=== PATIENT | male | born 1940 | race Caucasian/White ===

== ENCOUNTER 2016-07-18 05:58 | Day surgery (SDC) | payer OTHER, MEDICARE ==
[2016-07-14 11:30] VITALS: BMI 23.8
[2016-07-18] MEDS ORDERED: SODIUM CHLORIDE 0.9% 1,000 ML in EMPTY BAG 1 BAG IV ONE (06:00)
[2016-07-18] MEDS ORDERED: NITROGLYCERIN SL TABS 0.4 MG TAB SUBLINGUAL PRN ×2 (06:00→09:14)
[2016-07-18] MEDS ORDERED: ATORVASTATIN 80 MG TAB PO STA (06:00)
[2016-07-18] MEDS ORDERED: ASPIRIN 325 MG TAB PO STA (06:00)
[2016-07-18] MEDS ORDERED: ALPRAZolam 0.25 MG TAB PO PRN (06:00)
[2016-07-18] MEDS ORDERED: ALPRAZolam 0.5 MG TAB PO PRN (06:00)
[2016-07-18 06:31] LABS: Basophils % (A) 0 %; CHCM 33.2; Eosinophils # (A) 0.3 k/uL (0-0.7); Eosinophils % (A) 6 %; HCT 43.7 % (39.0-53.0); HGB 14.3 gm/dL (13.0-17.5); Luc # (Auto) 0.09; Luc % (Auto) 2; Lymphocytes # (A) 1.1 k/uL (1.0-4.8); Lymphocytes % (A) 26 %; MCH 30.6 pg (25.0-35.0); MCHC 32.6 g/dL (31.0-37.0); MCV 93.8 fL (80.0-100.0); Mean Platelet Volume 7.1; Monocytes # (A) 0.3 k/uL (0-1.0); Monocytes % (A) 8 %; Neutrophils # (A) 2.4 k/uL (1.3-7.7); Neutrophils % (A) 57 %; RBC 4.66 m/uL (4.30-5.90); WBC 4.2 k/uL (3.8-10.6); WBC (Perox) 4.26
[2016-07-18 06:43] LABS: Anion Gap 12 mmol/L; Blood Urea Nitrogen 18 mg/dL (9-20); Calcium 9.1 mg/dL (8.4-10.2); Carbon Dioxide 28 mmol/L (22-30); Chloride 103 mmol/L (98-107); Glucose 95 mg/dL (74-99); Non-African American GFR(MDRD) >60 (>60 ml/min/1.73 sqM); Potassium 3.9 mmol/L (3.5-5.1); Sodium 143 mmol/L (137-145)
[2016-07-18] MEDS ORDERED: SODIUM CHLORIDE 0.9% (PF) 10 ML VIAL ONE ×2 (07:18→07:49)
[2016-07-18] MEDS ORDERED: LIDOCAINE 2% INJ 20 MG/ML (20 ML MDV) ONE (07:18)
[2016-07-18] MEDS ORDERED: VERAPAMIL 2.5 MG/ML 2 ML AMP ONE ×2 (07:18→07:49)
[2016-07-18] MEDS ORDERED: fentaNYL (PF) 50 MCG/ML 2 ML AMP ONE (07:19)
[2016-07-18] MEDS ORDERED: diphenhydrAMINE 50 MG/ML 1 ML VIAL ONE (07:19)
[2016-07-18] MEDS ORDERED: fentaNYL (PF) 50 MCG/ML 2 ML AMP IV ONE (07:32)
[2016-07-18] MEDS ORDERED: diphenhydrAMINE 50 MG/ML 1 ML VIAL IVP ONE (07:32)
[2016-07-18] MEDS ORDERED: LIDOCAINE 2% INJ 20 MG/ML SQ ONE (07:37)
[2016-07-18] MEDS: VERAPAMIL SYRINGE (5 MG/10 ML) INTRAARTER ONE ×2 (07:38→07:45)
[2016-07-18] MEDS ORDERED: MIDAZOLAM 2 MG/2 ML VIAL ONE (07:47)
[2016-07-18] MEDS ORDERED: MIDAZOLAM 2 MG/2 ML VIAL IVP ONE (07:49)
[2016-07-18] MEDS ORDERED: BIVALIRUDIN BOLUS 250 MG/50 ML IV ONE (07:57)
[2016-07-18] MEDS ORDERED: CLOPIDOGREL 75 MG TAB ONE (07:58)
[2016-07-18] MEDS ORDERED: BIVALIRUDIN 250 MG in SODIUM CHLORIDE 0.9% 50 ML IV ONE (07:58)
[2016-07-18] MEDS ORDERED: CLOPIDOGREL 75 MG TAB PO ONE (08:02)
[2016-07-18] MEDS ORDERED: NITROGLYCERIN 1000MCG/10ML SYRINGE INTRACORON ONE (08:05)
[2016-07-18] MEDS ORDERED: IOHEXOL 350 MG/ML 100 ML BOTTLE INJ ONE (09:00)
[2016-07-18] MEDS ORDERED: ZOLPIDEM 5 MG TAB PO PRN (09:14)
[2016-07-18] MEDS ORDERED: RX INFO: IV CONTRAST WAS GIVEN 1 EACH MISC MISCELLANE PRN (09:14)
[2016-07-18] MEDS ORDERED: MAG HYDROX/AL HYDROX/SIMETH 30 ML CUP PO PRN (09:14)
[2016-07-18] MEDS ORDERED: SODIUM CHLORIDE 0.9% 1,000 ML IV SCH (09:15)
[2016-07-18] MEDS ORDERED: HYDROcodone/APAP 10-325MG 1 EACH TAB PO PRN (09:16)
[2016-07-18] MEDS ORDERED: ARTIFICIAL TEARS-HYPROMELLOSE DROPS 15 ML BTL BOTH EYES PRN (09:16)
[2016-07-18] MEDS ORDERED: MELATONIN 5 MG TABLET PO PRN (09:16)
--- NOTE | 2016-07-18 09:31 | CC ---
DATE OF SERVICE: Mr. Snell is a 75-year-old male with known history of hypertension, family history of coronary artery disease, history of mitral valve repair in 2002 who recently was found to have significant impairment in the left ventricular systolic function by EKG SPECT images with a reversible apical defect. In view of that, recommendation was made regarding cardiac catheterization. The procedure as well as risks and complications were discussed with the patient who is in full understanding and agreement. PROCEDURE: The patient was brought to the chemistry laboratory technician in fasting semi-sedated state after receiving fentanyl and Benadryl. He was draped and prepped in conventional fashion. Using Xylocaine anesthesia and Seldinger technique, a 6-Nepalese sheath was introduced in right radial artery. Selective right and left coronary angiography was performed using 5-Nepalese, 3-1/2 Bend right and left Miah catheters and a 6-Nepalese Willard catheter. Images of the coronary arteries were obtained. Following that, catheter removed. Images were reviewed. FINDINGS: LEFT MAIN: This is a short-sized vessel trifurcating into left circumflex, left anterior descending artery. The left main coronary artery is without any significant obstructive disease. LEFT ANTERIOR DESCENDING ARTERY: This is a large-size vessel proximally reaches towards the apex tapers down distally, giving rise to moderately sized diagonal branch in the mid segment. The vessel is mildly calcified in the mid segment and proximally has a 99% stenosis. Beyond that, there is intimal disease without high-grade stenosis. LEFT CIRCUMFLEX: This is a small size vessel, giving rise to one obtuse marginal branch. The left circumflex proximally has a 99% stenosis. The rest of the vessel has no high-grade stenosis. RAMUS INTERMEDIUS: This is a large size vessel reaching toward the apical lateral wall. The ramus intermedius proximally has a 70% stenosis. The rest of the vessel has no high-grade stenosis. RIGHT CORONARY ARTERY: This is a large dominant vessel, bifurcating distally into PDA and posterolateral segment and branches. The right coronary artery has diffuse intimal disease without any evidence of high-grade stenosis. LEFT VENTRICULOGRAM: Left ventriculogram was not performed. CONCLUSION: 1. Critical stenosis involving the proximal LAD. 2. Significant stenosis involving the ramus intermedius and the proximal left circumflex. 3. Mild disease in the right coronary artery. RECOMMENDATIONS: In view of finding anatomy, I recommend proceeding with angioplasty and stenting. The procedure as well as risks and complications were discussed with the patient who is in full understanding and agreement. DARIANA
--- NOTE | 2016-07-18 09:39 | PTCA ---
DATE OF SERVICE: Mr. Snell is a 75-year-old male with a known history of mitral valve repair who presented with evidence of significant cardiomyopathy and progressive dyspnea underwent cardiac catheterization, was found to have critical stenosis involving the LAD, ramus intermedius and the left circumflex. Recommendation was made regarding angioplasty and stenting. The procedure as well as risks and complications were discussed with the patient who is in full understanding and agreement. PROCEDURE: A 6-Turkish EBU 3.75 guiding catheter was introduced in the system. After cannulating the left main, a 0.014 balanced medium weight J-wire was advanced across the lesion, positioned distally then a 2.5 x 12 mm Trek balloon was advanced and multiple inflations maximum of 10 atmospheres were done. Following that, the balloon was removed and a 2.75 x 23 mm Xience Alpine stent was deployed, postdilated at 14 atmospheres. Following that, the balloon was removed and a 3.0 x 15 mm Xience Alpine stent was deployed proximal to the first one, it is postdilated to 14 atmospheres. Then an inflation in the overlap segment at 16 atmospheres was done. Following that, the balloon and the guidewire were withdrawn back in the guiding catheter. Images were obtained and repeated. Those images reveal stable successful stenting. At that point, the wire was introduced in the ramus intermedius and after positioned distally a 2.5 x 12 mm Xience Alpine stent was advanced deployed and postdilated at 14 atmospheres. Following that, the balloon and the guidewire were withdrawn back in the guiding catheter. Images were obtained and repeated. Those images reveal stable successful stenting. At that point, using the help of a Finecross 90 degree catheter, the BMW J-wire was advanced into the distal left circumflex and a 2.5 x 12 mm Trek balloon was advanced, one inflation at 8 atmospheres was done. Following that, the balloon was removed and a 2.5 x 12 mm Xience Alpine stent was deployed, postdilated at 14 atmospheres. After the last inflation, after appropriate wait, the balloon, the guidewire and the guiding catheter were removed. The sheath was removed. Hemostasis was obtained with deployment of a TR band. There were no complications. Patient is returned to his room in stable condition. Of note, the patient received Angiomax per protocol as well as oral loading dose of clopidogrel. He had no chest discomfort or significant EKG changes with the inflation. RESULT: 1. Successful stenting of the proximal left anterior descending artery with reduction in stenosis from 99% to 0%. 2. Successful stenting of the proximal ramus intermedius with reduction in stenosis from 70% to 0%. 3. Successful stenting of the proximal left circumflex with reduction in stenosis from 99% to 0%. RECOMMENDATIONS: Patient will be continued on aspirin Plavix, beta adithya, JUSTINE inhibitor and statin. The importance of dual antiplatelet treatment was discussed with the patient and his family who are in full understanding and agreement. His left ventricular systolic function will be followed closely and depending on the recovery of the left ventriculogram, further recommendation will be made. Those findings and recommendations were discussed with the patient.
--- NOTE | 2016-07-18 09:43 | LTR ---
July 18, 2016 AYANNA COON MD RE: Sharan Snell Dear Dr. Coon: I had the opportunity to perform cardiac catheterization and coronary angioplasty and stenting on Mr. Snell at [facility] on the july and a full copy of the procedure note will be forwarded to you. In brief, he was found to have evidence of significant obstructive disease involving the LAD, ramus intermedius and the left circumflex. He underwent stenting of those vessels using a drug-eluting stent. I am hopeful that this procedure will stabilize his status and close follow up of his left ventriculogram will be needed to see if there is an improvement and if he qualifies for an ICD implantation. I will keep you updated on his progress. Thank you again for allowing me the opportunity to participate in his care. Please feel free to call for any questions. Sincerely yours, MICHELLE GILBERT MD
[2016-07-18 11:11] VITALS: RESP 18
[2016-07-18] MEDS: LISINOPRIL 5 MG TAB PO SCH (20:31)
[2016-07-19 06:38] LABS: Anion Gap 8 mmol/L; Blood Urea Nitrogen 15 mg/dL (9-20); Calcium 8.3 mg/dL (8.4-10.2); Carbon Dioxide 28 mmol/L (22-30); Chloride 104 mmol/L (98-107); Glucose 73 mg/dL (74-99); Non-African American GFR(MDRD) >60 (>60 ml/min/1.73 sqM); Sodium 140 mmol/L (137-145)
--- NOTE | 2016-07-19 07:51 | PN ---
Mr. Snell is a 75-year-old male with known history of mitral valve repair who recently was found to have evidence of ischemic cardiomyopathy with segmental wall motion abnormality on echocardiogram as well as evidence of inducible ischemia. He underwent cardiac catheterization, was found to have critical stenosis involving the LAD, ramus intermedius and the left circumflex, underwent stenting of the those vessels. He is doing well this morning, denying any chest pain, ambulating without difficulty. Denies any dizziness, palpitation. Continued to be on aspirin once a day, Lipitor 40 mg daily, Plavix 75 mg daily, lisinopril 5 mg twice a day, metoprolol succinate 25 mg daily. PHYSICAL EXAMINATION: Blood pressure 124/50 with a heart rate in 60s. LUNGS: Clear. HEART: Regular rate and rhythm. S1 and S2, no S3, with systolic murmur. No diastolic murmur. ABDOMEN: Soft, nontender. EXTREMITIES: No edema. Right radial pulse intact. Lab data revealed BUN and creatinine 15 and 0.9. Potassium 4.0. IMPRESSION: 1. Triple vessel coronary artery disease with stenting using a drug-eluting stent. 2. Cardiomyopathy. 3. Status post mitral valve repair. RECOMMENDATIONS: Patient will be discharged home today and followed as an outpatient. A repeat echocardiogram will be done to further evaluate the left ventricular systolic function and guide his treatment.
[2016-07-19] MEDS: LISINOPRIL 5 MG TAB PO SCH (08:15)
[2016-07-19 08:19] VITALS: BP 117/59; PULSE 58; TEMP 97.5
[2016-07-19] MEDS ORDERED: MULTIVITAMINS, THERA 1 EACH TAB PO SCH (09:00)
[2016-07-19] MEDS ORDERED: ZINC GLUCONATE 50 MG TAB PO SCH (09:00)
[2016-07-19] MEDS ORDERED: CLOPIDOGREL 75 MG TAB PO SCH (09:00)
[2016-07-19] MEDS ORDERED: NON-FORMULARY DRUG (Flaxseed Oil [Omega-3 Flaxseed Oil] 1,000 MG) PO SCH (09:00)
[2016-07-19] MEDS ORDERED: LORATADINE 10 MG TAB PO SCH (09:00)
[2016-07-19] MEDS ORDERED: ASPIRIN 81 MG CHEW PO SCH (09:00)
[2016-07-19] MEDS ORDERED: METOPROLOL SUCCINATE (ER) 25 MG TAB.ER.24H PO SCH (09:00)
[2016-07-19] MEDS ORDERED: ATORVASTATIN 40 MG TAB PO SCH (09:00)
[2016-07-19] MEDS ORDERED: NON-FORMULARY DRUG (Omega-3 Fatty Acids/Fish Oil [Fish Oil 1,000 Mg Softgel] 1 CAP) PO SCH (09:00)
[2016-07-19] MEDS ORDERED: CHOLECALCIFEROL 1,000 UNIT TAB PO SCH (09:00)
== END 2016-07-19 10:25 | disposition home or self-care (01) ==
LOC: CATHCVL 05:58 → 6SEL 08:53 → CATHCVL 07-19 10:25
PROVIDERS: ATTEND Internal Medicine Interventional Cardiology
DX: I25.10 Atherosclerotic heart disease of native coronary artery without angina pectoris (principal); I10 Essential (primary) hypertension; Z82.49 Family history of ischemic heart disease and other diseases of the circulatory system; Z86.73 Personal history of transient ischemic attack (TIA), and cerebral infarction without residual deficits; Z95.2 Presence of prosthetic heart valve; E78.2 Mixed hyperlipidemia; Z87.891 Personal history of nicotine dependence; Z79.82 Long term (current) use of aspirin; Z79.899 Other long term (current) drug therapy
CPT/HCPCS: 93454; 85347; 80048 ×2; 85025; C9600 ×3; C1769 ×4; C1887 ×2; C1894; C1725; C1874; J2001; J2250; J1200; Q9967; J3010; J0583

== ENCOUNTER → 2017-11-02 | Outpatient (CLI) | payer OTHER ==
--- NOTE | 2017-11-02 14:34 | MR ---
MRI CERVICAL SPINE: CLINICAL HISTORY: Cervicalgia per order. Neck pain for 15 years per patient. TECHNIQUE: Multiplanar, multisequence imaging of the cervical spine is performed without and with IV contrast, 7.5 cc of gadolinium was given intravenously. COMPARISON: MRI cervical spine June 23, 2016 FINDINGS: Sagittal images of the cervical spine show the craniocervical junction to remain within nor mal limits. The cervical and upper thoracic spinal cord is normal in course, caliber, and signal in the cervical spine. There is some diminished AP diameter at T3-T4 level due to disc herniation sagitt al image 7 . This was partially imaged on prior study. Vertebral alignment is stable and straightene d. The vertebral body heights are normal. There is advanced disc space narrowing and spurring C3-C4 and C4-C5 levels. There is advanced anterior spurring C5-C6 level with posterior disc herniation. The re is moderate disc space narrowing C6-C7 level. There is effacement of anterior thecal sac and nearl y all cervical levels redemonstrated. The bone marrow signal intensity redemonstrates marked overall heterogeneity. No suspicious enhancement is seen. Axial images show the C2-C3 level to redemonstrate uncovertebral facet degenerative changes bilateral ly with asymmetric mild right-sided neural foraminal narrowing. Left-sided neural foramen is patent. There is persistent small central disc protrusion mildly effacing anterior thecal sac. No significant change from prior. Axial images at C3-C4 level show left paracentral spurring effacing anterior thecal sac up to ventral surface of spinal cord and causing moderate to advanced left-sided neural foraminal narrowing. There is mild right-sided neural foraminal narrowing seen. Uncovertebral facet degenerative changes bilate rally are present. Axial images at C4-C5 level show broad-based posterior spurring effacing anterior thecal sac up to ve ntral surface of spinal cord causing moderate bilateral neural foraminal narrowing. No significant ch esequiel from prior study is identified. Axial images at C5-C6 level show posterior spur disc complex effacing anterior thecal sac nearly up t o ventral surface of spinal cord and causing moderate to advanced bilateral neural foraminal narrowin g. No significant change from prior study is identified. Axial images at C6-C7 level show broad-based left paracentral disc protrusion effacing anterior theca l sac nearly up to ventral surface of spinal cord axial image 26, there is mild right greater than le ft neural foraminal narrowing at this level identified due to marginal spurring. Axial images at C7-T1 level are felt within normal limits. IMPRESSION: Extensive fairly advanced multilevel degenerative change redemonstrated without significa nt change or progression from prior MRI. Further details are noted as discussed above.
== END | disposition home or self-care (01) ==
LOC: RADMRIMAIN 13:10
PROVIDERS: ATTEND Family Medicine
DX: M48.02 Spinal stenosis, cervical region (principal); M47.812 Spondylosis without myelopathy or radiculopathy, cervical region; M46.02 Spinal enthesopathy, cervical region; M99.71 Connective tissue and disc stenosis of intervertebral foramina of cervical region; M50.20 Other cervical disc displacement, unspecified cervical region
CPT/HCPCS: 72156; A9581

== ENCOUNTER 2018-03-27 08:45 | Day surgery (SDC) | payer OTHER ==
[2018-03-22 14:28] VITALS: BMI 24.3
[~2018-03-27 08:45] MED LIST: HEPARIN SODIUM,PORCINE 5,000 UNIT/ML 1 ML VIAL SQ ONE; HYDROmorphone 0.5 MG/0.5 ML SYRINGE IVP PRN; LIDOCAINE 1% 20 ML VIAL (10MG/ML) FOR IV START INTRADERMA PRN; ceFAZolin IN SWFI 2 GM/20 ML SYRINGE IVP ONE
[2018-03-27] MEDS: LACTATED RINGERS 1,000 ML IV SCH (10:44)
[2018-03-27] MEDS ORDERED: LIDOCAINE 1% 20 ML VIAL (10MG/ML) FOR IV START INTRADERMA ONE (10:45)
[2018-03-27] MEDS ORDERED: DEXAMETHASONE SOD PHOSPHATE 10 MG/ML 1 ML VIAL IV ONE (10:53)
[2018-03-27] MEDS ORDERED: ONDANSETRON 4 MG/2 ML VIAL IVP ONE (10:53)
[2018-03-27] MEDS ORDERED: MIDAZOLAM 2 MG/2 ML VIAL IVP ONE (11:21)
--- NOTE | 2018-03-27 11:21 | P.GSHP ---
History of Present Illness H&P Date: 03/27/18 Chief Complaint: Right inguinal hernia This a 77-year-old male who presents today for laparoscopic robotic-assisted repair of right inguinal hernia. Patient seen Shabnam found have a right inguinal hernia. Patient has complaints of pain in his right groin. Past Medical History Past Medical History: Coronary Artery Disease (CAD), Cancer, CVA/TIA, Myocardial Infarction (OR), Osteoarthritis (OA), Skin Disorder Additional Past Medical History / Comment(s): stroke 01/2016-some general muscle loss, OR on stress test, constipation, arthritis in neck, basal cell cancer, bleeds easily with cuts, has crushed vertebra in neck Last Myocardial Infarction Date:: unknown History of Any Multi-Drug Resistant Organisms: None Reported Past Surgical History: Heart Catheterization With Stent, Tonsillectomy Additional Past Surgical History / Comment(s): mitral valve repair 2002. total 5 cardiac stents, clara cataracts with lens implants, Past Anesthesia/Blood Transfusion Reactions: No Reported Reaction Additional Past Anesthesia/Blood Transfusion Reaction / Comment(s): car sickness as child, " i seem to need more oxygen" with anesthesia. denies any diff with past intubation Date of Last Stent Placement:: 07/2016 Past Psychological History: No Psychological Hx Reported Smoking Status: Former smoker Past Alcohol Use History: None Reported Additional Past Alcohol Use History / Comment(s): SMOKED AT AGE 20, SMOKED 1/2 PPD, QUIT 2002. Past Drug Use History: None Reported - Past Family History Mother Family Medical History: No Reported History Medications and Allergies Home Medications Medication Instructions Recorded Confirmed Type HYDROcodone/APAP 10-325MG [[place] 1 tab PO BID 06/08/16 03/27/18 History 10-325] Zolpidem [Ambien] 10 mg PO HS 06/08/16 03/27/18 History Aspirin 81 mg PO DAILY 07/14/16 03/27/18 History Atorvastatin Calcium [Lipitor] 40 mg PO DAILY 07/14/16 03/27/18 History Metoprolol Succinate (ER) [Toprol 12.5 mg PO BID 07/14/16 03/27/18 History XL] Clopidogrel [Plavix] 75 mg PO DAILY #90 tab 07/19/16 03/22/18 Rx Lisinopril [Zestril] 5 mg PO BID #180 tab 07/19/16 03/27/18 Rx Nitroglycerin Sl Tabs [Nitrostat] 0.4 mg SUBLINGUAL Q5M PRN #25 tab 07/19/16 Rx Miralax(Dose Unkown) 1 applicate PO DIRECTED 03/22/18 03/27/18 History Allergies Allergy/AdvReac Type Severity Reaction Status Date / Time No Known Allergies Allergy Verified 03/22/18 14:08 Surgical - Exam Vital Signs Temp Pulse Resp BP Pulse Ox 98.0 F 58 L 18 162/79 98 03/27/18 10:15 03/27/18 10:15 03/27/18 10:15 03/27/18 10:15 03/27/18 10:15 - General well developed, well nourished, no distress - Eyes PERRL - ENT normal pinna - Neck no masses - Respiratory normal expansion, normal respiratory effort - Cardiovascular Rhythm: regular - Abdomen Abdomen: non tender Hernia: inguinal (Right inguinal hernia) Assessment and Plan Assessment: We will hernia. We'll perform laparoscopic robotic system repair.
[2018-03-27] MEDS ORDERED: NEOSTIGMINE 1 MG/ML 10 ML VIAL ONE (11:52)
[2018-03-27] MEDS ORDERED: ePHEDrine SULFATE/0.9% NACL/PF 50 MG/5 ML SYRINGE IV ONE (11:52)
[2018-03-27] MEDS ORDERED: SUCCINYLCHOLINE CHLORIDE 100 MG/5 ML SYR IV ONE (11:52)
[2018-03-27] MEDS ORDERED: ROCURONIUM BROMIDE 10 MG/ML 10 ML VIAL IV ONE (11:52)
[2018-03-27] MEDS ORDERED: ROPIVACAINE 5 MG/ML 30 ML VIAL ONE (11:52)
[2018-03-27] MEDS ORDERED: LIDOCAINE 1% INJ 10MG/ML (20 ML MDV) ONE (11:52)
[2018-03-27] MEDS ORDERED: KETOROLAC 30 MG/ML 1 ML VIAL ONE (11:52)
[2018-03-27] MEDS ORDERED: fentaNYL (PF) 50 MCG/ML 2 ML AMP ONE (11:52)
[2018-03-27] MEDS ORDERED: GLYCOPYRROLATE 0.2 MG/ML 2 ML VIAL ONE (11:52)
[2018-03-27] MEDS ORDERED: PROPOFOL 10 MG/ML 20 ML VIAL IV ONE (11:52)
[2018-03-27] MEDS ORDERED: BUPIVACAIN-EPI 0.5%-1:200,000 30 ML VIAL SQ ONE (12:18)
[2018-03-27 13:26] VITALS: TEMP 97.2
--- NOTE | 2018-03-27 14:13 | P.ONQ ---
Anesthesiology Proc Note - PNB - Peripheral Nerve Block Performed Bilateral Transversus Abdominis Single Time Out Performed: Yes Procedure Start Time: Procedure Stop Time: Indication: Acute Post-Operative Pain, Requested by physician Sedation Type: Sedate with meaningful contact maintained Preparation: Sterile Prep Position: Supine Needle Size: 50mm (2") Needle Gauge: 21 Technique: Ultrasound Injectate: 0.5% Ropivacaine (see comment for volume) (ropi .5% 15cc) Blood Aspirated: No Pain Paresthesia on Injection Noted: No Resistance on Injection: Normal Events: Uneventful and Well Tolerated
[2018-03-27 14:50] VITALS: BP 146/79; PULSE 83; RESP 16
[2018-03-27] MEDS ORDERED: HYDROcodone/APAP 7.5-325MG 1 EACH TAB PO ONE (14:53)
--- NOTE | 2018-03-27 14:55 | P.OP ---
Date of Procedure: 03/27/18 Preoperative Diagnosis: Right inguinal hernia Postoperative Diagnosis: Right lower hernia Incarcerated umbilical hernia Procedure(s) Performed: Laparoscopic robotic system repair of radial hernia Laparoscopic repair of incarcerated umbilical hernia Anesthesia: TIMMY Surgeon: Wallace Adamson Estimated Blood Loss (ml): 5 Pathology: other (Omentum) Condition: stable Disposition: PACU Description of Procedure: The patient was placed on the operating table in the supine position. The patient received general anesthesia. The patient's abdomen was prepped and draped in usual sterile fashion. The skin was anesthetized 1% local Xylocaine at the incision sites. Using an 11 blade a skin incision was made at the umbilicus. The patient had a small umbilical hernia. A small piece incarcerated subcutaneous fat was removed the hernia. The fascia was grasped with a Colette and then the peritoneal cavity was entered with the Veress needle. Position of the Veress needle was confirmed with a positive drop test. After adequate insufflation a 5 mm trocar was placed into the peritoneal cavity. The Laparoscope was placed the peritoneal cavity. And a robotic 8 mm trocar was placed in the right lateral position and then another 8 mm robotic trochars placed in the left lateral position. The original 5 mm trocar was exchanged for a 12 mm trocar. The patient was placed in reverse Trendelenburg and then the patient was docked to the robot. Next the peritoneum over top of the hernia was incised and then using blunt and sharp dissection and electrocautery the hernia sac was dissected free from the floor of the inguinal canal. The hernia sac was completely reduced into the peritoneal cavity. And then using the Pro chief compressor station engineer mesh the hernia was repaired. The peritoneum was then sutured with 2-0V lock suture. The patient was then undocked the robot. The needle was withdrawn from the peritoneal cavity. The umbilical hernia site was closed with 0 Ethibond suture. The skin was closed interrupted 3-0 Monocryl suture. Dermabond dressing was applied. Patient was sent to recovery in stable condition.
== END 2018-03-27 15:33 | disposition home or self-care (01) ==
LOC: OR 08:45
PROVIDERS: ATTEND Surgery
DX: K40.90 Unilateral inguinal hernia, without obstruction or gangrene, not specified as recurrent (principal); K42.0 Umbilical hernia with obstruction, without gangrene; I25.10 Atherosclerotic heart disease of native coronary artery without angina pectoris; I10 Essential (primary) hypertension; E78.2 Mixed hyperlipidemia; Z87.891 Personal history of nicotine dependence; Z82.49 Family history of ischemic heart disease and other diseases of the circulatory system; M19.90 Unspecified osteoarthritis, unspecified site; Z85.828 Personal history of other malignant neoplasm of skin; Z98.890 Other specified postprocedural states; I69.398 Other sequelae of cerebral infarction; I25.2 Old myocardial infarction; Z95.5 Presence of coronary angioplasty implant and graft; Z79.02 Long term (current) use of antithrombotics/antiplatelets; Z79.82 Long term (current) use of aspirin; Z79.891 Long term (current) use of opiate analgesic; Z79.899 Other long term (current) drug therapy
CPT/HCPCS: 49650; 49653; 64488; S2900; 88302

== ENCOUNTER 2018-04-08 13:53 | Inpatient (IN) | payer OTHER, MEDICARE ==
[2018-04-08] MEDS ORDERED: SODIUM CHLORIDE 0.9% 1,000 ML IV STA ×2 (14:07)
--- NOTE | 2018-04-08 14:12 | ED ---
Weakness HPI - General Stated complaint: Altered, Weakness Time Seen by Provider: 04/08/18 13:53 Source: patient, family, EMS, RN notes reviewed Mode of arrival: EMS - History of Present Illness Initial comments: This is a 77-year-old male with a history of having a right inguinal hernia repair done laparoscopically on March 27 who is had progressive weakness since that time he is getting more weak decreased oral intake index and a toilet and could not get up. No nausea no vomiting he states she's had decreased urine output was district over last day and a half. He also has some episodes of some confusion. No other reported complaints this time. He does have some abdominal distention and some tenderness near the surgical sites. MD Complaint: generalized weakness - Related Data Home Medications Medication Instructions Recorded Confirmed Zolpidem [Ambien] 10 mg PO HS 06/08/16 04/08/18 Aspirin 81 mg PO DAILY 07/14/16 04/08/18 Atorvastatin Calcium [Lipitor] 40 mg PO DAILY 07/14/16 04/08/18 Metoprolol Succinate (ER) [Toprol 12.5 mg PO BID 07/14/16 04/08/18 XL] Polyethylene Glycol 3350 [Miralax] 17 gm PO DAILY 04/08/18 04/08/18 Previous Rx's Medication Instructions Recorded Clopidogrel [Plavix] 75 mg PO DAILY #90 tab 07/19/16 Lisinopril [Zestril] 5 mg PO BID #180 tab 07/19/16 Nitroglycerin Sl Tabs [Nitrostat] 0.4 mg SUBLINGUAL Q5M PRN #25 tab 07/19/16 Docusate [Colace] 100 mg PO BID #20 capsule 03/27/18 HYDROcodone/APAP 7.5-325MG [Washta 1 tab PO Q4H PRN 3 Days #18 tab 03/27/18 7.5-325] Allergies Allergy/AdvReac Type Severity Reaction Status Date / Time No Known Allergies Allergy Verified 04/08/18 14:23 Review of Systems ROS Statement: Those systems with pertinent positive or pertinent negative responses have been documented in the HPI. ROS Other: All systems not noted in ROS Statement are negative. Past Medical History Past Medical History: Coronary Artery Disease (CAD), Cancer, CVA/TIA, Myocardial Infarction ([place]), Osteoarthritis (OA), Skin Disorder Additional Past Medical History / Comment(s): stroke 01/2016-some general muscle loss, [place] on stress test, constipation, arthritis in neck, basal cell cancer, bleeds easily with cuts, has crushed vertebra in neck Last Myocardial Infarction Date:: unknown History of Any Multi-Drug Resistant Organisms: None Reported Past Surgical History: Heart Catheterization With Stent, Tonsillectomy Additional Past Surgical History / Comment(s): mitral valve repair 2002. total 5 cardiac stents, clara cataracts with lens implants, Past Anesthesia/Blood Transfusion Reactions: No Reported Reaction Additional Past Anesthesia/Blood Transfusion Reaction / Comment(s): car sickness as child, " i seem to need more oxygen" with anesthesia. denies any diff with past intubation Date of Last Stent Placement:: 07/2016 Past Psychological History: No Psychological Hx Reported Smoking Status: Former smoker Past Alcohol Use History: None Reported Additional Past Alcohol Use History / Comment(s): SMOKED AT AGE 20, SMOKED 1/2 PPD, QUIT 2002. Past Drug Use History: None Reported - Past Family History Mother Family Medical History: No Reported History General Exam - General Exam Comments Initial Comments: This is a well developed well-nourished awake alert somewhat lethargic male General appearance: alert, in no apparent distress Head exam: Present: atraumatic, normocephalic, normal inspection Eye exam: Present: normal appearance, PERRL, EOMI. Absent: scleral icterus, conjunctival injection, periorbital swelling ENT exam: Present: mucous membranes dry Neck exam: Present: normal inspection. Absent: tenderness, meningismus, lymphadenopathy Respiratory exam: Present: normal lung sounds bilaterally. Absent: respiratory distress, wheezes, rales, rhonchi, stridor Cardiovascular Exam: Present: regular rate, normal rhythm, normal heart sounds. Absent: systolic murmur, diastolic murmur, rubs, gallop, clicks GI/Abdominal exam: Present: soft, distended (Distended bladder the surgical port appear to be healing well there is some ecchymosis seen over the lower abdomen adjacent to the sites no evidence of wound dehiscence.), tenderness, normal bowel sounds. Absent: guarding, rebound, rigid Rectal exam: Present: deferred exam: Present: other (Some evidence of penile and scrotal ecchymosis no masses minimal tenderness palpation no discharge.) Extremities exam: Present: normal inspection, full ROM, normal capillary refill. Absent: tenderness, pedal edema, joint swelling, calf tenderness Back exam: Present: normal inspection Neurological exam: Present: alert, oriented X3, CN II-XII intact Psychiatric exam: Present: normal affect, normal mood Skin exam: Present: warm, dry, intact. Absent: normal color, rash Course Vital Signs 04/08/18 04/08/18 04/08/18 14:07 14:10 15:10 Temperature 98.6 F Pulse Rate 75 74 97 Respiratory 16 18 18 Rate Blood Pressure 159/70 186/78 149/67 O2 Sat by Pulse 98 97 97 Oximetry 04/08/18 04/08/18 04/08/18 15:25 15:32 15:35 Temperature Pulse Rate 79 94 92 Respiratory 18 Rate Blood Pressure 188/79 O2 Sat by Pulse 99 Oximetry - Reevaluation(s) Reevaluation #1: 04/08/18 16:33 The patient did require Vora catheter and he did have L Closs of urine removed he did become tachycardic but maintains blood pressure. The EKG showed a heart rate 138. Interval 160 QRS duration 86 QT since QTC 296/448 similar configuration to the prior EKG with poor R-wave progression and nonspecific T waves. Reevaluation #2: 04/08/18 16:52 I did reevaluate the patient remains awake alert oriented history is somewhat tachycardic. I did discuss the case with Dr. Laguna who is covering Dr. Jansen. Dr. Streeter will be admitted physician and consultation will be made to nephrology EKG Findings - EKG Results: EKG: interpreted by MANUEL, sinus rhythm (Sinus rhythm of 74 OH interval 206 QRS 102 QT since QTC 396/439 low-voltage, poor R-wave progression nonspecific anterior changes nonspecific T-wave configuration) Medical Decision Making - Lab Data Result diagrams: 04/08/18 14:21 04/08/18 14:21 Lab Results 04/08/18 04/08/18 04/08/18 Range/Units 14:21 14:21 14:21 WBC 13.5 H (3.8-10.6) k/uL RBC 4.35 (4.30-5.90) m/uL Hgb 13.7 (13.0-17.5) gm/dL Hct 40.7 (39.0-53.0) % MCV 93.5 (80.0-100.0) fL MCH 31.5 (25.0-35.0) pg MCHC 33.6 (31.0-37.0) g/dL RDW 13.2 (11.5-15.5) % Plt Count 218 (150-450) k/uL Neutrophils % 91 % Lymphocytes % 4 % Monocytes % 4 % Eosinophils % 0 % Basophils % 0 % Neutrophils # 12.3 H (1.3-7.7) k/uL Lymphocytes # 0.5 L (1.0-4.8) k/uL Monocytes # 0.6 (0-1.0) k/uL Eosinophils # 0.1 (0-0.7) k/uL Basophils # 0.0 (0-0.2) k/uL Sodium 139 (137-145) mmol/L Potassium 8.6 H* (3.5-5.1) mmol/L Chloride 101 (98-107) mmol/L Carbon Dioxide 12 L (22-30) mmol/L Anion Gap 26 mmol/L BUN (9-20) mg/dL Creatinine 24.25 H* (0.66-1.25) mg/dL Est GFR (CKD-EPI)AfAm 2 (>60 ml/min/1.73 sqM) Est GFR (CKD-EPI)NonAf 2 (>60 ml/min/1.73 sqM) Glucose 110 H (74-99) mg/dL Calcium 7.9 L (8.4-10.2) mg/dL Magnesium 3.2 H (1.6-2.3) mg/dL Total Bilirubin 0.8 (0.2-1.3) mg/dL AST 19 (17-59) U/L ALT 12 L (21-72) U/L Alkaline Phosphatase 39 (38-126) U/L Total Creatine Kinase 612 H (55-170) U/L CK-MB (CK-2) 7.1 H (0.0-2.4) ng/mL CK-MB (CK-2) Rel Index 1.2 Troponin I 0.056 H* (0.000-0.034) ng/mL Total Protein 6.6 (6.3-8.2) g/dL Albumin 3.7 (3.5-5.0) g/dL Amylase 246 H (30-110) U/L Lipase 253 (23-300) U/L Urine Color Urine Appearance (Clear) Urine pH (5.0-8.0) Ur Specific Forgan (1.001-1.035) Urine Protein (Negative) Urine Glucose (UA) (Negative) Urine Ketones (Negative) Urine Blood (Negative) Urine Nitrite (Negative) Urine Bilirubin (Negative) Urine Urobilinogen (<2.0) mg/dL Ur Leukocyte Esterase (Negative) Urine RBC (0-5) /hpf Urine WBC (0-5) /hpf 04/08/18 Range/Units 14:21 WBC (3.8-10.6) k/uL RBC (4.30-5.90) m/uL Hgb (13.0-17.5) gm/dL Hct (39.0-53.0) % MCV (80.0-100.0) fL MCH (25.0-35.0) pg MCHC (31.0-37.0) g/dL RDW (11.5-15.5) % Plt Count (150-450) k/uL Neutrophils % % Lymphocytes % % Monocytes % % Eosinophils % % Basophils % % Neutrophils # (1.3-7.7) k/uL Lymphocytes # (1.0-4.8) k/uL Monocytes # (0-1.0) k/uL Eosinophils # (0-0.7) k/uL Basophils # (0-0.2) k/uL Sodium (137-145) mmol/L Potassium (3.5-5.1) mmol/L Chloride (98-107) mmol/L Carbon Dioxide (22-30) mmol/L Anion Gap mmol/L BUN (9-20) mg/dL Creatinine (0.66-1.25) mg/dL Est GFR (CKD-EPI)AfAm (>60 ml/min/1.73 sqM) Est GFR (CKD-EPI)NonAf (>60 ml/min/1.73 sqM) Glucose (74-99) mg/dL Calcium (8.4-10.2) mg/dL Magnesium (1.6-2.3) mg/dL Total Bilirubin (0.2-1.3) mg/dL AST (17-59) U/L ALT (21-72) U/L Alkaline Phosphatase (38-126) U/L Total Creatine Kinase (55-170) U/L CK-MB (CK-2) (0.0-2.4) ng/mL CK-MB (CK-2) Rel Index Troponin I (0.000-0.034) ng/mL Total Protein (6.3-8.2) g/dL Albumin (3.5-5.0) g/dL Amylase (30-110) U/L Lipase (23-300) U/L Urine Color Yellow Urine Appearance Clear (Clear) Urine pH 5.5 (5.0-8.0) Ur Specific Forgan 1.010 (1.001-1.035) Urine Protein Negative (Negative) Urine Glucose (UA) Negative (Negative) Urine Ketones Negative (Negative) Urine Blood Negative (Negative) Urine Nitrite Negative (Negative) Urine Bilirubin Negative (Negative) Urine Urobilinogen <2.0 (<2.0) mg/dL Ur Leukocyte Esterase Trace H (Negative) Urine RBC 3 (0-5) /hpf Urine WBC 5 (0-5) /hpf - Radiology Data Radiology results: report reviewed (I did review the imaging and report or is evidence of a possible posterior infiltrate), image reviewed Critical Care Time Critical Care Time: Yes Critical Care Time: 45 minutes of critical care time which includes monitoring EMS run history physical labs x-rays discussed with paramedics regarding the findings also reevaluation patient responsive therapy discuss with the patient family regarding findings discussion with the main physicians and documentation of the above. Disposition Clinical Impression: Acute renal failure (ARF), Hyperkalemia, Obstructive uropathy, Dehydration, Failure to thrive Disposition: ADMITTED IP TO THIS [facility] Condition: Serious Referrals: Jeremiah Jansen MD [Primary Care Provider] - 1-2 days
[2018-04-08 14:38] LABS: Basophils % (A) 0 %; Eosinophils # (A) 0.1 k/uL (0-0.7); Eosinophils % (A) 0 %; HCT 40.7 % (39.0-53.0); HGB 13.7 gm/dL (13.0-17.5); Lymphocytes # (A) 0.5 k/uL (1.0-4.8); Lymphocytes % (A) 4 %; MCH 31.5 pg (25.0-35.0); MCHC 33.6 g/dL (31.0-37.0); MCV 93.5 fL (80.0-100.0); Mean Platelet Volume 7.5; Monocytes # (A) 0.6 k/uL (0-1.0); Monocytes % (A) 4 %; Neutrophils # (A) 12.3 k/uL (1.3-7.7); Neutrophils % (A) 91 %; Platelet Count 218 k/uL (150-450); RBC 4.35 m/uL (4.30-5.90); RDW 13.2 % (11.5-15.5); WBC 13.5 k/uL (3.8-10.6)
[2018-04-08 14:42] LABS: Appearance,Urine Clear (Clear); Bilirubin,Urine Negative (Negative); Blood,Urine Negative (Negative); Color,Urine Yellow; Glucose,Urine (UA) Negative (Negative); Ketones,Urine Negative (Negative); Leukocyte Esterase,Urine Trace (Negative); Nitrite,Urine Negative (Negative); PH, Urine 5.5 (5.0-8.0); Protein,Urine Negative (Negative); RBC,Urine 3 /hpf (0-5); Urobilinogen,Urine <2.0 mg/dL (<2.0); WBC,Urine 5 /hpf (0-5)
[2018-04-08 14:53] LABS: Albumin 3.7 g/dL (3.5-5.0); Calcium 7.9 mg/dL (8.4-10.2); Total Bilirubin 0.8 mg/dL (0.2-1.3); Total Protein 6.6 g/dL (6.3-8.2)
[2018-04-08 15:04] LABS: Potassium 8.6 mmol/L (3.5-5.1)
[2018-04-08 15:05] LABS: Magnesium 3.2 mg/dL (1.6-2.3)
[2018-04-08] MEDS ORDERED: ALBUTEROL NEBULIZED 2.5 MG/3 ML INHALATION STA (15:06)
[2018-04-08] MEDS ORDERED: SODIUM CHLORIDE 0.9% 2,000 ML IV ONE (15:06)
--- NOTE | 2018-04-08 15:06 | XR ---
EXAMINATION TYPE: XR chest 2V DATE OF EXAM: 04/08/2018 COMPARISON: 06/08/2016 INDICATION: Cough TECHNIQUE: Frontal and lateral views of the chest are obtained. FINDINGS: The heart size is normal. The pulmonary vasculature is normal. Minimal infiltrate is at the left base.. The lateral projection there is increased density overlying the anterior portion of the spine. This likely is a posterior infiltrate may be a pneumonia. Follow- up is recommended IMPRESSION: 1. Suggestion of minimal subsegmental atelectasis just above the left diaphragm. A posterior infiltra te may be present on the lateral projection. Follow-up examinations are recommended.
[2018-04-08] MEDS ORDERED: INSULIN REGULAR 100 UNIT/ML VIAL IV ONE ×2 (15:07→19:29)
[2018-04-08] MEDS ORDERED: DEXTROSE 50%-WATER 50 ML SYRINGE IVP STA ×2 (15:07→19:29)
[2018-04-08] MEDS ORDERED: SODIUM POLYSTYRENE SULFONATE 15 GM/60 ML BOTTLE PO ONE (15:08)
[2018-04-08] MEDS ORDERED: CALCIUM CHLORIDE 100 MG/ML 10 ML SYRINGE IVP STA ×2 (15:09→19:29)
[2018-04-08 15:19] LABS: Creatine Kinase MB 7.1 ng/mL (0.0-2.4)
[2018-04-08 15:24] LABS: Troponin I 0.056 ng/mL (0.000-0.034)
[2018-04-08] MEDS ORDERED: NALOXONE 0.4 MG/ML 1 ML VIAL IV PRN (16:58)
[2018-04-08] MEDS ORDERED: ACETAMINOPHEN TAB 325 MG TAB PO PRN (16:58)
[2018-04-08] MEDS ORDERED: HYDROmorphone 1 MG/ML 1 ML SYRINGE IVP STA (17:18)
[2018-04-08] MEDS ORDERED: HYDROmorphone 1 MG/ML 1 ML SYRINGE IVP PRN (17:19)
[2018-04-08] MEDS ORDERED: NITROGLYCERIN SL TABS 0.4 MG TAB SUBLINGUAL PRN (17:24)
[2018-04-08] MEDS ORDERED: METOPROLOL SUCCINATE (ER) 25 MG TAB.ER.24H PO STA (17:27)
[2018-04-08] MEDS ORDERED: IOPAMIDOL-300 CONTRAST 30 ML VIAL (ORAL USE) PO PRN (17:28)
[2018-04-08] MEDS ORDERED: metroNIDAZOLE-NS PMX 500 MG in SALINE 1 100ML.BAG IVPB STA (17:34)
--- NOTE | 2018-04-08 17:34 | P.HPIM ---
History of Present Illness H&P Date: 04/08/18 Chief Complaint: Generalized weakness 77 year old male presented to the ED with his son complaining of generalized weakness. The patient had hernia surgery 12 days ago and states he has not been feeling well since that time. He states he has had diarrhea continuously since that time. He states he did feel like he had chills, but never checked his temperature. He states he has not urinated since prior to his surgery. He has had a poor appetite and has not had anything to eat or drink in several days. He is complaining of continued abdominal pain. He has a history of hypertension which he states is controlled. Upon arrival to the ED, the patient was found to have urinary retention, smith catheter was placed. He has been given 2L IVF. He was found to have creatinine 24.25 and BUN which is unmeasurable. Potassium is 8.6. He has been afebrile. He does have WBC count 13. His smith catheter bag has dark mehdi urine. The patient has been hypertensive. He does have a history of CAD and valve replacement in 2002. Review of Systems All systems: negative Past Medical History Past Medical History: Coronary Artery Disease (CAD), Cancer, CVA/TIA, Myocardial Infarction ([place]), Osteoarthritis ([place]), Skin Disorder Additional Past Medical History / Comment(s): stroke 01/2016-some general muscle loss, [place] on stress test, constipation, arthritis in neck, basal cell cancer, bleeds easily with cuts, has crushed vertebra in neck Last Myocardial Infarction Date:: unknown History of Any Multi-Drug Resistant Organisms: None Reported Past Surgical History: Heart Catheterization With Stent, Tonsillectomy Additional Past Surgical History / Comment(s): mitral valve repair 2002. total 5 cardiac stents, clara cataracts with lens implants, Past Anesthesia/Blood Transfusion Reactions: No Reported Reaction Additional Past Anesthesia/Blood Transfusion Reaction / Comment(s): car sickness as child, " i seem to need more oxygen" with anesthesia. denies any diff with past intubation Date of Last Stent Placement:: 07/2016 Past Psychological History: No Psychological Hx Reported Smoking Status: Former smoker Past Alcohol Use History: None Reported Additional Past Alcohol Use History / Comment(s): SMOKED AT AGE 20, SMOKED 1/2 PPD, QUIT 2002. Past Drug Use History: None Reported - Past Family History Mother Family Medical History: No Reported History Medications and Allergies Home Medications Medication Instructions Recorded Confirmed Type Zolpidem [Ambien] 10 mg PO HS 06/08/16 04/08/18 History Aspirin 81 mg PO DAILY 07/14/16 04/08/18 History Atorvastatin Calcium [Lipitor] 40 mg PO DAILY 07/14/16 04/08/18 History Metoprolol Succinate (ER) [Toprol 12.5 mg PO BID 07/14/16 04/08/18 History XL] Clopidogrel [Plavix] 75 mg PO DAILY #90 tab 07/19/16 04/08/18 Rx Lisinopril [Zestril] 5 mg PO BID #180 tab 07/19/16 04/08/18 Rx Nitroglycerin Sl Tabs [Nitrostat] 0.4 mg SUBLINGUAL Q5M PRN #25 tab 07/19/1602/16 Rx Docusate [Colace] 100 mg PO BID #20 capsule 03/27/18 04/08/18 Rx HYDROcodone/APAP 7.5-325MG [Leslie 1 tab PO Q4H PRN 3 Days #18 tab 03/27/1804/08 Rx 7.5-325] Polyethylene Glycol 3350 [Miralax] 17 gm PO DAILY 04/08/18 04/08/18 History Allergies Allergy/AdvReac Type Severity Reaction Status Date / Time No Known Allergies Allergy Verified 04/08/18 14:23 Physical Exam Osteopathic Statement: *. No significant issues noted on an osteopathic structural exam other than those noted in the History and Physical/Consult. Vitals: Vital Signs Temp Pulse Resp BP Pulse Ox 04/08/18 17:00 140 H 16 149/84 96 04/08/18 15:35 92 18 188/79 99 04/08/18 15:32 94 04/08/18 15:25 79 04/08/18 15:10 97 18 149/67 97 04/08/18 14:10 74 18 186/78 97 04/08/18 14:07 98.6 F 75 16 159/70 98 Intake and Output 04/08/18 04/08/18 04/08/18 06:59 14:59 22:59 Output Total 3700 Balance -3700 Output: Urine 3700 Other: Voiding Method Indwelling Catheter Weight 79.379 kg General: alert, appears to be uncomfortable, asking for repositioning, some confusion, son is answering questions for him CV: Tachy, RRR, s1/s2 Lungs: Coarse breath sounds bilaterally Abd: tender to palpation, ecchymosis noted, +BS Ext: 1+ LE edema Results CBC & Chem 7: 04/08/18 14:21 04/08/18 14:21 Labs: Abnormal Lab Results - Last 24 Hours (Table) 04/08/18 04/08/18 04/08/18 Range/Units 14:21 14:21 14:21 WBC 13.5 H (3.8-10.6) k/uL Neutrophils # 12.3 H (1.3-7.7) k/uL Lymphocytes # 0.5 L (1.0-4.8) k/uL Potassium 8.6 H* (3.5-5.1) mmol/L Carbon Dioxide 12 L (22-30) mmol/L Creatinine 24.25 H* (0.66-1.25) mg/dL Glucose 110 H (74-99) mg/dL Calcium 7.9 L (8.4-10.2) mg/dL Magnesium 3.2 H (1.6-2.3) mg/dL ALT 12 L (21-72) U/L Total Creatine Kinase 612 H (55-170) U/L CK-MB (CK-2) 7.1 H (0.0-2.4) ng/mL Troponin I 0.056 H* (0.000-0.034) ng/mL Amylase 246 H (30-110) U/L Ur Leukocyte Esterase (Negative) 04/08/18 Range/Units 14:21 WBC (3.8-10.6) k/uL Neutrophils # (1.3-7.7) k/uL Lymphocytes # (1.0-4.8) k/uL Potassium (3.5-5.1) mmol/L Carbon Dioxide (22-30) mmol/L Creatinine (0.66-1.25) mg/dL Glucose (74-99) mg/dL Calcium (8.4-10.2) mg/dL Magnesium (1.6-2.3) mg/dL ALT (21-72) U/L Total Creatine Kinase (55-170) U/L CK-MB (CK-2) (0.0-2.4) ng/mL Troponin I (0.000-0.034) ng/mL Amylase (30-110) U/L Ur Leukocyte Esterase Trace H (Negative) Chest x-ray: report reviewed, image reviewed Thrombosis Risk Factor Assmnt - DVT/VTE Prophylaxis DVT/VTE Prophylaxis: Pharmacologic Prophylaxis ordered, Mechanical Prophylaxis ordered - Choose All That Apply Each Factor Represents 1 point: History of prior major surgery (<1month), Swollen legs (current) Each Risk Factor Represents 3 Points: Age 75 years or older Thrombosis Risk Factor Assessment Total Risk Factor Score: 5 Thrombosis Risk Factor Assessment Level: High Risk Assessment and Plan Assessment: Acute renal failure with severe dehydration Uremia with encephalopathy Hyperkalemia Sepsis, 2/4 SIRS Hypermagnesemia NSTEMI ASCAD, history of valvular heart disease and valve replacement Intractable diarrhea Atelectasis Admit to ICU Nephrology and ID on consult Smith catheter with strict I/O IVF 2L bolus given, continue at 125 cc/hr Blood, urine, sputum cultures Check lactic acid Echocardiogram Renal ultrasound CT abdomen/pelvis Consult Dr. Adamson - known to him for hernia repair Incentive spirometry and pulmonary hygiene Prophylactic ABX: Flagyl, Zosyn until seen by ID Monitor electrolytes Calcium, D5 + insulin given in ED Recheck lytes this evening GI and DVT prophylaxis Time with Patient: Greater than 30 (CCT 47 min)
[2018-04-08] MEDS ORDERED: PIPERACILLIN-TAZOBACTAM 3.375 GM in DEXTROSE/WATER 1 50ML.BAG IVPB STA (17:35)
[2018-04-08 17:56] LABS: Albumin 3.9 g/dL (3.5-5.0); Calcium 8.8 mg/dL (8.4-10.2)
--- NOTE | 2018-04-08 19:07 | CT ---
EXAMINATION TYPE: CT abdomen pelvis wo con DATE OF EXAM: 04/08/2018 COMPARISON: None HISTORY: Acute renal failure post hiatal hernia repair. CT DLP: 755.6 mGycm Automated exposure control for dose reduction was used. TECHNIQUE: Helical acquisition of images was performed from the lung bases through the pelvis. FINDINGS: There is some patchy atelectasis at the lung bases. Heart size is normal. There is coronary artery ca lcification. There is no pleural effusion. Liver shows no focal defect. Gallbladder appears normal. Spleen appears normal. There is no pancreati c mass. Stomach appears normal. Kidneys have normal size and contour. There is mild hydronephrosis. Ureters are large. I see no urete ral calculus. Bladder is dilated and measures 16 cm in length. There is Vora catheter in the bladder . There is a 5 cm cortical cyst posterior left kidney. There is renal vascular calcification. I see n o definite renal calculus. 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 Ther e is no retroperitoneal adenopathy. There is no mesenteric adenopathy. There are a few distended loop s of small bowel in the mid abdomen. There are a few fluid levels. I see no intestinal wall thickenin g. There are numerous diverticula in the sigmoid colon. There are spondylotic changes in the lumbar s pine. There is right-sided inguinal hernia that may contain small bowel. Prostate is enlarged and measures 6 cm. The bony pelvis appears intact. The appendix appears normal. Abdominal soft tissues are unremarkable. : IMPRESSION: MILD INFILTRATES AND ATELECTASIS AT THE LUNG BASES AND MAINLY ON THE RIGHT SIDE. ATHEROSCLEROTIC VASC ULAR DISEASE. HYDRONEPHROSIS AND HYDROURETER. DILATED URINARY BLADDER WITH ENLARGED PROSTATE. THIS IS CONSISTENT WI TH CHRONIC BLADDER OUTLET OBSTRUCTION. NO OBSTRUCTING CALCULUS SEEN. 3 CM ANEURYSM OF ABDOMINAL AORTA. MILDLY DISTENDED SMALL BOWEL LOOPS IN THE UPPER ABDOMEN. RIGHT INGUINAL HERNIA COULD CONTAIN SMALL RAFAT WEL. EXAM IS LIMITED DUE TO LACK OF CONTRAST. APPEARANCE OF THE SMALL BOWEL IS NONSPECIFIC AND COULD RELATE TO ILEUS. I DO NOT SEE DILATED BOWEL CLOSE TO THE INGUINAL HERNIA.
--- NOTE | 2018-04-08 19:42 | US ---
EXAMINATION TYPE: US renals and bladder DATE OF EXAM: 04/08/2018 COMPARISON: NONE CLINICAL HISTORY: ARF, pain. Pain renal failure. Problems urinating. EXAM MEASUREMENTS: Right Kidney: 12.3 x 6.3 x 4.5 cm Left Kidney: 11.7 x 6.8 x 5.7 cm Right Kidney: Mild hydronephrosis. Left Kidney: Mild hydronephrosis. Anechoic area lower pole measuring 5.5 x 5.0 x 4.2cm. Bladder: Anechoic Bilateral Jets seen: No Normal Post Void Residual: No No nephrolithiasis is seen. The urinary bladder is anechoic. IMPRESSION: There is a 5 cm cortical cyst on the left kidney. Mild bilateral hydronephrosis. No renal atrophy.
[2018-04-08] MEDS: ALBUTEROL NEBULIZED 2.5 MG/3 ML INHALATION SCH ×3 (20:36→23:20)
[2018-04-08] MEDS: DEXTROSE 5% IN WATER 1,000 ML with SODIUM BICARB (1 MEQ/ML) 150 ML IV SCH (20:46)
[2018-04-08] MEDS ORDERED: METOPROLOL SUCCINATE (ER) 25 MG TAB.ER.24H PO SCH (21:00)
[2018-04-08 21:14] LABS: Glucose,Whole Blood 115 mg/dL (75-99)
[2018-04-08 23:18] LABS: Albumin 3.7 g/dL (3.5-5.0); Potassium 5.2 mmol/L (3.5-5.1); Total Bilirubin 1.4 mg/dL (0.2-1.3); Total Protein 6.8 g/dL (6.3-8.2)
[2018-04-09 00:11] LABS: Glucose,Whole Blood 151 mg/dL (75-99)
[2018-04-09] MEDS: ZOLPIDEM 10 MG TAB PO SCH ×2 (00:41→23:13)
[2018-04-09] MEDS: HEPARIN SODIUM,PORCINE 5,000 UNIT/ML 1 ML VIAL SQ SCH ×3 (00:41→15:47)
[2018-04-09] MEDS ORDERED: METOPROLOL TARTRATE 12.5 MG TAB PO STA (02:15)
[2018-04-09] MEDS: DOCUSATE 100 MG CAP PO SCH ×3 (04:05→21:04)
[2018-04-09 04:31] LABS: Hemoglobin A1C 5.7 % (4.0-6.0)
[2018-04-09] MEDS: DEXTROSE 5% IN WATER 1,000 ML with SODIUM BICARB (1 MEQ/ML) 150 ML IV SCH (05:23)
[2018-04-09 05:39] LABS: Basophils % (A) 0 %; Eosinophils # (A) 0.1 k/uL (0-0.7); Eosinophils % (A) 1 %; HCT 40.4 % (39.0-53.0); HGB 13.4 gm/dL (13.0-17.5); Lymphocytes # (A) 0.3 k/uL (1.0-4.8); Lymphocytes % (A) 3 %; MCH 31.2 pg (25.0-35.0); MCHC 33.2 g/dL (31.0-37.0); Monocytes # (A) 0.6 k/uL (0-1.0); Monocytes % (A) 6 %; Neutrophils # (A) 9.9 k/uL (1.3-7.7); Neutrophils % (A) 89 %; Platelet Count 236 k/uL (150-450); WBC 11.1 k/uL (3.8-10.6)
[2018-04-09 05:47] LABS: Calcium 9.6 mg/dL (8.4-10.2); Phosphorus 3.5 mg/dL (2.5-4.5); Potassium 4.7 mmol/L (3.5-5.1)
[2018-04-09 05:53] LABS: INR 1.4 (<1.2); Prothrombin Time 12.9 sec (9.0-12.0)
[2018-04-09 07:29] LABS: Glucose,Whole Blood 142 mg/dL (75-99)
--- NOTE | 2018-04-09 08:16 | XR ---
EXAMINATION TYPE: XR chest 1V DATE OF EXAM: 04/09/2018 COMPARISON: 04/20/2018 HISTORY: Pneumonia TECHNIQUE: Single frontal view of the chest is obtained. FINDINGS: Soft tissue artifact overlying the right chest. No obvious pneumothorax. Asymmetric left a pical pleural thickening. Atherosclerotic change aorta and postsurgical change. Subsegmental changes at the left lung base with tiny effusion are improved. IMPRESSION: 1. Improving left lower lobe infiltrate and small effusion. 2. Asymmetric nodular left apical pleural thickening. Follow-up PA and lateral views the chest recomm ended.
[2018-04-09] MEDS: ASPIRIN 81 MG PO SCH (08:29)
[2018-04-09] MEDS: INSULIN ASPART 100 UNIT/ML 1 ML 10 ML VIAL SQ SCH ×4 (08:29→21:15)
[2018-04-09] MEDS: ATORVASTATIN 40 MG TAB PO SCH (08:29)
[2018-04-09] MEDS: CLOPIDOGREL 75 MG TAB PO SCH (08:29)
[2018-04-09] MEDS: POLYETHYLENE GLYCOL 3350 17 GM POWD.PACK PO SCH (08:30)
[2018-04-09] MEDS: PANTOPRAZOLE 40 MG TABLET PO SCH (08:33)
[2018-04-09] MEDS ORDERED: METOPROLOL TARTRATE 25 MG TAB PO SCH (09:00)
[2018-04-09 10:09] VITALS: BMI 23.2
--- NOTE | 2018-04-09 10:57 | P.PN ---
<Ragini Lal E - Last Filed: 04/09/18 10:50> Subjective Progress Note Date: 04/09/18 HPI: 77 year old male presented to the ED with his son complaining of generalized weakness. The patient had hernia surgery 12 days ago and states he has not been feeling well since that time. He states he has had diarrhea continuously since that time. He states he did feel like he had chills, but never checked his temperature. He states he has not urinated since prior to his surgery. He has had a poor appetite and has not had anything to eat or drink in several days. He is complaining of continued abdominal pain. He has a history of hypertension which he states is controlled. Upon arrival to the ED, the patient was found to have urinary retention, smith catheter was placed. He has been given 2L IVF. He was found to have creatinine 24.25 and BUN which is unmeasurable. Potassium is 8.6. He has been afebrile. He does have WBC count 13. His smith catheter bag has dark mehdi urine. The patient has been hypertensive. He does have a history of CAD and valve replacement in 2002. Interval History: 04/09/18- patient is being seen examined and evaluated today on rounds while covering for Dr. Jeremiah Jansen. Patient is resting up in bed on 2 L of supplemental oxygen via nasal cannula. He is alert and oriented 2 with some intermittent confusion. His labs are reviewed. His potassium is now 4.7. His BUN is now 80 creatinine is 3.76. ephrology has been adjusting treatment as well. He did have some episodes of A. fib/A flutter overnight with a controlled rate and cardiology was consulted for that. He also was noted to have a positive stool for occult blood. His hemoglobin has been stable. He did have an renal ultrasound yesterday which did show a 5 cm cortical cyst of the left kidney with mild bilateral hydrocele nephrosis. He also underwent a CT of the abdomen which did show mild infiltrates and atelectasis at the lung bases mainly on the right with hydronephrosis, hydroureter, enlarged prostate, chronic bladder outlet obstruction, 3 cm AAA, mild distended small bowel loops and possible ileus could not be excluded. His surgeon has been consulted. His abdomen continues to be produced. He is afebrile and hemodynamically stable. Objective - Vital Signs Vital signs: Vital Signs Temp 97.8 F 04/09/18 08:00 Pulse 108 H 04/09/18 10:00 Resp 22 04/09/18 10:00 BP 129/73 04/09/18 10:00 Pulse Ox 95 04/09/18 10:00 Intake & Output 04/08/18 04/09/18 04/09/18 18:59 06:59 18:59 Intake Total 750 740 Output Total 4700 6075 1100 Balance -4700 -5325 -360 Weight 79.379 kg 73.4 kg 73.4 kg Intake: IV 750 500 Dextrose 5% in Water 1, 750 500 000 ml @ 125 mls/hr IV . Q9H12M MARY with Sodium Bicarb (1 Meq/ml) 150 ml Rx#:[id number] Oral 240 Output: Urine 4700 6075 1100 Other: Voiding Method Indwelling Catheter Indwelling Catheter Indwelling Catheter # Bowel Movements 1 1 - Exam General: alert, some confusion, CV: afib/ aflutter controlled rate, s1/s2 Lungs: Coarse breath sounds bilaterally Abd: tender to palpation, ecchymosis noted, +BS Ext: 1+ LE edema Neuro: no focal deficits, moves all extremities - Labs CBC & Chem 7: 04/09/18 05:18 04/09/18 05:18 Labs: Abnormal Lab Results - Last 24 Hours (Table) 04/08/18 04/08/18 04/08/18 Range/Units 14:21 14:21 14:21 WBC 13.5 H (3.8-10.6) k/uL Neutrophils # 12.3 H (1.3-7.7) k/uL Lymphocytes # 0.5 L (1.0-4.8) k/uL PT (9.0-12.0) sec INR (<1.2) Sodium (137-145) mmol/L Potassium 8.6 H* (3.5-5.1) mmol/L Chloride (98-107) mmol/L Carbon Dioxide 12 L (22-30) mmol/L BUN (9-20) mg/dL Creatinine 24.25 H* (0.66-1.25) mg/dL Glucose 110 H (74-99) mg/dL POC Glucose (mg/dL) (75-99) mg/dL Calcium 7.9 L (8.4-10.2) mg/dL Magnesium 3.2 H (1.6-2.3) mg/dL Total Bilirubin (0.2-1.3) mg/dL ALT 12 L (21-72) U/L Total Creatine Kinase 612 H (55-170) U/L CK-MB (CK-2) 7.1 H (0.0-2.4) ng/mL Troponin I 0.056 H* (0.000-0.034) ng/mL Amylase 246 H (30-110) U/L Ur Leukocyte Esterase (Negative) 04/08/18 04/08/18 04/08/18 Range/Units 14:21 17:33 21:00 WBC (3.8-10.6) k/uL Neutrophils # (1.3-7.7) k/uL Lymphocytes # (1.0-4.8) k/uL PT (9.0-12.0) sec INR (<1.2) Sodium (137-145) mmol/L Potassium 7.0 H* (3.5-5.1) mmol/L Chloride 114 H (98-107) mmol/L Carbon Dioxide 11 L (22-30) mmol/L BUN 189 H* (9-20) mg/dL Creatinine 15.95 H* (0.66-1.25) mg/dL Glucose 135 H (74-99) mg/dL POC Glucose (mg/dL) 115 H (75-99) mg/dL Calcium (8.4-10.2) mg/dL Magnesium (1.6-2.3) mg/dL Total Bilirubin (0.2-1.3) mg/dL ALT 14 L (21-72) U/L Total Creatine Kinase (55-170) U/L CK-MB (CK-2) (0.0-2.4) ng/mL Troponin I (0.000-0.034) ng/mL Amylase (30-110) U/L Ur Leukocyte Esterase Trace H (Negative) 04/08/18 04/09/18 04/09/18 Range/Units 22:51 00:10 05:18 WBC 11.1 H (3.8-10.6) k/uL Neutrophils # 9.9 H (1.3-7.7) k/uL Lymphocytes # 0.3 L (1.0-4.8) k/uL PT (9.0-12.0) sec INR (<1.2) Sodium 152 H (137-145) mmol/L Potassium 5.2 H (3.5-5.1) mmol/L Chloride 120 H (98-107) mmol/L Carbon Dioxide 20 L (22-30) mmol/L BUN 124 H* (9-20) mg/dL Creatinine 9.30 H* (0.66-1.25) mg/dL Glucose 121 H (74-99) mg/dL POC Glucose (mg/dL) 151 H (75-99) mg/dL Calcium (8.4-10.2) mg/dL Magnesium (1.6-2.3) mg/dL Total Bilirubin 1.4 H (0.2-1.3) mg/dL ALT (21-72) U/L Total Creatine Kinase (55-170) U/L CK-MB (CK-2) (0.0-2.4) ng/mL Troponin I (0.000-0.034) ng/mL Amylase (30-110) U/L Ur Leukocyte Esterase (Negative) 04/09/18 04/09/18 04/09/18 Range/Units 05:18 05:28 07:28 WBC (3.8-10.6) k/uL Neutrophils # (1.3-7.7) k/uL Lymphocytes # (1.0-4.8) k/uL PT 12.9 H (9.0-12.0) sec INR 1.4 H (<1.2) Sodium 152 H (137-145) mmol/L Potassium (3.5-5.1) mmol/L Chloride 121 H (98-107) mmol/L Carbon Dioxide (22-30) mmol/L BUN 80 H (9-20) mg/dL Creatinine 3.76 H (0.66-1.25) mg/dL Glucose 183 H (74-99) mg/dL POC Glucose (mg/dL) 142 H (75-99) mg/dL Calcium (8.4-10.2) mg/dL Magnesium (1.6-2.3) mg/dL Total Bilirubin (0.2-1.3) mg/dL ALT (21-72) U/L Total Creatine Kinase (55-170) U/L CK-MB (CK-2) (0.0-2.4) ng/mL Troponin I (0.000-0.034) ng/mL Amylase (30-110) U/L Ur Leukocyte Esterase (Negative) Assessment and Plan Assessment: Acute renal failure with severe dehydration Uremia with encephalopathy Hyperkalemia Sepsis, 2/4 SIRS Hypermagnesemia NSTEMI ASCAD, history of valvular heart disease and valve replacement Intractable diarrhea Atelectasis CT of the abdomen didn't reveal hydronephrosis and hydroureter 3 cm AAA Enlarged prostate Patient could be downgraded from the intensive care unit Nephrology, etiology and ID on consult Smith catheter with strict I/O Blood, urine, sputum cultures Echocardiogram pending Renal ultrasound reviewed CT abdomen/pelvis reviewed Consult Dr. Adamson - known to him for hernia repair Stool occult blood positive, monitor hemoglobin and any further signs of bleeding Incentive spirometry and pulmonary hygiene Prophylactic ABX: Zosyn until seen by ID Monitor electrolytes Recheck lytes this evening GI and DVT prophylaxis We will continue to monitor labs/results and adjust treatment as necessary I, the signing physician performed an examination of the patient, discussed and directed their management with the nurse practitioner. I have reviewed the nurse practitioner's note and agree with the documented findings, orders and plan of care. <Sherrie Streeter A - Last Filed: 04/09/18 11:16> Objective - Vital Signs Vital signs: Vital Signs Temp 97.8 F 04/09/18 08:00 Pulse 108 H 04/09/18 10:00 Resp 22 04/09/18 10:00 BP 129/73 04/09/18 10:00 Pulse Ox 95 04/09/18 10:00 Intake & Output 04/08/18 04/09/18 04/09/18 18:59 06:59 18:59 Intake Total 750 740 Output Total 4700 6075 1100 Balance -9992 -5320 -982 Weight 79.379 kg 73.4 kg 73.4 kg Intake: IV 750 500 Dextrose 5% in Water 1, 750 500 000 ml @ 125 mls/hr IV . Q9H12M MARY with Sodium Bicarb (1 Meq/ml) 150 ml Rx#:[id number] Oral 240 Output: Urine 4700 6075 1100 Other: Voiding Method Indwelling Catheter Indwelling Catheter Indwelling Catheter # Bowel Movements 1 1 - Labs CBC & Chem 7: 04/09/18 05:18 04/09/18 05:18 Labs: Abnormal Lab Results - Last 24 Hours (Table) 04/08/18 04/08/18 04/08/18 Range/Units 14:21 14:21 14:21 WBC 13.5 H (3.8-10.6) k/uL Neutrophils # 12.3 H (1.3-7.7) k/uL Lymphocytes # 0.5 L (1.0-4.8) k/uL PT (9.0-12.0) sec INR (<1.2) Sodium (137-145) mmol/L Potassium 8.6 H* (3.5-5.1) mmol/L Chloride (98-107) mmol/L Carbon Dioxide 12 L (22-30) mmol/L BUN (9-20) mg/dL Creatinine 24.25 H* (0.66-1.25) mg/dL Glucose 110 H (74-99) mg/dL POC Glucose (mg/dL) (75-99) mg/dL Calcium 7.9 L (8.4-10.2) mg/dL Magnesium 3.2 H (1.6-2.3) mg/dL Total Bilirubin (0.2-1.3) mg/dL ALT 12 L (21-72) U/L Total Creatine Kinase 612 H (55-170) U/L CK-MB (CK-2) 7.1 H (0.0-2.4) ng/mL Troponin I 0.056 H* (0.000-0.034) ng/mL Amylase 246 H (30-110) U/L Ur Leukocyte Esterase (Negative) 04/08/18 04/08/18 04/08/18 Range/Units 14:21 17:33 21:00 WBC (3.8-10.6) k/uL Neutrophils # (1.3-7.7) k/uL Lymphocytes # (1.0-4.8) k/uL PT (9.0-12.0) sec INR (<1.2) Sodium (137-145) mmol/L Potassium 7.0 H* (3.5-5.1) mmol/L Chloride 114 H (98-107) mmol/L Carbon Dioxide 11 L (22-30) mmol/L BUN 189 H* (9-20) mg/dL Creatinine 15.95 H* (0.66-1.25) mg/dL Glucose 135 H (74-99) mg/dL POC Glucose (mg/dL) 115 H (75-99) mg/dL Calcium (8.4-10.2) mg/dL Magnesium (1.6-2.3) mg/dL Total Bilirubin (0.2-1.3) mg/dL ALT 14 L (21-72) U/L Total Creatine Kinase (55-170) U/L CK-MB (CK-2) (0.0-2.4) ng/mL Troponin I (0.000-0.034) ng/mL Amylase (30-110) U/L Ur Leukocyte Esterase Trace H (Negative) 04/08/18 04/09/18 04/09/18 Range/Units 22:51 00:10 05:18 WBC 11.1 H (3.8-10.6) k/uL Neutrophils # 9.9 H (1.3-7.7) k/uL Lymphocytes # 0.3 L (1.0-4.8) k/uL PT (9.0-12.0) sec INR (<1.2) Sodium 152 H (137-145) mmol/L Potassium 5.2 H (3.5-5.1) mmol/L Chloride 120 H (98-107) mmol/L Carbon Dioxide 20 L (22-30) mmol/L BUN 124 H* (9-20) mg/dL Creatinine 9.30 H* (0.66-1.25) mg/dL Glucose 121 H (74-99) mg/dL POC Glucose (mg/dL) 151 H (75-99) mg/dL Calcium (8.4-10.2) mg/dL Magnesium (1.6-2.3) mg/dL Total Bilirubin 1.4 H (0.2-1.3) mg/dL ALT (21-72) U/L Total Creatine Kinase (55-170) U/L CK-MB (CK-2) (0.0-2.4) ng/mL Troponin I (0.000-0.034) ng/mL Amylase (30-110) U/L Ur Leukocyte Esterase (Negative) 04/09/18 04/09/18 04/09/18 Range/Units 05:18 05:28 07:28 WBC (3.8-10.6) k/uL Neutrophils # (1.3-7.7) k/uL Lymphocytes # (1.0-4.8) k/uL PT 12.9 H (9.0-12.0) sec INR 1.4 H (<1.2) Sodium 152 H (137-145) mmol/L Potassium (3.5-5.1) mmol/L Chloride 121 H (98-107) mmol/L Carbon Dioxide (22-30) mmol/L BUN 80 H (9-20) mg/dL Creatinine 3.76 H (0.66-1.25) mg/dL Glucose 183 H (74-99) mg/dL POC Glucose (mg/dL) 142 H (75-99) mg/dL Calcium (8.4-10.2) mg/dL Magnesium (1.6-2.3) mg/dL Total Bilirubin (0.2-1.3) mg/dL ALT (21-72) U/L Total Creatine Kinase (55-170) U/L CK-MB (CK-2) (0.0-2.4) ng/mL Troponin I (0.000-0.034) ng/mL Amylase (30-110) U/L Ur Leukocyte Esterase (Negative) Assessment and Plan Assessment: Patient seen and examined in the ICU with nursing staff at bedside. Renal function is markedly improved. Urine output has been adequate, 100-300 cc/hr. Patient states he is feeling better overall. Asking for more water. IVF have been changed to D5 with 3 amp of bicarb. 0.9NS discontinued. Monitor Na. Encourage enteral nutrition. Bilateral hydronephrosis, basilar atelectasis, hydroureter, enlarged prostate, dilated urinary bladder, 3cm abdominal aorta, possible ileus. Patient did have afib/flutter overnight, was given metoprolol, cardiology on consult. OK to transfer out of ICU today to telemetry. K is improved. ~Sherrie Streeter DO
[2018-04-09 12:08] LABS: Glucose,Whole Blood 116 mg/dL (75-99)
[2018-04-09] MEDS: SODIUM CHLORIDE 0.45% 1,000 ML IV SCH ×2 (12:27→23:13)
--- NOTE | 2018-04-09 12:39 | ECHOF ---
Referral Reason:ASCAD, valve replaced, NSTEMI MEASUREMENTS -------- HEIGHT: 182.9 cm WEIGHT: 73.0 kg BP: 137/73 IVSd: 1.3 cm (0.6 - 1.1) LVIDd: 3.8 cm (3.9 - 5.3) LVPWd: 1.3 cm (0.6 - 1.1) IVSs: 1.4 cm LVIDs: 3.0 cm LVPWs: 1.4 cm Ao Diam: 3.9 cm (2.0 - 3.7) AV Cusp: 2.0 cm (1.5 - 2.6) LA Diam: 3.1 cm (2.7 - 3.8) RAP: 5.00 mmHg RVSP: 11.42 mmHg FINDINGS -------- Atrial fibrillation. This was a technically difficult study with suboptimal views. The left ventricular size is normal. There is mild concentric left ventricular hypertrophy. Overa ll left ventricular systolic function is moderately impaired with, an EF between 35 - 40 %. Basal a nterior LV wall motion is hypokinetic. Basal inferior LV wall motion is hypokinetic. Basal infe roseptal LV wall motion is hypokinetic. Mid anterior LV wall motion is hypokinetic. Mid inferos eptal LV wall motion is hypokinetic. Mid anteroseptal LV wall motion is hypokinetic. Apical ant erior LV wall motion is hypokinetic. Apical inferior LV wall motion is hypokinetic. Apical sept um LV wall motion is hypokinetic. The right ventricle is normal in size and function. Paradoxical motion of the right ventricular sep wendy is consistent with post operative status. The left atrium is normal in size. The right atrium is normal in size. Lumason used Aortic valve is trileaflet and is mildly thickened. The mitral valve leaflets are mildly thickened. Mild mitral annular calcification present. MV Rep air. Mild tricuspid regurgitation present. The right ventricular systolic pressure, as measured by Doppl er, is 11.42mmHg. Pulmonic valve appears structurally normal. The aortic root size is normal. The pericardium is normal. CONCLUSIONS -------- 1. Atrial fibrillation. 2. This was a technically difficult study with suboptimal views. 3. The left ventricular size is normal. 4. There is mild concentric left ventricular hypertrophy. 5. Overall left ventricular systolic function is moderately impaired with, an EF between 35 - 40 %. 6. Basal anterior LV wall motion is hypokinetic. 7. Basal inferior LV wall motion is hypokinetic. 8. Basal inferoseptal LV wall motion is hypokinetic. 9. Mid anterior LV wall motion is hypokinetic. 10. Mid inferoseptal LV wall motion is hypokinetic. 11. Mid anteroseptal LV wall motion is hypokinetic. 12. Apical anterior LV wall motion is hypokinetic. 13. Apical inferior LV wall motion is hypokinetic. 14. Apical septum LV wall motion is hypokinetic. 15. The right ventricle is normal in size and function. 16. Paradoxical motion of the right ventricular septum is consistent with post operative status. 17. The left atrium is normal in size. 18. The right atrium is normal in size. 19. Lumason used 20. Aortic valve is trileaflet and is mildly thickened. 21. The mitral valve leaflets are mildly thickened. 22. Mild mitral annular calcification present. 23. MV Repair. 24. Mild tricuspid regurgitation present. 25. The right ventricular systolic pressure, as measured by Doppler, is 11.42mmHg. 26. Pulmonic valve appears structurally normal. 27. The aortic root size is normal. 28. The pericardium is normal. CONTACT LENS MOLDER: Britney Liu RDCS
[2018-04-09] MEDS: PIPERACILLIN-TAZOBACTAM 3.375 GM in DEXTROSE/WATER 1 50ML.BAG IVPB SCH ×2 (12:42→20:11)
--- NOTE | 2018-04-09 14:12 | CONS ---
CONSULTATION Mr. Snell is a 77-year-old gentleman with history of coronary artery disease, mitral valve repair who recently underwent surgery for inguinal hernia, presented to hospital complaining of mild confusion, dehydration, and was in atypical atrial flutter. Cardiology had been consulted for the same. There is no prior history of cardiac arrhythmia. Patient had surgery on 03/27/2018. He denies chest pain or difficulty in breathing. There is no history of palpitations, dizziness or syncope. Patient had a cardiac catheterization in July of 2016 that revealed stenosis involving LAD for which he underwent angioplasty. Patient has known mitral valve disease and underwent repair for the same. At the time of my evaluation in the ICU, he is in atrial fibrillation with controlled ventricular rate and denies any cardiac symptoms. PAST MEDICAL HISTORY: Significant for coronary artery disease, status post angioplasty, mitral regurgitation status post mitral valve repair, inguinal hernia status post surgery, hypertension. MEDICATIONS: At home included Toprol-XL 12.5 b.i.d., Zestril 5 b.i.d., Bullhead, Colace, Plavix 75 q. daily, Lipitor 40 q. daily, aspirin. ALLERGIES: There are no known drug allergies. FAMILY HISTORY: Negative for premature coronary artery disease. SOCIAL HISTORY: Negative for current smoking, EtOH abuse, or drug abuse. REVIEW OF SYSTEMS: HEENT: Significant for mild confusion. CARDIAC: As described above. RESPIRATORY: Negative. GI: Negative. GENITOURINARY: Negative. ALLERGY/IMMUNOLOGY: Negative. SKIN: Negative. MUSCULOSKELETAL: Negative. ENDOCRINE: Negative. DERM: Negative. CONSTITUTIONAL: Negative. ONCOLOGICAL: Negative. Rest of the system review is not relevant. His creatinines on this admission was 24 and it has come down to 3.76 and his baseline creatinine was 0.9. Hemoglobin is normal at 13.4. Given the new onset atrial fibrillation and underlying valvular heart disease, I am going to start the patient on intravenous heparin for stroke prevention. If it is okay with the surgeons, obtain a 2D echo to evaluate his LV function. Use the beta blockers for rate control. He had renal failure which is improving. Patient is also on antibiotics. PHYSICAL EXAMINATION: On exam, heart rate is 108 beats per minute. Blood pressure is 111/66, respiratory rate is 18. Chest exam reveals diminished air entry at the bases. Heart exam reveals first and second heart sounds, irregular rhythm and a systolic murmur at the left lower sternal border. Abdomen is soft. Exam of extremities did not reveal any edema. Peripheral pulses are felt. LABS: Show a hemoglobin of 13.4, platelet count is 236. Sodium is 152, potassium is 4.7, BUN is 80, creatinine is 3.7. ASSESSMENT: 1. Atrial fibrillation with controlled ventricular rate. 2. Inguinal hernia, status post recent surgery. 3. Coronary artery disease, status post angioplasty. 4. Acute onset renal failure. PLAN: I will start the patient on IV heparin, control the heart rate with beta blockers. Renal functions are improving. Will obtain a 2D echo once the kidney function is normal. I will consider putting him on Eliquis 2.5 b.i.d. as he is already on aspirin and Plavix. MMODL / IJN: [id number] /
--- NOTE | 2018-04-09 14:34 | P.GSCN ---
History of Present Illness Consult date: 04/09/18 Reason for Consult: Abdominal pain History of present illness: 77-year-old male who presented to the emergency room reportedly experiencing progressive abdominal pain getting worse decrease oral intake dizziness lightheadedness decreased endurance decrease urine output ongoing for the past several days patient recently underwent a robotic umbilical repair on March 27. Patient stated since having the surgery and going home he had not been feeling well. He noted over the last several days there was more purple ecchymotic bruising to the abdomen. The abdomen felt bloated and distended nausea sensation poor oral intake. Abdominal wall shows areas of purple ecchymotic bruising no increase from reference markings. In the emergency room computed tomography scan of the abdomen showed mildly distended small bowel loops in the upper abdomen. Right inguinal hernia could contain small bowel mild infiltrate atelectasis at the lung base mainly on the right hydronephrosis noted no dilated bowel close to the inguinal hernia. In the emergency room patient was noted to have an elevated creatinine 15.9 as well as a BUN with an elevated potassium of 8.6 patient was experiencing urinary retention at home indwelling Vora catheter was inserted in the emergency room with dark mehdi urine Currently patient states he did have a small bowel movement there is less abdominal discomfort Patients being followed by cardiology service for new onset atrial fibrillation and underlying valvular heart disease. Currently patient is being seen in the intensive care unit patient states has had slight improvement with less abdominal bloating noted Review of Systems Essentially unremarkable except as mentioned in the present illness Past Medical History Past Medical History: Coronary Artery Disease (CAD), Cancer, CVA/TIA, Hyperlipidemia, Hypertension, Myocardial Infarction (MA), Osteoarthritis (OA), Skin Disorder Additional Past Medical History / Comment(s): 04/08/18 pt stated wants flu vaccine before discharge if ok with 01/2016-denies any residual, MA on stress test, constipation, arthritis in neck, basal cell cancer, bleeds easily with cuts, has crushed vertebra in neck Last Myocardial Infarction Date:: unknown History of Any Multi-Drug Resistant Organisms: None Reported Past Surgical History: Heart Catheterization With Stent, Tonsillectomy Additional Past Surgical History / Comment(s): mitral valve repair 2002. total 4 cardiac stents, clara cataracts with lens implants, Past Anesthesia/Blood Transfusion Reactions: No Reported Reaction Additional Past Anesthesia/Blood Transfusion Reaction / Comm: car sickness as child, " i seem to need more oxygen" with anesthesia. denies any diff with past intubation Date of Last Stent Placement:: 07/2016 Smoking Status: Former smoker - Past Family History Mother Family Medical History: No Reported History Father Additional Family Medical History / Comment(s): "heart problems" Medications and Allergies Home Medications Medication Instructions Recorded Confirmed Type Zolpidem [Ambien] 10 mg PO HS 06/08/16 04/08/18 History Aspirin 81 mg PO DAILY 07/14/16 04/08/18 History Atorvastatin Calcium [Lipitor] 40 mg PO DAILY 07/14/16 04/08/18 History Metoprolol Succinate (ER) [Toprol 12.5 mg PO BID 07/14/16 04/08/18 History XL] Clopidogrel [Plavix] 75 mg PO DAILY #90 tab 07/19/16 04/08/18 Rx Lisinopril [Zestril] 5 mg PO BID #180 tab 07/19/16 04/08/18 Rx Nitroglycerin Sl Tabs [Nitrostat] 0.4 mg SUBLINGUAL Q5M PRN #25 tab 07/19/1602/16 Rx Docusate [Colace] 100 mg PO BID #20 capsule 03/27/18 04/08/18 Rx HYDROcodone/APAP 7.5-325MG [[place] 1 tab PO Q4H PRN 3 Days #18 tab 03/27/1804/08 Rx 7.5-325] Polyethylene Glycol 3350 [Miralax] 17 gm PO DAILY 04/08/18 04/08/18 History Allergies Allergy/AdvReac Type Severity Reaction Status Date / Time No Known Allergies Allergy Verified 04/08/18 14:23 Surgical - Exam Vital Signs Temp Pulse Resp BP Pulse Ox 98.6 F 75 16 159/70 98 04/08/18 14:07 04/08/18 14:07 04/08/18 14:07 04/08/18 14:07 04/08/18 14:07 GENERAL APPEARANCE: 77-year-old male sitting up in bed states she has had a bowel movement alert, orientedx 3 , in no acute distress. VITAL SIGNS: Reviewed HEENT: Head is normocephalic and atraumatic. Pupils are equal and reactive. The nares are patent. Oropharynx is clear without lesions. NECK: Supple without lymphadenopathy. Traches midline. HEART: S1, S2. Irregular LUNGS: No crackles or wheezes are heard. ABDOMEN: Soft purple ecchymotic bruising to the abdominal wall, mild tenderness mildly distended with good bowel sounds. No peritoneal signs. No palpable organomegaly or masses. Indwelling Vora catheter in place EXTREMITIES: Bilateral lower extremities mild edema noted Radial pedal pulses are 2/4 bilaterally. NEUROLOGICAL: No focal deficits. Strength and sensation are grossly intact. Results - Labs 04/09/18 05:18 04/09/18 05:18 Abnormal Lab Results - Last 24 Hours (Table) 04/08/18 04/08/18 04/08/18 Range/Units 14:21 14:21 14:21 WBC 13.5 H (3.8-10.6) k/uL Neutrophils # 12.3 H (1.3-7.7) k/uL Lymphocytes # 0.5 L (1.0-4.8) k/uL PT (9.0-12.0) sec INR (<1.2) Sodium (137-145) mmol/L Potassium 8.6 H* (3.5-5.1) mmol/L Chloride (98-107) mmol/L Carbon Dioxide 12 L (22-30) mmol/L BUN (9-20) mg/dL Creatinine 24.25 H* (0.66-1.25) mg/dL Glucose 110 H (74-99) mg/dL POC Glucose (mg/dL) (75-99) mg/dL Calcium 7.9 L (8.4-10.2) mg/dL Magnesium 3.2 H (1.6-2.3) mg/dL Total Bilirubin (0.2-1.3) mg/dL ALT 12 L (21-72) U/L Total Creatine Kinase 612 H (55-170) U/L CK-MB (CK-2) 7.1 H (0.0-2.4) ng/mL Troponin I 0.056 H* (0.000-0.034) ng/mL Amylase 246 H (30-110) U/L Ur Leukocyte Esterase (Negative) 04/08/18 04/08/18 04/08/18 Range/Units 14:21 17:33 21:00 WBC (3.8-10.6) k/uL Neutrophils # (1.3-7.7) k/uL Lymphocytes # (1.0-4.8) k/uL PT (9.0-12.0) sec INR (<1.2) Sodium (137-145) mmol/L Potassium 7.0 H* (3.5-5.1) mmol/L Chloride 114 H (98-107) mmol/L Carbon Dioxide 11 L (22-30) mmol/L BUN 189 H* (9-20) mg/dL Creatinine 15.95 H* (0.66-1.25) mg/dL Glucose 135 H (74-99) mg/dL POC Glucose (mg/dL) 115 H (75-99) mg/dL Calcium (8.4-10.2) mg/dL Magnesium (1.6-2.3) mg/dL Total Bilirubin (0.2-1.3) mg/dL ALT 14 L (21-72) U/L Total Creatine Kinase (55-170) U/L CK-MB (CK-2) (0.0-2.4) ng/mL Troponin I (0.000-0.034) ng/mL Amylase (30-110) U/L Ur Leukocyte Esterase Trace H (Negative) 04/08/18 04/09/18 04/09/18 Range/Units 22:51 00:10 05:18 WBC 11.1 H (3.8-10.6) k/uL Neutrophils # 9.9 H (1.3-7.7) k/uL Lymphocytes # 0.3 L (1.0-4.8) k/uL PT (9.0-12.0) sec INR (<1.2) Sodium 152 H (137-145) mmol/L Potassium 5.2 H (3.5-5.1) mmol/L Chloride 120 H (98-107) mmol/L Carbon Dioxide 20 L (22-30) mmol/L BUN 124 H* (9-20) mg/dL Creatinine 9.30 H* (0.66-1.25) mg/dL Glucose 121 H (74-99) mg/dL POC Glucose (mg/dL) 151 H (75-99) mg/dL Calcium (8.4-10.2) mg/dL Magnesium (1.6-2.3) mg/dL Total Bilirubin 1.4 H (0.2-1.3) mg/dL ALT (21-72) U/L Total Creatine Kinase (55-170) U/L CK-MB (CK-2) (0.0-2.4) ng/mL Troponin I (0.000-0.034) ng/mL Amylase (30-110) U/L Ur Leukocyte Esterase (Negative) 04/09/18 04/09/18 04/09/18 Range/Units 05:18 05:28 07:28 WBC (3.8-10.6) k/uL Neutrophils # (1.3-7.7) k/uL Lymphocytes # (1.0-4.8) k/uL PT 12.9 H (9.0-12.0) sec INR 1.4 H (<1.2) Sodium 152 H (137-145) mmol/L Potassium (3.5-5.1) mmol/L Chloride 121 H (98-107) mmol/L Carbon Dioxide (22-30) mmol/L BUN 80 H (9-20) mg/dL Creatinine 3.76 H (0.66-1.25) mg/dL Glucose 183 H (74-99) mg/dL POC Glucose (mg/dL) 142 H (75-99) mg/dL Calcium (8.4-10.2) mg/dL Magnesium (1.6-2.3) mg/dL Total Bilirubin (0.2-1.3) mg/dL ALT (21-72) U/L Total Creatine Kinase (55-170) U/L CK-MB (CK-2) (0.0-2.4) ng/mL Troponin I (0.000-0.034) ng/mL Amylase (30-110) U/L Ur Leukocyte Esterase (Negative) 04/09/18 Range/Units 12:06 WBC (3.8-10.6) k/uL Neutrophils # (1.3-7.7) k/uL Lymphocytes # (1.0-4.8) k/uL PT (9.0-12.0) sec INR (<1.2) Sodium (137-145) mmol/L Potassium (3.5-5.1) mmol/L Chloride (98-107) mmol/L Carbon Dioxide (22-30) mmol/L BUN (9-20) mg/dL Creatinine (0.66-1.25) mg/dL Glucose (74-99) mg/dL POC Glucose (mg/dL) 116 H (75-99) mg/dL Calcium (8.4-10.2) mg/dL Magnesium (1.6-2.3) mg/dL Total Bilirubin (0.2-1.3) mg/dL ALT (21-72) U/L Total Creatine Kinase (55-170) U/L CK-MB (CK-2) (0.0-2.4) ng/mL Troponin I (0.000-0.034) ng/mL Amylase (30-110) U/L Ur Leukocyte Esterase (Negative) Diabetes panel 04/08/18 04/08/18 04/08/18 Range/Units 14:21 14:21 17:33 Sodium 139 145 (137-145) mmol/L Potassium 8.6 H* 7.0 H* (3.5-5.1) mmol/L Chloride 101 114 H (98-107) mmol/L Carbon Dioxide 12 L 11 L (22-30) mmol/L BUN 189 H* (9-20) mg/dL Creatinine 24.25 H* 15.95 H* (0.66-1.25) mg/dL Glucose 110 H 135 H (74-99) mg/dL Hemoglobin A1c 5.7 (4.0-6.0) % Calcium 7.9 L 8.8 (8.4-10.2) mg/dL AST 19 19 (17-59) U/L ALT 12 L 14 L (21-72) U/L Alkaline Phosphatase 39 49 (38-126) U/L Total Protein 6.6 7.0 (6.3-8.2) g/dL Albumin 3.7 3.9 (3.5-5.0) g/dL 04/08/18 04/09/18 Range/Units 22:51 05:18 Sodium 152 H 152 H (137-145) mmol/L Potassium 5.2 H 4.7 (3.5-5.1) mmol/L Chloride 120 H 121 H (98-107) mmol/L Carbon Dioxide 20 L 26 (22-30) mmol/L BUN 124 H* 80 H (9-20) mg/dL Creatinine 9.30 H* 3.76 H (0.66-1.25) mg/dL Glucose 121 H 183 H (74-99) mg/dL Hemoglobin A1c (4.0-6.0) % Calcium 10.0 9.6 (8.4-10.2) mg/dL AST 17 (17-59) U/L ALT 21 (21-72) U/L Alkaline Phosphatase 50 (38-126) U/L Total Protein 6.8 (6.3-8.2) g/dL Albumin 3.7 (3.5-5.0) g/dL Calcium panel 04/08/18 04/08/18 04/08/18 Range/Units 14:21 17:33 22:51 Calcium 7.9 L 8.8 10.0 (8.4-10.2) mg/dL Phosphorus (2.5-4.5) mg/dL Albumin 3.7 3.9 3.7 (3.5-5.0) g/dL 04/09/18 Range/Units 05:18 Calcium 9.6 (8.4-10.2) mg/dL Phosphorus 3.5 (2.5-4.5) mg/dL Albumin (3.5-5.0) g/dL Pituitary panel 04/08/18 04/08/18 04/08/18 Range/Units 14:21 17:33 22:51 Sodium 139 145 152 H (137-145) mmol/L Potassium 8.6 H* 7.0 H* 5.2 H (3.5-5.1) mmol/L Chloride 101 114 H 120 H (98-107) mmol/L Carbon Dioxide 12 L 11 L 20 L (22-30) mmol/L BUN 189 H* 124 H* (9-20) mg/dL Creatinine 24.25 H* 15.95 H* 9.30 H* (0.66-1.25) mg/dL Glucose 110 H 135 H 121 H (74-99) mg/dL Calcium 7.9 L 8.8 10.0 (8.4-10.2) mg/dL 04/09/18 Range/Units 05:18 Sodium 152 H (137-145) mmol/L Potassium 4.7 (3.5-5.1) mmol/L Chloride 121 H (98-107) mmol/L Carbon Dioxide 26 (22-30) mmol/L BUN 80 H (9-20) mg/dL Creatinine 3.76 H (0.66-1.25) mg/dL Glucose 183 H (74-99) mg/dL Calcium 9.6 (8.4-10.2) mg/dL Adrenal panel 04/08/18 04/08/18 04/08/18 Range/Units 14:21 17:33 22:51 Sodium 139 145 152 H (137-145) mmol/L Potassium 8.6 H* 7.0 H* 5.2 H (3.5-5.1) mmol/L Chloride 101 114 H 120 H (98-107) mmol/L Carbon Dioxide 12 L 11 L 20 L (22-30) mmol/L BUN 189 H* 124 H* (9-20) mg/dL Creatinine 24.25 H* 15.95 H* 9.30 H* (0.66-1.25) mg/dL Glucose 110 H 135 H 121 H (74-99) mg/dL Calcium 7.9 L 8.8 10.0 (8.4-10.2) mg/dL Total Bilirubin 0.8 1.0 1.4 H (0.2-1.3) mg/dL AST 19 19 17 (17-59) U/L ALT 12 L 14 L 21 (21-72) U/L Alkaline Phosphatase 39 49 50 (38-126) U/L Total Protein 6.6 7.0 6.8 (6.3-8.2) g/dL Albumin 3.7 3.9 3.7 (3.5-5.0) g/dL 04/09/18 Range/Units 05:18 Sodium 152 H (137-145) mmol/L Potassium 4.7 (3.5-5.1) mmol/L Chloride 121 H (98-107) mmol/L Carbon Dioxide 26 (22-30) mmol/L BUN 80 H (9-20) mg/dL Creatinine 3.76 H (0.66-1.25) mg/dL Glucose 183 H (74-99) mg/dL Calcium 9.6 (8.4-10.2) mg/dL Total Bilirubin (0.2-1.3) mg/dL AST (17-59) U/L ALT (21-72) U/L Alkaline Phosphatase (38-126) U/L Total Protein (6.3-8.2) g/dL Albumin (3.5-5.0) g/dL Assessment and Plan Assessment: Impression recent March 27 laparoscopic robotic umbilical hernia repair Present on admission hyperkalemia Present on admission urinary retention Known coronary artery disease with a history of a mitral valve repair Acute onset renal failure suspect due to dehydration poor oral intake Computed tomography scan of the abdomen pelvis felt contrast report reviewed right-sided will hernia may contain small bowel appendix normal. Dilated bowel. Plan Evidence of an acute surgical abdomen this time Continue the care per the commissioned sales associate for ICU management Monitor labs DVT and GI prophylaxis Further surgical recommendations pending Will follow with you pain control Surgical consultation dictated for Dr. bello The above impression and plan of care have been discussed and directed by signing physician. Rama Ramirez nurse practitioner acting as scribe for signing physician.
--- NOTE | 2018-04-09 15:31 | CDI ---
Last Revision, June 2017 Documentation Clarification Form Date: 04/09/2018 3:21:59 PM From: Nicci PriceHOLDEN, CCDS Admit Date: 04/08/2018 5:00:00 PM Patient Name: Sharan Snell Visit Number: [id number] Discharge Date: ATTENTION: The Clinical Documentation Specialists (CDI) and [facility] Coding Staff appreciate your assistance in clarifying documentation. Please respond to the clarification below the line at the bottom and electronically sign. The CDI & [facility] Coding staff will review the response and follow-up if needed. Please note: Queries are made part of the Legal Health Record. If you have any questions, please contact the author of this message via ITS. Sherrie Kyle, DO: Encephalopathy is documented in the History & Physical and subsequent progress note. Noted to have some confusion. History/Risk factors: History of hernia surgery 12 days ago. Previous CVA w/ some muscle loss, [place], CAD, OA. Clinical Indicators: Presented with generalized weakness, poor appetite, distended abdomen, abdominal pain & elevated HR. Admit with acute abdomen, Sepsis & acute renal failure. Labs: WBC 13.5^, Neut 12.3^, K 8.6^^, Cr 24.25^^, Mag 3.2^, Alcon 7.9* CXR: Atelectasis, Possible infiltrate. CT A/P: Hydronephrosis & hydroureter, enlarged prostate, AAA, possible Ileus. Treatment: IV fl bolus x2, IV fl 125, Albuterol INH, IV Dextrose, IV Insulin, IV Alcon Cl, IV Dilaudid. Consults: Surgery, Cardiology In your professional opinion, can you please clarify the specific type of encephalopathy, if known? Metabolic Encephalopathy Septic Encephalopathy Toxic Encephalopathy Other, please specify Unable to determine MTDD
[2018-04-09] MEDS: METOPROLOL TARTRATE 25 MG TAB PO SCH ×2 (15:47→21:16)
[2018-04-09] MEDS: HYDROcodone/APAP 7.5-325MG 1 EACH TAB PO PRN ×2 (16:47→21:16)
[2018-04-09 17:28] LABS: Glucose,Whole Blood 137 mg/dL (75-99)
[2018-04-09] MEDS ORDERED: HEPARIN SODIUM,PORCINE 5,000 UNIT/ML 1 ML VIAL IV ONE (18:19)
[2018-04-09] MEDS ORDERED: HEPARIN SODIUM,PORCINE 5,000 UNIT/ML 1 ML VIAL IV PRN (18:19)
[2018-04-09] MEDS ORDERED: HEPARIN SOD,PORK IN 0.45% NACL 25,000 UNIT in 0.45% NACL 1 500ML.BAG IV SCH (18:30)
[2018-04-09 18:59] LABS: Basophils % (A) 0 %; Eosinophils # (A) 0.2 k/uL (0-0.7); Eosinophils % (A) 2 %; HCT 42.3 % (39.0-53.0); HGB 13.7 gm/dL (13.0-17.5); Lymphocytes # (A) 0.7 k/uL (1.0-4.8); Lymphocytes % (A) 6 %; MCH 30.8 pg (25.0-35.0); MCHC 32.3 g/dL (31.0-37.0); MCV 95.4 fL (80.0-100.0); Mean Platelet Volume 6.9; Monocytes # (A) 0.6 k/uL (0-1.0); Monocytes % (A) 5 %; Neutrophils # (A) 11.2 k/uL (1.3-7.7); Neutrophils % (A) 87 %; Platelet Count 217 k/uL (150-450); RBC 4.44 m/uL (4.30-5.90); RDW 13.1 % (11.5-15.5)
[2018-04-09 19:05] LABS: INR 1.3 (<1.2); Partial Thromboplastin Time 28.3 sec (22.0-30.0); Prothrombin Time 12.4 sec (9.0-12.0)
[2018-04-09 20:46] LABS: Glucose,Whole Blood 133 mg/dL (75-99)
--- NOTE | 2018-04-09 22:03 | CONS ---
CONSULTATION REASON FOR CONSULT: Renal failure, hyperkalemia. HISTORY OF PRESENT ILLNESS: Patient is a 77-year-old male who recently had a hernia repair done laparoscopically about 5 days ago. The patient was at home and noticed that he did not have good urine output. He had been dribbling. For the last day or so patient had not voided at all. He was feeling increasingly weak and had significantly decreased oral intake. He was also confused and therefore he was brought into the ER. Patient had a Vora catheter placed, which showed significant urine retention. Patient had about 4 L of urine and a Vora catheter was being planned serially to avoid significant bladder decompression. Patient's potassium was also elevated at 8.6 mEq/L on initial admission. Serum creatinine was 24.25. Patient has had good urine output. He states he is feeling better. His creatinine this morning is down to 3.76. Patient denied use of any nonsteroidal anti-inflammatory agents post discharge; however, he was on JUSTINE inhibitors. He is noted to have bruising on his abdomen. PAST MEDICAL HISTORY: Significant for: 1. Hypertension. 2. Coronary artery disease. 3. History of CVA/TIA. 4. History of [place]. PAST SURGICAL HISTORY: 1. Cardiac catheterization. 2. Coronary stent placement. 3. Tonsillectomy. 4. Mitral valve repair. 5. Coronary stents. 6. Cataract surgery. SOCIAL HISTORY: Patient is a former smoker. No history of drug abuse or alcohol abuse. MEDICATIONS: Medications prior to admission included: 1. Ambien. 2. Aspirin. 3. Lipitor. 4. Plavix. 5. Zestril. 6. Colace. 7. [place]. 8. MiraLAX. ALLERGIES: NONE. PHYSICAL EXAMINATION: Patient is comfortable, awake. He is not in any acute distress. Alert and oriented x3. Blood pressure was 140/64, heart rate 110 per minute. He is afebrile. EXAMINATION OF THE HEART: S1, S2. EXAMINATION OF LUNGS: Bilateral breath sounds are heard. ABDOMEN: Soft, non-tender. Examination of lower extremities shows no evidence of edema. 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 LABS: Sodium 152, potassium 4.7, BUN 80, serum creatinine 3.76, hemoglobin 13.4 g/dL. ASSESSMENT: 1. Acute kidney injury, obstructive in nature, currently significantly improved with Vora catheter placement. 2. Metabolic acidosis associated with advanced renal failure, currently resolved. I will discontinue the bicarb drip. 3. Hypernatremia associated with free water deficit and postobstructive diuresis. Will change fluids to half-normal saline. 4. Severe hyperkalemia associated with obstructive uropathy and advanced renal failure, currently resolved. 5. History of recent inguinal hernia repair. PLAN: Change IV fluids to half-normal saline. Discontinue IV bicarb. Repeat labs in a.m. If the serum sodium remains elevated, we will switch him to D5W. Patient was encouraged to increase oral intake. He should follow up with Urology, and close monitoring with voiding trials will need to be done before discontinuation of catheter. Thank you for this consultation. We will continue to follow the patient with you during his hospitalization. JULIEN / CLARE: [id number] /
[2018-04-10] MEDS: HYDROcodone/APAP 7.5-325MG 1 EACH TAB PO PRN ×4 (04:39→23:06)
[2018-04-10] MEDS: PANTOPRAZOLE 40 MG TABLET PO SCH (06:30)
[2018-04-10] MEDS: INSULIN ASPART 100 UNIT/ML 1 ML 10 ML VIAL SQ SCH ×4 (06:31→20:54)
[2018-04-10 06:35] LABS: Glucose,Whole Blood 133 mg/dL (75-99)
--- NOTE | 2018-04-10 07:16 | CONS ---
CONSULTATION DATE OF SERVICE: 04/09/2018. REASON FOR CONSULTATION: Sepsis. HISTORY OF PRESENT ILLNESS: The patient is a 77-year-old male who is status post right inguinal hernia repair done by laparoscopy by Dr. Adamson on March 27. The patient has been brought to the ER at [facility] yesterday with progressive weakness since surgery. The patient did have overall decreased oral intake, has been feeling very weak and tired and unable to get up. No clear history of any nausea or any vomiting or any diarrhea. However, the patient did have a decreased urine output and some lower abdominal pain. Pain described to be more of a dull aching pain, 3 to 4 out of 10 and no radiation. With these symptoms, the patient has been evaluated by the ER physician. The patient on arrival to the ER has been afebrile. His white count was slightly elevated at 13.5. His creatinine was significantly elevated at 24. CT of abdomen and pelvis was completed, which shows mild infiltrate and atelectasis at the lung bases, more on the right side, hydronephrosis and hydroureter and dilated urinary bladder and mildly distended small bowel. The patient was hypertensive, received multiple fluid bolus, subsequently admitted to the ICU with concern for possible sepsis. The patient has been started on broad-spectrum antibiotic in the form of Zosyn. Infectious Disease was consulted for further recommendation regarding antibiotic therapy. REVIEW OF SYSTEMS: CONSTITUTIONAL: Positive for weakness. Denies having any fever. EYES: No complaint. ENT: No complaint. RESPIRATORY: Some shortness of breath. No cough. CARDIOVASCULAR: No complaint. GENITOURINARY: As per HPI. GASTROINTESTINAL: As per HPI. MUSCULOSKELETAL: No complaint. INTEGUMENTARY: No complaint. PSYCHOLOGICAL: No complaint. ENDOCRINE: No complaint. NEUROLOGIC: No complaint. PAST MEDICAL HISTORY: Coronary artery disease, CVA, TIA, [place], osteoarthritis, basal cell carcinoma, crushed vertebral in the neck. PAST SURGICAL HISTORY: Heart catheterization with stent, tonsillectomy, mitral valve repair, bilateral cataracts with lens implant. SOCIAL HISTORY: Former history of smoking, quit in 2002. No drinking or drug use. FAMILY HISTORY: No pertinent findings noticed. ALLERGIES: No known drug allergies. MEDICATIONS: Medications currently include the patient is on Zosyn 3.375 grams q.12. He is on Ambien, MiraLAX, Protonix, Nitrostat, Narcan, Lopressor, NovoLog, Dilaudid, heparin, Colace, Plavix, Lipitor, aspirin, [place], and Tylenol. PHYSICAL EXAMINATION: On examination, blood pressure is 155/78 with a pulse of 86, temperature 97.5. He is 97% on room air. General description is an elderly male lying in bed in no distress. No tachypnea or accessory muscle of respiration use. HEENT examination shows slight pallor. No scleral icterus. Oral mucous membrane is dry. No pharyngeal erythema or thrush. NECK: Trachea central. No thyromegaly. LUNGS: Unlabored breathing, clear to auscultation anteriorly. No wheeze or crackle. HEART: S1, S2. Regular rate and rhythm. ABDOMEN: Soft, no tenderness. No guarding or rigidity. No organomegaly. EXTREMITIES: No edema of feet. SKIN EXAMINATION: No rash or mass palpable. NEUROLOGIC: The patient is awake, alert, oriented x3. Mood and affect normal. LABS: Hemoglobin is 13.7, white count 13. BUN of 80, creatinine 3.76. Urine was significantly positive. CT of the abdomen and pelvis report as mentioned above. DIAGNOSTIC IMPRESSION AND PLAN: Patient admitted to the hospital with generalized weakness, no energy in a patient who noticed to have acute on chronic renal insufficiency with significant elevated BUN and creatinine. He was more likely from dehydration and did have elevated white count, underlying process more likely metabolic infection less likely, but not entirely excluded. PLAN: 1. We will keep the patient on Zosyn 3.75 grams q.12 while waiting for the culture to finalize. 2. Gentle IV fluids. 3. Depending upon clinical response as well as cultures will adjust the medication further if needed. Thank you for this consultation. Will follow this patient along with you. MMODL / IJN: [id number] /
[2018-04-10 08:04] LABS: Basophils # (A) 0.1 k/uL (0-0.2); Basophils % (A) 0 %; Eosinophils # (A) 0.5 k/uL (0-0.7); Eosinophils % (A) 4 %; HCT 41.5 % (39.0-53.0); HGB 13.3 gm/dL (13.0-17.5); Lymphocytes # (A) 1.5 k/uL (1.0-4.8); Lymphocytes % (A) 12 %; MCH 31.4 pg (25.0-35.0); MCHC 32.1 g/dL (31.0-37.0); MCV 97.8 fL (80.0-100.0); Mean Platelet Volume 6.8; Monocytes # (A) 0.6 k/uL (0-1.0); Monocytes % (A) 5 %; Neutrophils # (A) 9.9 k/uL (1.3-7.7); Neutrophils % (A) 78 %; Platelet Count 192 k/uL (150-450); RBC 4.25 m/uL (4.30-5.90); WBC 12.8 k/uL (3.8-10.6)
[2018-04-10] MEDS: POLYETHYLENE GLYCOL 3350 17 GM POWD.PACK PO SCH (08:16)
[2018-04-10] MEDS: DOCUSATE 100 MG CAP PO SCH ×2 (08:17→20:33)
[2018-04-10] MEDS: PIPERACILLIN-TAZOBACTAM 3.375 GM in DEXTROSE/WATER 1 50ML.BAG IVPB SCH ×2 (08:22→20:33)
[2018-04-10] MEDS: ATORVASTATIN 40 MG TAB PO SCH (08:26)
[2018-04-10] MEDS: ASPIRIN 81 MG PO SCH (08:26)
[2018-04-10] MEDS: METOPROLOL TARTRATE 25 MG TAB PO SCH ×3 (08:27→20:33)
[2018-04-10] MEDS: SODIUM CHLORIDE 0.45% 1,000 ML IV SCH ×2 (08:27→18:00)
[2018-04-10] MEDS: CLOPIDOGREL 75 MG TAB PO SCH (08:27)
[2018-04-10 08:28] LABS: Calcium 8.4 mg/dL (8.4-10.2); Magnesium 1.4 mg/dL (1.6-2.3); Phosphorus 2.2 mg/dL (2.5-4.5)
[2018-04-10] MEDS: MAGNESIUM SULFATE-D5W PMX 1 GM in DEXTROSE/WATER 1 100ML.BAG IVPB SCH ×2 (09:13→10:18)
[2018-04-10] MEDS: RIVAROXABAN 15 MG TAB PO SCH (11:09)
--- NOTE | 2018-04-10 11:50 | P.PN ---
Subjective Progress Note Date: 04/10/18 77-year-old male seen at the bedside. Patient states less abdominal pain this morning. Does have peripheral ecchymotic bruising to the abdominal wall to increase from reference markings noted abdomen slightly softer than prior exam. White count is 12.8 creatinine significantly improved 1.0 admitting creatinine 24 patient states he did have a bowel movement this morning reports no blood noted in stool no nausea A recent March 27 laparoscopic robotic umbilical hernia repair Objective - Vital Signs Vital signs: Vital Signs Temp 97.9 F 04/10/18 11:21 Pulse 92 04/10/18 11:21 Resp 16 04/10/18 11:21 BP 143/72 04/10/18 11:21 Pulse Ox 94 L 04/10/18 11:21 Intake & Output 04/09/18 04/10/18 04/10/18 18:59 06:59 18:59 Intake Total 2720 565 240 Output Total 2675 1200 Balance 45 -635 240 Weight 73.4 kg 75 kg Intake: IV 750 Dextrose 5% in Water 1, 750 000 ml @ 125 mls/hr IV . Q9H12M MARY with Sodium Bicarb (1 Meq/ml) 150 ml Rx#:[id number] Intake, IV Titration 650 200 Amount Piperacillin-Tazobactam 3 50 .375 gm In Dextrose/Water 1 50ml.bag @ 12.5 mls/hr IVPB Q12HR MARY Rx#: [id number] Sodium Chloride 0.45% 1, 600 200 000 ml @ 100 mls/hr IV . Q10H MARY Rx#:[id number] Oral 1320 365 240 Output: Urine 2675 1200 Other: Voiding Method Indwelling Catheter Indwelling Catheter Indwelling Catheter # Bowel Movements 1 - Exam Physical exam 77-year-old male seen at the bedside resting in bed states the abdominal pain has improved Lungs adequate air movement bilaterally on room air Heart S1-S2 audible regular denying chest pain abdomen several purple ecchymotic bruising 1 on the right flank second one mid abdomen third on the left decreased in size since admission less tender slightly less from states had a bowel movement this morning the blood reports of nausea vomiting indwelling Vora catheter in place extremities no edema - Labs CBC & Chem 7: 04/10/18 07:46 04/10/18 07:46 Labs: Abnormal Lab Results - Last 24 Hours (Table) 04/09/18 04/09/18 04/09/18 Range/Units 12:06 17:26 18:43 WBC (3.8-10.6) k/uL RBC (4.30-5.90) m/uL Neutrophils # (1.3-7.7) k/uL Lymphocytes # (1.0-4.8) k/uL PT 12.4 H (9.0-12.0) sec INR 1.3 H (<1.2) APTT (22.0-30.0) sec Sodium (137-145) mmol/L Chloride (98-107) mmol/L POC Glucose (mg/dL) 116 H 137 H (75-99) mg/dL Phosphorus (2.5-4.5) mg/dL Magnesium (1.6-2.3) mg/dL 04/09/18 04/09/18 04/10/18 Range/Units 18:43 20:42 00:35 WBC 13.0 H (3.8-10.6) k/uL RBC (4.30-5.90) m/uL Neutrophils # 11.2 H (1.3-7.7) k/uL Lymphocytes # 0.7 L (1.0-4.8) k/uL PT (9.0-12.0) sec INR (<1.2) APTT 63.2 H (22.0-30.0) sec Sodium (137-145) mmol/L Chloride (98-107) mmol/L POC Glucose (mg/dL) 133 H (75-99) mg/dL Phosphorus (2.5-4.5) mg/dL Magnesium (1.6-2.3) mg/dL 04/10/18 04/10/18 04/10/18 Range/Units 06:26 07:46 07:46 WBC 12.8 H (3.8-10.6) k/uL RBC 4.25 L (4.30-5.90) m/uL Neutrophils # 9.9 H (1.3-7.7) k/uL Lymphocytes # (1.0-4.8) k/uL PT (9.0-12.0) sec INR (<1.2) APTT (22.0-30.0) sec Sodium 146 H (137-145) mmol/L Chloride 113 H (98-107) mmol/L POC Glucose (mg/dL) 133 H (75-99) mg/dL Phosphorus 2.2 L (2.5-4.5) mg/dL Magnesium 1.4 L (1.6-2.3) mg/dL Microbiology - Last 24 Hours (Table) 04/09/18 09:30 Gram Stain - Preliminary Sputum 04/08/18 14:21 Blood Culture - Preliminary Blood No Growth after 24 hours Assessment and Plan Assessment: Impression recent March 27 laparoscopic robotic umbilical hernia repair Present on admission hyperkalemia Present on admission urinary retention Known coronary artery disease with a history of a mitral valve repair Acute onset renal failure suspect due to dehydration poor oral intake Computed tomography scan of the abdomen pelvis felt contrast report reviewed right-sided will hernia may contain small bowel appendix normal. Dilated bowel. Acute kidney injury obstructive in nature significantly improved Metabolic acidosis associated with advanced renal failure currently resolved Present on admission leukocytosis improved Plan Continue recommendations by infectious disease currently on Zosyn waiting for cultures to finalize no Evidence of an acute surgical abdomen this time Monitor labs DVT and GI prophylaxis Further surgical recommendations pending Will follow with you pain control Increase activity Continue recommendations by nephrology and infectious disease The above impression and plan of care have been discussed and directed by signing physician. Rama Ramirez nurse practitioner acting as scribe for signing physician.
--- NOTE | 2018-04-10 12:22 | P.PN ---
<Ragini Lal E - Last Filed: 04/10/18 12:18> Subjective Progress Note Date: 04/10/18 HPI: 77 year old male presented to the ED with his son complaining of generalized weakness. The patient had hernia surgery 12 days ago and states he has not been feeling well since that time. He states he has had diarrhea continuously since that time. He states he did feel like he had chills, but never checked his temperature. He states he has not urinated since prior to his surgery. He has had a poor appetite and has not had anything to eat or drink in several days. He is complaining of continued abdominal pain. He has a history of hypertension which he states is controlled. Upon arrival to the ED, the patient was found to have urinary retention, smith catheter was placed. He has been given 2L IVF. He was found to have creatinine 24.25 and BUN which is unmeasurable. Potassium is 8.6. He has been afebrile. He does have WBC count 13. His smith catheter bag has dark mehdi urine. The patient has been hypertensive. He does have a history of CAD and valve replacement in 2002. Interval History: 04/09/18- patient is being seen examined and evaluated today on rounds while covering for Dr. Jeremiah Jansen. Patient is resting up in bed on 2 L of supplemental oxygen via nasal cannula. He is alert and oriented 2 with some intermittent confusion. His labs are reviewed. His potassium is now 4.7. His BUN is now 80 creatinine is 3.76. ephrology has been adjusting treatment as well. He did have some episodes of A. fib/A flutter overnight with a controlled rate and cardiology was consulted for that. He also was noted to have a positive stool for occult blood. His hemoglobin has been stable. He did have an renal ultrasound yesterday which did show a 5 cm cortical cyst of the left kidney with mild bilateral hydrocele nephrosis. He also underwent a CT of the abdomen which did show mild infiltrates and atelectasis at the lung bases mainly on the right with hydronephrosis, hydroureter, enlarged prostate, chronic bladder outlet obstruction, 3 cm AAA, mild distended small bowel loops and possible ileus could not be excluded. His surgeon has been consulted. His abdomen continues to be produced. He is afebrile and hemodynamically stable. 04/10/2018patient being seen examined and evaluated today on rounds with covering for Dr. Jeremiah Jansen. He is resting up in bed on room air. States he is feeling somewhat better today. His heparin drip was stopped and he was transitioned to Xarelto. The patient's magnesium is 1.4 today and is being replaced. His sodium is 146 and nephrology is adjusting medications. His vital signs have been stable. He has been refusing therapy. His appetite has been good. He is afebrile no further complaints Objective - Vital Signs Vital signs: Vital Signs Temp 97.9 F 04/10/18 11:21 Pulse 92 04/10/18 11:21 Resp 16 04/10/18 11:21 BP 143/72 04/10/18 11:21 Pulse Ox 94 L 04/10/18 11:21 Intake & Output 04/09/18 04/10/18 04/10/18 18:59 06:59 18:59 Intake Total 2720 565 240 Output Total 2675 1200 Balance 45 -635 240 Weight 73.4 kg 75 kg Intake: IV 750 Dextrose 5% in Water 1, 750 000 ml @ 125 mls/hr IV . Q9H12M MARY with Sodium Bicarb (1 Meq/ml) 150 ml Rx#:[id number] Intake, IV Titration 650 200 Amount Piperacillin-Tazobactam 3 50 .375 gm In Dextrose/Water 1 50ml.bag @ 12.5 mls/hr IVPB Q12HR MARY Rx#: [id number] Sodium Chloride 0.45% 1, 600 200 000 ml @ 100 mls/hr IV . Q10H MARY Rx#:[id number] Oral 1320 365 240 Output: Urine 2675 1200 Other: Voiding Method Indwelling Catheter Indwelling Catheter Indwelling Catheter # Bowel Movements 1 - Exam General: alert, some confusion, CV: afib/ aflutter controlled rate, s1/s2 Lungs: Coarse breath sounds bilaterally, improved aeration Abd: tender to palpation, ecchymosis noted, +BS Ext: 1+ LE edema Neuro: no focal deficits, moves all extremities - Labs CBC & Chem 7: 04/10/18 07:46 04/10/18 07:46 Labs: Abnormal Lab Results - Last 24 Hours (Table) 04/09/18 04/09/18 04/09/18 Range/Units 17:26 18:43 18:43 WBC 13.0 H (3.8-10.6) k/uL RBC (4.30-5.90) m/uL Neutrophils # 11.2 H (1.3-7.7) k/uL Lymphocytes # 0.7 L (1.0-4.8) k/uL PT 12.4 H (9.0-12.0) sec INR 1.3 H (<1.2) APTT (22.0-30.0) sec Sodium (137-145) mmol/L Chloride (98-107) mmol/L POC Glucose (mg/dL) 137 H (75-99) mg/dL Phosphorus (2.5-4.5) mg/dL Magnesium (1.6-2.3) mg/dL 04/09/18 04/10/18 04/10/18 Range/Units 20:42 00:35 06:26 WBC (3.8-10.6) k/uL RBC (4.30-5.90) m/uL Neutrophils # (1.3-7.7) k/uL Lymphocytes # (1.0-4.8) k/uL PT (9.0-12.0) sec INR (<1.2) APTT 63.2 H (22.0-30.0) sec Sodium (137-145) mmol/L Chloride (98-107) mmol/L POC Glucose (mg/dL) 133 H 133 H (75-99) mg/dL Phosphorus (2.5-4.5) mg/dL Magnesium (1.6-2.3) mg/dL 04/10/18 04/10/18 Range/Units 07:46 07:46 WBC 12.8 H (3.8-10.6) k/uL RBC 4.25 L (4.30-5.90) m/uL Neutrophils # 9.9 H (1.3-7.7) k/uL Lymphocytes # (1.0-4.8) k/uL PT (9.0-12.0) sec INR (<1.2) APTT (22.0-30.0) sec Sodium 146 H (137-145) mmol/L Chloride 113 H (98-107) mmol/L POC Glucose (mg/dL) (75-99) mg/dL Phosphorus 2.2 L (2.5-4.5) mg/dL Magnesium 1.4 L (1.6-2.3) mg/dL Microbiology - Last 24 Hours (Table) 04/09/18 09:30 Gram Stain - Preliminary Sputum 04/08/18 14:21 Blood Culture - Preliminary Blood No Growth after 24 hours Assessment and Plan Assessment: Assessment Acute renal failure with severe dehydration Uremia with encephalopathy Hyperkalemia Sepsis, 2/4 SIRS Hypermagnesemia NSTEMI ASCAD, history of valvular heart disease and valve replacement Intractable diarrhea Atelectasis CT of the abdomen didn't reveal hydronephrosis and hydroureter 3 cm AAA Enlarged prostate Plan Patient could be downgraded from the intensive care unit Nephrology and ID on consult Smith catheter with strict I/O Blood, urine, sputum cultures Echocardiogram EF of 35-40%, RVSP 11.42 mmHg Renal ultrasound reviewed CT abdomen/pelvis reviewed Consult Dr. Adamson - known to him for hernia repair Stool occult blood positive, monitor hemoglobin and any further signs of bleeding Incentive spirometry and pulmonary hygiene Monitor electrolytes and replace per protocol PT and OT increase activity as tolerated GI and DVT prophylaxis We will continue to monitor labs/results and adjust treatment as necessary I, the signing physician performed an examination of the patient, discussed and directed their management with the nurse practitioner. I have reviewed the nurse practitioner's note and agree with the documented findings, orders and plan of care. <Sherrie Streeter A - Last Filed: 04/10/18 15:34> Objective - Vital Signs Vital signs: Vital Signs Temp 98.1 F 04/10/18 14:47 Pulse 88 04/10/18 14:47 Resp 16 04/10/18 14:47 BP 141/70 04/10/18 14:47 Pulse Ox 95 04/10/18 14:47 Intake & Output 04/09/18 04/10/18 04/10/18 18:59 06:59 18:59 Intake Total 2720 565 1330 Output Total 2675 1200 Balance 45 -635 1330 Weight 73.4 kg 75 kg Intake: IV 750 Dextrose 5% in Water 1, 750 000 ml @ 125 mls/hr IV . Q9H12M MARY with Sodium Bicarb (1 Meq/ml) 150 ml Rx#:[id number] Intake, IV Titration 650 200 850 Amount Magnesium Sulfate-D5w Pmx 200 1 gm In Dextrose/Water 1 100ml.bag @ 100 mls/hr IVPB Q1H MARY Rx#: [id number] Piperacillin-Tazobactam 3 50 50 .375 gm In Dextrose/Water 1 50ml.bag @ 12.5 mls/hr IVPB Q12HR MARY Rx#: [id number] Sodium Chloride 0.45% 1, 600 200 600 000 ml @ 100 mls/hr IV . Q10H MARY Rx#:[id number] Oral 1320 365 480 Output: Urine 2675 1200 Other: Voiding Method Indwelling Catheter Indwelling Catheter Indwelling Catheter # Bowel Movements 1 - Labs CBC & Chem 7: 04/10/18 07:46 04/10/18 07:46 Labs: Abnormal Lab Results - Last 24 Hours (Table) 04/09/18 04/09/18 04/09/18 Range/Units 17:26 18:43 18:43 WBC 13.0 H (3.8-10.6) k/uL RBC (4.30-5.90) m/uL Neutrophils # 11.2 H (1.3-7.7) k/uL Lymphocytes # 0.7 L (1.0-4.8) k/uL PT 12.4 H (9.0-12.0) sec INR 1.3 H (<1.2) APTT (22.0-30.0) sec Sodium (137-145) mmol/L Chloride (98-107) mmol/L POC Glucose (mg/dL) 137 H (75-99) mg/dL Phosphorus (2.5-4.5) mg/dL Magnesium (1.6-2.3) mg/dL 04/09/18 04/10/18 04/10/18 Range/Units 20:42 00:35 06:26 WBC (3.8-10.6) k/uL RBC (4.30-5.90) m/uL Neutrophils # (1.3-7.7) k/uL Lymphocytes # (1.0-4.8) k/uL PT (9.0-12.0) sec INR (<1.2) APTT 63.2 H (22.0-30.0) sec Sodium (137-145) mmol/L Chloride (98-107) mmol/L POC Glucose (mg/dL) 133 H 133 H (75-99) mg/dL Phosphorus (2.5-4.5) mg/dL Magnesium (1.6-2.3) mg/dL 04/10/18 04/10/18 04/10/18 Range/Units 07:46 07:46 12:08 WBC 12.8 H (3.8-10.6) k/uL RBC 4.25 L (4.30-5.90) m/uL Neutrophils # 9.9 H (1.3-7.7) k/uL Lymphocytes # (1.0-4.8) k/uL PT (9.0-12.0) sec INR (<1.2) APTT (22.0-30.0) sec Sodium 146 H (137-145) mmol/L Chloride 113 H (98-107) mmol/L POC Glucose (mg/dL) 107 H (75-99) mg/dL Phosphorus 2.2 L (2.5-4.5) mg/dL Magnesium 1.4 L (1.6-2.3) mg/dL Microbiology - Last 24 Hours (Table) 04/09/18 09:30 Gram Stain - Preliminary Sputum Sputum Culture - Preliminary 04/08/18 14:21 Blood Culture - Preliminary Blood No Growth after 24 hours Assessment and Plan Assessment: Patient seen and examined. Patient states he wants to go home and he's getting very frustrated. Per cardiology, heparin drip stopped and Xarelto initiated for afib. Void trial, remove smith and trial voids. If patient requires more than 2 straight cath then will replace smith. Start Flomax. Replace lytes. ~Sherrie Streeter, DO
[2018-04-10 12:38] LABS: Glucose,Whole Blood 107 mg/dL (75-99)
[2018-04-10] MEDS ORDERED: HYDROmorphone 4 MG TABLET PO PRN (12:46)
--- NOTE | 2018-04-10 13:25 | P.PN ---
Subjective Progress Note Date: 04/10/18 This is a 77-year-old gentleman with known history of coronary artery disease, mitral valve repair, who recently underwent surgery for inguinal hernia. Presented to the hospital with symptoms of confusion and dehydration, he was found to be in atypical atrial flutter for which a cardiology consultation was requested. Patient's surgery was on March 27, no history of palpitations, dizziness or syncope. In July 2016 patient did receive stents in the LAD. He had been on IV heparin, this was discontinued today and we started the patient on xarelto 15 mg, we will discontinue the aspirin and continue the Plavix. His blood pressure this morning 135/83 with a heart rate in the 90s, 96% on room air. White blood cell count 12.8, hemoglobin 13.3, platelet count 192. Sodium 146, potassium 4.0, BUN 20 and creatinine 1.02. Magnesium level today is 1.4 which we will replace. Objective - Vital Signs Vital signs: Vital Signs Temp 97.9 F 04/10/18 11:21 Pulse 92 04/10/18 11:21 Resp 16 04/10/18 11:21 BP 143/72 04/10/18 11:21 Pulse Ox 94 L 04/10/18 11:21 Intake & Output 04/09/18 04/10/18 04/10/18 18:59 06:59 18:59 Intake Total 2720 565 1330 Output Total 2675 1200 Balance 45 -635 1330 Weight 73.4 kg 75 kg Intake: IV 750 Dextrose 5% in Water 1, 750 000 ml @ 125 mls/hr IV . Q9H12M MARY with Sodium Bicarb (1 Meq/ml) 150 ml Rx#:[id number] Intake, IV Titration 650 200 850 Amount Magnesium Sulfate-D5w Pmx 200 1 gm In Dextrose/Water 1 100ml.bag @ 100 mls/hr IVPB Q1H MARY Rx#: [id number] Piperacillin-Tazobactam 3 50 50 .375 gm In Dextrose/Water 1 50ml.bag @ 12.5 mls/hr IVPB Q12HR MARY Rx#: [id number] Sodium Chloride 0.45% 1, 600 200 600 000 ml @ 100 mls/hr IV . Q10H MARY Rx#:[id number] Oral 1320 365 480 Output: Urine 2675 1200 Other: Voiding Method Indwelling Catheter Indwelling Catheter Indwelling Catheter # Bowel Movements 1 - Exam Assessment and plan #1 persistent atrial fibrillation, controlled ventricular response. A typical atrial flutter on admission. #2 inguinal hernia, status post recent surgery #3 coronary artery disease with prior LAD stenting in July 2016 #4 history of mitral valve repair #5 hypertension #6 hyperlipidemia Plan We will discontinue the IV heparin and start the patient on xarelto 15 mg daily. Continue Plavix 75 mg daily, discontinue aspirin. We will also replace the patient's magnesium. DNP note has been reviewed, I agree with a documented findings and plan of care. Patient was seen and examined. - Labs CBC & Chem 7: 04/10/18 07:46 04/10/18 07:46 Labs: Abnormal Lab Results - Last 24 Hours (Table) 04/09/18 04/09/18 04/09/18 Range/Units 17:26 18:43 18:43 WBC 13.0 H (3.8-10.6) k/uL RBC (4.30-5.90) m/uL Neutrophils # 11.2 H (1.3-7.7) k/uL Lymphocytes # 0.7 L (1.0-4.8) k/uL PT 12.4 H (9.0-12.0) sec INR 1.3 H (<1.2) APTT (22.0-30.0) sec Sodium (137-145) mmol/L Chloride (98-107) mmol/L POC Glucose (mg/dL) 137 H (75-99) mg/dL Phosphorus (2.5-4.5) mg/dL Magnesium (1.6-2.3) mg/dL 04/09/18 04/10/18 04/10/18 Range/Units 20:42 00:35 06:26 WBC (3.8-10.6) k/uL RBC (4.30-5.90) m/uL Neutrophils # (1.3-7.7) k/uL Lymphocytes # (1.0-4.8) k/uL PT (9.0-12.0) sec INR (<1.2) APTT 63.2 H (22.0-30.0) sec Sodium (137-145) mmol/L Chloride (98-107) mmol/L POC Glucose (mg/dL) 133 H 133 H (75-99) mg/dL Phosphorus (2.5-4.5) mg/dL Magnesium (1.6-2.3) mg/dL 04/10/18 04/10/18 04/10/18 Range/Units 07:46 07:46 12:08 WBC 12.8 H (3.8-10.6) k/uL RBC 4.25 L (4.30-5.90) m/uL Neutrophils # 9.9 H (1.3-7.7) k/uL Lymphocytes # (1.0-4.8) k/uL PT (9.0-12.0) sec INR (<1.2) APTT (22.0-30.0) sec Sodium 146 H (137-145) mmol/L Chloride 113 H (98-107) mmol/L POC Glucose (mg/dL) 107 H (75-99) mg/dL Phosphorus 2.2 L (2.5-4.5) mg/dL Magnesium 1.4 L (1.6-2.3) mg/dL Microbiology - Last 24 Hours (Table) 04/09/18 09:30 Gram Stain - Preliminary Sputum 04/08/18 14:21 Blood Culture - Preliminary Blood No Growth after 24 hours
[2018-04-10 16:38] LABS: Glucose,Whole Blood 120 mg/dL (75-99)
[2018-04-10] MEDS: TAMSULOSIN 0.4 MG CAP.ER.24H PO SCH (17:59)
[2018-04-10 21:12] LABS: Glucose,Whole Blood 139 mg/dL (75-99)
--- NOTE | 2018-04-10 21:49 | PN ---
PROGRESS NOTE DATE OF SERVICE: 04/10/2018. REASON FOR FOLLOWUP: Leukocytosis and possible infection. INTERVAL HISTORY: The patient is currently afebrile. He seemed to be breathing more comfortably. Denies significant chest pain. Occasional cough. No abdominal pain. He denies significant bruise, but no redness. No diarrhea. Continues to have a Vora catheter. EXAMINATION: Blood pressure is 141/70 with a pulse of 80, temperature 98.1. He is 95% on room air. General description is an elderly male lying in bed in no distress. Respiratory system unlabored breathing with decreased breath sounds in the bases. No wheeze. Heart S1, S2. Regular rate and rhythm. Abdomen soft. No tenderness. Abdominal wall did have bruises, but no cellulitis. EXTREMITIES: No edema of the feet. LABS: Hemoglobin 13.8, white count 4.8 with a BUN of 20, creatinine 1.02. IMPRESSION/PLAN: Patient admitted to the hospital with significant dehydration with a creatinine of 2.4, elevated BUN. The patient seemed to have shown significant clinical improvement with normalization of his renal parameters, white count remained to be elevated. Blood culture has been negative. He is currently on empiric antibiotic that will be continued for now, adjusting it further based on clinical response as well as cultures. Continue supportive care. MMODL / IJN: [id number] /
--- NOTE | 2018-04-10 22:28 | PN ---
PROGRESS NOTE Patient is seen for followup for acute kidney injury which was mainly obstructive in nature. He has had good urine output. Currently has an indwelling Vora catheter. 24 hour urine output was 3.8 L. Serum creatinine is down to 1.0 from 4.2 on initial admission. Serum potassium is at 4 from 8.6 on initial admission. The patient wants to go home. PHYSICAL EXAMINATION: Blood pressure was 135/83, heart rate 91 per minute. He is afebrile. Examination of the heart S1, S2. Examination of the abdomen reveals it to be soft with some bruising noted. Examination lower extremity shows no evidence of edema. 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 LAB: Shows sodium of 146, potassium 4.0, chloride 113, BUN of 20, serum creatinine 1.0, hemoglobin 13.3 g/dL. ASSESSMENT: 1. Acute kidney injury, obstructive in nature, currently significantly improved. The patient has an indwelling Vora catheter. He should follow up with Urology as outpatient given the significant bladder distention. We could try a voiding trial, however, it might be better to leave the Vora in and follow up with Urology as outpatient. 2. Status post recent hernia repair, laparoscopic hernia repair. 3. Severe hyperkalemia at the time of admission secondary to acute kidney injury and urine retention, currently resolved. 4. Coronary artery disease with history of coronary artery stents. 5. History of mitral valve repair. 6. Atrial fibrillation with controlled ventricular response maintained on IV heparin. PLAN: Continue half-normal saline for now. Patient could potentially be discharged tomorrow. He needs to follow up with Urology as outpatient. MMODL / IJN: [id number] /
[2018-04-10] MEDS: ZOLPIDEM 10 MG TAB PO SCH (23:06)
[2018-04-11] MEDS: SODIUM CHLORIDE 0.45% 1,000 ML IV SCH ×2 (05:14→16:53)
[2018-04-11 06:12] LABS: Glucose,Whole Blood 105 mg/dL (75-99)
[2018-04-11] MEDS: INSULIN ASPART 100 UNIT/ML 1 ML 10 ML VIAL SQ SCH ×3 (06:37→17:11)
[2018-04-11] MEDS: PANTOPRAZOLE 40 MG TABLET PO SCH (06:38)
[2018-04-11 06:49] LABS: Basophils % (A) 0 %; Eosinophils # (A) 0.6 k/uL (0-0.7); Eosinophils % (A) 7 %; HCT 40.4 % (39.0-53.0); Lymphocytes # (A) 1.2 k/uL (1.0-4.8); Lymphocytes % (A) 13 %; MCH 31.3 pg (25.0-35.0); MCHC 32.2 g/dL (31.0-37.0); MCV 97.2 fL (80.0-100.0); Monocytes # (A) 0.4 k/uL (0-1.0); Monocytes % (A) 5 %; Neutrophils # (A) 6.8 k/uL (1.3-7.7); Neutrophils % (A) 74 %; Platelet Count 198 k/uL (150-450); RBC 4.15 m/uL (4.30-5.90); RDW 12.8 % (11.5-15.5); WBC 9.3 k/uL (3.8-10.6)
[2018-04-11 06:55] LABS: Anion Gap 5 mmol/L; Blood Urea Nitrogen 15 mg/dL (9-20); Calcium 7.9 mg/dL (8.4-10.2); Carbon Dioxide 27 mmol/L (22-30); Chloride 111 mmol/L (98-107); Glucose 91 mg/dL (74-99); Magnesium 1.5 mg/dL (1.6-2.3); Phosphorus 1.9 mg/dL (2.5-4.5); Potassium 3.7 mmol/L (3.5-5.1); Sodium 143 mmol/L (137-145)
[2018-04-11 07:47] VITALS: RESP 16
[2018-04-11] MEDS: DOCUSATE 100 MG CAP PO SCH (08:51)
[2018-04-11] MEDS: POLYETHYLENE GLYCOL 3350 17 GM POWD.PACK PO SCH (08:51)
[2018-04-11] MEDS: CLOPIDOGREL 75 MG TAB PO SCH (08:52)
[2018-04-11] MEDS: ATORVASTATIN 40 MG TAB PO SCH (08:52)
[2018-04-11] MEDS: PIPERACILLIN-TAZOBACTAM 3.375 GM in DEXTROSE/WATER 1 50ML.BAG IVPB SCH (08:52)
[2018-04-11] MEDS: METOPROLOL TARTRATE 25 MG TAB PO SCH ×2 (08:52→17:11)
[2018-04-11] MEDS: HYDROcodone/APAP 7.5-325MG 1 EACH TAB PO PRN ×2 (08:55→14:53)
[2018-04-11] MEDS: MAGNESIUM SULFATE-D5W PMX 1 GM in DEXTROSE/WATER 1 100ML.BAG IVPB SCH ×3 (08:57→10:51)
--- NOTE | 2018-04-11 09:17 | CDI ---
Last Revision, June 2017 Documentation Clarification Form Date: 04/09/2018 3:21:00 PM From: Nicci PriceHOLDEN, CCDS Admit Date: 04/08/2018 5:00:00 PM Patient Name: Sharan Snell Visit Number: [id number] Discharge Date: ATTENTION: The Clinical Documentation Specialists (CDI) and [facility] Coding Staff appreciate your assistance in clarifying documentation. Please respond to the clarification below the line at the bottom and electronically sign. The CDI & [facility] Coding staff will review the response and follow-up if needed. Please note: Queries are made part of the Legal Health Record. If you have any questions, please contact the author of this message via ITS. Sherrie Sanchez, DO: Encephalopathy is documented in the History & Physical and subsequent progress note. Noted to have some confusion. History/Risk factors: History of hernia surgery 12 days ago. Previous CVA w/ some muscle loss, [place], CAD, OA. Clinical Indicators: Presented with generalized weakness, poor appetite, distended abdomen, abdominal pain & elevated HR. Admit with acute abdomen, Sepsis & acute renal failure. Labs: WBC 13.5^, Neut 12.3^, K 8.6^^, Cr 24.25^^, Mag 3.2^, Alcon 7.9* CXR: Atelectasis, Possible infiltrate. CT A/P: Hydronephrosis & hydroureter, enlarged prostate, AAA, possible Ileus. Treatment: IV fl bolus x2, IV fl 125, Albuterol INH, IV Dextrose, IV Insulin, IV Alcon Cl, IV Dilaudid. Consults: Surgery, Cardiology In your professional opinion, can you please clarify the specific type of encephalopathy, if known? Metabolic Encephalopathy Septic Encephalopathy Toxic Encephalopathy Other, please specify Unable to determine Metablic encepalopathy MTDD
[2018-04-11 11:26] LABS: Glucose,Whole Blood 130 mg/dL (75-99)
[2018-04-11 11:35] VITALS: BP 132/65; PULSE 82; TEMP 97.4
--- NOTE | 2018-04-11 11:51 | P.DS ---
Providers Date of admission: 04/08/18 17:00 Expected date of discharge: 04/11/18 Attending physician: Sherrie Streeter Consults: 04/08/18 16:58 Consult Physician Urgent Consulting Provider: Maria Antonia Lunsford Consult Reason/Comments: Acute renal failure Do you want consulting provider notified?: Yes 04/08/18 17:18 Consult Physician Routine Consulting Provider: Wallace Adamson Consult Reason/Comments: Postop evaluation Do you want consulting provider notified?: Yes 04/08/18 17:22 Consult Physician Routine Consulting Provider: Patt Syed Consult Reason/Comments: sepsis Do you want consulting provider notified?: Yes 04/09/18 04:16 Consult Physician Urgent Consulting Provider: Christle Zacarias Consult Reason/Comments: aflutter new onset Do you want consulting provider notified?: Yes 04/11/18 09:10 Consult Physician Routine Consulting Provider: Mikel Roque Consult Reason/Comments: retention Do you want consulting provider notified?: Yes Primary care physician: Jeremiah Jansen [facility] Course: HPI: 77 year old male presented to the ED with his son complaining of generalized weakness. The patient had hernia surgery 12 days ago and states he has not been feeling well since that time. He states he has had diarrhea continuously since that time. He states he did feel like he had chills, but never checked his temperature. He states he has not urinated since prior to his surgery. He has had a poor appetite and has not had anything to eat or drink in several days. He is complaining of continued abdominal pain. He has a history of hypertension which he states is controlled. Upon arrival to the ED, the patient was found to have urinary retention, smith catheter was placed. He has been given 2L IVF. He was found to have creatinine 24.25 and BUN which is unmeasurable. Potassium is 8.6. He has been afebrile. He does have WBC count 13. His smith catheter bag has dark mehdi urine. The patient has been hypertensive. He does have a history of CAD and valve replacement in 2002. Interval History: 04/09/18- patient is being seen examined and evaluated today on rounds while covering for Dr. Jeremiah Jansen. Patient is resting up in bed on 2 L of supplemental oxygen via nasal cannula. He is alert and oriented 2 with some intermittent confusion. His labs are reviewed. His potassium is now 4.7. His BUN is now 80 creatinine is 3.76. ephrology has been adjusting treatment as well. He did have some episodes of A. fib/A flutter overnight with a controlled rate and cardiology was consulted for that. He also was noted to have a positive stool for occult blood. His hemoglobin has been stable. He did have an renal ultrasound yesterday which did show a 5 cm cortical cyst of the left kidney with mild bilateral hydrocele nephrosis. He also underwent a CT of the abdomen which did show mild infiltrates and atelectasis at the lung bases mainly on the right with hydronephrosis, hydroureter, enlarged prostate, chronic bladder outlet obstruction, 3 cm AAA, mild distended small bowel loops and possible ileus could not be excluded. His surgeon has been consulted. His abdomen continues to be produced. He is afebrile and hemodynamically stable. 04/10/2018patient being seen examined and evaluated today on rounds with covering for Dr. Jeremiah Jansen. He is resting up in bed on room air. States he is feeling somewhat better today. His heparin drip was stopped and he was transitioned to Xarelto. The patient's magnesium is 1.4 today and is being replaced. His sodium is 146 and nephrology is adjusting medications. His vital signs have been stable. He has been refusing therapy. His appetite has been good. He is afebrile no further complaints 04/11/18- patient is seen examined and evaluated today on rounds with covering for Dr. Jeremiah Jansen. He is resting up in bed on room air. He did have his Smith catheter removed yesterday and he continued to have bladder scans that were approximately 800 ML's and 500 ML's. The patient was unable to void on his own at all. He then had the catheter reinserted. Patient will need to follow-up with urology regarding his retention. He did receive Flomax. His BUN and creatinine today are improved. All labs and reports are reviewed. He is hemodynamically stable and requesting to be discharged. Assessment Acute renal failure with severe dehydration Uremia with encephalopathy Hyperkalemia Sepsis, 2/4 SIRS Hypermagnesemia NSTEMI ASCAD, history of valvular heart disease and valve replacement Intractable diarrhea Atelectasis CT of the abdomen didn't reveal hydronephrosis and hydroureter 3 cm AAA Enlarged prostate Plan Patient stable for discharge, patient will need to be discharged with his Smith catheter and will follow up with urology in the next 1-2 days. He has been educated on the care of the catheter. We will continue to monitor labs/results and adjust treatment as necessary I, the signing physician performed an examination of the patient, discussed and directed their management with the nurse practitioner. I have reviewed the nurse practitioner's note and agree with the documented findings, orders and plan of care. Pertinent Studies: Echocardiogram Chest x-ray Renal ultrasound CT of the abdomen and pelvis Patient Condition at Discharge: Fair Plan - Discharge Summary Discharge Rx Participant: Yes New Discharge Prescriptions: New Rivaroxaban [Xarelto] 15 mg PO W/SUPPER tab Tamsulosin [Flomax] 0.4 mg PO PC-SUPPER #30 cap.er.24h Continue Zolpidem [Ambien] 10 mg PO HS Atorvastatin Calcium [Lipitor] 40 mg PO DAILY Metoprolol Succinate (ER) [Toprol XL] 12.5 mg PO BID Clopidogrel [Plavix] 75 mg PO DAILY #90 tab Lisinopril [Zestril] 5 mg PO BID #180 tab Nitroglycerin Sl Tabs [Nitrostat] 0.4 mg SUBLINGUAL Q5M PRN #25 tab PRN Reason: Chest Pain Docusate [Colace] 100 mg PO BID #20 capsule HYDROcodone/APAP 7.5-325MG [[place] 7.5-325] 1 tab PO Q4H PRN 3 Days #18 tab PRN Reason: Pain Polyethylene Glycol 3350 [Miralax] 17 gm PO DAILY Discontinued Aspirin 81 mg PO DAILY Discharge Medication List Zolpidem [Ambien] 10 mg PO HS 06/08/16 [History] Atorvastatin Calcium [Lipitor] 40 mg PO DAILY 07/14/16 [History] Metoprolol Succinate (ER) [Toprol XL] 12.5 mg PO BID 07/14/16 [History] Clopidogrel [Plavix] 75 mg PO DAILY #90 tab 07/19/16 [Rx] Lisinopril [Zestril] 5 mg PO BID #180 tab 07/19/16 [Rx] Nitroglycerin Sl Tabs [Nitrostat] 0.4 mg SUBLINGUAL Q5M PRN #25 tab 07/19/16 [Rx ] Docusate [Colace] 100 mg PO BID #20 capsule 03/27/18 [Rx] HYDROcodone/APAP 7.5-325MG [[place] 7.5-325] 1 tab PO Q4H PRN 3 Days #18 tab 03/27 [Rx] Polyethylene Glycol 3350 [Miralax] 17 gm PO DAILY 04/08/18 [History] Rivaroxaban [Xarelto] 15 mg PO W/SUPPER tab 04/11/18 [Rx] Tamsulosin [Flomax] 0.4 mg PO PC-SUPPER #30 cap.er.24h 04/11/18 [Rx] Follow up Appointment(s)/Referral(s): Mikel Roque MD [STAFF PHYSICIAN] - 1-2 Days Jeremiah Jansen MD [Primary Care Provider] - 1-2 days Joaquim Marie MD [STAFF PHYSICIAN] - 1 Week Maria Antonia Lunsford MD [STAFF PHYSICIAN] - 1 Week Patient Instructions/Handouts: Smith Catheter Placement and Care (DC), A-fib ( Atrial Fibrillation) (DC), Acute Kidney Injury (DC) Activity/Diet/Wound Care/Special Instructions: Free 30 supply of Xarelto filled in [facility] pharmacy, new script also faxed to [facility] Patient has smith cath and will need to keep it inserted untill evaluated by Urology outpatient care and instructions for the catheter given Discharge Disposition: HOME SELF-CARE
--- NOTE | 2018-04-11 12:09 | P.PN ---
Subjective Progress Note Date: 04/11/18 77-year-old male seen this morning at the bedside. Patient states he has been up ambulating to the bathroom and is able to urinate with no difficulty reports anxious to be discharged denies dizziness lightheadedness chest pain or shortness of breath. Abdominal bruising significantly improved no increase from reference markings states no bowel movement recent March 27 laparoscopic robotic umbilical hernia repair Objective - Vital Signs Vital signs: Vital Signs Temp 97.4 F L 04/11/18 11:30 Pulse 82 04/11/18 11:30 Resp 16 04/11/18 11:30 BP 132/65 04/11/18 11:30 Pulse Ox 96 04/11/18 11:30 Intake & Output 04/10/18 04/11/18 04/11/18 18:59 06:59 18:59 Intake Total 1570 1650 240 Output Total 800 2800 Balance 770 -1150 240 Weight 75.7 kg Intake: IV 1600 .45 1600 Intake, IV Titration 850 50 Amount Magnesium Sulfate-D5w Pmx 200 1 gm In Dextrose/Water 1 100ml.bag @ 100 mls/hr IVPB Q1H MARY Rx#: [id number] Piperacillin-Tazobactam 3 50 50 .375 gm In Dextrose/Water 1 50ml.bag @ 12.5 mls/hr IVPB Q12HR MARY Rx#: [id number] Sodium Chloride 0.45% 1, 600 000 ml @ 100 mls/hr IV . Q10H MARY Rx#:[id number] Oral 720 240 Output: Urine 800 2225 Uretheral (Vora) 825 Post Void Residual 575 Other: Voiding Method Indwelling Catheter Urinal Indwelling Catheter - Exam Physical exam 77-year-old male seen at the bedside resting in bed states abdominal pain has resolved anxious to be discharged Lungs adequate air movement bilaterally on room air no shortness of breath Heart S1-S2 audible regular denying chest pain cough noted abdomen noted improvement in the purple ecchymotic bruising to the abdominal wall states urinating no difficulty no nausea no vomiting no stooling extremities no edema - Labs CBC & Chem 7: 04/11/18 06:05 04/11/18 06:05 Labs: Abnormal Lab Results - Last 24 Hours (Table) 04/10/18 04/10/18 04/10/18 Range/Units 12:08 16:33 20:53 RBC (4.30-5.90) m/uL Chloride (98-107) mmol/L POC Glucose (mg/dL) 107 H 120 H 139 H (75-99) mg/dL Calcium (8.4-10.2) mg/dL Phosphorus (2.5-4.5) mg/dL Magnesium (1.6-2.3) mg/dL 04/11/18 04/11/18 04/11/18 Range/Units 06:05 06:05 06:11 RBC 4.15 L (4.30-5.90) m/uL Chloride 111 H (98-107) mmol/L POC Glucose (mg/dL) 105 H (75-99) mg/dL Calcium 7.9 L (8.4-10.2) mg/dL Phosphorus 1.9 L (2.5-4.5) mg/dL Magnesium 1.5 L (1.6-2.3) mg/dL 04/11/18 Range/Units 11:25 RBC (4.30-5.90) m/uL Chloride (98-107) mmol/L POC Glucose (mg/dL) 130 H (75-99) mg/dL Calcium (8.4-10.2) mg/dL Phosphorus (2.5-4.5) mg/dL Magnesium (1.6-2.3) mg/dL Microbiology - Last 24 Hours (Table) 04/09/18 09:30 Gram Stain - Final Sputum Sputum Culture - Final 04/08/18 14:21 Blood Culture - Preliminary Blood No Growth after 48 hours Assessment and Plan Assessment: Impression recent March 27 laparoscopic robotic umbilical hernia repair Present on admission hyperkalemia Present on admission urinary retention Known coronary artery disease with a history of a mitral valve repair Acute onset renal failure suspect due to dehydration poor oral intake Computed tomography scan of the abdomen pelvis felt contrast report reviewed right-sided will hernia may contain small bowel appendix normal. Dilated bowel. Acute kidney injury obstructive in nature significantly improved Metabolic acidosis associated with advanced renal failure currently resolved Present on admission leukocytosis improved Plan Surgical perspective to be appropriate to be discharged per to the timing to the attending Outpatient follow-up with Dr. bello Continue recommendations by infectious disease currently on Zosyn waiting for cultures to finalize no Evidence of an acute surgical abdomen this time DVT and GI prophylaxis The above impression and plan of care have been discussed and directed by signing physician. Rama Ramirez nurse practitioner acting as scribe for signing physician.
[2018-04-11] MEDS ORDERED: PIPERACILLIN-TAZOBACTAM 3.375 GM in DEXTROSE/WATER 1 50ML.BAG IVPB SCH (16:00)
--- NOTE | 2018-04-11 16:20 | P.PN ---
Subjective Progress Note Date: 04/11/18 This is a 77-year-old gentleman with known history of coronary artery disease, mitral valve repair, who recently underwent surgery for inguinal hernia. Presented to the hospital with symptoms of confusion and dehydration, he was found to be in atypical atrial flutter for which a cardiology consultation was requested. Patient's surgery was on March 27, no history of palpitations, dizziness or syncope. In July 2016 patient did receive stents in the LAD. He had been on IV heparin, this was discontinued we started the patient on xarelto 15 mg, we discontinued the aspirin and continue the Plavix. Magnesium level today is 1.5 which we will replace. Objective - Vital Signs Vital signs: Vital Signs Temp 97.4 F L 04/11/18 11:30 Pulse 82 04/11/18 11:30 Resp 16 04/11/18 11:30 BP 132/65 04/11/18 11:30 Pulse Ox 96 04/11/18 11:30 Intake & Output 04/10/18 04/11/18 04/11/18 18:59 06:59 18:59 Intake Total 1570 1650 480 Output Total 800 2800 1050 Balance 770 -1150 -570 Weight 75.7 kg Intake: IV 1600 .45 1600 Intake, IV Titration 850 50 Amount Magnesium Sulfate-D5w Pmx 200 1 gm In Dextrose/Water 1 100ml.bag @ 100 mls/hr IVPB Q1H MARY Rx#: [id number] Piperacillin-Tazobactam 3 50 50 .375 gm In Dextrose/Water 1 50ml.bag @ 12.5 mls/hr IVPB Q12HR MARY Rx#: [id number] Sodium Chloride 0.45% 1, 600 000 ml @ 100 mls/hr IV . Q10H MARY Rx#:[id number] Oral 720 480 Output: Urine 800 2225 1050 Uretheral (Vora) 825 Post Void Residual 575 Other: Voiding Method Indwelling Catheter Urinal Indwelling Catheter # Bowel Movements 0 - Exam PHYSICAL EXAMINATION: HEENT: Head is atraumatic, normocephalic. Pupils equal, round. Neck is supple. There is no elevated jugular venous pressure. HEART EXAMINATION: Heart sounds irregularly irregular, S1 and S2 normal. No murmur or gallop heard. CHEST EXAMINATION: Lungs are clear to auscultation and precussion. No chest wall tenderness is noted on palpation or with deep breathing. ABDOMEN: Soft, nontender. Bowel sounds are heard. No organomegaly noted. Vora catheter in place. EXTREMITIES: 2+ peripheral pulses with no evidence of peripheral edema and no calf tenderness noted. NEUROLOGIC patient is awake, alert and oriented x3. . - Labs CBC & Chem 7: 04/11/18 06:05 04/11/18 06:05 Labs: Abnormal Lab Results - Last 24 Hours (Table) 04/10/18 04/10/18 04/11/18 Range/Units 16:33 20:53 06:05 RBC (4.30-5.90) m/uL Chloride 111 H (98-107) mmol/L POC Glucose (mg/dL) 120 H 139 H (75-99) mg/dL Calcium 7.9 L (8.4-10.2) mg/dL Phosphorus 1.9 L (2.5-4.5) mg/dL Magnesium 1.5 L (1.6-2.3) mg/dL 04/11/18 04/11/18 04/11/18 Range/Units 06:05 06:11 11:25 RBC 4.15 L (4.30-5.90) m/uL Chloride (98-107) mmol/L POC Glucose (mg/dL) 105 H 130 H (75-99) mg/dL Calcium (8.4-10.2) mg/dL Phosphorus (2.5-4.5) mg/dL Magnesium (1.6-2.3) mg/dL Microbiology - Last 24 Hours (Table) 04/09/18 09:30 Gram Stain - Final Sputum Sputum Culture - Final 04/08/18 14:21 Blood Culture - Preliminary Blood No Growth after 48 hours Assessment and Plan Assessment: #1 persistent atrial fibrillation, controlled ventricular response. Atypical atrial flutter on admission. #2 inguinal hernia, status post recent surgery #3 coronary artery disease with prior LAD stenting in July 2016 #4 history of mitral valve repair #5 hypertension #6 hyperlipidemia Plan: We will replace the patient's magnesium. Medications were reviewed and we will continue the same. He will follow-up with Dr. Hammond as an outpatient. The above dictated assessment and findings were discussed with signing physician. The impression and plan of care have been directed as dictated. Madie Perdomo, Nurse Practitioner, acting as scribe for signing physician.
[2018-04-11 17:01] LABS: Glucose,Whole Blood 132 mg/dL (75-99)
[2018-04-11] MEDS: RIVAROXABAN 15 MG TAB PO SCH (17:11)
[2018-04-11] MEDS: TAMSULOSIN 0.4 MG CAP.ER.24H PO SCH (17:11)
--- NOTE | 2018-04-11 17:35 | PN ---
PROGRESS NOTE DATE OF SERVICE: 04/11/2018 REASON FOR FOLLOWUP: Leukocytosis and possible infection. INTERVAL HISTORY: The patient is currently afebrile. The patient overall is feeling much better, breathing comfortably. Denies significant chest pain or shortness of breath or cough. No abdominal pain or any diarrhea. PHYSICAL EXAMINATION: Blood pressure 132/65 with a pulse of 82, temperature 97.4. He is 96% on room air. General description is an elderly male lying in bed in no distress. RESPIRATORY SYSTEM: Unlabored breathing. Clear to auscultation anteriorly. HEART: S1, S2. Regular rate and rhythm. ABDOMEN: Soft. No tenderness. LABS: Hemoglobin is 13, white count 9.3 with a BUN of 15, creatinine 0.95. Blood culture has been negative. Sputum has been negative. DIAGNOSTIC IMPRESSION AND PLAN: Patient admitted to hospital with hypertension, acute renal failure, leukocytosis and concern for possible infection. All his cultures have been negative. The patient was treated with IV Zosyn. May give a short course of oral Avelox daily for about 3-4 days to finish a course of therapy. Continue with supportive care. MMODL / IJN: [id number] /
--- NOTE | 2018-04-11 21:35 | PN ---
PROGRESS NOTE The patient is seen for followup for acute kidney injury. His renal function is significantly improved. It was mainly obstructive uropathy and severe urine retention with serum creatinine at 24.25 on initial admission. His creatinine is down to 0.95. The patient's Vora catheter was discontinued. However, he continues to have significant urine retention about 800 mL and 500 mL. A Vora catheter will likely be placed again. Urology consult will be placed. The patient was started on Flomax. PHYSICAL EXAMINATION: On examination today, blood pressure is 143/72, heart rate 81 per minute. He is afebrile. Examination of the heart: S1, S2. Examination of the lungs: Bilateral breath sounds are heard. Abdomen is soft, nontender. Examination lower extremities shows no evidence of edema. [employer] exam is grossly intact. LABS: Show sodium 143, potassium 3.7, chloride 111, BUN 15, serum creatinine 0.95, hemoglobin 13.0 g/dL. ASSESSMENT: 1. Acute kidney injury, obstructive uropathy with severe urine retention. 2. Severe hyperkalemia at the time of admission secondary to acute kidney injury and urine retention, currently improved. 3. Hypernatremia associated with free water deficit. Currently maintained on D5W, currently status post D5W, maintained on half-normal saline. 4. Recent hernia repair prior to this admission. 5. Dyslipidemia. PLAN: Proceed with Urology consult. The Vora catheter may need to be reinserted given his high postvoid residuals. Continue with the Flomax. MMODL / IJN: [id number] /
== END 2018-04-11 18:00 | disposition home health service (06) | DRG 871 ==
LOC: EC 13:53 → 6ICU 17:00 → 6SEL 04-09 20:58
PROVIDERS: ADMIT Internal Medicine; ATTEND Internal Medicine
DX: A41.9 Sepsis, unspecified organism (principal); G93.41 Metabolic encephalopathy; I21.4 Non-ST elevation (NSTEMI) myocardial infarction; N17.9 Acute kidney failure, unspecified; N13.8 Other obstructive and reflux uropathy; J98.11 Atelectasis; I48.4 Atypical atrial flutter; N13.30 Unspecified hydronephrosis; E87.2 Acidosis; E87.0 Hyperosmolality and hypernatremia; I48.1 Persistent atrial fibrillation; E87.5 Hyperkalemia; E86.0 Dehydration; E83.41 Hypermagnesemia; N28.1 Cyst of kidney, acquired; R62.7 Adult failure to thrive; I71.4 Abdominal aortic aneurysm, without rupture; E78.5 Hyperlipidemia, unspecified; N43.3 Hydrocele, unspecified; N40.1 Benign prostatic hyperplasia with lower urinary tract symptoms; R33.8 Other retention of urine; N32.0 Bladder-neck obstruction; I12.9 Hypertensive chronic kidney disease with stage 1 through stage 4 chronic kidney disease, or unspecified chronic kidney disease; N18.9 Chronic kidney disease, unspecified; I25.10 Atherosclerotic heart disease of native coronary artery without angina pectoris; I25.2 Old myocardial infarction; M19.91 Primary osteoarthritis, unspecified site; L98.9 Disorder of the skin and subcutaneous tissue, unspecified; R19.7 Diarrhea, unspecified; K59.00 Constipation, unspecified; Z79.82 Long term (current) use of aspirin; Z79.02 Long term (current) use of antithrombotics/antiplatelets; Z79.899 Other long term (current) drug therapy; Z87.891 Personal history of nicotine dependence; Z86.73 Personal history of transient ischemic attack (TIA), and cerebral infarction without residual deficits; Z85.828 Personal history of other malignant neoplasm of skin; Z95.5 Presence of coronary angioplasty implant and graft; Z95.2 Presence of prosthetic heart valve; Z98.42 Cataract extraction status, left eye; Z98.41 Cataract extraction status, right eye; Z96.1 Presence of intraocular lens
CPT/HCPCS: 36415; 51702; 51798; 71045; 71046; 74176; 76770; 80048; 80053; 81001; 82150; 82272; 82550; 82553; 83036; 83605; 83690; 83735; 84100; 84484; 85025; 85610; 85730; 87040; 87070; 87205; 93005; 93306; 94640; 96361; 96365; 96366; 96367; 96375; 96376; 99291

== ENCOUNTER 2018-05-07 22:28 | Emergency (ER) | payer OTHER, MEDICARE ==
[2018-05-07 22:58] VITALS: TEMP 98.2
[2018-05-07 23:30] LABS: Appearance,Urine Turbid (Clear); Bilirubin,Urine Negative (Negative); Blood,Urine Moderate (Negative); Color,Urine Yellow; Glucose,Urine (UA) Negative (Negative); Ketones,Urine Negative (Negative); Leukocyte Esterase,Urine Large (Negative); Nitrite,Urine Negative (Negative); Protein,Urine 2+ (Negative); RBC,Urine 22 /hpf (0-5); Urobilinogen,Urine <2.0 mg/dL (<2.0); WBC,Urine >182 /hpf (0-5)
[2018-05-07] MEDS ORDERED: CIPROFLOXACIN HCL 500 MG TAB PO STA (23:34)
--- NOTE | 2018-05-07 23:35 | ED ---
Abdominal Pain HPI - General Chief Complaint: Abdominal Pain Stated Complaint: Urine Retention Time Seen by Provider: 05/07/18 22:48 Source: EMS, RN notes reviewed, old records reviewed Mode of arrival: EMS - History of Present Illness Initial Comments: Patient is a 77-year-old male who presents emergency department today with chief complaint of acute urinary retention. He had smith catheter removed by Dr. Romero today. Patient has had this Smith for the past 3 weeks. He had it after he developed subsequent urinary retention after hernia repair surgery. Patient reports no fevers or chills. He reports that he was having pain with abdominal distention. He had his bladder irrigated at urology office earlier today. They did want to put another Smith back in however Patient refused at that time. - Related Data Home Medications Medication Instructions Recorded Confirmed Zolpidem [Ambien] 10 mg PO HS 06/08/16 05/07/18 Atorvastatin Calcium [Lipitor] 40 mg PO DAILY 07/14/16 05/07/18 Metoprolol Succinate (ER) [Toprol 12.5 mg PO BID 07/14/16 05/07/18 XL] Polyethylene Glycol 3350 [Miralax] 17 gm PO DAILY 04/08/18 05/07/18 Previous Rx's Medication Instructions Recorded Clopidogrel [Plavix] 75 mg PO DAILY #90 tab 07/19/16 Lisinopril [Zestril] 5 mg PO BID #180 tab 07/19/16 Nitroglycerin Sl Tabs [Nitrostat] 0.4 mg SUBLINGUAL Q5M PRN #25 tab 07/19/16 Docusate [Colace] 100 mg PO BID #20 capsule 03/27/18 HYDROcodone/APAP 7.5-325MG [[place] 1 tab PO Q4H PRN 3 Days #18 tab 03/27/18 7.5-325] Rivaroxaban [Xarelto] 15 mg PO W/SUPPER tab 04/11/18 Tamsulosin [Flomax] 0.4 mg PO PC-SUPPER #30 cap.er.24h 04/11/18 Ciprofloxacin HCl [Cipro] 500 mg PO Q12HR 7 Days tab 05/07/18 Allergies Allergy/AdvReac Type Severity Reaction Status Date / Time No Known Allergies Allergy Verified 05/07/18 22:47 Review of Systems ROS Statement: Those systems with pertinent positive or pertinent negative responses have been documented in the HPI. ROS Other: All systems not noted in ROS Statement are negative. Past Medical History Past Medical History: Coronary Artery Disease (CAD), Cancer, CVA/TIA, Hyperlipidemia, Hypertension, Myocardial Infarction ([place]), Osteoarthritis (OA), Skin Disorder Additional Past Medical History / Comment(s): 04/08/18 pt stated wants flu vaccine before discharge if ok with 01/2016-denies any residual, [place] on stress test, constipation, arthritis in neck, basal cell cancer, bleeds easily with cuts, has crushed vertebra in neck Last Myocardial Infarction Date:: unknown History of Any Multi-Drug Resistant Organisms: None Reported Past Surgical History: Heart Catheterization With Stent, Tonsillectomy Additional Past Surgical History / Comment(s): mitral valve repair 2002. total 4 cardiac stents, clara cataracts with lens implants, Past Anesthesia/Blood Transfusion Reactions: No Reported Reaction Additional Past Anesthesia/Blood Transfusion Reaction / Comment(s): car sickness as child, " i seem to need more oxygen" with anesthesia. denies any diff with past intubation Date of Last Stent Placement:: 07/2016 Past Psychological History: No Psychological Hx Reported Smoking Status: Former smoker - Past Family History Mother Family Medical History: No Reported History Father Additional Family Medical History / Comment(s): "heart problems" General Exam - General Exam Comments Initial Comments: Pleasant 77-year-old male. Alert and oriented. No significant distress. General appearance: alert, in no apparent distress Head exam: Present: atraumatic, normocephalic, normal inspection Eye exam: Present: normal appearance, PERRL, EOMI. Absent: scleral icterus, conjunctival injection, periorbital swelling ENT exam: Present: normal exam, mucous membranes moist Neck exam: Present: normal inspection. Absent: tenderness, meningismus, lymphadenopathy Respiratory exam: Present: normal lung sounds bilaterally. Absent: respiratory distress, wheezes, rales, rhonchi, stridor Cardiovascular Exam: Present: regular rate, normal rhythm, normal heart sounds. Absent: systolic murmur, diastolic murmur, rubs, gallop, clicks GI/Abdominal exam: Present: soft, normal bowel sounds. Absent: distended, tenderness, guarding, rebound, rigid exam: Present: normal inspection, other (Catheter in place. There is a cloudy urine into the catheter bag.). Absent: testicular tenderness, urethral discharge Extremities exam: Present: normal inspection, full ROM, normal capillary refill. Absent: tenderness, pedal edema, joint swelling, calf tenderness Back exam: Present: normal inspection Neurological exam: Present: alert, oriented X3, CN II-XII intact Psychiatric exam: Present: normal affect, normal mood Course Vital Signs 05/07/18 05/07/18 22:56 23:59 Temperature 98.2 F Pulse Rate 91 81 Respiratory 16 17 Rate Blood Pressure 144/69 135/82 O2 Sat by Pulse 98 99 Oximetry Medical Decision Making - Medical Decision Making Patient is a 77-year-old male who presents emergency department today with acute urinary retention. Smith removed by Dr. Romero earlier today. He's had the Smith in for the past 3 weeks. They did want to replace it at that time however Patient wanted to go home without did try to urinate on his own. He did been over 10 hours and Patient had not urinated. Upon arrival full catheter was initiated and he tolerated the procedure well. Approximately 1.5 L of purulent urine was drained. We did obtain a urine sample and urine culture. There is greater than 182 white blood cells. He does report that the urine was clear prior to going to the urologist today. The cloudy color to the urine is most likely due to the medication was put in his bladder by urology earlier today. I discussed the with greater than 182 white blood cells I think to put the Patient on Cipro. Patient will be given initial dose emergency department. Return parameters were discussed. - Lab Data Lab Results 05/07/18 Range/Units 23:05 Urine Color Yellow Urine Appearance Turbid (Clear) Urine pH 6.0 (5.0-8.0) Ur Specific Gideon 1.010 (1.001-1.035) Urine Protein 2+ H (Negative) Urine Glucose (UA) Negative (Negative) Urine Ketones Negative (Negative) Urine Blood Moderate H (Negative) Urine Nitrite Negative (Negative) Urine Bilirubin Negative (Negative) Urine Urobilinogen <2.0 (<2.0) mg/dL Ur Leukocyte Esterase Large H (Negative) Urine RBC 22 H (0-5) /hpf Urine WBC >182 H (0-5) /hpf Disposition Clinical Impression: UTI (urinary tract infection), Acute urinary retention Disposition: HOME SELF-CARE Condition: Good Instructions: Urinary Retention in Men (ED), Urinary Tract Infection in Men (ED ) Additional Instructions: Patient advised to follow-up with primary care physician. Patient should follow -up with urology for catheter removal and for results of her urine culture. Return to the emergency department if any alarming signs or symptoms occur. Prescriptions: Ciprofloxacin HCl [Cipro] 500 mg PO Q12HR 7 Days tab Is patient prescribed a controlled substance at d/c from ED?: No Referrals: Jeremiah Jansen MD [Primary Care Provider] - 1-2 days Jim Chiu MD [STAFF PHYSICIAN] - 1-2 days Time of Disposition: 23:34
[2018-05-08] VITALS: BP 135/82; PULSE 81; RESP 17
== END 2018-05-08 00:06 | disposition home or self-care (01) ==
LOC: EC 22:28
DX: N39.0 Urinary tract infection, site not specified (principal); R33.9 Retention of urine, unspecified; I25.10 Atherosclerotic heart disease of native coronary artery without angina pectoris; I25.2 Old myocardial infarction; E78.5 Hyperlipidemia, unspecified; Z85.828 Personal history of other malignant neoplasm of skin; Z87.891 Personal history of nicotine dependence; Z79.899 Other long term (current) drug therapy; Z95.5 Presence of coronary angioplasty implant and graft
CPT/HCPCS: 51702; 81001; 87086; 99284

== ENCOUNTER 2018-06-22 07:17 | Emergency (ER) | payer MEDICARE, OTHER ==
[2018-06-22 07:25] VITALS: BP 178/91; PULSE 102; RESP 16; TEMP 97.9
--- NOTE | 2018-06-22 07:55 | ED ---
General Adult HPI - General Chief complaint: Urogenital Stated complaint: Urogenital Time Seen by Provider: 06/22/18 07:23 Source: patient, RN notes reviewed, old records reviewed Mode of arrival: EMS Limitations: no limitations - History of Present Illness Initial comments: 77-year-old male presenting with severe lower abdominal pain. Patient has indwelling Vora catheter. Yesterday evening he had such severe symptoms that he cut his Vora catheter and removed it to attempt to urinate on his own. He' s been unable to urinate over the past 12-14 hours. Patient has indwelling catheter secondary to urinary retention post abdominal surgery. He denies fever or chills. Denies upper abdominal pain. Denies hematuria. - Related Data Home Medications Medication Instructions Recorded Confirmed Zolpidem [Ambien] 10 mg PO HS 06/08/16 05/07/18 Atorvastatin Calcium [Lipitor] 40 mg PO DAILY 07/14/16 05/07/18 Metoprolol Succinate (ER) [Toprol 12.5 mg PO BID 07/14/16 05/07/18 XL] Polyethylene Glycol 3350 [Miralax] 17 gm PO DAILY 04/08/18 05/07/18 Previous Rx's Medication Instructions Recorded Clopidogrel [Plavix] 75 mg PO DAILY #90 tab 07/19/16 Lisinopril [Zestril] 5 mg PO BID #180 tab 07/19/16 Nitroglycerin Sl Tabs [Nitrostat] 0.4 mg SUBLINGUAL Q5M PRN #25 tab 07/19/16 Docusate [Colace] 100 mg PO BID #20 capsule 03/27/18 HYDROcodone/APAP 7.5-325MG [[place] 1 tab PO Q4H PRN 3 Days #18 tab 03/27/18 7.5-325] Rivaroxaban [Xarelto] 15 mg PO W/SUPPER tab 04/11/18 Tamsulosin [Flomax] 0.4 mg PO PC-SUPPER #30 cap.er.24h 04/11/18 Ciprofloxacin HCl [Cipro] 500 mg PO Q12HR 7 Days tab 05/07/18 Allergies Allergy/AdvReac Type Severity Reaction Status Date / Time No Known Allergies Allergy Verified 06/22/18 07:25 Review of Systems ROS Statement: Those systems with pertinent positive or pertinent negative responses have been documented in the HPI. ROS Other: All systems not noted in ROS Statement are negative. Past Medical History Past Medical History: Coronary Artery Disease (CAD), Cancer, CVA/TIA, Hyperlipidemia, Hypertension, Myocardial Infarction ([place]), Osteoarthritis (OA), Skin Disorder Additional Past Medical History / Comment(s): 04/08/18 pt stated wants flu vaccine before discharge if ok with 01/2016-denies any residual, [place] on stress test, constipation, arthritis in neck, basal cell cancer, bleeds easily with cuts, has crushed vertebra in neck Last Myocardial Infarction Date:: unknown History of Any Multi-Drug Resistant Organisms: None Reported Past Surgical History: Heart Catheterization With Stent, Tonsillectomy Additional Past Surgical History / Comment(s): mitral valve repair 2002. total 4 cardiac stents, clara cataracts with lens implants, Past Anesthesia/Blood Transfusion Reactions: No Reported Reaction Additional Past Anesthesia/Blood Transfusion Reaction / Comment(s): car sickness as child, " i seem to need more oxygen" with anesthesia. denies any diff with past intubation Date of Last Stent Placement:: 07/2016 Past Psychological History: No Psychological Hx Reported Smoking Status: Former smoker - Past Family History Mother Family Medical History: No Reported History Father Additional Family Medical History / Comment(s): "heart problems" General Exam Limitations: no limitations General appearance: alert, in no apparent distress Head exam: Present: atraumatic, normocephalic Eye exam: Present: normal appearance, PERRL ENT exam: Present: normal exam Neck exam: Present: normal inspection. Absent: tenderness, meningismus Respiratory exam: Present: normal lung sounds bilaterally. Absent: respiratory distress, wheezes Cardiovascular Exam: Present: regular rate, normal rhythm GI/Abdominal exam: Present: soft, distended, tenderness (Suprapubic tenderness and fullness) Extremities exam: Present: normal inspection, normal capillary refill. Absent: pedal edema Neurological exam: Present: alert, oriented X3, CN II-XII intact. Absent: motor sensory deficit Psychiatric exam: Present: normal affect, normal mood Skin exam: Present: warm, dry, intact. Absent: cyanosis, diaphoretic Course Vital Signs 06/22/18 07:22 Temperature 97.9 F Pulse Rate 102 H Respiratory 16 Rate Blood Pressure 178/91 O2 Sat by Pulse 99 Oximetry Medical Decision Making - Medical Decision Making 77-year-old male presenting with suspected urinary retention, no urinary output over the past 14 hours. Severe lower abdominal pain. Patient had previously removed his own Vora catheter with an attempt to improve symptoms. His been unable to urinate since that time. Vora catheter is reinserted in the emergency department without difficulty. Approximately 1 L of output. Patient' s symptoms completely resolved. He has no pain, denies any preceding hematuria or fever or chills. They will monitor urine output at home. He will follow-up with urology. Disposition Clinical Impression: Urinary retention Disposition: HOME SELF-CARE Condition: Fair Instructions: Urinary Retention in Men (ED), Vora Catheter Placement and Care (ED) Is patient prescribed a controlled substance at d/c from ED?: No Referrals: [facility] [Primary Care Provider] - 1-2 days Jim Chiu MD [STAFF PHYSICIAN] - 1-2 days Time of Disposition: 07:59
== END 2018-06-22 08:20 | disposition home or self-care (01) ==
LOC: EC 07:17
DX: R33.9 Retention of urine, unspecified (principal); R10.30 Lower abdominal pain, unspecified; I25.10 Atherosclerotic heart disease of native coronary artery without angina pectoris; E78.5 Hyperlipidemia, unspecified; I10 Essential (primary) hypertension; I25.2 Old myocardial infarction; Z86.73 Personal history of transient ischemic attack (TIA), and cerebral infarction without residual deficits; Z85.828 Personal history of other malignant neoplasm of skin; Z79.899 Other long term (current) drug therapy; Z95.5 Presence of coronary angioplasty implant and graft
CPT/HCPCS: 99284

== ENCOUNTER 2021-02-06 20:41 | Inpatient (IN) | payer MEDICARE ==
--- NOTE | 2021-02-06 20:45 | ED ---
General Adult HPI - General Stated complaint: Abdominal Pain Time Seen by Provider: 02/06/21 20:44 - History of Present Illness Initial comments: Dictation was produced using [employer] dictation software. please excuse any grammatical, word or spelling errors. Chief Complaint: 80-year-old male presents with nausea vomiting abdominal pain History of Present Illness: 72-year-old male presents to the emergency department for nausea, vomiting abdominal pain. Patient has been having significant symptoms for the last 2-3 days. He attributes most of symptoms to eating a salmon recipe from [employer]. Patient has any fever. States that his pain is in his periumbilical area. Denies any history of abdominal surgery. The ROS documented in this emergency department record has been reviewed and confirmed by me. Those systems with pertinent positive or negative responses have been documented in the HPI. All other systems are other negative and/or noncontributory. PHYSICAL EXAM: General Impression: Alert and oriented x3, not in acute distress HEENT: Normocephalic atraumatic, extra-ocular movements intact, pupils equal and reactive to light bilaterally, mucous membranes moist. Cardiovascular: Heart regular rate and rhythm Chest: Able to complete full sentences, no retractions, no tachypnea Abdomen: abdomen soft, mild tenderness to the periumbilical area, positive tympany to percussion non-distended, no organomegaly Musculoskeletal: Pulses present and equal in all extremities, no peripheral edema Motor: no focal deficits noted Neurological: CN II-XII grossly intact, no focal motor or sensory deficits noted Skin: Intact with no visualized rashes Psych: Normal affect and mood ED course: 80-year-old male presents to the emergency department for, pain, nausea vomiting diarrhea. States that his symptoms is brown. Patient did have a emesis episode at the bedside. Nursing reports that it was feculent. Vital signs upon arrival are within acceptable limits. Laboratory evaluation obtained. No leukocytosis. Hemoglobin 8.6. Most recent hemoglobin was from April 2018 oh started 2.0. There is some concern that pe rhaps maybe patient is having a GI bleed however his lab suggest microcytic anemia. Coag panel is unremarkable. Metabolic panel shows lactic acidosis at 2.3. More fell at bedside states that he does have a history of A. fib and takes anticoagulation medications. Given that patient has declining hemoglobin with conservative GI bleed is given Protonix. We will withhold any anticoagulation medications at this time. X-ray shows mechanical small bowel obstruction. NG tube was placed. Case discussed with Dr. Jansen was willing to accept patients care. Gen. surgery will be consulted. Patient reevaluated at bedside at 10:25 PM found to be in stable medical condition. Denies any abdominal pain at the moment. Does not vomiting. - Related Data Home Medications Medication Instructions Recorded Confirmed Zolpidem [Ambien] 10 mg PO HS 06/08/16 05/07/18 Atorvastatin Calcium [Lipitor] 40 mg PO DAILY 07/14/16 05/07/18 Metoprolol Succinate (ER) [Toprol 12.5 mg PO BID 07/14/16 05/07/18 XL] Polyethylene Glycol 3350 [Miralax] 17 gm PO DAILY 04/08/18 05/07/18 Previous Rx's Medication Instructions Recorded Clopidogrel [Plavix] 75 mg PO DAILY #90 tab 07/19/16 Nitroglycerin Sl Tabs [Nitrostat] 0.4 mg SUBLINGUAL Q5M PRN #25 tab 07/19/16 lisinopriL [Zestril] 5 mg PO BID #180 tab 07/19/16 Docusate [Colace] 100 mg PO BID #20 capsule 03/27/18 HYDROcodone/APAP 7.5-325MG [[place] 1 tab PO Q4H PRN 3 Days #18 tab 03/27/18 7.5-325] Rivaroxaban [Xarelto] 15 mg PO W/SUPPER tab 04/11/18 Tamsulosin [Flomax] 0.4 mg PO PC-SUPPER #30 cap.er.24h 04/11/18 Ciprofloxacin HCl [Cipro] 500 mg PO Q12HR 7 Days tab 05/07/18 Allergies Allergy/AdvReac Type Severity Reaction Status Date / Time No Known Allergies Allergy Verified 06/22/18 07:25 Review of Systems ROS Statement: Those systems with pertinent positive or pertinent negative responses have been documented in the HPI. ROS Other: All systems not noted in ROS Statement are negative. Past Medical History Past Medical History: Coronary Artery Disease (CAD), Cancer, CVA/TIA, Hyperlipidemia, Hypertension, Myocardial Infarction ([place]), Osteoarthritis ([place]), Skin Disorder Additional Past Medical History / Comment(s): 04/08/18 pt stated wants flu vaccine before discharge if ok with 01/2016-denies any residual, [place] on stress test, constipation, arthritis in neck, basal cell cancer, bleeds easily with cuts, has crushed vertebra in neck Last Myocardial Infarction Date:: unknown History of Any Multi-Drug Resistant Organisms: None Reported Past Surgical History: Heart Catheterization With Stent, Tonsillectomy Additional Past Surgical History / Comment(s): mitral valve repair 2002. total 4 cardiac stents, clara cataracts with lens implants, Past Anesthesia/Blood Transfusion Reactions: No Reported Reaction Additional Past Anesthesia/Blood Transfusion Reaction / Comment(s): car sickness as child, " i seem to need more oxygen" with anesthesia. denies any diff with past intubation Date of Last Stent Placement:: 07/2016 Past Psychological History: No Psychological Hx Reported - Past Family History Mother Family Medical History: No Reported History Father Additional Family Medical History / Comment(s): "heart problems" Course Vital Signs 02/06/21 20:43 Temperature 98.3 F Pulse Rate 99 Respiratory 16 Rate Blood Pressure 138/58 O2 Sat by Pulse 98 Oximetry Medical Decision Making - Lab Data Result diagrams: 02/06/21 21:14 02/06/21 21:14 Lab Results 02/06/21 02/06/21 02/06/21 Range/Units 21:14 21:14 21:14 WBC 6.6 (3.8-10.6) k/uL RBC 4.80 (4.30-5.90) m/uL Hgb 8.6 L (13.0-17.5) gm/dL Hct 33.0 L (39.0-53.0) % MCV 68.6 L (80.0-100.0) fL MCH 17.9 L (25.0-35.0) pg MCHC 26.0 L (31.0-37.0) g/dL RDW 20.2 H (11.5-15.5) % Plt Count 349 (150-450) k/uL MPV 7.8 Neutrophils % (Manual) 39 % Band Neuts % (Manual) 36 % Lymphocytes % (Manual) 9 % Monocytes % (Manual) 16 % Neutrophils # (Manual) 4.90 (1.3-7.7) k/uL Lymphocytes # (Manual) 0.59 L (1.0-4.8) k/uL Monocytes # (Manual) 1.06 H (0-1.0) k/uL Nucleated RBCs 4 H (0-0) /100 WBC Differential Comment Manual Slide Review Performed Polychromasia Present Hypochromasia Marked Hypochromasia (manual) Present Poikilocytosis Slight Poikilocytosis (manual Present Anisocytosis Moderate Anisocytosis (manual) Present Microcytosis Marked Target Cells Present Ovalocytes Present Fragmented RBCs Present PT 13.1 H (9.0-12.0) sec INR 1.3 H (<1.2) APTT 23.3 (22.0-30.0) sec Sodium 143 (137-145) mmol/L Potassium 4.0 (3.5-5.1) mmol/L Chloride 97 L (98-107) mmol/L Carbon Dioxide 32 H (22-30) mmol/L Anion Gap 14 mmol/L BUN 56 H (9-20) mg/dL Creatinine 1.56 H (0.66-1.25) mg/dL Est GFR (CKD-EPI)AfAm 49 (>60 ml/min/1.73 sqM) Est GFR (CKD-EPI)NonAf 42 (>60 ml/min/1.73 sqM) Glucose 159 H (74-99) mg/dL Plasma Lactic Acid Florentino (0.7-2.0) mmol/L Calcium 9.5 (8.4-10.2) mg/dL Magnesium 1.7 (1.6-2.3) mg/dL Total Bilirubin 1.4 H (0.2-1.3) mg/dL AST 30 (17-59) U/L ALT 14 (4-49) U/L Alkaline Phosphatase 71 (38-126) U/L Total Protein 7.1 (6.3-8.2) g/dL Albumin 4.3 (3.5-5.0) g/dL Lipase 41 (23-300) U/L 02/06/21 Range/Units 21:14 WBC (3.8-10.6) k/uL RBC (4.30-5.90) m/uL Hgb (13.0-17.5) gm/dL Hct (39.0-53.0) % MCV (80.0-100.0) fL MCH (25.0-35.0) pg MCHC (31.0-37.0) g/dL RDW (11.5-15.5) % Plt Count (150-450) k/uL MPV Neutrophils % (Manual) % Band Neuts % (Manual) % Lymphocytes % (Manual) % Monocytes % (Manual) % Neutrophils # (Manual) (1.3-7.7) k/uL Lymphocytes # (Manual) (1.0-4.8) k/uL Monocytes # (Manual) (0-1.0) k/uL Nucleated RBCs (0-0) /100 WBC Differential Comment Manual Slide Review Polychromasia Hypochromasia Hypochromasia (manual) Poikilocytosis Poikilocytosis (manual Anisocytosis Anisocytosis (manual) Microcytosis Target Cells Ovalocytes Fragmented RBCs PT (9.0-12.0) sec INR (<1.2) APTT (22.0-30.0) sec Sodium (137-145) mmol/L Potassium (3.5-5.1) mmol/L Chloride (98-107) mmol/L Carbon Dioxide (22-30) mmol/L Anion Gap mmol/L BUN (9-20) mg/dL Creatinine (0.66-1.25) mg/dL Est GFR (CKD-EPI)AfAm (>60 ml/min/1.73 sqM) Est GFR (CKD-EPI)NonAf (>60 ml/min/1.73 sqM) Glucose (74-99) mg/dL Plasma Lactic Acid Florentino 3.3 H* (0.7-2.0) mmol/L Calcium (8.4-10.2) mg/dL Magnesium (1.6-2.3) mg/dL Total Bilirubin (0.2-1.3) mg/dL AST (17-59) U/L ALT (4-49) U/L Alkaline Phosphatase (38-126) U/L Total Protein (6.3-8.2) g/dL Albumin (3.5-5.0) g/dL Lipase (23-300) U/L Disposition Clinical Impression: Bowel obstruction Disposition[facility] Condition: Fair Referrals: Jeremiah Jansen MD [Primary Care Provider] - 1-2 days
[2021-02-06] MEDS ORDERED: ONDANSETRON 4 MG/2 ML VIAL IVP STA (21:03)
[2021-02-06] MEDS ORDERED: SODIUM CHLORIDE 0.9% 1,000 ML IV STA (21:03)
[2021-02-06 21:35] LABS: Anisocytosis Moderate; HGB 8.6 gm/dL (13.0-17.5); Hypochromasia Marked; MCH 17.9 pg (25.0-35.0); MCV 68.6 fL (80.0-100.0); Mean Platelet Volume 7.8; Microcytosis Marked; Platelet Count 349 k/uL (150-450); Poikilocytosis Slight; RDW 20.2 % (11.5-15.5)
[2021-02-06 21:37] LABS: Albumin 4.3 g/dL (3.5-5.0); Calcium 9.5 mg/dL (8.4-10.2); Magnesium 1.7 mg/dL (1.6-2.3); Total Bilirubin 1.4 mg/dL (0.2-1.3); Total Protein 7.1 g/dL (6.3-8.2)
[2021-02-06 21:39] LABS: INR 1.3 (<1.2); Partial Thromboplastin Time 23.3 sec (22.0-30.0); Prothrombin Time 13.1 sec (9.0-12.0)
--- NOTE | 2021-02-06 21:45 | XR ---
EXAMINATION TYPE: XR abdomen 1V DATE OF EXAM: 02/06/2021 COMPARISON: NONE HISTORY: Double pain TECHNIQUE: 2 views supine FINDINGS: There are multiple dilated fluid-filled and air-filled loops of small bowel in the mid abdo men. There is relative lack of large bowel gas. There is some gas in the stomach. I see no sign of fr ee air. There are no pathologic calcifications over the kidneys. IMPRESSION: Dilated small bowel suggestive of mechanical small bowel obstruction.
[2021-02-06 22:07] LABS: Band Neutrophils % 36 %; Neutrophils % (M) 39 %; Nucleated Red Blood Cells 4 /100 WBC (0-0); Total Cells Counted 200
[2021-02-06 22:08] LABS: Lymphocytes # (M) 0.59 k/uL (1.0-4.8); Monocytes # (M) 1.06 k/uL (0-1.0); WBC 6.6 k/uL (3.8-10.6)
[2021-02-06 22:09] LABS: Anisocytosis (M) Present; Hypochromasia (M) Present; Ovalocytes Present; Poikilocytosis (M) Present; Polychromasia Present; RBC Fragments Present; Target Cells Present
[2021-02-06] MEDS ORDERED: PANTOPRAZOLE 40 MG/10 ML VIAL IVP STA (22:17)
[2021-02-06] MEDS ORDERED: NALOXONE 0.4 MG/ML 1 ML VIAL IV PRN (22:18)
[2021-02-06] MEDS ORDERED: ACETAMINOPHEN TAB 325 MG TAB PO PRN (22:18)
[2021-02-06] MEDS ORDERED: ONDANSETRON 4 MG/2 ML VIAL IVP PRN (22:18)
--- NOTE | 2021-02-06 22:52 | XR ---
EXAMINATION TYPE: XR abdomen 1V DATE OF EXAM: 02/06/2021 COMPARISON: Today HISTORY: Tube placement TECHNIQUE: Single view FINDINGS: There is nasogastric tube and the tip is over the lower esophagus. There are dilated multip le gas-filled loops of small bowel. Heart is enlarged. IMPRESSION: Nasogastric tube is in the lower esophagus and not in the stomach.
[2021-02-06] MEDS: SODIUM CHLORIDE 0.9% 1,000 ML IV SCH (23:09)
--- NOTE | 2021-02-06 23:51 | XR ---
EXAMINATION TYPE: XR abdomen 1V DATE OF EXAM: 02/06/2021 COMPARISON: Today HISTORY: NG tube placement TECHNIQUE: Single view FINDINGS: NG tube tip appears to have the tip over the gastric fundus. There is distended gas-filled small bowel loops in the upper abdomen. There is probably some atelectasis left lung base. IMPRESSION: NG tube tip is in good position in the gastric fundus.
[2021-02-07 00:22] LABS: Appearance,Urine Clear (Clear); Bilirubin,Urine Negative (Negative); Blood,Urine Negative (Negative); Color,Urine Yellow; Glucose,Urine (UA) Negative (Negative); Ketones,Urine Negative (Negative); Leukocyte Esterase,Urine Negative (Negative); Nitrite,Urine Negative (Negative); PH, Urine 5.5 (5.0-8.0); Protein,Urine Trace (Negative); Specific Gravity,Urine 1.014 (1.001-1.035); Urobilinogen,Urine <2.0 mg/dL (<2.0)
[2021-02-07] MEDS: SODIUM CHLORIDE 0.9% 1,000 ML IV SCH ×3 (07:43→22:43)
[2021-02-07 09:55] LABS: African American GFR (CKD) 61 (>60 ml/min/1.73 sqM); Anion Gap 11 mmol/L; Blood Urea Nitrogen 47 mg/dL (9-20); Calcium 8.9 mg/dL (8.4-10.2); Carbon Dioxide 31 mmol/L (22-30); Chloride 103 mmol/L (98-107); Glucose 141 mg/dL (74-99); Non-African American GFR(CKD) 52 (>60 ml/min/1.73 sqM); Potassium 3.6 mmol/L (3.5-5.1); Sodium 145 mmol/L (137-145)
[2021-02-07 10:12] LABS: Anisocytosis Slight; HCT 30.7 % (39.0-53.0); HGB 7.9 gm/dL (13.0-17.5); Hypochromasia Marked; MCH 17.9 pg (25.0-35.0); MCHC 25.6 g/dL (31.0-37.0); MCV 69.9 fL (80.0-100.0); Mean Platelet Volume 7.6; Microcytosis Marked; Platelet Count 273 k/uL (150-450); RBC 4.39 m/uL (4.30-5.90); RDW 19.8 % (11.5-15.5); WBC 8.7 k/uL (3.8-10.6)
[2021-02-07] MEDS: MORPHINE SULFATE 4 MG/ML SYRINGE IV PRN ×3 (10:35→17:17)
[2021-02-07] MEDS ORDERED: IOPAMIDOL CONTRAST (ORAL USE) VIAL PO PRN (11:23)
--- NOTE | 2021-02-07 13:08 | P.GSCN ---
History of Present Illness Consult date: 02/07/21 History of present illness: CHIEF COMPLAINT: Abdominal pain HISTORY OF PRESENT ILLNESS: This is a 80-year-old male with a known history of coronary disease, myocardial infarction with prior cardiac stents, mitral valve replacement in 2002, hypertension, hyperlipidemia. He has history of inguinal and umbilical hernia repair. Patient presents to the emergency room with complaints of abdominal pain 3 days. He complains of diffuse abdominal pain. He does report having stool and passing gas at home. But since being in the hospital he has had no bowel movement or gas. His last episode of vomiting was on Sunday. Abdominal x-ray had shown dilated small bowel suggestive of mechanical small bowel obstruction. Patient did have NG tube placed. There is been minimal output. He is anemic hemoglobin has dropped from 8.6-7.9. He does take Plavix at home. The last dose of Plavix was on 02/05/2021. He did report that his emesis was black , brown and greenish in color. Denies any fever or chills sweats. Patient denies any prior history of bowel obstruction. PAST MEDICAL HISTORY: See list. PAST SURGICAL HISTORY: See list. MEDICATIONS: See list. ALLERGIES: See list. SOCIAL HISTORY: No illicit drug use. REVIEW OF SYSTEMS: CONSTITUTIONAL: Denies fever or chills. HEENT: Denies blurred vision, vision changes, or eye pain. Denies hemoptysis CARDIOVASCULAR: Denies chest pain or pressure. RESPIRATORY: No shortness of breath. GASTROINTESTINAL: See HPI for pertinent findings HEMATOLOGIC: Denies bleeding disorders. GENITOURINARY: Denies any blood in urine or increased urinary frequency. SKIN: Denies pruitis. Denies rash. PHYSICAL EXAM: VITAL SIGNS: Reviewed GENERAL: Well-developed in no acute distress. HEENT: No sclera icterus. Extraocular movements grossly intact. Moist buccal mucosa. Head is atraumatic, normocephalic. No nasal drainage. ABDOMEN: Soft. Distended. Diffuse tenderness. NEUROLOGIC: Awake and alert. Slightly confused. Cranial nerves II through XII grossly intact. LABORATORY DATA: WBC is 8.7 hemoglobin 8.6 down to 7.9 platelets 273 Sodium 145 potassium 3.6 creatinine 1.30 lactic 3.3 down to 1.8 LFTs normal lipase 41 total bili 1.4 Urinalysis negative for infection IMAGING: Abdominal x-ray as stated above ASSESSMENT: 1. Mechanical small bowel obstruction 2. Anemia PLAN: -Ordered computed tomography scan of the abdomen and pelvis with oral contrast -Continue NG tube for decompression -Keep patient nothing by mouth -Continue IV fluids -Continue Protonix -Hold Plavix for now Thank you for this consultation Physician Copy Coordinator note has been reviewed by physician. Signing provider agrees with the documented findings, assessment, and plan of care. Past Medical History Past Medical History: Coronary Artery Disease (CAD), Cancer, CVA/TIA, Hyperlip idemia, Hypertension, Myocardial Infarction ([place]), Osteoarthritis ([place]), Skin Disorder Additional Past Medical History / Comment(s): 04/08/18 pt stated wants flu vaccine before discharge if ok with 01/2016-denies any residual, [place] on stress test, constipation, arthritis in neck, basal cell cancer, bleeds easily with cuts, has crushed vertebra in neck Last Myocardial Infarction Date:: unknown History of Any Multi-Drug Resistant Organisms: None Reported Past Surgical History: Heart Catheterization With Stent, Tonsillectomy Additional Past Surgical History / Comment(s): mitral valve repair 2002. total 4 cardiac stents, clara cataracts with lens implants, Past Anesthesia/Blood Transfusion Reactions: No Reported Reaction Additional Past Anesthesia/Blood Transfusion Reaction / Comm: car sickness as child, " i seem to need more oxygen" with anesthesia. denies any diff with past intubation Date of Last Stent Placement:: 07/2016 Past Psychological History: No Psychological Hx Reported - Past Family History Mother Family Medical History: No Reported History Father Additional Family Medical History / Comment(s): "heart problems" Medications and Allergies Home Medications Medication Instructions Recorded Confirmed Type Zolpidem [Ambien] 10 mg PO HS PRN 06/08/16 02/06/21 History Clopidogrel [Plavix] 75 mg PO DAILY #90 tab 07/19/16 02/06/21 Rx Nitroglycerin Sl Tabs [Nitrostat] 0.4 mg SUBLINGUAL Q5M PRN #25 tab 07/19/16 02/06/21 Rx Bumetanide [Bumex] 1 mg PO DAILY 02/06/21 02/06/21 History HYDROcodone/APAP 10-325MG [[place] 1 tab PO TID PRN 02/06/21 02/06/21 History 10-325] Metoprolol Succinate (ER) [Toprol 25 mg PO DAILY 02/06/21 02/06/21 History Xl] lisinopriL [Zestril] 5 mg PO DAILY 02/06/21 02/06/21 History Allergies Allergy/AdvReac Type Severity Reaction Status Date / Time No Known Allergies Allergy Verified 02/06/21 22:39 Surgical - Exam Vital Signs Temp Pulse Resp BP Pulse Ox 98.3 F 99 16 138/58 98 02/06/21 20:43 02/06/21 20:43 02/06/21 20:43 02/06/21 20:43 02/06/21 20:43 Results - Labs 02/07/21 09:19 02/07/21 09:19 Abnormal Lab Results - Last 24 Hours (Table) 02/06/21 02/06/21 02/06/21 Range/Units 21:14 21:14 21:14 Hgb 8.6 L (13.0-17.5) gm/dL Hct 33.0 L (39.0-53.0) % MCV 68.6 L (80.0-100.0) fL MCH 17.9 L (25.0-35.0) pg MCHC 26.0 L (31.0-37.0) g/dL RDW 20.2 H (11.5-15.5) % Lymphocytes # (Manual) 0.59 L (1.0-4.8) k/uL Monocytes # (Manual) 1.06 H (0-1.0) k/uL Nucleated RBCs 4 H (0-0) /100 WBC PT 13.1 H (9.0-12.0) sec INR 1.3 H (<1.2) Chloride 97 L (98-107) mmol/L Carbon Dioxide 32 H (22-30) mmol/L BUN 56 H (9-20) mg/dL Creatinine 1.56 H (0.66-1.25) mg/dL Glucose 159 H (74-99) mg/dL Plasma Lactic Acid Florentino (0.7-2.0) mmol/L Total Bilirubin 1.4 H (0.2-1.3) mg/dL Urine Protein (Negative) 02/06/21 02/07/21 02/07/21 Range/Units 21:14 00:14 09:19 Hgb 7.9 L (13.0-17.5) gm/dL Hct 30.7 L (39.0-53.0) % MCV 69.9 L (80.0-100.0) fL MCH 17.9 L (25.0-35.0) pg MCHC 25.6 L (31.0-37.0) g/dL RDW 19.8 H (11.5-15.5) % Lymphocytes # (Manual) (1.0-4.8) k/uL Monocytes # (Manual) (0-1.0) k/uL Nucleated RBCs (0-0) /100 WBC PT (9.0-12.0) sec INR (<1.2) Chloride (98-107) mmol/L Carbon Dioxide (22-30) mmol/L BUN (9-20) mg/dL Creatinine (0.66-1.25) mg/dL Glucose (74-99) mg/dL Plasma Lactic Acid Florentino 3.3 H* (0.7-2.0) mmol/L Total Bilirubin (0.2-1.3) mg/dL Urine Protein Trace H (Negative) 02/07/21 Range/Units 09:19 Hgb (13.0-17.5) gm/dL Hct (39.0-53.0) % MCV (80.0-100.0) fL MCH (25.0-35.0) pg MCHC (31.0-37.0) g/dL RDW (11.5-15.5) % Lymphocytes # (Manual) (1.0-4.8) k/uL Monocytes # (Manual) (0-1.0) k/uL Nucleated RBCs (0-0) /100 WBC PT (9.0-12.0) sec INR (<1.2) Chloride (98-107) mmol/L Carbon Dioxide 31 H (22-30) mmol/L BUN 47 H (9-20) mg/dL Creatinine 1.30 H (0.66-1.25) mg/dL Glucose 141 H (74-99) mg/dL Plasma Lactic Acid Florentino (0.7-2.0) mmol/L Total Bilirubin (0.2-1.3) mg/dL Urine Protein (Negative) Diabetes panel 02/06/21 02/07/21 Range/Units 21:14 09:19 Sodium 143 145 (137-145) mmol/L Potassium 4.0 3.6 (3.5-5.1) mmol/L Chloride 97 L 103 (98-107) mmol/L Carbon Dioxide 32 H 31 H (22-30) mmol/L BUN 56 H 47 H (9-20) mg/dL Creatinine 1.56 H 1.30 H (0.66-1.25) mg/dL Glucose 159 H 141 H (74-99) mg/dL Calcium 9.5 8.9 (8.4-10.2) mg/dL AST 30 (17-59) U/L ALT 14 (4-49) U/L Alkaline Phosphatase 71 (38-126) U/L Total Protein 7.1 (6.3-8.2) g/dL Albumin 4.3 (3.5-5.0) g/dL Calcium panel 02/06/21 02/07/21 Range/Units 21:14 09:19 Calcium 9.5 8.9 (8.4-10.2) mg/dL Albumin 4.3 (3.5-5.0) g/dL Pituitary panel 02/06/21 02/07/21 Range/Units 21:14 09:19 Sodium 143 145 (137-145) mmol/L Potassium 4.0 3.6 (3.5-5.1) mmol/L Chloride 97 L 103 (98-107) mmol/L Carbon Dioxide 32 H 31 H (22-30) mmol/L BUN 56 H 47 H (9-20) mg/dL Creatinine 1.56 H 1.30 H (0.66-1.25) mg/dL Glucose 159 H 141 H (74-99) mg/dL Calcium 9.5 8.9 (8.4-10.2) mg/dL Adrenal panel 02/06/21 02/07/21 Range/Units 21:14 09:19 Sodium 143 145 (137-145) mmol/L Potassium 4.0 3.6 (3.5-5.1) mmol/L Chloride 97 L 103 (98-107) mmol/L Carbon Dioxide 32 H 31 H (22-30) mmol/L BUN 56 H 47 H (9-20) mg/dL Creatinine 1.56 H 1.30 H (0.66-1.25) mg/dL Glucose 159 H 141 H (74-99) mg/dL Calcium 9.5 8.9 (8.4-10.2) mg/dL Total Bilirubin 1.4 H (0.2-1.3) mg/dL AST 30 (17-59) U/L ALT 14 (4-49) U/L Alkaline Phosphatase 71 (38-126) U/L Total Protein 7.1 (6.3-8.2) g/dL Albumin 4.3 (3.5-5.0) g/dL
[2021-02-07] MEDS: PANTOPRAZOLE 40 MG/10 ML VIAL IVP SCH (13:17)
--- NOTE | 2021-02-07 14:46 | CT ---
EXAMINATION TYPE: CT abdomen pelvis wo con DATE OF EXAM: 02/07/2021 COMPARISON: 04/08/2018 HISTORY: 80-year-old male with pain, small bowel obstruction CT DLP: 613.2 mGycm. Automated exposure control for dose reduction was used. TECHNIQUE: Contiguous axial scanning of the abdomen and pelvis without IV contrast. Coronal and sagit reina reconstructions performed. FINDINGS: Median sternotomy wires and post-CABG changes. Heart is enlarged. Patchy bibasilar areas of airspace disease. Partially visualized 7 mm right middle lobe pulmonary nodule. Dependent opacities. Scattered hepatic calcifications have increased and are probably vascular in etiology. Gallbladder borderline distended at 4.1 cm wide. No surrounding inflammation. 3.7 cm low-density nodu le of the right adrenal gland suggestive of a lipid rich adrenal adenoma. Bilateral renal hypodensiti es, largest posterior lower pole on the left measuring up to 5. Centimeters suggesting cysts. Spleen and pancreas within normal limits. Mild aneurysm mid and distal abdominal aorta measuring 3.3 cm and 3.0 cm, respectively. Moderate athe rosclerotic calcifications. Colon is decompressed. The cecum is fluid-filled measuring up to 6.7 cm and there is diffuse small nasim wel dilatation measuring up to 4.8 cm, possible transition point lower ascending colon, coronal image 66 and axial image 76. Generalized colonic diverticulosis. No pericolonic inflammatory change. There is mild perihepatic ascites and mild ascites along the right paracolic gutter. Bladder urine distended. No pelvic lymphadenopathy seen. Bones: Mild to moderate degenerative change of the hips. Baastrup's disease. Degenerative grade 1 ret rolisthesis L2-L3. IMPRESSION: 1. High-grade small bowel obstruction suggested with small bowel loops dilated up to 4.8 cm. The cec um is also fluid-filled measuring up to 6.7 cm and we suspect a transition point at the lower ascendi ng colon just above the ileocecal valve. Obstructive colon cancer should be excluded. 2. Mild abdominal ascites likely reactive. 3. Patchy bibasilar infiltrates. Correlate for infectious or aspiration pneumonitis. 4. Partially visualized 7 mm right middle lobe pulmonary nodule. Recommend contrast-enhanced CT ches t follow-up to survey the entire lungs. Follow-up should exclude metastatic disease. 5. Benign 3.7 cm right adrenal adenoma and 2 contiguous AAA is in the mid and distal abdominal aorta measuring up to 3.3 cm cyst. 6. Generalized colonic diverticulosis.
[2021-02-07] MEDS ORDERED: NITROGLYCERIN SL TABS 0.4 MG TAB SUBLINGUAL PRN (16:30)
[2021-02-08 05:48] LABS: Anisocytosis Slight; Basophils % (A) 0 %; Eosinophils % (A) 0 %; HCT 30.8 % (39.0-53.0); HGB 7.8 gm/dL (13.0-17.5); Hypochromasia Marked; Lymphocytes # (A) 0.5 k/uL (1.0-4.8); Lymphocytes % (A) 5 %; MCH 17.9 pg (25.0-35.0); MCHC 25.1 g/dL (31.0-37.0); MCV 71.3 fL (80.0-100.0); Mean Platelet Volume 7.8; Microcytosis Marked; Monocytes # (A) 0.6 k/uL (0-1.0); Monocytes % (A) 6 %; Neutrophils % (A) 87 %; Platelet Count 278 k/uL (150-450); RBC 4.32 m/uL (4.30-5.90); RDW 19.6 % (11.5-15.5); WBC 9.2 k/uL (3.8-10.6)
[2021-02-08] MEDS: SODIUM CHLORIDE 0.9% 1,000 ML IV SCH ×3 (05:54→23:54)
[2021-02-08] MEDS: BUMETANIDE 1 MG TAB PO SCH (08:15)
[2021-02-08] MEDS: PANTOPRAZOLE 40 MG/10 ML VIAL IVP SCH (08:15)
--- NOTE | 2021-02-08 08:46 | HP ---
HISTORY AND PHYSICAL HISTORY OF PRESENT ILLNESS: 80-year-old white male who presents with nausea, vomiting. CT scan shows a transition zone in the right lower quadrant of the cecum, ascending colon; suspect possible colon cancer. EGD versus open laparoscopy will have to be addressed if the patient does not improve. He has an NG tube in and he is n.p.o. at this time. PAST MEDICAL HISTORY: Coronary artery disease, hypertension, cervical disk disease. PAST SURGICAL HISTORY: Mitral valve repair,, four cardiac stents, cataract surgery, tonsillectomy. FAMILY HISTORY: Mother negative. Father heart problems. REVIEW OF SYSTEMS: 14-point review of systems negative. PHYSICAL EXAMINATION: Vital signs stable afebrile. INTEGUMENT: Dry skin turgor. Dry mucous membranes. Poor skin turgor. CARDIOVASCULAR S1 S2. LUNGS are clear. HEMATOLOGY: Negative Homans. GI is increased bowel sounds x4. Questionable guarding. No rebound. : No suprapubic tenderness. LABORATORY DATA: Hemoglobin is 8.6, white count 6.6, BUN is 56, creatinine 1.56. ASSESSMENT: 1. Dehydration. 2. Prerenal renal azotemia. 3. Small bowel obstruction. 4. Lactic acidosis. 5. Atrial fibrillation. 6. Gastroesophageal reflux disease. 7. History of coronary artery disease. 8. Cerebrovascular accident, transient ischemic attack. 9. Dyslipidemia. 10.Osteoarthritis. 11.Skin disorder. NG tube placed. IV fluids. Resume home medicines that are necessary for the atrial fibrillation. May have to put him on Cardizem drip if before medicines do not work. Continue home medications. Prognosis guarded. Follow up in the next 24 to 48 hours. n.p.o. IV fluids. Await for surgical recommendations. MMODL / IJN: [id number] /
[2021-02-08] MEDS ORDERED: METOPROLOL SUCCINATE (ER) 25 MG TAB.ER.24H PO SCH (09:00)
[2021-02-08] MEDS ORDERED: METOPROLOL TARTRATE 50 MG TAB PO STA (09:12)
[2021-02-08 13:03] LABS: African American GFR (CKD) 60.6 (60.0-200.0); Anion Gap 11.3 mmol/L (4.00-12.00); BUN/Creat Ratio 26.92 Ratio (12.00-20.00); Calcium 8.3 mg/dL (8.7-10.3); Carbon Dioxide 28.7 mmol/L (21.6-31.8); Non-African American GFR(CKD) 52.3 (60.0-200.0); Potassium 3.5 mmol/L (3.5-5.5)
--- NOTE | 2021-02-08 13:40 | P.CRDCN ---
History of Present Illness History of present illness: HISTORY OF PRESENTING ILLNESS This is a pleasant 80-year-old male past medical history significant for chronic persistent atrial fibrillation, coronary artery disease status post multivessel PCI in 2017, ischemic cardiomyopathy, hypertension, hyperlipidemia, mitral valve repair in 2002, history of inguinal and umbilical hernia repair. He used to follow in the office with Dr. Hammond, have ever has not followed up since 2019. 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 We have been asked to see in consultation for atrial fibrillation with rapid ventricular response. Patient is seen and examined at bedside, patient presents emergency department with complaints of abdominal pain and nausea and vomiting for 3 days. He ate some salmon from [employer] and thought he had food poisoning, however, his symptoms worsened. CT abdomen and pelvis revealed high-grade small bowel obstruction session with small bowel loops dilated to 4.8 cm. Mild dull ascites, cecum is also fluid filled measuring up to 6.7 cm we suggested transition point at the lower ascending colon. Benign 3.7 cm right adrenal adenoma and to continued shortness of abdominal aortic aneurysm in the mid and distal abdominal aorta measuring up to 0.3 cm cyst, generalized colonic diverticulosis. Surgery was consulted. NG tube was placed. Patient states he had 2 bowel movements today. On admission, patient did not receive his metoprolol succinate. Today, patient recieved metoprolol tartrate 50mg once, and his home dose of metoprolol succinate 25mg daily With improved rates currently in low 100s. In June 2016, patient had an abnormal lexiscan stress test. Patient underwent cardiac catheterization and PCI after in 2016. Patient states he has not follow up with cardiology since 2019, he has been following up regularly with his PCP. He states since 2019 he has not had any recent cardiac workup or cardiac catheterizations. In 2019, patient stopped taking his Eliquis because he was also taking Plavix and Aspirin at that time. He had EKG changes at that time, cardiac catheterization was recommended but patient did not proceed at that time. DIAGNOSTICS -EKG reveals atrial fibrillation, heart rate 110 -Telemetry tracings in the emergency department indicate atrial fibrillation with RVR -Laboratory reviewed, WBC 22, hemoglobin 7.8, platelets 278, sodium 145, potassium 3.6, BUN 47, serum creatinine 1.3. -Cardiac catheterization history includes: 07/2016 which revealed critical stenosis involving the proximal LAD, significant stenosis on the ramus intermedius in the proximal left circumflex, mild disease in RCA. Patient subsequently underwent stenting to the proximal circumflex, proximal LAD x2, and proximal ramus intermedius -Most recent echocardiogram 11/2018 revealed an EF of 32%, moderate concentric hypertrophy, akinesis of the anterior wall and anterior septum from the mid wall to the apex, akinesis of the septum from mid-wall to apex, akinesis of anterio and later ibarra. akinesis of inferior wall at the apex, severely dilated left atrium, mild aortic regurgitation, mild prosthetic valvular regurgitation, moderate tricuspid regurgitation Patient's home cardiac medications include aspirin 325 mg daily, Plavix 75 mg daily, lisinopril 5 mg daily, metoprolol succinate 25 mg daily, Bumex 1 mg daily. REVIEW OF SYSTEMS At the time of my exam: CONSTITUTIONAL: Denies fever or chills. CARDIOVASCULAR: Denies chest pain, shortness of breath, orthopnea, PND or palpitations. RESPIRATORY: Denies cough. GASTROINTESTINAL: +abdominal pain, +constipation, +nausea +vomiting Denies diarrhea MUSCULOSKELETAL: Denies myalgias. NEUROLOGIC: Denies numbness, tingling, headacbe or weakness. ENDOCRINE: Denies fatigue, weight change, polydipsia or polyurina. GENITOURINARY: Denies burning, hematuria or urgency with micturation. HEMATOLOGIC: Denies history of anemia or bleeding. PHYSICAL EXAMINATION CONSTITUTIONAL: No apparent distress. HEENT: Head is normocephalic. Pupils are equal, round. Sclerae anicteric. Mucous membranes of the mouth are moist. No JVD. No carotid bruit. CHEST EXAMINATION: Lungs are clear to auscultation. No chest wall tenderness is noted on palpation or with deep breathing. HEART EXAMINATION: Irregular rate and rhythm. S1, S2 heard. Systolic murmur noted at the base ABDOMEN: Soft, nontender. Positive bowel sounds. EXTREMITIES: 2+ peripheral pulses, mild bilateral non pitting lower extremity edema and no calf tenderness. SKIN: no wounds or rashes NEUROLOGIC EXAMINATION: Patient is awake, alert and oriented x3. ASSESSMENT Chronic persistent atrial fibrillation with RVR- -[id number] score Small bowel obstruction Coronary artery disease status post multivessel PCI in 2016 Ischemic cardiomyopathy Hypertension Hyperlipidemia Mitral valve repair in 2002 PLAN -Increase patient's metoprolol succinate to 50mg daily -Obtain 2D echocardiogram -Patient is agreeable to starting anticoagulation. Discussed atrial fibrillation, risk of stroke and benefits and risk of anticoagulation with patient and patient's on at bedside. -Will send Eliquis to pharmacy. Consult case management for coverage. Will hold on starting anticoagulation at this time pending surgery recommendations. -Will hold on Plavix and aspirin at this time -Further recommendations based on clinical course Nurse Practitioner note has been reviewed, I agree with a documented findings and plan of care. Patient was seen and examined. Past Medical History Past Medical History: Coronary Artery Disease (CAD), Cancer, CVA/TIA, Hyperlipidemia, Hypertension, Myocardial Infarction ([place]), Osteoarthritis (OA), Skin Disorder Additional Past Medical History / Comment(s): 04/08/18 pt stated wants flu vaccine before discharge if ok with 01/2016-denies any residual, [place] on stress test, constipation, arthritis in neck, basal cell cancer, bleeds easily with cuts, has crushed vertebra in neck Last Myocardial Infarction Date:: unknown History of Any Multi-Drug Resistant Organisms: None Reported Past Surgical History: Heart Catheterization With Stent, Tonsillectomy Additional Past Surgical History / Comment(s): mitral valve repair 2002. total 4 cardiac stents, clara cataracts with lens implants, Past Anesthesia/Blood Transfusion Reactions: No Reported Reaction Additional Past Anesthesia/Blood Transfusion Reaction / Comment(s): car sickness as child, " i seem to need more oxygen" with anesthesia. denies any diff with past intubation Date of Last Stent Placement:: 07/2016 Past Psychological History: No Psychological Hx Reported - Past Family History Mother History Unknown: Yes Family Medical History: No Reported History Father History Unknown: Yes Additional Family Medical History / Comment(s): "heart problems" Medications and Allergies Home Medications Medication Instructions Recorded Confirmed Type Zolpidem [Ambien] 10 mg PO HS PRN 06/08/16 02/06/21 History Clopidogrel [Plavix] 75 mg PO DAILY #90 tab 07/19/16 02/06/21 Rx Nitroglycerin Sl Tabs [Nitrostat] 0.4 mg SUBLINGUAL Q5M PRN #25 tab 07/19/16 02/06/21 Rx Bumetanide [Bumex] 1 mg PO DAILY 02/06/21 02/06/21 History HYDROcodone/APAP 10-325MG [[place] 1 tab PO TID PRN 02/06/21 02/06/21 History 10-325] Metoprolol Succinate (ER) [Toprol 25 mg PO DAILY 02/06/21 02/06/21 History Xl] lisinopriL [Zestril] 5 mg PO DAILY 02/06/21 02/06/21 History Apixaban [Eliquis] 5 mg PO BID 30 Days #60 tab 02/08/21 Rx Allergies Allergy/AdvReac Type Severity Reaction Status Date / Time No Known Allergies Allergy Verified 02/06/21 22:39 Physical Exam Vitals: Vital Signs Temp Pulse Pulse Pulse Resp BP BP 02/08/21 08:14 129 H 130/73 02/08/21 04:45 98.5 F 64 20 02/07/21 20:00 98.6 F 125 H 20 120/77 02/07/21 19:43 97.9 F 116 H 18 123/66 02/07/21 17:35 125/71 02/07/21 14:00 98.2 F 109 H 123/67 BP Pulse Ox 02/08/21 08:14 02/08/21 04:45 129/60 100 02/07/21 20:00 91 L 02/07/21 19:43 95 02/07/21 17:35 02/07/21 14:00 95 Intake and Output 02/07/21 02/08/21 02/08/21 22:59 06:59 14:59 Output Total 500 600 Balance -500 -600 Output: Gastric Drainage 500 Urine 600 Other: # Voids 3 # Bowel Movements 3 Results 02/08/21 05:19 02/07/21 09:19 CBC 02/07/21 02/08/21 Range/Units 09:19 05:19 WBC 8.7 9.2 (3.8-10.6) k/uL RBC 4.39 4.32 (4.30-5.90) m/uL Hgb 7.9 L 7.8 L (13.0-17.5) gm/dL Hct 30.7 L 30.8 L (39.0-53.0) % Plt Count 273 278 (150-450) k/uL Current Medications Generic Name Dose Route Start Last Admin Trade Name Freq PRN Reason Stop Dose Admin Acetaminophen 650 mg 02/06/21 22:18 Acetaminophen Tab 325 Mg Tab PO Q6HR PRN Mild Pain or Fever > 100.5 Bumetanide 1 mg 02/08/21 09:00 02/08/21 08:15 Bumetanide 1 Mg Tab PO 1 mg DAILY MARY Administration Sodium Chloride 1,000 mls @ 130 mls/hr 02/06/21 22:30 02/08/21 05:54 Saline 0.9% IV Not Given .[id number] MARY Iopamidol 30 ml 02/07/21 11:23 Iopamidol Contrast (Oral Use) Vial PO 02/08/21 11:[address] Scan Metoprolol Succinate 25 mg 02/08/21 09:00 02/08/21 08:15 Metoprolol Succinate (Er) 25 Mg Tab.Er.24h PO 25 mg DAILY MARY Administration Morphine Sulfate 4 mg 02/06/21 22:18 02/07/21 17:17 Morphine Sulfate 4 Mg/Ml Syringe IV 4 mg Q4HR PRN Administration Severe Pain Naloxone HCl 0.2 mg 02/06/21 22:18 Naloxone 0.4 Mg/Ml 1 Ml Vial IV Q2M PRN Opioid Reversal Nitroglycerin 0.4 mg 02/07/21 16:30 Nitroglycerin Sl Tabs 0.4 Mg Tab SUBLINGUAL Q5M PRN Chest Pain Ondansetron HCl 4 mg 02/06/21 22:18 Ondansetron 4 Mg/2 Ml Vial IVP Q8HR PRN Nausea And Vomiting Pantoprazole Sodium 40 mg 02/07/21 13:15 02/08/21 08:15 Pantoprazole 40 Mg/10 Ml Vial IVP 40 mg DAILY MARY Administration Intake and Output 02/07/21 02/08/21 02/08/21 22:59 06:59 14:59 Output Total 500 600 Balance -500 -600 Output: Gastric Drainage 500 Urine 600 Other: # Voids 3 # Bowel Movements 3 02/08/21 05:19 02/07/21 09:19
[2021-02-08] MEDS ORDERED: fentaNYL (PF) 50 MCG/ML 2 ML AMP ONE (18:55)
[2021-02-08] MEDS ORDERED: NEOSTIGMINE 1 MG/ML 10 ML VIAL ONE (18:55)
[2021-02-08] MEDS ORDERED: ETOMIDATE 2 MG/ML 10 ML VIAL ONE (18:55)
[2021-02-08] MEDS ORDERED: GLYCOPYRROLATE 0.2 MG/ML 2 ML VIAL ONE (18:55)
[2021-02-08] MEDS ORDERED: LIDOCAINE 1% INJ 10MG/ML (20 ML MDV) ONE (18:55)
[2021-02-08] MEDS ORDERED: MIDAZOLAM 2 MG/2 ML VIAL ONE (18:55)
[2021-02-08] MEDS ORDERED: SUCCINYLCHOLINE CHLORIDE 100 MG/5 ML SYR IV ONE (18:55)
[2021-02-08] MEDS ORDERED: ROCURONIUM 10 MG/ML (5 ML VIAL) IV ONE (18:55)
[2021-02-08] MEDS ORDERED: SODIUM CHLORIDE 0.9% 100 ML with ceFAZolin 2,000 MG IV ONE ×2 (18:57)
[2021-02-08] MEDS ORDERED: IV FLUID CONTINUATION 1,000 ML IV ONE ×2 (18:57)
[2021-02-08] MEDS ORDERED: LACTATED RINGERS 1,000 ML IV ONE (19:30)
[2021-02-08] MEDS ORDERED: METOCLOPRAMIDE 5 MG/ML 2 ML VIAL IVP PRN (19:55)
[2021-02-08] MEDS ORDERED: ONDANSETRON 4 MG/2 ML VIAL IVP PRN (19:55)
--- NOTE | 2021-02-08 19:55 | P.OP ---
Date of Procedure: 02/08/21 Preoperative Diagnosis: Small bowel obstruction Postoperative Diagnosis: Right colon mass Procedure(s) Performed: Right colectomy Anesthesia: TIMMY Surgeon: Wallace Adamson Estimated Blood Loss (ml): 25 Pathology: other (Right colon) Condition: stable Disposition: PACU Description of Procedure: The patient's placed on the operating table in the supine position. He received general anesthesia. His abdomen was prepped and draped usual sterile fashion. The abdomen was entered through midline incision. Small bowel was run. The small bowel. He dilated all the way to the level of the terminal ileum and cecum. The right colon was palpated. The right colon. The mass. This was sent for right colectomy. The terminal ileum was then transected proximally and then the distal right colon was transected with a GI stapler distally. Using Enseal device the mesentery the bowel was divided. Next the specimen sent to pathology. And then a [id number] functional end-to-end staple anastomosis created using MEHRAN and TA stapler. A 3-0 GI silk sutures as a crotch stitch. The abdomen was irrigated this fascia was then closed in looped #1 PDS suture. Skin was closed rene.
[2021-02-08] MEDS: KETOROLAC 15 MG/ML 1 ML VIAL IVP PRN (20:23)
[2021-02-08] MEDS: MORPHINE SULFATE 4 MG/ML SYRINGE IV PRN (20:26)
[2021-02-08] MEDS ORDERED: HYDROmorphone 0.5 MG/0.5 ML SYRINGE IVP ONE (20:43)
[2021-02-08] MEDS: ALVIMOPAN 12 MG CAPSULE PO SCH (22:02)
[2021-02-08] MEDS: D5-0.45% NACL WITH KCL 20MEQ/L 1,000 ML IV SCH (22:02)
[2021-02-08] MEDS: HYDROmorphone 1 MG/ML 1 ML SYRINGE IVP PRN (22:51)
[2021-02-09] MEDS: KETOROLAC 15 MG/ML 1 ML VIAL IVP PRN (03:09)
[2021-02-09] MEDS: D5-0.45% NACL WITH KCL 20MEQ/L 1,000 ML IV SCH ×3 (04:18→22:26)
[2021-02-09] MEDS: SODIUM CHLORIDE 0.9% 1,000 ML IV SCH (04:22)
[2021-02-09] MEDS: MORPHINE SULFATE 4 MG/ML SYRINGE IV PRN ×2 (04:25→08:22)
[2021-02-09] MEDS: METOPROLOL SUCCINATE (ER) 50 MG TAB.ER.24H PO SCH (05:29)
--- NOTE | 2021-02-09 06:16 | PN ---
PROGRESS NOTE White male with bowel obstruction, status post colectomy today of the right lower lobe with colonic mass for a bowel obstruction which a bowel was reconnected on surgery. The patient has NG tube in place. He is getting morphine and Dilaudid for pain. Prophylactic Zosyn. Cardiovascular S1-S2, lungs clear. GI soft. Hematology: Negative Homans. ASSESSMENT: Status post bowel obstruction with colectomy for colonic mass and bowel obstruction. Continue with current treatment including Zosyn, pain control hypertension medications. Prognosis guarded. MMODL / IJN: [id number] /
[2021-02-09 08:02] LABS: African American GFR (CKD) 50 (>60 ml/min/1.73 sqM); Anion Gap 8 mmol/L; Blood Urea Nitrogen 38 mg/dL (9-20); Calcium 8.1 mg/dL (8.4-10.2); Carbon Dioxide 26 mmol/L (22-30); Chloride 109 mmol/L (98-107); Glucose 140 mg/dL (74-99); Non-African American GFR(CKD) 44 (>60 ml/min/1.73 sqM); Potassium 3.4 mmol/L (3.5-5.1); Sodium 143 mmol/L (137-145)
[2021-02-09 08:04] LABS: Anisocytosis Slight; Basophils % (A) 0 %; Eosinophils # (A) 0.1 k/uL (0-0.7); Eosinophils % (A) 1 %; HCT 30.6 % (39.0-53.0); HGB 7.6 gm/dL (13.0-17.5); Hypochromasia Marked; Lymphocytes # (A) 0.6 k/uL (1.0-4.8); Lymphocytes % (A) 6 %; MCH 17.6 pg (25.0-35.0); MCHC 24.8 g/dL (31.0-37.0); MCV 70.8 fL (80.0-100.0); Mean Platelet Volume 9.3; Microcytosis Marked; Monocytes # (A) 0.5 k/uL (0-1.0); Monocytes % (A) 6 %; Neutrophils # (A) 8.5 k/uL (1.3-7.7); Neutrophils % (A) 86 %; Platelet Count 296 k/uL (150-450); RBC 4.32 m/uL (4.30-5.90); RDW 19.7 % (11.5-15.5); WBC 9.9 k/uL (3.8-10.6)
[2021-02-09] MEDS: PANTOPRAZOLE 40 MG/10 ML VIAL IVP SCH (08:12)
[2021-02-09] MEDS: BUMETANIDE 1 MG TAB PO SCH (08:13)
[2021-02-09] MEDS: ALVIMOPAN 12 MG CAPSULE PO SCH ×2 (08:14→21:54)
[2021-02-09] MEDS ORDERED: POTASSIUM CHLORIDE ER 20 MEQ TAB.ER PO STA (08:20)
[2021-02-09] MEDS: ATORVASTATIN 40 MG TAB PO SCH (08:22)
--- NOTE | 2021-02-09 12:54 | P.PN ---
Subjective This is a pleasant 80-year-old male past medical history significant for chronic persistent atrial fibrillation, coronary artery disease status post multivessel PCI in 2017, ischemic cardiomyopathy, hypertension, hyperlipidemia, mitral valve repair in 2002, history of inguinal and umbilical hernia repair. He used to follow in the office with Dr. Hammond, have ever has not followed up since 2019. He is not seeing a new biotechnologist at this time. We have been asked to see in consultation for atrial fibrillation with rapid ventricular response. Patient is seen and examined at bedside, patient presents emergency department with complaints of abdominal pain and nausea and vomiting for 3 days. He ate some salmon from [employer] and thought he had food poisoning, however, his symptoms worsened. CT abdomen and pelvis revealed high-grade small bowel obstruction session with small bowel loops dilated to 4.8 cm. Mild dull ascites, cecum is also fluid filled measuring up to 6.7 cm we suggested transition point at the lower ascending colon. Benign 3.7 cm right adrenal adenoma and to continued shortness of abdominal aortic aneurysm in the mid and distal abdominal aorta measuring up to 0.3 cm cyst, generalized colonic diverticulosis. Surgery was consulted. NG tube was placed. Patient states he had 2 bowel movements today. On admission, patient did not receive his metoprolol succinate. Today, patient recieved metoprolol tartrate 50mg once, and his home dose of metoprolol succinate 25mg daily With improved rates currently in low 100s. In June 2016, patient had an abnormal lexiscan stress test. Patient underwent cardiac catheterization and PCI after in 2016. Patient states he has not follow up with cardiology since 2019, he has been following up regularly with his PCP. He states since 2019 he has not had any recent cardiac workup or cardiac catheterizations. In 2019, patient stopped taking his Eliquis because he was also taking Plavix and Aspirin at that time. He had EKG changes at that time, cardiac catheterization was recommended but patient did not proceed at that time. DIAGNOSTICS -Cardiac catheterization history includes: 07/2016 which revealed critical stenosis involving the proximal LAD, significant stenosis on the ramus intermedius in the proximal left circumflex, mild disease in RCA. Patient subs equently underwent stenting to the proximal circumflex, proximal LAD x2, and proximal ramus intermedius -Most recent echocardiogram 11/2018 revealed an EF of 32%, moderate concentric hypertrophy, akinesis of the anterior wall and anterior septum from the mid wall to the apex, akinesis of the septum from mid-wall to apex, akinesis of anterio and later ibarra. akinesis of inferior wall at the apex, severely dilated left atrium, mild aortic regurgitation, mild prosthetic valvular regurgitation, mode rate tricuspid regurgitation 02/08/21: Patient underwent right colectomy with Dr. Adamson. 02/09/2021: Patient seen and examined at bedside, no acute distress. Blood pressure 125/60, heart rate 116, afebrile, maintaining oxygen saturations 95% 2 L nasal cannula. Telemetry reviewed patient continues to be atrial fibrillation heart rate 110 and 120. Patient did have an episode of 8 beat NSVT run. Patient is asymptomatic. Laboratory data reviewed sodium 143, potassium 3.4, BUN 38, serum creatinine 1.5, WBC 9.9, hemoglobin 7.6, platelets 296. Patient currently main tained on Bumex 1 mg daily, atorvastatin 40 mg daily, metoprolol succinate 50 mg daily. PHYSICAL EXAMINATION CONSTITUTIONAL: No apparent distress. HEENT: Head is normocephalic. No JVD. CHEST EXAMINATION: Lungs are clear to auscultation. HEART EXAMINATION: Irregular rate and rhythm. S1, S2 heard. Systolic murmur noted at the base ABDOMEN: Soft, nontender. Positive bowel sounds. EXTREMITIES: 2+ peripheral pulses, mild bilateral non pitting lower extremity edema and no calf tenderness. SKIN: Abdominal incision closed with rene NEUROLOGIC EXAMINATION: Patient is awake, alert and oriented x3. ASSESSMENT Chronic persistent atrial fibrillation with RVR- -[id number] score 5 Small bowel obstruction s/p right colectomy on 02/08/21 Coronary artery disease status post multivessel PCI in 2017 Ischemic cardiomyopathy most recent EF 32% Hypertension Hyperlipidemia Mitral valve repair in 2002 Hypokalemia Acute Kidney Injury PLAN -Replace potassium -Continue to monitor renal function and electrolytes -Continue metoprolol succinate to 50mg daily -Caution with fluid administration -Obtain 2D echocardiogram -Patient is agreeable to starting anticoagulation. Discussed atrial fibrillation , risk of stroke and benefits and risk of anticoagulation with patient and patient's son on at bedside. -Will send Eliquis to pharmacy. Consult case management for coverage. -Per surgery hold all anticoagulation today. And ok to start heparin drip 02/10/21. We will start a heparin drip tomorrow. -Will hold on Plavix and aspirin at this time -Further recommendations based on clinical course Nurse Practitioner note has been reviewed, I agree with a documented findings and plan of care. Patient was seen and examined. Objective - Vital Signs Vital signs: Vital Signs Temp 98 F 02/09/21 05:00 Pulse 125 H 02/09/21 05:00 Resp 20 02/09/21 05:00 BP 117/71 02/09/21 05:00 Pulse Ox 98 02/09/21 05:00 Intake & Output 02/08/21 02/09/21 02/09/21 18:59 06:59 18:59 Intake Total 1100 700 Output Total 800 715 Balance 300 -15 Intake: IV 1100 500 Oral 200 Output: Urine 800 640 Estimated Blood Loss 75 Other: # Bowel Movements 1 - Labs CBC & Chem 7: 02/09/21 06:37 02/09/21 06:37 Labs: Abnormal Lab Results - Last 24 Hours (Table) 02/08/21 02/09/21 02/09/21 Range/Units 05:19 06:37 06:37 Hgb 7.6 L (13.0-17.5) gm/dL Hct 30.6 L (39.0-53.0) % MCV 70.8 L (80.0-100.0) fL MCH 17.6 L (25.0-35.0) pg MCHC 24.8 L (31.0-37.0) g/dL RDW 19.7 H (11.5-15.5) % Neutrophils # 8.5 H (1.3-7.7) k/uL Lymphocytes # 0.6 L (1.0-4.8) k/uL Sodium 150 H (135-145) mmol/L Potassium 3.4 L (3.5-5.1) mmol/L Chloride 110 H 109 H (96-109) mmol/L BUN 35.0 H 38 H (9.0-27.0) mg/dL Creatinine 1.52 H (0.66-1.25) mg/dL Est GFR (CKD-EPI)NonAf 52.3 L (60.0-200.0) BUN/Creatinine Ratio 26.92 H (12.00-20.00) Ratio Glucose 135 H 140 H (70-110) mg/dL Calcium 8.3 L 8.1 L (8.7-10.3) mg/dL
--- NOTE | 2021-02-09 13:26 | ECHOF ---
Referral Reason:LV function MEASUREMENTS -------- HEIGHT: 177.8 cm WEIGHT: 81.7 kg BP: 128/66 RVIDd: 3.4 cm (< 3.3) IVSd: 1.6 cm (0.6 - 1.1) LVIDd: 6.0 cm (3.9 - 5.3) LVPWd: 1.3 cm (0.6 - 1.1) IVSs: 1.8 cm LVIDs: 4.1 cm LVPWs: 1.8 cm LA Diam: 5.3 cm (2.7 - 3.8) LAESV Index (A-L): 42.43 ml/m Ao Diam: 4.0 cm (2.0 - 3.7) AV Cusp: 2.4 cm (1.5 - 2.6) MV EXCURSION: 15.271 mm (> 18.000) MV EF SLOPE: 36 mm/s (70 - 150) EPSS: 1.2 cm RAP: 15.00 mmHg RVSP: 76.61 mmHg FINDINGS -------- This was a technically adequate study. The left ventricle is mildly dilated. There is moderate concentric left ventricular hypertrophy. Overall left ventricular systolic function is moderate-severely impaired with, an EF between 30 - 35 %. Basal inferoseptal LV wall motion is hypokinetic. Mid anterior LV wall motion is hypokinetic. Mid inferior LV wall motion is hypokinetic. Mid inferoseptal LV wall motion is hypokinetic. Apical anterior LV wall motion is akinetic. Apical lateral LV wall motion is akinetic. Apical inferior LV wall motion is akinetic. Apical septum LV wall motion is akinetic. The right ventricle is mildly enlarged. LA is severely dilated >40 ml/m2 The right atrium is normal in size. 5.0mg of Lumason was utilized for enhancement of images Interatrial and interventricular septum intact. There is mild aortic valve sclerosis. Trace amount of aortic regurgitation. The mitral valve leaflets are mildly thickened. Mild mitral annular calcification present. MV Rep air. Moderate to severe tricuspid regurgitation present. There is severe pulmonary hypertension. The r ight ventricular systolic pressure, as measured by Doppler, is 76.61mmHg. Trace/mild (physiologic) pulmonic regurgitation. The aortic root is dilated measuring 4.0cm. The inferior vena cava is dilated with no significant inspiratory collapse which is consistent estima kermit right atrial pressure of >15 mmHg. There is no pericardial effusion. CONCLUSIONS -------- 1. The left ventricle is mildly dilated. 2. There is moderate concentric left ventricular hypertrophy. 3. Overall left ventricular systolic function is moderate-severely impaired with, an EF between 30 - 35 %. 4. Basal inferoseptal LV wall motion is hypokinetic. 5. Mid anterior LV wall motion is hypokinetic. 6. Mid inferior LV wall motion is hypokinetic. 7. Mid inferoseptal LV wall motion is hypokinetic. 8. Apical anterior LV wall motion is akinetic. 9. Apical lateral LV wall motion is akinetic. 10. Apical inferior LV wall motion is akinetic. 11. Apical septum LV wall motion is akinetic. 12. The right ventricle is mildly enlarged. 13. LA is severely dilated >40 ml/m2 14. 5.0mg of Lumason was utilized for enhancement of images 15. There is mild aortic valve sclerosis. 16. Trace amount of aortic regurgitation. 17. The mitral valve leaflets are mildly thickened. 18. Mild mitral annular calcification present. 19. MV Repair. 20. Moderate to severe tricuspid regurgitation present. 21. There is severe pulmonary hypertension. 22. The right ventricular systolic pressure, as measured by Doppler, is 76.61mmHg. 23. Trace/mild (physiologic) pulmonic regurgitation. 24. The aortic root is dilated measuring 4.0cm. 25. The inferior vena cava is dilated with no significant inspiratory collapse which is consistent es timated right atrial pressure of >15 mmHg. 26. There is no pericardial effusion. SECTION MAINTAINER: Lena Adamson RDCS
[2021-02-09] MEDS: HYDROcodone/APAP 10-325MG 1 EACH TAB PO PRN (13:37)
--- NOTE | 2021-02-09 14:24 | P.PN ---
<Ramonita Jacob - Last Filed: 02/09/21 14:21> Subjective Progress Note Date: 02/09/21 CHIEF COMPLAINT: Small bowel obstruction HISTORY OF PRESENT ILLNESS: Patient is status post right colectomy for right colon mass. Postop day #1. He is reporting abdominal pain. His pain is slightly better than admission. He is requiring IV pain medication. He is also atrial fibrillation with rapid ventricular response and followed by cardiology. Patient is currently on a clear liquid diet. He is afebrile. WBC is 9.9 hemogl obin is 7.6 potassium is 3.4 creatinine is 1.5 to PHYSICAL EXAM: VITAL SIGNS: Reviewed. GENERAL: Well-developed in no acute distress. HEENT: No sclera icterus. Extraocular movements grossly intact. Moist buccal mucosa. Head is atraumatic, normocephalic. ABDOMEN: Soft. Distended. Incisional dressing clean dry and intact. Abdominal binder in place. NEUROLOGIC: Alert and oriented. Cranial nerves II through XII grossly intact. ASSESSMENT: 1. Right Colon mass causing small bowel obstruction status post right colectomy PLAN: -Continue clear liquid diet -Resume patient's home dose of [place] -Discontinue IV morphine and continue with the IV Dilaudid for breakthrough pain -Recommend holding off on anticoagulation for his atrial fibrillation today. Recommend heparin drip to start tomorrow. Discussed with cardiology nurse practitioner -Consult placed for physical therapy -Encourage patient to use incentive spirometer -Replace potassium -Discontinue Toradol due to elevated creatinine -Follow up labs in a.m. Physician Mds Coordinator note has been reviewed by physician. Signing provider agrees with the documented findings, assessment, and plan of care. Objective - Vital Signs Vital signs: Vital Signs Temp 98.2 F 02/09/21 12:46 Pulse 116 H 02/09/21 12:46 Resp 18 02/09/21 12:46 BP 125/68 02/09/21 12:46 Pulse Ox 95 02/09/21 12:46 Intake & Output 02/08/21 02/09/21 02/09/21 18:59 06:59 18:59 Intake Total 1100 700 Output Total 800 715 800 Balance 300 -15 -800 Intake: IV 1100 500 Oral 200 Output: Urine 800 640 800 Estimated Blood Loss 75 Other: # Bowel Movements 1 - Labs CBC & Chem 7: 02/09/21 06:37 02/09/21 06:37 Labs: Abnormal Lab Results - Last 24 Hours (Table) 02/09/21 02/09/21 Range/Units 06:37 06:37 Hgb 7.6 L (13.0-17.5) gm/dL Hct 30.6 L (39.0-53.0) % MCV 70.8 L (80.0-100.0) fL MCH 17.6 L (25.0-35.0) pg MCHC 24.8 L (31.0-37.0) g/dL RDW 19.7 H (11.5-15.5) % Neutrophils # 8.5 H (1.3-7.7) k/uL Lymphocytes # 0.6 L (1.0-4.8) k/uL Potassium 3.4 L (3.5-5.1) mmol/L Chloride 109 H (98-107) mmol/L BUN 38 H (9-20) mg/dL Creatinine 1.52 H (0.66-1.25) mg/dL Glucose 140 H (74-99) mg/dL Calcium 8.1 L (8.4-10.2) mg/dL <Adan Whiteside - Last Filed: 02/09/21 18:39> Subjective As above. Patient says his pain is improved. Remains tachycardic. No nasogastric tube in place. On a liquid diet. Patient with abdominal distention although improved from preop. Continue increasing her activity. Resume home p ain medications. Objective - Vital Signs Vital signs: Vital Signs Temp 98.2 F 02/09/21 12:46 Pulse 116 H 02/09/21 12:46 Resp 18 02/09/21 12:46 BP 125/68 02/09/21 12:46 Pulse Ox 95 02/09/21 12:46 Intake & Output 02/08/21 02/09/21 02/09/21 18:59 06:59 18:59 Intake Total 1100 700 Output Total 800 715 800 Balance 300 -15 -800 Intake: IV 1100 500 Oral 200 Output: Urine 800 640 800 Estimated Blood Loss 75 Other: # Bowel Movements 1 - Labs CBC & Chem 7: 02/09/21 06:37 02/09/21 06:37 Labs: Abnormal Lab Results - Last 24 Hours (Table) 02/09/21 02/09/21 Range/Units 06:37 06:37 Hgb 7.6 L (13.0-17.5) gm/dL Hct 30.6 L (39.0-53.0) % MCV 70.8 L (80.0-100.0) fL MCH 17.6 L (25.0-35.0) pg MCHC 24.8 L (31.0-37.0) g/dL RDW 19.7 H (11.5-15.5) % Neutrophils # 8.5 H (1.3-7.7) k/uL Lymphocytes # 0.6 L (1.0-4.8) k/uL Potassium 3.4 L (3.5-5.1) mmol/L Chloride 109 H (98-107) mmol/L BUN 38 H (9-20) mg/dL Creatinine 1.52 H (0.66-1.25) mg/dL Glucose 140 H (74-99) mg/dL Calcium 8.1 L (8.4-10.2) mg/dL
[2021-02-09] MEDS: HYDROmorphone 1 MG/ML 1 ML SYRINGE IVP PRN ×3 (14:32→22:44)
[2021-02-10] MEDS: HYDROmorphone 1 MG/ML 1 ML SYRINGE IVP PRN ×5 (04:36→21:19)
[2021-02-10] MEDS: D5-0.45% NACL WITH KCL 20MEQ/L 1,000 ML IV SCH ×2 (05:50→14:05)
--- NOTE | 2021-02-10 06:26 | PN ---
PROGRESS NOTE 80-year-old white male status post right post colectomy, right colon mass. Postop day 1, reporting abdominal pain. He has atrial fibrillation with rapid ventricular response for which cardiology has seen. He is on a clear liquid diet. Hemoglobin was 7.6, white count 9.9, potassium 3.4, creatinine 1.5. Cardiovascular S1, S2. Lungs clear. GI is distended, diffuse tenderness. Hematology: Negative Homans. ASSESSMENT: Right colon mass causing small bowel obstruction, status post right colectomy. Continue clear liquid diet. Pain medications. IV morphine and IV Dilaudid. Hold off anticoagulation for his atrial fibrillation. Heparin drip to start tomorrow. PT/OT. Prognosis guarded. MMODL / IJN: [id number] /
[2021-02-10 06:46] LABS: Anisocytosis Slight; Basophils % (A) 0 %; Eosinophils # (A) 0.1 k/uL (0-0.7); Eosinophils % (A) 1 %; HCT 31.1 % (39.0-53.0); HGB 7.8 gm/dL (13.0-17.5); Hypochromasia Marked; Lymphocytes # (A) 0.7 k/uL (1.0-4.8); Lymphocytes % (A) 6 %; MCH 17.7 pg (25.0-35.0); MCV 70.9 fL (80.0-100.0); Microcytosis Marked; Monocytes # (A) 0.8 k/uL (0-1.0); Monocytes % (A) 7 %; Neutrophils # (A) 10.5 k/uL (1.3-7.7); Neutrophils % (A) 85 %; Platelet Count 260 k/uL (150-450); RBC 4.39 m/uL (4.30-5.90); RDW 19.3 % (11.5-15.5); WBC 12.4 k/uL (3.8-10.6)
[2021-02-10] MEDS: ALVIMOPAN 12 MG CAPSULE PO SCH ×2 (08:12→22:19)
[2021-02-10] MEDS: METOPROLOL SUCCINATE (ER) 50 MG TAB.ER.24H PO SCH (08:13)
[2021-02-10] MEDS: ATORVASTATIN 40 MG TAB PO SCH (08:13)
[2021-02-10] MEDS: PANTOPRAZOLE 40 MG TABLET PO SCH (08:13)
[2021-02-10] MEDS: BUMETANIDE 1 MG TAB PO SCH (08:13)
[2021-02-10 10:58] LABS: African American GFR (CKD) 47.1 (60.0-200.0); Albumin 3.2 g/dL (3.80-4.90); Albumin/Globulin Ratio 1.45 (1.60-3.17); Anion Gap 9.1 mmol/L (4.00-12.00); BUN/Creat Ratio 23.75 Ratio (12.00-20.00); Calcium 7.9 mg/dL (8.7-10.3); Carbon Dioxide 25.9 mmol/L (21.6-31.8); Globulin 2.2 g/dL (1.6-3.3); Non-African American GFR(CKD) 40.7 (60.0-200.0); Total Bilirubin 1.3 mg/dL (0.2-1.2); Total Protein 5.4 g/dL (6.2-8.2)
--- NOTE | 2021-02-10 13:06 | P.PN ---
<Ramonita Jacob - Last Filed: 02/10/21 13:01> Subjective Progress Note Date: 02/10/21 CHIEF COMPLAINT: Small bowel obstruction HISTORY OF PRESENT ILLNESS: Patient is status post right colectomy for right colon mass. Postop day #2. Patient reports his abdominal pain is better than yesterday. He does not like the clear liquid diet. He denies any nausea or vomiting. He still has he is having flatus. No bowel movement. Afebrile. Heart rate 118. Cardiology did start patient on Xarelto for anticoagulation for his A. fib. WBC is up at 12.4 hemoglobin 7.6 creatinine 1.6 potassium 4.0 PHYSICAL EXAM: VITAL SIGNS: Reviewed. GENERAL: Well-developed in no acute distress. HEENT: No sclera icterus. Extraocular movements grossly intact. Moist buccal mucosa. Head is atraumatic, normocephalic. ABDOMEN: Soft. Distended. Incisional dressing clean dry and intact. Abdominal binder in place. NEUROLOGIC: Alert and oriented. Cranial nerves II through XII grossly intact. ASSESSMENT: 1. Right Colon mass causing small bowel obstruction status post right colectomy PLAN: -Continue clear liquid diet -Continue current pain medication -Okay to start anticoagulation per surgical service -Continue to work with physical therapy -Encourage patient to use incentive spirometer -Encourage patient to increase activity Physician Griddle Attendant note has been reviewed by physician. Signing provider agrees with the documented findings, assessment, and plan of care. Objective - Vital Signs Vital signs: Vital Signs Temp 97.8 F 02/10/21 11:53 Pulse 98 02/10/21 11:53 Resp 20 02/10/21 11:53 BP 112/69 02/10/21 11:53 Pulse Ox 91 L 02/10/21 11:53 Intake & Output 02/09/21 02/10/21 02/10/21 18:59 06:59 18:59 Output Total 800 800 Balance -800 -800 Output: Urine 800 800 Other: Voiding Method Indwelling Catheter - Labs CBC & Chem 7: 02/10/21 05:56 02/10/21 05:56 Labs: Abnormal Lab Results - Last 24 Hours (Table) 02/10/21 02/10/21 Range/Units 05:56 05:56 WBC 12.4 H (3.8-10.6) k/uL Hgb 7.8 L (13.0-17.5) gm/dL Hct 31.1 L (39.0-53.0) % MCV 70.9 L (80.0-100.0) fL MCH 17.7 L (25.0-35.0) pg MCHC 25.0 L (31.0-37.0) g/dL RDW 19.3 H (11.5-15.5) % Neutrophils # 10.5 H (1.3-7.7) k/uL Lymphocytes # 0.7 L (1.0-4.8) k/uL BUN 38.0 H (9.0-27.0) mg/dL Creatinine 1.6 H (0.6-1.5) mg/dL Est GFR (CKD-EPI)AfAm 47.1 L (60.0-200.0) Est GFR (CKD-EPI)NonAf 40.7 L (60.0-200.0) BUN/Creatinine Ratio 23.75 H (12.00-20.00) Ratio Glucose 146 H (70-110) mg/dL Calcium 7.9 L (8.7-10.3) mg/dL Total Bilirubin 1.3 H (0.2-1.2) mg/dL Total Protein 5.4 L (6.2-8.2) g/dL Albumin 3.20 L (3.80-4.90) g/dL Albumin/Globulin Ratio 1.45 L (1.60-3.17) g/dL <Adan Whiteside - Last Filed: 02/10/21 16:19> Subjective As above. Patient says his pain is improving. He has passed flatus. No bowel movement. Labs noted. No nausea or vomiting. Appears less distended than yesterday. Patient is agreeable to maintain on clear liquids for now. Reassess advancing diet tomorrow. Ambulate. Objective - Vital Signs Vital signs: Vital Signs Temp 97.8 F 02/10/21 11:53 Pulse 98 02/10/21 11:53 Resp 20 02/10/21 11:53 BP 112/69 02/10/21 11:53 Pulse Ox 91 L 02/10/21 11:53 Intake & Output 02/09/21 02/10/21 02/10/21 18:59 06:59 18:59 Output Total 800 800 Balance -800 -800 Output: Urine 800 800 Other: Voiding Method Indwelling Catheter - Labs CBC & Chem 7: 02/10/21 05:56 02/10/21 05:56 Labs: Abnormal Lab Results - Last 24 Hours (Table) 02/10/21 02/10/21 Range/Units 05:56 05:56 WBC 12.4 H (3.8-10.6) k/uL Hgb 7.8 L (13.0-17.5) gm/dL Hct 31.1 L (39.0-53.0) % MCV 70.9 L (80.0-100.0) fL MCH 17.7 L (25.0-35.0) pg MCHC 25.0 L (31.0-37.0) g/dL RDW 19.3 H (11.5-15.5) % Neutrophils # 10.5 H (1.3-7.7) k/uL Lymphocytes # 0.7 L (1.0-4.8) k/uL BUN 38.0 H (9.0-27.0) mg/dL Creatinine 1.6 H (0.6-1.5) mg/dL Est GFR (CKD-EPI)AfAm 47.1 L (60.0-200.0) Est GFR (CKD-EPI)NonAf 40.7 L (60.0-200.0) BUN/Creatinine Ratio 23.75 H (12.00-20.00) Ratio Glucose 146 H (70-110) mg/dL Calcium 7.9 L (8.7-10.3) mg/dL Total Bilirubin 1.3 H (0.2-1.2) mg/dL Total Protein 5.4 L (6.2-8.2) g/dL Albumin 3.20 L (3.80-4.90) g/dL Albumin/Globulin Ratio 1.45 L (1.60-3.17) g/dL
--- NOTE | 2021-02-10 13:40 | P.PN ---
Subjective Progress Note Date: 02/10/21 HISTORY OF PRESENT ILLNESS: This is a pleasant 80-year-old male past medical history significant for chronic persistent atrial fibrillation, coronary artery disease status post multivessel PCI in 2016, ischemic cardiomyopathy, hypertension, hyperlipidemia, mitral valve repair in 2002, history of inguinal and umbilical hernia repair. He used to follow in the office with Dr. Hammond, have ever has not followed up since 2019. 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 We have been asked to see in consultation for atrial fibrillation with rapid ventricular response. Patient is seen and examined at bedside, patient presents emergency department with complaints of abdominal pain and nausea and vomiting for 3 days. He ate some salmon from [employer] and thought he had food poisoning, however, his symptoms worsened. CT abdomen and pelvis revealed high-grade small bowel obstruction session with small bowel loops dilated to 4.8 cm. Mild dull ascites, cecum is also fluid filled measuring up to 6.7 cm we suggested transition point at the lower ascending colon. Benign 3.7 cm right adrenal adenoma and to continued shortness of abdominal aortic aneurysm in the mid and distal abdominal aorta measuring up to 0.3 cm cyst, generalized colonic diverticulosis. Surgery was c onsulted. NG tube was placed. Patient states he had 2 bowel movements today. On admission, patient did not receive his metoprolol succinate. Today, patient recieved metoprolol tartrate 50mg once, and his home dose of metoprolol succinate 25mg daily With improved rates currently in low 100s. In June 2016, patient had an abnormal lexiscan stress test. Patient underwent cardiac catheterization and PCI after in 2016. Patient states he has not follow up with cardiology since 2019, he has been following up regularly with his PCP. He states since 2019 he has not had any recent cardiac workup or cardiac catheterizations. In 2019, patient stopped taking his Eliquis because he was also taking Plavix and Aspirin at that time. He had EKG changes at that time, cardiac catheterization was recommended but patient did not proceed at that time. DIAGNOSTICS -Cardiac catheterization history includes: 07/2016 which revealed critical stenosis involving the proximal LAD, significant stenosis on the ramus intermedius in the proximal left circumflex, mild disease in RCA. Patient subsequently underwent stenting to the proximal circumflex, proximal LAD x2, and proximal ramus intermedius -Most recent echocardiogram 11/2018 revealed an EF of 32%, moderate concentric hypertrophy, akinesis of the anterior wall and anterior septum from the mid wall to the apex, akinesis of the septum from mid-wall to apex, akinesis of anterio and later ibarra. akinesis of inferior wall at the apex, severely dilated left atrium, mild aortic regurgitation, mild prosthetic valvular regurgitation, moderate tricuspid regurgitation 02/08/21: Patient underwent right colectomy with Dr. Adamson. 02/09/2021: Patient seen and examined at bedside, no acute distress. Blood pressure 125/60, heart rate 116, afebrile, maintaining oxygen saturations 95% 2 L nasal cannula. Telemetry reviewed patient continues to be atrial fibrillation heart rate 110 and 120. Patient did have an episode of 8 beat NSVT run. Patient is asymptomatic. Laboratory data reviewed sodium 143, potassium 3.4, BUN 38, serum creatinine 1.5, WBC 9.9, hemoglobin 7.6, platelets 296. Patient currently maintained on Bumex 1 mg daily, atorvastatin 40 mg daily, metoprolol succinate 50 mg daily. 02/10/2021 Patient is status post [facility]. Patient examined this morning. He is sitting up in the chair. He is tolerating clear liquid diet. He denies chest pain or pressure. Denies short as of breath. Telemetry reveals atrial fibrillation with heart rate around 100. Anticoagulation was discussed with the patient and Dr. Buckner. The patient refuses to take Eliquis. He is willing to try other anticoagulation medications though. Echocardiogram completed revealing ejection fraction 30-35%. Multiple LV wall motion abnormalities. Trace amount of aortic regurgitation. Mitral valve repair. Moderate to severe tricuspid regurgitation. Severe pulmonary hypertension. PHYSICAL EXAM: VITAL SIGNS: Reviewed. GENERAL: Well-developed in no acute distress. NECK: Supple. No JVD or thyromegaly LUNGS: Respirations even and unlabored. Lungs essentially clear to auscultation bilaterally. HEART: Irregular rate and rhythm. S1 and S2 heard. Systolic murmur noted. EXTREMITIES: Normal range of motion. No clubbing or cyanosis. Peripheral pulses intact. 1+ bilateral lower extremity edema ASSESSMENT: Right colon mass causing small bowel obstruction, status post right colectomy Chronic persistent atrial fibrillation with RVR, coronary artery disease status post multivessel PCI, 2016 Ischemic cardiomyopathy, ejection fraction 30-35% Hypertension Hyperlipidemia History of mitral valve repair, 2002 Hypokalemia Acute kidney injury PLAN: KVO IV fluids secondary to decreased EF Continue current cardiac medications Begin Xarelto 15 mg tonight. No aspirin or Plavix at this time Further recommendations pending patient's course Nurse practitioner note has been reviewed by physician. Signing provider agrees with the documented findings, assessment, and plan of care. Objective - Vital Signs Vital signs: Vital Signs Temp 97.8 F 02/10/21 11:53 Pulse 98 02/10/21 11:53 Resp 20 02/10/21 11:53 BP 112/69 02/10/21 11:53 Pulse Ox 91 L 02/10/21 11:53 Intake & Output 02/09/21 02/10/21 02/10/21 18:59 06:59 18:59 Output Total 800 800 Balance -800 -800 Output: Urine 800 800 Other: Voiding Method Indwelling Catheter - Labs CBC & Chem 7: 02/10/21 05:56 02/10/21 05:56 Labs: Abnormal Lab Results - Last 24 Hours (Table) 02/10/21 02/10/21 Range/Units 05:56 05:56 WBC 12.4 H (3.8-10.6) k/uL Hgb 7.8 L (13.0-17.5) gm/dL Hct 31.1 L (39.0-53.0) % MCV 70.9 L (80.0-100.0) fL MCH 17.7 L (25.0-35.0) pg MCHC 25.0 L (31.0-37.0) g/dL RDW 19.3 H (11.5-15.5) % Neutrophils # 10.5 H (1.3-7.7) k/uL Lymphocytes # 0.7 L (1.0-4.8) k/uL BUN 38.0 H (9.0-27.0) mg/dL Creatinine 1.6 H (0.6-1.5) mg/dL Est GFR (CKD-EPI)AfAm 47.1 L (60.0-200.0) Est GFR (CKD-EPI)NonAf 40.7 L (60.0-200.0) BUN/Creatinine Ratio 23.75 H (12.00-20.00) Ratio Glucose 146 H (70-110) mg/dL Calcium 7.9 L (8.7-10.3) mg/dL Total Bilirubin 1.3 H (0.2-1.2) mg/dL Total Protein 5.4 L (6.2-8.2) g/dL Albumin 3.20 L (3.80-4.90) g/dL Albumin/Globulin Ratio 1.45 L (1.60-3.17) g/dL
[2021-02-10] MEDS: RIVAROXABAN 15 MG TAB PO SCH (17:41)
[2021-02-11] MEDS: HYDROmorphone 1 MG/ML 1 ML SYRINGE IVP PRN ×9 (00:18→23:56)
[2021-02-11 06:17] LABS: Anisocytosis Slight; Basophils % (A) 0 %; Eosinophils # (A) 0.1 k/uL (0-0.7); Eosinophils % (A) 1 %; HCT 27.4 % (39.0-53.0); HGB 7.1 gm/dL (13.0-17.5); Hypochromasia Marked; Lymphocytes # (A) 0.9 k/uL (1.0-4.8); Lymphocytes % (A) 8 %; MCH 18.2 pg (25.0-35.0); MCHC 25.9 g/dL (31.0-37.0); MCV 70.4 fL (80.0-100.0); Mean Platelet Volume 9.6; Microcytosis Marked; Monocytes # (A) 0.9 k/uL (0-1.0); Monocytes % (A) 7 %; Neutrophils # (A) 9.9 k/uL (1.3-7.7); Neutrophils % (A) 82 %; Platelet Count 259 k/uL (150-450); RBC 3.89 m/uL (4.30-5.90); RDW 19.6 % (11.5-15.5)
[2021-02-11 06:43] LABS: ALT 24 U/L (4-49); AST 103 U/L (17-59); African American GFR (CKD) 56 (>60 ml/min/1.73 sqM); Albumin 2.6 g/dL (3.5-5.0); Alkaline Phosphatase 60 U/L (38-126); Anion Gap 9 mmol/L; Blood Urea Nitrogen 43 mg/dL (9-20); Calcium 8.3 mg/dL (8.4-10.2); Carbon Dioxide 23 mmol/L (22-30); Chloride 108 mmol/L (98-107); Globulin 2.6 g/dL; Glucose 102 mg/dL (74-99); Non-African American GFR(CKD) 48 (>60 ml/min/1.73 sqM); Potassium 3.6 mmol/L (3.5-5.1); Sodium 140 mmol/L (137-145); Total Bilirubin 1.5 mg/dL (0.2-1.3); Total Protein 5.2 g/dL (6.3-8.2)
--- NOTE | 2021-02-11 07:23 | PN ---
PROGRESS NOTE 80 -year-old white male with bowel obstruction status post cholecystectomy with large polyp removal, having no chest pain, shortness of breath. Cardiovascular S1, S2. Lungs clear. GI soft. NG tube in place. No gas or bowel movements. White count 12.4, hemoglobin 7.8, sodium and potassium normal. BUN 38, creatinine 1.6. GFR 4.1. Prognosis guarded. Follow up in the next 24 to 48 hours to continue with current treatment for bowel obstruction. MMODL / IJN: [id number] /
[2021-02-11] MEDS: BUMETANIDE 1 MG TAB PO SCH (08:08)
[2021-02-11] MEDS: PANTOPRAZOLE 40 MG TABLET PO SCH (08:08)
[2021-02-11] MEDS: ATORVASTATIN 40 MG TAB PO SCH (08:08)
[2021-02-11] MEDS: ALVIMOPAN 12 MG CAPSULE PO SCH (08:08)
[2021-02-11] MEDS: METOPROLOL SUCCINATE (ER) 50 MG TAB.ER.24H PO SCH (08:08)
--- NOTE | 2021-02-11 12:22 | P.PN ---
<Ramonita Jacob - Last Filed: 02/11/21 12:19> Subjective Progress Note Date: 02/11/21 CHIEF COMPLAINT: Small bowel obstruction HISTORY OF PRESENT ILLNESS: Patient is status post right colectomy for right colon mass. Postop day #3. Patient reports having had bowel movements. He complains of abdominal pain. The reports that is improving. He denies any nausea or vomiting. He did have a temp of 100 last night. Heart rate 121. White count staying on the same at 12. Hemoglobin 7.1 creatinine 1.39 PHYSICAL EXAM: VITAL SIGNS: Reviewed. GENERAL: Well-developed in no acute distress. HEENT: No sclera icterus. Extraocular movements grossly intact. Moist buccal mucosa. Head is atraumatic, normocephalic. ABDOMEN: Soft. Distended. Incisional dressing clean dry and intact. Abdominal binder in place. NEUROLOGIC: Alert and oriented. Cranial nerves II through XII grossly intact. ASSESSMENT: 1. Right Colon mass causing small bowel obstruction status post right colectomy PLAN: -Continue clear liquid diet -Continue current pain medication. Educated patient and encouraged that he takes the oral [place] -Continue to work with physical therapy -Encourage patient to use incentive spirometer -Encourage patient to increase activity Physician [employer] note has been reviewed by physician. Signing provider agrees with the documented findings, assessment, and plan of care. Objective - Vital Signs Vital signs: Vital Signs Temp 98.2 F 02/11/21 05:00 Pulse 106 H 02/11/21 05:00 Resp 16 02/11/21 05:00 BP 103/68 02/11/21 05:00 Pulse Ox 94 L 02/11/21 08:26 Intake & Output 02/10/21 02/11/21 02/11/21 18:59 06:59 18:59 Output Total 1500 800 Balance -1500 -800 Output: Urine 1500 800 Other: Voiding Method Indwelling Catheter # Voids 0 # Bowel Movements 1 1 - Labs CBC & Chem 7: 02/11/21 05:52 02/11/21 05:52 Labs: Abnormal Lab Results - Last 24 Hours (Table) 02/11/21 02/11/21 Range/Units 05:52 05:52 WBC 12.0 H (3.8-10.6) k/uL RBC 3.89 L (4.30-5.90) m/uL Hgb 7.1 L (13.0-17.5) gm/dL Hct 27.4 L (39.0-53.0) % MCV 70.4 L (80.0-100.0) fL MCH 18.2 L (25.0-35.0) pg MCHC 25.9 L (31.0-37.0) g/dL RDW 19.6 H (11.5-15.5) % Neutrophils # 9.9 H (1.3-7.7) k/uL Lymphocytes # 0.9 L (1.0-4.8) k/uL Chloride 108 H (98-107) mmol/L BUN 43 H (9-20) mg/dL Creatinine 1.39 H (0.66-1.25) mg/dL Glucose 102 H (74-99) mg/dL Calcium 8.3 L (8.4-10.2) mg/dL Total Bilirubin 1.5 H (0.2-1.3) mg/dL AST 103 H (17-59) U/L Total Protein 5.2 L (6.3-8.2) g/dL Albumin 2.6 L (3.5-5.0) g/dL <Adan Whiteside - Last Filed: 02/11/21 13:25> Subjective As above. Patient still having bowel activity. No nausea or vomiting. He would like to eat more. Low-grade temp. White blood cell count 12. Abdomen soft with improving distention. Minimal tenderness along the midline incision. Will advance diet. Continue increasing activity. Objective - Vital Signs Vital signs: Vital Signs Temp 97.7 F 02/11/21 13:00 Pulse 89 02/11/21 13:00 Resp 18 02/11/21 13:00 BP 116/64 02/11/21 13:00 Pulse Ox 97 02/11/21 13:00 Intake & Output 02/10/21 02/11/21 02/11/21 18:59 06:59 18:59 Output Total 1500 800 Balance -1500 -800 Output: Urine 1500 800 Other: Voiding Method Indwelling Catheter # Voids 0 # Bowel Movements 1 1 - Labs CBC & Chem 7: 02/11/21 05:52 02/11/21 05:52 Labs: Abnormal Lab Results - Last 24 Hours (Table) 02/11/21 02/11/21 Range/Units 05:52 05:52 WBC 12.0 H (3.8-10.6) k/uL RBC 3.89 L (4.30-5.90) m/uL Hgb 7.1 L (13.0-17.5) gm/dL Hct 27.4 L (39.0-53.0) % MCV 70.4 L (80.0-100.0) fL MCH 18.2 L (25.0-35.0) pg MCHC 25.9 L (31.0-37.0) g/dL RDW 19.6 H (11.5-15.5) % Neutrophils # 9.9 H (1.3-7.7) k/uL Lymphocytes # 0.9 L (1.0-4.8) k/uL Chloride 108 H (98-107) mmol/L BUN 43 H (9-20) mg/dL Creatinine 1.39 H (0.66-1.25) mg/dL Glucose 102 H (74-99) mg/dL Calcium 8.3 L (8.4-10.2) mg/dL Total Bilirubin 1.5 H (0.2-1.3) mg/dL AST 103 H (17-59) U/L Total Protein 5.2 L (6.3-8.2) g/dL Albumin 2.6 L (3.5-5.0) g/dL
[2021-02-11] MEDS: SODIUM FERRIC GLUCONAT-SUCROSE 125 MG in SODIUM CHLORIDE 0.9% 100 ML IVPB SCH (12:41)
--- NOTE | 2021-02-11 13:42 | P.PN ---
Subjective Progress Note Date: 02/11/21 HISTORY OF PRESENT ILLNESS: This is a pleasant 80-year-old male past medical history significant for chronic persistent atrial fibrillation, coronary artery disease status post multivessel PCI in 2016, ischemic cardiomyopathy, hypertension, hyperlipidemia, mitral valve repair in 2002, history of inguinal and umbilical hernia repair. He used to follow in the office with Dr. Hammond, have ever has not followed up since 2019. 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 We have been asked to see in consultation for atrial fibrillation with rapid ventricular response. Patient is seen and examined at bedside, patient presents emergency department with complaints of abdominal pain and nausea and vomiting for 3 days. He ate some salmon from [employer] and thought he had food poisoning, however, his symptoms worsened. CT abdomen and pelvis revealed high-grade small bowel obstruction session with small bowel loops dilated to 4.8 cm. Mild dull ascites, cecum is also fluid filled measuring up to 6.7 cm we suggested transition point at the lower ascending colon. Benign 3.7 cm right adrenal adenoma and to continued shortness of abdominal aortic aneurysm in the mid and distal abdominal aorta measuring up to 0.3 cm cyst, generalized colonic diverticulosis. Surgery was c onsulted. NG tube was placed. Patient states he had 2 bowel movements today. On admission, patient did not receive his metoprolol succinate. Today, patient recieved metoprolol tartrate 50mg once, and his home dose of metoprolol succinate 25mg daily With improved rates currently in low 100s. In June 2016, patient had an abnormal lexiscan stress test. Patient underwent cardiac catheterization and PCI after in 2016. Patient states he has not follow up with cardiology since 2019, he has been following up regularly with his PCP. He states since 2019 he has not had any recent cardiac workup or cardiac catheterizations. In 2019, patient stopped taking his Eliquis because he was also taking Plavix and Aspirin at that time. He had EKG changes at that time, cardiac catheterization was recommended but patient did not proceed at that time. DIAGNOSTICS -Cardiac catheterization history includes: 07/2016 which revealed critical stenosis involving the proximal LAD, significant stenosis on the ramus intermedius in the proximal left circumflex, mild disease in RCA. Patient subsequently underwent stenting to the proximal circumflex, proximal LAD x2, and proximal ramus intermedius -Most recent echocardiogram 11/2018 revealed an EF of 32%, moderate concentric hypertrophy, akinesis of the anterior wall and anterior septum from the mid wall to the apex, akinesis of the septum from mid-wall to apex, akinesis of anterio and later ibarra. akinesis of inferior wall at the apex, severely dilated left atrium, mild aortic regurgitation, mild prosthetic valvular regurgitation, moderate tricuspid regurgitation 02/08/21: Patient underwent right colectomy with Dr. Adamson. 02/09/2021: Patient seen and examined at bedside, no acute distress. Blood pressure 125/60, heart rate 116, afebrile, maintaining oxygen saturations 95% 2 L nasal cannula. Telemetry reviewed patient continues to be atrial fibrillation heart rate 110 and 120. Patient did have an episode of 8 beat NSVT run. Patient is asymptomatic. Laboratory data reviewed sodium 143, potassium 3.4, BUN 38, serum creatinine 1.5, WBC 9.9, hemoglobin 7.6, platelets 296. Patient currently maintained on Bumex 1 mg daily, atorvastatin 40 mg daily, metoprolol succinate 50 mg daily. 02/10/2021 Patient is status post right colectomy. Patient examined this morning. He is sitting up in the chair. He is tolerating clear liquid diet. He denies chest pain or pressure. Denies short as of breath. Telemetry reveals atrial fibrillation with heart rate around 100. Anticoagulation was discussed with the patient and Dr. Buckner. The patient refuses to take Eliquis. He is willing to try other anticoagulation medications though. Echocardiogram completed revealing ejection fraction 30-35%. Multiple LV wall motion abnormalities. Trace amount of aortic regurgitation. Mitral valve repair. Moderate to severe tricuspid regurgitation. Severe pulmonary hypertension. 02/11/2021 Patient is status post right colectomy with Dr. Adamson. Patient was started on anticoagulation yesterday with Xarelto. Hemoglobin today 7.1. BUN 43. Creatinine 1.39. Blood pressure 103/68. He is on room air with oxygen satu rations greater than 92%. Telemetry reviewed revealing atrial fibrillation with heart rate around 100-105. Patient does complain of abdominal pain. Patient also was febrile this morning. PHYSICAL EXAM: VITAL SIGNS: Reviewed. GENERAL: Well-developed in no acute distress. NECK: Supple. No JVD or thyromegaly LUNGS: Respirations even and unlabored. Lungs essentially clear to auscultation bilaterally. HEART: Irregular rate and rhythm. S1 and S2 heard. Systolic murmur noted. EXTREMITIES: Normal range of motion. No clubbing or cyanosis. Peripheral pulses intact. 1+ bilateral lower extremity edema ASSESSMENT: Right colon mass causing small bowel obstruction, status post right colectomy Chronic persistent atrial fibrillation with RVR, coronary artery disease status post multivessel PCI, 2016 Ischemic cardiomyopathy, ejection fraction 30-35% Hypertension Hyperlipidemia History of mitral valve repair, 2002 Hypokalemia Acute kidney injury PLAN: Continue current cardiac medications Mild tachycardia may be secondary to postoperative pain and fever Continue Xarelto 15 mg tonight. No aspirin or Plavix at this time We will sign off. Please reconsult if needed. Nurse practitioner note has been reviewed by physician. Signing provider agrees with the documented findings, assessment, and plan of care. Objective - Vital Signs Vital signs: Vital Signs Temp 98.2 F 02/11/21 05:00 Pulse 106 H 02/11/21 05:00 Resp 16 02/11/21 05:00 BP 103/68 02/11/21 05:00 Pulse Ox 94 L 02/11/21 08:26 Intake & Output 02/10/21 02/11/21 02/11/21 18:59 06:59 18:59 Output Total 1500 Balance -1500 Output: Urine 1500 Other: Voiding Method Indwelling Catheter # Voids 0 # Bowel Movements 1 1 - Labs CBC & Chem 7: 02/11/21 05:52 02/11/21 05:52 Labs: Abnormal Lab Results - Last 24 Hours (Table) 02/11/21 02/11/21 Range/Units 05:52 05:52 WBC 12.0 H (3.8-10.6) k/uL RBC 3.89 L (4.30-5.90) m/uL Hgb 7.1 L (13.0-17.5) gm/dL Hct 27.4 L (39.0-53.0) % MCV 70.4 L (80.0-100.0) fL MCH 18.2 L (25.0-35.0) pg MCHC 25.9 L (31.0-37.0) g/dL RDW 19.6 H (11.5-15.5) % Neutrophils # 9.9 H (1.3-7.7) k/uL Lymphocytes # 0.9 L (1.0-4.8) k/uL Chloride 108 H (98-107) mmol/L BUN 43 H (9-20) mg/dL Creatinine 1.39 H (0.66-1.25) mg/dL Glucose 102 H (74-99) mg/dL Calcium 8.3 L (8.4-10.2) mg/dL Total Bilirubin 1.5 H (0.2-1.3) mg/dL AST 103 H (17-59) U/L Total Protein 5.2 L (6.3-8.2) g/dL Albumin 2.6 L (3.5-5.0) g/dL
--- NOTE | 2021-02-11 15:43 | PN ---
PROGRESS NOTE 80-year-old white male wound who is seen by Dr. Buckner, Cardiology for atrial fibrillation, rapid ventricular response for chronic persistent atrial fibrillation, coronary artery disease status post PCI in 2017, status post colon mass with bowel obstruction, ischemic cardiomyopathy, ejection fraction 30 to 35%, hypertension, dyslipidemia, mitral valve repair 2002, hypokalemia, acute kidney injury. Cardiac medicines will be continued. He is on Xarelto to prevent stroke with atrial fibrillation 15 mg a day. He is going to stop Plavix and aspirin. Continue the heart rates with current medications, beta blockers and calcium channel blockers and follow along with the patient and we are waiting for pathology as well as an NG tube being placed. Wait for surgery to reassess the patient. T-max a 102 degrees Fahrenheit, T now is 98.2, pulse is 105-121, O2 94% on room air, blood pressure is 103-107 over 60s, respiratory rate 16 to 18. White count is 12, hemoglobin 7.1, BUN 43, creatinine 1.39, calcium is 8.3, bilirubin is 1.5. Prognosis extremely guarded. Await for surgical recommendations and control the heart rate. Remains on Bumex, Lipitor, [place], Dilaudid, Reglan, and Toprol-XL. Zofran and Protonix. Prognosis extremely guarded. Continue follow up in the next 24 to 48 hours. He is started back on Xarelto. To monitor hemoglobins closely. Possibly transfuse him if his iron goes low. MMODL / IJN: [id number] /
[2021-02-11] MEDS: D5-0.45% NACL WITH KCL 20MEQ/L 1,000 ML IV SCH (16:26)
[2021-02-11] MEDS: RIVAROXABAN 15 MG TAB PO SCH (16:57)
[2021-02-12] MEDS: HYDROmorphone 1 MG/ML 1 ML SYRINGE IVP PRN ×3 (03:15→22:06)
[2021-02-12 06:45] LABS: Anisocytosis Slight; HCT 30.8 % (39.0-53.0); HGB 7.7 gm/dL (13.0-17.5); Hypochromasia Marked; MCH 17.6 pg (25.0-35.0); MCHC 25.1 g/dL (31.0-37.0); MCV 69.9 fL (80.0-100.0); Mean Platelet Volume 8.2; Microcytosis Marked; Platelet Count 279 k/uL (150-450); RBC 4.41 m/uL (4.30-5.90)
[2021-02-12] MEDS: HYDROcodone/APAP 10-325MG 1 EACH TAB PO PRN ×2 (06:50→23:55)
[2021-02-12 06:58] LABS: Band Neutrophils % 2 %; Eosinophils # (M) 0.16 k/uL (0-0.7); Lymphocytes # (M) 1.09 k/uL (1.0-4.8); Monocytes # (M) 0.78 k/uL (0-1.0); Neutrophils % (M) 86 %; Nucleated Red Blood Cells 2 /100 WBC (0-0); Ovalocytes Present; Polychromasia Present; Target Cells Present; Total Cells Counted 200; WBC 15.6 k/uL (3.8-10.6)
[2021-02-12] MEDS: ATORVASTATIN 40 MG TAB PO SCH (08:57)
[2021-02-12] MEDS: PANTOPRAZOLE 40 MG TABLET PO SCH (08:57)
[2021-02-12] MEDS: METOPROLOL SUCCINATE (ER) 50 MG TAB.ER.24H PO SCH (08:57)
[2021-02-12] MEDS: BUMETANIDE 1 MG TAB PO SCH (08:57)
[2021-02-12] MEDS ORDERED: FUROSEMIDE 10 MG/ML 2 ML VIAL IV STA (09:02)
[2021-02-12 09:53] LABS: African American GFR (CKD) 60.6 (60.0-200.0); Albumin/Globulin Ratio 1.43 (1.60-3.17); Anion Gap 9.4 mmol/L (4.00-12.00); BUN/Creat Ratio 28.46 Ratio (12.00-20.00); Calcium 7.8 mg/dL (8.7-10.3); Carbon Dioxide 25.6 mmol/L (21.6-31.8); Globulin 2.1 g/dL (1.6-3.3); Non-African American GFR(CKD) 52.3 (60.0-200.0); Potassium 3.4 mmol/L (3.5-5.5); Total Bilirubin 1.2 mg/dL (0.2-1.2); Total Protein 5.1 g/dL (6.2-8.2)
[2021-02-12] MEDS: methylPREDNISolone SOD SUCCI 40 MG/ML 1 ML VIAL IV SCH ×3 (10:08→23:56)
[2021-02-12] MEDS: PIPERACILLIN-TAZOBACTAM 3.375 GM in SODIUM CHLORIDE 0.9% 100 ML IVPB SCH ×3 (10:08→23:52)
--- NOTE | 2021-02-12 10:20 | XR ---
EXAMINATION TYPE: XR chest 2V DATE OF EXAM: 02/12/2021 COMPARISON: 04/09/2018 HISTORY: 80-year-old male congestion and weakness TECHNIQUE: AP and lateral views FINDINGS: Median sternotomy wires are present. Annuloplasty ring within the heart. Heart is mildly enlarged. Di ffuse interstitial density. Small bilateral pleural effusions with adjacent posterior basilar opaciti es on the lateral view. IMPRESSION: Cardiomegaly with interstitial changes along with small bilateral pleural effusions with adjacent ate lectasis and/or consolidation. Correlate for CHF with pulmonary vascular congestion.
[2021-02-12] MEDS ORDERED: LORazepam 0.5 MG TAB PO PRN (10:22)
[2021-02-12] MEDS: IPRATROPIUM-ALBUTEROL 3 ML NEB INHALATION SCH ×3 (11:50→19:30)
[2021-02-12] MEDS: D5-0.45% NACL WITH KCL 20MEQ/L 1,000 ML IV SCH (13:29)
--- NOTE | 2021-02-12 13:59 | P.PN ---
Subjective Progress Note Date: 02/12/21 CHIEF COMPLAINT: Bowel obstruction HISTORY OF PRESENT ILLNESS: The patient is a 80-year-old male status post right colectomy for bowel obstruction and right colon mass. She is tolerating full liquid diet. Nurse reports he was congested and had Lasix. He is breathing better. IV infiltrated along the right arm. No reports of abdominal pain. ROS: No reports of nausea and vomiting. No fevers or chills. No new chest pain. No productive sputum PHYSICAL EXAM: VITAL SIGNS: Reviewed CONSTITUTIONAL: Well developed and in no acute distress. EYES: Conjuctivae without sclera icterus. Extraocular movements grossly intact. HEAD, EARS, NOSE, THROAT: Moist buccal mucosa. Head is atraumatic, n ormocephalic. Hears conversational speech. No nasal drainage. NECK: No gross thyroidomegaly. No jugular venous distention. RESPIRATORY: Non-labored respirations and equal bilateral excursions. CARDIOVASCULAR: Palpable 2+ radial pulses. ABDOMEN: Dressed and intact. No peritonitis. MUSCULOSKELETAL: No gross deformity of the lower extremities noted. No clubbing. No cyanosis. SKIN: Good skin turgor. Well perfused. NEUROLOGIC: Cranial nerves II through XII grossly intact. No focal or late ralizing signs. PSYCH: Appropriate affect. Alert and oriented to person, place and time. CLINICAL LABS: Reviewed. WBC elevated over 12,000 now 15,000. ASSESSMENT: 1. Obstructing right colonic mass status post resection 2. Congestive heart failure PLAN: 1. Antibiotic management for progressive leukocytosis 2. Continue liquid diet. 3. Continue Lasix for congestive heart failure and volume overload Objective - Vital Signs Vital signs: Vital Signs Temp 98.1 F 02/12/21 08:49 Pulse 102 H 02/12/21 08:49 Resp 32 H 02/12/21 08:49 BP 110/70 02/12/21 08:49 Pulse Ox 98 02/12/21 08:49 Intake & Output 02/11/21 02/12/21 02/12/21 18:59 06:59 18:59 Intake Total 100 Output Total 1900 Balance -1900 100 Weight 81.647 kg Intake: Oral 100 Output: Urine 1900 Other: Voiding Method Indwelling Catheter # Bowel Movements 1 - Labs CBC & Chem 7: 02/12/21 05:52 02/12/21 05:52 Labs: Abnormal Lab Results - Last 24 Hours (Table) 02/12/21 02/12/21 Range/Units 05:52 05:52 WBC 15.6 H (3.8-10.6) k/uL Hgb 7.7 L (13.0-17.5) gm/dL Hct 30.8 L (39.0-53.0) % MCV 69.9 L (80.0-100.0) fL MCH 17.6 L (25.0-35.0) pg MCHC 25.1 L (31.0-37.0) g/dL RDW 20.0 H (11.5-15.5) % Neutrophils # (Manual) 13.70 H (1.3-7.7) k/uL Nucleated RBCs 2 H (0-0) /100 WBC Potassium 3.4 L (3.5-5.5) mmol/L BUN 37.0 H (9.0-27.0) mg/dL Est GFR (CKD-EPI)NonAf 52.3 L (60.0-200.0) BUN/Creatinine Ratio 28.46 H (12.00-20.00) Ratio Calcium 7.8 L (8.7-10.3) mg/dL AST 86 H (14-35) U/L Total Protein 5.1 L (6.2-8.2) g/dL Albumin 3.00 L (3.80-4.90) g/dL Albumin/Globulin Ratio 1.43 L (1.60-3.17) g/dL
[2021-02-12] MEDS: SODIUM FERRIC GLUCONAT-SUCROSE 125 MG in SODIUM CHLORIDE 0.9% 100 ML IVPB SCH (14:34)
[2021-02-12] MEDS: RIVAROXABAN 15 MG TAB PO SCH (17:56)
[2021-02-13] MEDS: HYDROmorphone 1 MG/ML 1 ML SYRINGE IVP PRN ×2 (01:26→04:13)
[2021-02-13] MEDS: IPRATROPIUM-ALBUTEROL 3 ML NEB INHALATION SCH ×4 (07:15→20:05)
[2021-02-13] MEDS: METOPROLOL SUCCINATE (ER) 50 MG TAB.ER.24H PO SCH (07:54)
[2021-02-13] MEDS: PANTOPRAZOLE 40 MG TABLET PO SCH (07:54)
[2021-02-13] MEDS: BUMETANIDE 1 MG TAB PO SCH (07:54)
[2021-02-13] MEDS: methylPREDNISolone SOD SUCCI 40 MG/ML 1 ML VIAL IV SCH ×2 (07:54→15:05)
[2021-02-13] MEDS: ATORVASTATIN 40 MG TAB PO SCH (07:54)
[2021-02-13] MEDS: PIPERACILLIN-TAZOBACTAM 3.375 GM in SODIUM CHLORIDE 0.9% 100 ML IVPB SCH ×2 (07:54→15:04)
[2021-02-13] MEDS: HYDROcodone/APAP 10-325MG 1 EACH TAB PO PRN ×2 (10:37→19:31)
--- NOTE | 2021-02-13 10:59 | PN ---
PROGRESS NOTE DATE OF SERVICE: 02/12/2021 80-year-old white male who is examined on 02/12/2021. He had some shortness of breath yesterday for which I gave him Solu-Medrol, Lasix and Zosyn and did a chest x-ray and clinically he has improved with the Lasix and steroids. Cardiovascular: S1, S2. Lungs scattered rhonchi and wheeze. Hematology: Negative Homans. Psych: Fair mood and affect. ASSESSMENT: 1. Status post bowel resection. 2. Small bilateral pleural effusions versus consolidation. Started on Zosyn. Correlate with CHF treatment. Will continue with Lasix and updraft treatments. 3. Cardiology seen for atrial fibrillation with rapid ventricular response. 4. His diet has had some serous fluid out of his bag from status post colostomy. 5. Progressive leukocytosis. 6. Treat him for pneumonia. 7. Infected right colon mass status post resection. 8. Congestive heart failure. 9. Chronic obstructive pulmonary disease. Continue with Zosyn, Lasix. Prognosis guarded. MMODL / IJN: [id number] /
[2021-02-13 12:12] LABS: Anisocytosis Moderate; Basophils % (A) 0 %; Eosinophils % (A) 0 %; HCT 28.1 % (39.0-53.0); HGB 7.1 gm/dL (13.0-17.5); Hypochromasia Marked; Lymphocytes # (A) 0.5 k/uL (1.0-4.8); Lymphocytes % (A) 3 %; MCH 17.9 pg (25.0-35.0); MCHC 25.5 g/dL (31.0-37.0); MCV 70.2 fL (80.0-100.0); Mean Platelet Volume 8.4; Microcytosis Marked; Monocytes # (A) 0.5 k/uL (0-1.0); Monocytes % (A) 3 %; Neutrophils # (A) 15.4 k/uL (1.3-7.7); Neutrophils % (A) 93 %; Platelet Count 265 k/uL (150-450); Poikilocytosis Slight; RDW 20.4 % (11.5-15.5); WBC 16.6 k/uL (3.8-10.6)
[2021-02-13 12:17] LABS: ALT 27 U/L (4-49); AST 45 U/L (17-59); African American GFR (CKD) 62 (>60 ml/min/1.73 sqM); Albumin 2.6 g/dL (3.5-5.0); Alkaline Phosphatase 63 U/L (38-126); Anion Gap 10 mmol/L; Blood Urea Nitrogen 31 mg/dL (9-20); Carbon Dioxide 27 mmol/L (22-30); Chloride 103 mmol/L (98-107); Globulin 2.5 g/dL; Glucose 202 mg/dL (74-99); Non-African American GFR(CKD) 54 (>60 ml/min/1.73 sqM); Sodium 140 mmol/L (137-145); Total Bilirubin 1.1 mg/dL (0.2-1.3); Total Protein 5.1 g/dL (6.3-8.2)
[2021-02-13] MEDS: SODIUM FERRIC GLUCONAT-SUCROSE 125 MG in SODIUM CHLORIDE 0.9% 100 ML IVPB SCH (12:38)
[2021-02-13] MEDS: D5-0.45% NACL WITH KCL 20MEQ/L 1,000 ML IV SCH (12:38)
[2021-02-13 12:45] LABS: Potassium 2.9 mmol/L (3.5-5.1)
[2021-02-13] MEDS ORDERED: Potassium Replacement Protocol 1 EACH MISC MISCELLANE PRN (12:58)
[2021-02-13] MEDS: POTASSIUM CHLORIDE ER 20 MEQ TAB.ER PO SCH ×5 (13:05→19:25)
[2021-02-13] MEDS: RIVAROXABAN 15 MG TAB PO SCH (17:02)
--- NOTE | 2021-02-13 18:09 | P.PN ---
Subjective Progress Note Date: 02/13/21 CHIEF COMPLAINT: Bowel obstruction HISTORY OF PRESENT ILLNESS: The patient is a 80-year-old male status post right colectomy for bowel obstruction and right colon mass. He is tolerating full liquid diet. He had troubles breathing yesterday, "I feel 5000x better!" He had a bowel movement and eager to eat Cheerios. ROS: No reports of nausea and vomiting. No fevers or chills. No new chest pain. PHYSICAL EXAM: VITAL SIGNS: Reviewed CONSTITUTIONAL: Well developed and in no acute distress. EYES: Conjuctivae without sclera icterus. Extraocular movements grossly intact. HEAD, EARS, NOSE, THROAT: Moist buccal mucosa. Head is atraumatic, normocephalic. Hears conversational speech. No nasal drainage. NECK: No gross thyroidomegaly. No jugular venous distention. RESPIRATORY: Non-labored respirations and equal bilateral excursions. CARDIOVASCULAR: Palpable 2+ radial pulses. ABDOMEN: No peritonitis. Dressing intact. MUSCULOSKELETAL: No gross deformity of the lower extremities noted. No clubbing. No cyanosis. SKIN: Good skin turgor. Well perfused. NEUROLOGIC: Cranial nerves II through XII grossly intact. No focal or lateralizing signs. PSYCH: Appropriate affect. Alert and oriented to person, place and time. CLINICAL LABS: Reviewed. WBC elevated over 12,000 now 15,000 up 16,600 ASSESSMENT: 1. Obstructing right colonic mass status postresection 2. Leukocytosis PLAN: 1. Advance to low fiber diet 2. Family at bedside pending pathology. Objective - Vital Signs Vital signs: Vital Signs Temp 97.8 F 02/13/21 12:00 Pulse 93 02/13/21 12:00 Resp 18 02/13/21 12:00 BP 110/57 02/13/21 12:00 Pulse Ox 95 02/13/21 12:00 Intake & Output 02/12/21 02/13/21 02/13/21 18:59 06:59 18:59 Intake Total 120 300 120 Output Total 1200 700 Balance -1080 -400 120 Intake: Oral 120 300 120 Output: Urine 1200 700 Other: Voiding Method Indwelling Catheter External Catheter External Catheter # Bowel Movements 1 1 - Labs CBC & Chem 7: 02/13/21 11:52 02/13/21 16:50 Labs: Abnormal Lab Results - Last 24 Hours (Table) 02/13/21 02/13/21 02/13/21 Range/Units 11:52 11:52 16:50 WBC 16.6 H (3.8-10.6) k/uL RBC 4.00 L (4.30-5.90) m/uL Hgb 7.1 L (13.0-17.5) gm/dL Hct 28.1 L (39.0-53.0) % MCV 70.2 L (80.0-100.0) fL MCH 17.9 L (25.0-35.0) pg MCHC 25.5 L (31.0-37.0) g/dL RDW 20.4 H (11.5-15.5) % Neutrophils # 15.4 H (1.3-7.7) k/uL Lymphocytes # 0.5 L (1.0-4.8) k/uL Potassium 2.9 L 3.3 L (3.5-5.1) mmol/L BUN 31 H (9-20) mg/dL Creatinine 1.27 H (0.66-1.25) mg/dL Glucose 202 H (74-99) mg/dL Calcium 8.0 L (8.4-10.2) mg/dL Total Protein 5.1 L (6.3-8.2) g/dL Albumin 2.6 L (3.5-5.0) g/dL
[2021-02-13] MEDS ORDERED: MAGNESIUM SULFATE SYG 4.06 MEQ/ML SYRINGE ONE (20:17)
[2021-02-13] MEDS ORDERED: SODIUM BICARB 8.4% 50 ML SYR (1 MEQ/ML) ONE (20:17)
[2021-02-13] MEDS ORDERED: EPINEPHrine 10 ML SYRINGE (0.1 MG/ML) ONE (20:17)
[2021-02-13 20:37] LABS: Glucose,Whole Blood 215 mg/dL (75-99)
[2021-02-13] MEDS ORDERED: propofoL 100 ML IV ONE (20:44)
[2021-02-13] MEDS ORDERED: DEXTROSE 5% IN WATER 100 ML with AMIODARONE 150 MG IV ONE (20:46)
[2021-02-13] MEDS ORDERED: AMIODARONE 360 MG in DEXTROSE 5% IN WATER 200 ML IV ONE ×2 (20:46)
[2021-02-13] MEDS ORDERED: NOREPINEPHRIN 4 MG-0.9% NS PMX 4 MG/250 ML ML IV ONE (20:57)
[2021-02-13] MEDS ORDERED: LIDOCAINE 2% INJ 20 MG/ML (20 ML MDV) IV ONE (21:00)
[2021-02-13] MEDS: NOREPINEPHRINE 4 MG in SODIUM CHLORIDE 0.9% 250 ML IV SCH (21:40)
[2021-02-13 21:58] LABS: ABG Base Excess -3.4 mmol/L; ABG HCO3 21 mmol/L (21-25); ABG PCO2 33 mmHg (35-45); ABG PH 7.41 (7.35-7.45); ABG PO2 348 mmHg (83-108); ABG TCO2 22 mmol/L (19-24); Allen Test Performed? Yes
[2021-02-13 22:10] LABS: AST 72 U/L (17-59); African American GFR (CKD) 55 (>60 ml/min/1.73 sqM); Albumin 2.4 g/dL (3.5-5.0); Alkaline Phosphatase 65 U/L (38-126); Anion Gap 17 mmol/L; Blood Urea Nitrogen 32 mg/dL (9-20); Calcium 7.5 mg/dL (8.4-10.2); Carbon Dioxide 18 mmol/L (22-30); Chloride 102 mmol/L (98-107); Globulin 2.3 g/dL; Glucose 333 mg/dL (74-99); Magnesium 3.9 mg/dL (1.6-2.3); Non-African American GFR(CKD) 48 (>60 ml/min/1.73 sqM); Potassium 3.3 mmol/L (3.5-5.1); Sodium 137 mmol/L (137-145); Total Bilirubin 0.9 mg/dL (0.2-1.3); Total Protein 4.7 g/dL (6.3-8.2)
[2021-02-13] MEDS ORDERED: SODIUM CHLORIDE 0.9% 2,000 ML IV ONE (22:15)
[2021-02-13 22:18] LABS: ALT 39 U/L (4-49)
--- NOTE | 2021-02-13 22:19 | XR ---
EXAMINATION TYPE: XR chest 1V portable DATE OF EXAM: 02/13/2021 COMPARISON: 02/12/2021 HISTORY: Short of breath respiratory failure. TECHNIQUE: Single view FINDINGS: Heart is enlarged. There is endotracheal tube 4.5 cm from the soledad. There is nasogastric tube in the stomach. There are sternal wires. There is pulmonary vascular congestion. There is blunti ng of the costophrenic angles. IMPRESSION: Increasing congestive heart failure and pleural fluid compared to yesterday.
--- NOTE | 2021-02-13 23:46 | P.EN ---
Code blue note Activated at 8:17 PM. Arrived on the scene shortly after. Discussed the case with RN and reviewed the chart. The patient was reportedly doing well when he suddenly complained of feeling uneasy and short of breath, and subsequently lost his pulse and stopped breathing. ACLS protocol was initiated. The patient was noted to be in V. tach for which synchronized cardioversion was performed with biphasic 120 J. A repeat cardioversion was performed with biphasic 150 J with subsequent ROSC. The patient continued to be in V. tach, with multiple attempts made for cardioversion unsuccessfully. The patient was intubated and subsequently transferred to the medical ICU. Amiodarone bolus was given with infusion started. The case was discussed with cardiology on-call who recommended repeat attempt at cardioversion with 200 J biphasic which was performed with subsequent sinus rhythm. I discussed the case with the family in person. Labs were ordered. The patient's primary team and intensivists were notified. Cardiology was also notified. A 12-lead EKG was obtained after obtaining sinus rhythm and was sent to cardiology on-call for review. Please refer to the code sheet for further details. Total time spent providing critical care for this patient: Greater than 30 minutes
--- NOTE | 2021-02-14 00:05 | CT ---
EXAMINATION TYPE: CT chest angio for PE DATE OF EXAM: 02/13/2021 COMPARISON: None HISTORY: pe CT DLP: 458.4 mGycm Automated exposure control for dose reduction was used. CONTRAST: Performed with IV Contrast, patient injected with 80 mL of Isovue 370. There are 3-D post processed images. There is endotracheal tube. There are moderate bilateral pleural effusions. Heart is enlarged. There is no pericardial effusion. There is airspace consolidation and atelectasis in both lower lobes. Thoracic aorta is atheromatous. The ascending aorta measures 4.2 cm. There is normal contrast opacification of the pulmonary arteries. There are no filling defects. There is degenerative spurring in the thoracic spine. There is no significant compression deformity. There are sternal wires. The ascending aorta measures 3.5 cm. There is nasogastric tube in the stomach. IMPRESSION: No evidence of pulmonary embolism. Cardiomegaly with pleural fluid and pulmonary consolidation consistent with chronic congestive heart failure. Pleural fluid and pulmonary infiltrates increased compared to CT scan of the abdomen of 02/07/2021. Mild thoracic aortic aneurysm. No sign of dissection. Stable 3.5 cm low-density benign-appearing mass right adrenal gland compared to old exam.
[2021-02-14] MEDS: PIPERACILLIN-TAZOBACTAM 3.375 GM in SODIUM CHLORIDE 0.9% 100 ML IVPB SCH ×4 (01:49→23:59)
[2021-02-14] MEDS: methylPREDNISolone SOD SUCCI 40 MG/ML 1 ML VIAL IV SCH ×4 (01:49→23:59)
[2021-02-14 02:43] LABS: Amorphous Sediment,Urine Rare /hpf; Appearance,Urine Cloudy (Clear); Bacteria,Urine Rare /hpf; Bilirubin,Urine Negative (Negative); Blood,Urine Small (Negative); Color,Urine Yellow; Glucose,Urine (UA) 1+ (Negative); Ketones,Urine Negative (Negative); Leukocyte Esterase,Urine Negative (Negative); Mucus,Urine Rare /hpf; Nitrite,Urine Negative (Negative); PH, Urine 5.5 (5.0-8.0); Protein,Urine 2+ (Negative); RBC,Urine 16 /hpf (0-5); Specific Gravity,Urine 1.019 (1.001-1.035); Squamous Epithelial Cell,Urine 1 /hpf (0-4); Urobilinogen,Urine <2.0 mg/dL (<2.0); WBC,Urine 20 /hpf (0-5)
[2021-02-14] MEDS: POTASSIUM BICARBONATE/CIT AC 20 MEQ TABLET.EFF NG-TUBE SCH ×2 (02:56→04:33)
[2021-02-14] MEDS: SODIUM CHLORIDE 0.9% 1,000 ML IV SCH (02:57)
[2021-02-14] MEDS ORDERED: AMIODARONE 450 MG in DEXTROSE 5% IN WATER 250 ML IV SCH ×2 (03:00)
[2021-02-14 04:15] LABS: Albumin 2.5 g/dL (3.5-5.0); Calcium 7.8 mg/dL (8.4-10.2); Potassium 3.9 mmol/L (3.5-5.1); Total Bilirubin 1.1 mg/dL (0.2-1.3)
[2021-02-14 04:35] LABS: Anisocytosis Moderate; HCT 29.5 % (39.0-53.0); HGB 7.4 gm/dL (13.0-17.5); Hypochromasia Marked; MCV 72.1 fL (80.0-100.0); Mean Platelet Volume 8.3; Microcytosis Marked; Platelet Count 319 k/uL (150-450); RDW 20.8 % (11.5-15.5)
[2021-02-14 04:49] LABS: ABG Base Excess 1.6 mmol/L; ABG HCO3 25 mmol/L (21-25); ABG PCO2 36 mmHg (35-45); ABG PH 7.46 (7.35-7.45); ABG PO2 215 mmHg (83-108); ABG TCO2 27 mmol/L (19-24); Allen Test Performed? Yes
--- NOTE | 2021-02-14 04:51 | PN ---
PROGRESS NOTE 80-year-old white male, status post colon resection and acute respiratory distress over the last 24 to 48 hours. Improved with DuoNeb, updraft, steroids through the IV as well as IV Lasix. Switched to oral Bumex. Cardiology was consulted. His electrolytes were low with potassium today which was replenished, bolus today. Sugars have been mid 200s. His BUN is 32. His creatinine 1.41. He has asked about going to rehab places today, since then he has had a cardiac arrest. He is in ICU, unclear etiology. Wait for Cardiology. He has had multiple shocks to his heart. He has history of heart disease with stents and valvular aortic valve replacement. He was started on amiodarone and given multiple shocks. He had atrial fibrillation with rapid ventricular response earlier, being treated with amiodarone. PROGNOSIS: Extremely guarded. He is on the vent. MMTIFFANIEL / KEVENN: [id number] /
[2021-02-14 04:55] LABS: Band Neutrophils % 5 %; Monocytes # (M) 0.62 k/uL (0-1.0); Neutrophils % (M) 94 %; Nucleated Red Blood Cells 1 /100 WBC (0-0); Ovalocytes Present; Polychromasia Present; Target Cells Present; Total Cells Counted 200; WBC 31.1 k/uL (3.8-10.6)
[2021-02-14] MEDS: NOREPINEPHRINE 4 MG in SODIUM CHLORIDE 0.9% 250 ML IV SCH ×3 (05:06→21:32)
[2021-02-14 06:03] LABS: Glucose,Whole Blood 215 mg/dL (75-99)
[2021-02-14] MEDS: IPRATROPIUM-ALBUTEROL 3 ML NEB INHALATION SCH ×5 (08:00→23:35)
--- NOTE | 2021-02-14 08:59 | P.CNPUL ---
History of Present Illness Consult date: 02/14/21 Reason for consult: dyspnea, hypoxemia, pleural effusion Chief complaint: Patient had a cardiopulmonary arrest in the hospital History of present illness: This is a 80-year-old male with the symptoms suggestive of bowel obstruction for which he was admitted into the hospital patient underwent exploratory laparotomy and the found to have a mass as well which was resected patient is end-to-end anastomosis, also had an adrenal gland mass which wasn't biopsied, around 8:15 PM patient because more short of breath feeling uneasy and lost his pulse. Breathing, he was noted to be in ventricular tachycardia require cardioversion times 08/02/2019 and 150 J after second return of spontaneous circulation was achieved, patient continued to have the episodes of V. tach, intubated by anesthesia transferred to the ICU, patient has been started on amiodarone, with that the V. tach appears to have controlled with 200 J into sinus rhythm, since a d-dimer was elevated patient underwent a computed tomography scan of the chest negative for PE however basal atelectasis and effusion was seen, patient currently on 0.17 mics of levo fed drip 25 mics of the propofol, cardiology on consult I have ordered an echocardiogram as well, reviewed computed tomography scan of the chest as well, patient remains on IV Zosyn noted white cell count is 30,000 likely contribution of the inflammatory change as well as is being stimulated due to steroids, however also noted lactic acid mildly elevated at 2.1, strokes are 5.03 BUN/creatinine is a 35/1.45 Review of Systems All systems: negative Past Medical History Past Medical History: Coronary Artery Disease (CAD), Cancer, CVA/TIA, Hyperlipidemia, Hypertension, Myocardial Infarction (IN), Osteoarthritis (OA), Skin Disorder Additional Past Medical History / Comment(s): 04/08/18 pt stated wants flu vaccine before discharge if ok with 01/2016-denies any residual, [place] on stress test, constipation, arthritis in neck, basal cell cancer, bleeds easily with cuts, has crushed vertebra in neck Last Myocardial Infarction Date:: unknown History of Any Multi-Drug Resistant Organisms: None Reported Past Surgical History: Heart Catheterization With Stent, Tonsillectomy Additional Past Surgical History / Comment(s): mitral valve repair 2002. total 4 cardiac stents, clara cataracts with lens implants, Past Anesthesia/Blood Transfusion Reactions: No Reported Reaction Additional Past Anesthesia/Blood Transfusion Reaction / Comment(s): car sickness as child, " i seem to need more oxygen" with anesthesia. denies any diff with past intubation Date of Last Stent Placement:: 07/2016 Past Psychological History: No Psychological Hx Reported - Past Family History Mother History Unknown: Yes Family Medical History: No Reported History Father History Unknown: Yes Additional Family Medical History / Comment(s): "heart problems" Medications and Allergies Home Medications Medication Instructions Recorded Confirmed Type Zolpidem [Ambien] 10 mg PO HS PRN 06/08/16 02/06/21 History Clopidogrel [Plavix] 75 mg PO DAILY #90 tab 07/19/16 02/06/21 Rx Nitroglycerin Sl Tabs [Nitrostat] 0.4 mg SUBLINGUAL Q5M PRN #25 tab 07/19/16 02/06/21 Rx Bumetanide [Bumex] 1 mg PO DAILY 02/06/21 02/06/21 History HYDROcodone/APAP 10-325MG [[place] 1 tab PO TID PRN 02/06/21 02/06/21 History 10-325] Metoprolol Succinate (ER) [Toprol 25 mg PO DAILY 02/06/21 02/06/21 History Xl] lisinopriL [Zestril] 5 mg PO DAILY 02/06/21 02/06/21 History Allergies Allergy/AdvReac Type Severity Reaction Status Date / Time No Known Allergies Allergy Verified 02/06/21 22:39 Physical Exam Vitals: Vital Signs Temp Pulse Pulse Pulse Resp BP Pulse Ox 02/14/21 08:02 64 02/14/21 06:00 65 18 103/61 100 02/14/21 05:00 65 16 97/55 99 02/14/21 04:00 63 17 102/60 99 02/14/21 03:00 63 16 101/50 99 02/14/21 02:30 64 17 101/56 99 02/14/21 02:00 63 16 102/56 99 02/14/21 01:30 63 16 97/56 99 02/14/21 01:00 65 16 98/53 100 02/14/21 00:30 64 16 101/56 100 02/14/21 00:00 96 F L 65 18 102/57 100 02/13/21 23:30 61 18 106/60 100 02/13/21 23:00 68 18 99/60 99 02/13/21 22:30 72 19 93/57 99 02/13/21 22:00 87 24 91/54 100 02/13/21 12:00 97.8 F 93 18 110/57 95 Intake and Output 02/13/21 02/14/21 02/14/21 22:59 06:59 14:59 Intake Total 1033.3 2962.786 0 Output Total 15 198 23 Balance 1018.3 2764.786 -23 Intake: IV 1033.3 2650.0 0.9 NaCl- 350 Amiodarone 360 mg In 33.3 133.2 Dextrose 5% in Water 200 ml @ 1 MG/MIN 33.333 mls/ hr IV .Q6H [facility] Rx#: [id number] Amiodarone 450 mg In 66.8 Dextrose 5% in Water 250 ml @ 0.5 MG/MIN 16.667 mls/hr IV .Q15H [facility] Rx#: [id number] Fluid Bolus 1000 2000 Zosyn IVPB 100 Intake, IV Titration 312.786 Amount Norepinephrine 4 mg In 254 Sodium Chloride 0.9% 250 ml @ 0.05 MCG/KG/MIN 15. 554 mls/hr IV .[id number] [facility] Rx#:[id number] propofoL 1,000 mg In 58.786 Empty Bag 1 bag @ Titrate IV .Q0M [facility] Rx#: [id number] Oral 0 Output: Urine 15 198 23 Other: Voiding Method Indwelling Catheter # Bowel Movements 1 Weight 82 kg - Constitutional General appearance: average body habitus, cooperative, no acute distress - EENT Eyes: EOMI, PERRLA Ears: bilateral: normal - Neck Neck: normal ROM Carotids: bilateral: upstroke normal Thyroid: bilateral: normal size - Respiratory Respiratory: bilateral: diminished, rales - Cardiovascular Rhythm: regular Heart sounds: normal: S1, S2 - Gastrointestinal General gastrointestinal: soft - Integumentary Integumentary: normal turgor - Neurologic Neurologic: CNII-XII intact - Musculoskeletal Musculoskeletal: gait normal, generalized weakness, strength equal bilaterally - Psychiatric Psychiatric: A&O x's 3 Results - Laboratory Findings CBC and BMP: 02/14/21 03:47 02/14/21 07:46 ABG ABG pH 7.46 (7.35-7.45) H 02/14/21 04:38 ABG pCO2 36 mmHg (35-45) 02/14/21 04:38 ABG pO2 215 mmHg (83-108) H 02/14/21 04:38 ABG O2 Saturation 100.0 % (94-97) H 02/14/21 04:38 PT/INR, D-dimer PT 13.1 sec (9.0-12.0) H 02/06/21 21:14 INR 1.3 (<1.2) H 02/06/21 21:14 D-Dimer 8.61 mg/L FEU (<0.60) H 02/13/21 22:12 Abnormal lab findings: Abnormal Labs 02/06/21 02/06/21 02/06/21 21:14 21:14 21:14 WBC RBC Hgb 8.6 L Hct 33.0 L MCV 68.6 L MCH 17.9 L MCHC 26.0 L RDW 20.2 H Neutrophils # Neutrophils # (Manual) Lymphocytes # Lymphocytes # (Manual) 0.59 L Monocytes # (Manual) 1.06 H Nucleated RBCs 4 H PT 13.1 H INR 1.3 H D-Dimer ABG pH ABG pCO2 ABG pO2 ABG Total CO2 ABG O2 Saturation Sodium Potassium Chloride 97 L Carbon Dioxide 32 H BUN 56 H Creatinine 1.56 H Est GFR (CKD-EPI)AfAm Est GFR (CKD-EPI)NonAf BUN/Creatinine Ratio Glucose 159 H POC Glucose (mg/dL) Plasma Lactic Acid Florentino Calcium Magnesium Total Bilirubin 1.4 H AST Troponin I Total Protein Albumin Albumin/Globulin Ratio Urine Protein Urine Glucose (UA) Urine Blood Urine RBC Urine WBC Amorphous Sediment Urine Bacteria Urine Mucus 02/06/21 02/07/21 02/07/21 21:14 00:14 09:19 WBC RBC Hgb 7.9 L Hct 30.7 L MCV 69.9 L MCH 17.9 L MCHC 25.6 L RDW 19.8 H Neutrophils # Neutrophils # (Manual) Lymphocytes # Lymphocytes # (Manual) Monocytes # (Manual) Nucleated RBCs PT INR D-Dimer ABG pH ABG pCO2 ABG pO2 ABG Total CO2 ABG O2 Saturation Sodium Potassium Chloride Carbon Dioxide BUN Creatinine Est GFR (CKD-EPI)AfAm Est GFR (CKD-EPI)NonAf BUN/Creatinine Ratio Glucose POC Glucose (mg/dL) Plasma Lactic Acid Florentino 3.3 H* Calcium Magnesium Total Bilirubin AST Troponin I Total Protein Albumin Albumin/Globulin Ratio Urine Protein Trace H Urine Glucose (UA) Urine Blood Urine RBC Urine WBC Amorphous Sediment Urine Bacteria Urine Mucus 02/07/21 02/08/21 02/08/21 09:19 05:19 05:19 WBC RBC Hgb 7.8 L Hct 30.8 L MCV 71.3 L MCH 17.9 L MCHC 25.1 L RDW 19.6 H Neutrophils # 8.0 H Neutrophils # (Manual) Lymphocytes # 0.5 L Lymphocytes # (Manual) Monocytes # (Manual) Nucleated RBCs PT INR D-Dimer ABG pH ABG pCO2 ABG pO2 ABG Total CO2 ABG O2 Saturation Sodium 150 H Potassium Chloride 110 H Carbon Dioxide 31 H BUN 47 H 35.0 H Creatinine 1.30 H Est GFR (CKD-EPI)AfAm Est GFR (CKD-EPI)NonAf 52.3 L BUN/Creatinine Ratio 26.92 H Glucose 141 H 135 H POC Glucose (mg/dL) Plasma Lactic Acid Florentino Calcium 8.3 L Magnesium Total Bilirubin AST Troponin I Total Protein Albumin Albumin/Globulin Ratio Urine Protein Urine Glucose (UA) Urine Blood Urine RBC Urine WBC Amorphous Sediment Urine Bacteria Urine Mucus 02/09/21 02/09/21 02/10/21 06:37 06:37 05:56 WBC 12.4 H RBC Hgb 7.6 L 7.8 L Hct 30.6 L 31.1 L MCV 70.8 L 70.9 L MCH 17.6 L 17.7 L MCHC 24.8 L 25.0 L RDW 19.7 H 19.3 H Neutrophils # 8.5 H 10.5 H Neutrophils # (Manual) Lymphocytes # 0.6 L 0.7 L Lymphocytes # (Manual) Monocytes # (Manual) Nucleated RBCs PT INR D-Dimer ABG pH ABG pCO2 ABG pO2 ABG Total CO2 ABG O2 Saturation Sodium Potassium 3.4 L Chloride 109 H Carbon Dioxide BUN 38 H Creatinine 1.52 H Est GFR (CKD-EPI)AfAm Est GFR (CKD-EPI)NonAf BUN/Creatinine Ratio Glucose 140 H POC Glucose (mg/dL) Plasma Lactic Acid Florentino Calcium 8.1 L Magnesium Total Bilirubin AST Troponin I Total Protein Albumin Albumin/Globulin Ratio Urine Protein Urine Glucose (UA) Urine Blood Urine RBC Urine WBC Amorphous Sediment Urine Bacteria Urine Mucus 02/10/21 02/11/21 02/11/21 05:56 05:52 05:52 WBC 12.0 H RBC 3.89 L Hgb 7.1 L Hct 27.4 L MCV 70.4 L MCH 18.2 L MCHC 25.9 L RDW 19.6 H Neutrophils # 9.9 H Neutrophils # (Manual) Lymphocytes # 0.9 L Lymphocytes # (Manual) Monocytes # (Manual) Nucleated RBCs PT INR D-Dimer ABG pH ABG pCO2 ABG pO2 ABG Total CO2 ABG O2 Saturation Sodium Potassium Chloride 108 H Carbon Dioxide BUN 38.0 H 43 H Creatinine 1.6 H 1.39 H Est GFR (CKD-EPI)AfAm 47.1 L Est GFR (CKD-EPI)NonAf 40.7 L BUN/Creatinine Ratio 23.75 H Glucose 146 H 102 H POC Glucose (mg/dL) Plasma Lactic Acid Florentino Calcium 7.9 L 8.3 L Magnesium Total Bilirubin 1.3 H 1.5 H AST 103 H Troponin I Total Protein 5.4 L 5.2 L Albumin 3.20 L 2.6 L Albumin/Globulin Ratio 1.45 L Urine Protein Urine Glucose (UA) Urine Blood Urine RBC Urine WBC Amorphous Sediment Urine Bacteria Urine Mucus 02/12/21 02/12/21 02/13/21 05:52 05:52 11:52 WBC 15.6 H 16.6 H RBC 4.00 L Hgb 7.7 L 7.1 L Hct 30.8 L 28.1 L MCV 69.9 L 70.2 L MCH 17.6 L 17.9 L MCHC 25.1 L 25.5 L RDW 20.0 H 20.4 H Neutrophils # 15.4 H Neutrophils # (Manual) 13.70 H Lymphocytes # 0.5 L Lymphocytes # (Manual) Monocytes # (Manual) Nucleated RBCs 2 H PT INR D-Dimer ABG pH ABG pCO2 ABG pO2 ABG Total CO2 ABG O2 Saturation Sodium Potassium 3.4 L Chloride Carbon Dioxide BUN 37.0 H Creatinine Est GFR (CKD-EPI)AfAm Est GFR (CKD-EPI)NonAf 52.3 L BUN/Creatinine Ratio 28.46 H Glucose POC Glucose (mg/dL) Plasma Lactic Acid Florentino Calcium 7.8 L Magnesium Total Bilirubin AST 86 H Troponin I Total Protein 5.1 L Albumin 3.00 L Albumin/Globulin Ratio 1.43 L Urine Protein Urine Glucose (UA) Urine Blood Urine RBC Urine WBC Amorphous Sediment Urine Bacteria Urine Mucus 02/13/21 02/13/21 02/13/21 11:52 16:50 20:35 WBC RBC Hgb Hct MCV MCH MCHC RDW Neutrophils # Neutrophils # (Manual) Lymphocytes # Lymphocytes # (Manual) Monocytes # (Manual) Nucleated RBCs PT INR D-Dimer ABG pH ABG pCO2 ABG pO2 ABG Total CO2 ABG O2 Saturation Sodium Potassium 2.9 L 3.3 L Chloride Carbon Dioxide BUN 31 H Creatinine 1.27 H Est GFR (CKD-EPI)AfAm Est GFR (CKD-EPI)NonAf BUN/Creatinine Ratio Glucose 202 H POC Glucose (mg/dL) 215 H Plasma Lactic Acid Florentino Calcium 8.0 L Magnesium Total Bilirubin AST Troponin I Total Protein 5.1 L Albumin 2.6 L Albumin/Globulin Ratio Urine Protein Urine Glucose (UA) Urine Blood Urine RBC Urine WBC Amorphous Sediment Urine Bacteria Urine Mucus 02/13/21 02/13/21 02/13/21 21:14 21:55 22:12 WBC RBC Hgb Hct MCV MCH MCHC RDW Neutrophils # Neutrophils # (Manual) Lymphocytes # Lymphocytes # (Manual) Monocytes # (Manual) Nucleated RBCs PT INR D-Dimer 8.61 H ABG pH ABG pCO2 33 L ABG pO2 348 H ABG Total CO2 ABG O2 Saturation 100.0 H Sodium Potassium 3.3 L Chloride Carbon Dioxide 18 L BUN 32 H Creatinine 1.41 H Est GFR (CKD-EPI)AfAm Est GFR (CKD-EPI)NonAf BUN/Creatinine Ratio Glucose 333 H POC Glucose (mg/dL) Plasma Lactic Acid Florentino Calcium 7.5 L Magnesium 3.9 H Total Bilirubin AST 72 H Troponin I Total Protein 4.7 L Albumin 2.4 L Albumin/Globulin Ratio Urine Protein Urine Glucose (UA) Urine Blood Urine RBC Urine WBC Amorphous Sediment Urine Bacteria Urine Mucus 02/14/21 02/14/21 02/14/21 02:10 03:47 03:47 WBC 31.1 H RBC 4.10 L Hgb 7.4 L Hct 29.5 L MCV 72.1 L MCH 18.0 L MCHC 25.0 L RDW 20.8 H Neutrophils # Neutrophils # (Manual) 30.70 H Lymphocytes # Lymphocytes # (Manual) Monocytes # (Manual) Nucleated RBCs 1 H PT INR D-Dimer ABG pH ABG pCO2 ABG pO2 ABG Total CO2 ABG O2 Saturation Sodium Potassium Chloride 108 H Carbon Dioxide 21 L BUN 35 H Creatinine 1.45 H Est GFR (CKD-EPI)AfAm Est GFR (CKD-EPI)NonAf BUN/Creatinine Ratio Glucose 216 H POC Glucose (mg/dL) Plasma Lactic Acid Florentino Calcium 7.8 L Magnesium 3.0 H Total Bilirubin AST 79 H Troponin I Total Protein 5.0 L Albumin 2.5 L Albumin/Globulin Ratio Urine Protein 2+ H Urine Glucose (UA) 1+ H Urine Blood Small H Urine RBC 16 H Urine WBC 20 H Amorphous Sediment Rare H Urine Bacteria Rare H Urine Mucus Rare H 02/14/21 02/14/21 02/14/21 03:47 03:47 04:38 WBC RBC Hgb Hct MCV MCH MCHC RDW Neutrophils # Neutrophils # (Manual) Lymphocytes # Lymphocytes # (Manual) Monocytes # (Manual) Nucleated RBCs PT INR D-Dimer ABG pH 7.46 H ABG pCO2 ABG pO2 215 H ABG Total CO2 27 H ABG O2 Saturation 100.0 H Sodium Potassium Chloride Carbon Dioxide BUN Creatinine Est GFR (CKD-EPI)AfAm Est GFR (CKD-EPI)NonAf BUN/Creatinine Ratio Glucose POC Glucose (mg/dL) Plasma Lactic Acid Florentino 2.3 H* Calcium Magnesium Total Bilirubin AST Troponin I 5.030 H* Total Protein Albumin Albumin/Globulin Ratio Urine Protein Urine Glucose (UA) Urine Blood Urine RBC Urine WBC Amorphous Sediment Urine Bacteria Urine Mucus 02/14/21 02/14/21 06:02 07:46 WBC RBC Hgb Hct MCV MCH MCHC RDW Neutrophils # Neutrophils # (Manual) Lymphocytes # Lymphocytes # (Manual) Monocytes # (Manual) Nucleated RBCs PT INR D-Dimer ABG pH ABG pCO2 ABG pO2 ABG Total CO2 ABG O2 Saturation Sodium Potassium Chloride Carbon Dioxide BUN Creatinine Est GFR (CKD-EPI)AfAm Est GFR (CKD-EPI)NonAf BUN/Creatinine Ratio Glucose POC Glucose (mg/dL) 215 H Plasma Lactic Acid Florentino 2.1 H* Calcium Magnesium Total Bilirubin AST Troponin I Total Protein Albumin Albumin/Globulin Ratio Urine Protein Urine Glucose (UA) Urine Blood Urine RBC Urine WBC Amorphous Sediment Urine Bacteria Urine Mucus - Diagnostic Findings Chest x-ray: report reviewed, image reviewed CT scan - chest: report reviewed, image reviewed (Finding as noted above) Assessment and Plan Assessment: Aden mccarthy cardiac arrest Hypoxic respiratory failure Bilateral atelectasis Bilateral pleural effusion Bowel obstruction and resection of mass CK D Plan: Overall plan is to continue vasopressor titrated down down as tolerated Continue broad-spectrum antibiotics steroids and breathing treatment Echocardiogram Awaiting further recommendation evaluation cardiovascular services Time with Patient: Greater than 30
--- NOTE | 2021-02-14 09:14 | XR ---
EXAMINATION TYPE: XR chest 1V DATE OF EXAM: 02/14/2021 COMPARISON: 02/13/2021 HISTORY: SOB, Follow Up FINDINGS: Indwelling tubes and catheters are unchanged. No change in bibasilar opacities. Continued features of congestive failure with slight interval improvement suggested. Pleural effusion unchanged. IMPRESSION: 1. Continued features of congestive failure with slight interval improvement suggested.
[2021-02-14] MEDS: METOPROLOL SUCCINATE (ER) 50 MG TAB.ER.24H PO SCH (10:25)
[2021-02-14] MEDS: BUMETANIDE 1 MG TAB PO SCH (10:34)
[2021-02-14] MEDS: AMIODARONE 360 MG in DEXTROSE 5% IN WATER 200 ML IV SCH ×6 (10:35→23:00)
[2021-02-14] MEDS: PANTOPRAZOLE 40 MG/10 ML VIAL IV SCH (10:36)
[2021-02-14] MEDS: HEPARIN SODIUM,PORCINE/PF 5,000 UNIT/0.5 ML SYRINGE SQ SCH ×2 (10:36→17:04)
[2021-02-14] MEDS: CHLORHEXIDINE GLUCONATE 15 ML CUP MUCOUS MEM SCH ×2 (10:36→21:00)
[2021-02-14] MEDS: HYDROcodone/APAP 10-325MG 1 EACH TAB PO PRN (10:36)
[2021-02-14] MEDS: ATORVASTATIN 40 MG TAB PO SCH (10:38)
[2021-02-14] MEDS ORDERED: IPRATROPIUM-ALBUTEROL 3 ML NEB INHALATION PRN (10:39)
[2021-02-14] MEDS ORDERED: SODIUM CHLORIDE 0.9% 500 ML 250 ML IV ONE (11:48)
[2021-02-14 11:54] LABS: Glucose,Whole Blood 174 mg/dL (75-99)
[2021-02-14] MEDS: INSULIN ASPART (NovoLOG) 100 UNIT/ML VIAL SQ SCH ×3 (12:01→23:59)
[2021-02-14] MEDS: SODIUM FERRIC GLUCONAT-SUCROSE 125 MG in SODIUM CHLORIDE 0.9% 100 ML IVPB SCH (13:57)
[2021-02-14] MEDS ORDERED: SODIUM CHLORIDE 0.9% 500 ML 500 ML IV ONE (14:43)
[2021-02-14 17:32] LABS: Glucose,Whole Blood 160 mg/dL (75-99)
--- NOTE | 2021-02-14 17:51 | PN ---
PROGRESS NOTE DATE OF SERVICE: 02/14/2021 REASON FOR FOLLOWUP: Sepsis. INTERVAL HISTORY: The patient did have cardiac arrest last night in this patient who was noticed to have ventricular tachycardia, for which the patient did have synchronized cardioversion performed. The patient ended up getting intubated and was subsequently transferred to the ICU. Patient is currently on the pressor. No significant purulent secretions through the ET or any diarrhea has been reported by nursing staff. No fever has been recorded. PHYSICAL EXAMINATION: On examination, blood pressure 107/59, pulse of 73, temperature 98.2. He is 99% on 40% FiO2. GENERAL DESCRIPTION: General description is an elderly male intubated on the vent. RESPIRATORY SYSTEM: Unlabored breathing. Decreased breath sounds at the bases. No wheeze. HEART: S1, S2. Regular rate and rhythm. ABDOMEN: Soft. Mildly distended. No guarding or rigidity. LABS: Hemoglobin is 7.4, white count 31.1. Lactic acid is elevated. Creatinine is 1.45. DIAGNOSTIC IMPRESSION AND PLAN: Patient with a significantly elevated white count which is multifactorial in this patient who did have a laparotomy for a small-bowel obstruction secondary to a right colon mass, status post right colectomy. He subsequently did have cardiac arrest with ventricular tachycardia and has been intubated. The patient did have a CT angiogram that was negative for PE but it did show pleural fluid and consolidation. The patient is currently covered with Zosyn; to continue. Blood and sputum cultures have been requested. Those will be followed. We will monitor his clinical course closely. Prognosis remains guarded. Elevated white count could be related to the steroid the patient is on. MMODL / IJN: [id number] /
--- NOTE | 2021-02-14 19:25 | P.PN ---
Subjective Patient is intubated following resuscitation from ventricular fibrillation No significant electrolyte abnormalities prior to that Last night he underwent defibrillation the 120 J shock followed by 150 J shock followed by a 200 J shock max defibrillation defibrillated into sinus rhythm He is intubated at this time on Levophed Blood pressure is in the 80s and 90s Heart sounds S1 and S2 are soft Lungs are clear Impression VF arrest Known cardiac myopathy Plan continue IV amiodarone 1 mg/m Tomorrow I will switch to by mouth after he is extubated today I started him on metoprolol 25 mg twice daily post extubation whenever that happens today, as long as he is off Levophed Objective - Vital Signs Vital signs: Vital Signs Temp 98.2 F 02/14/21 16:00 Pulse 72 02/14/21 19:22 Resp 18 02/14/21 19:00 BP 103/57 02/14/21 19:00 Pulse Ox 98 02/14/21 19:00 Intake & Output 02/14/21 02/14/21 02/15/21 06:59 18:59 06:59 Intake Total 3996.086 2207.810 50 Output Total 213 383 30 Balance 3783.086 1824.810 20 Weight 82 kg 82 kg Intake: IV 3683.3 1150 50 0.9 NaCl- 350 550 50 Amiodarone 360 mg In 166.5 Dextrose 5% in Water 200 ml @ 1 MG/MIN 33.333 mls/ hr IV .Q6H ONE Rx#: [id number] Amiodarone 450 mg In 66.8 Dextrose 5% in Water 250 ml @ 0.5 MG/MIN 16.667 mls/hr IV .Q15H [facility] Rx#: [id number] Fluid Bolus 3000 500 Zosyn IVPB 100 100 Intake, IV Titration 171.537 4248.810 Amount Amiodarone 360 mg In 200 Dextrose 5% in Water 200 ml @ 1 MG/MIN 33.333 mls/ hr IV .Q6H [facility] Rx#: [id number] Norepinephrine 4 mg In 254 442.554 Sodium Chloride 0.9% 250 ml @ 0.05 MCG/KG/MIN 15. 554 mls/hr IV .[id number] [facility] Rx#:[id number] Sodium Chloride 0.9% 500 250 ml 250 ml @ 999 mls/hr IV .Q16M ONE Rx#:[id number] propofoL 1,000 mg In 58.786 165.256 Empty Bag 1 bag @ Titrate IV .Q0M [facility] Rx#: [id number] Oral 0 Output: Gastric Drainage 50 Urine 213 333 30 Other: Voiding Method Indwelling Catheter Indwelling Catheter # Bowel Movements 1 - Labs CBC & Chem 7: 02/14/21 03:47 02/14/21 07:46 Labs: Abnormal Lab Results - Last 24 Hours (Table) 02/13/21 02/13/21 02/13/21 Range/Units 20:35 21:14 21:55 WBC (3.8-10.6) k/uL RBC (4.30-5.90) m/uL Hgb (13.0-17.5) gm/dL Hct (39.0-53.0) % MCV (80.0-100.0) fL MCH (25.0-35.0) pg MCHC (31.0-37.0) g/dL RDW (11.5-15.5) % Neutrophils # (Manual) (1.3-7.7) k/uL Nucleated RBCs (0-0) /100 WBC D-Dimer (<0.60) mg/L FEU ABG pH (7.35-7.45) ABG pCO2 33 L (35-45) mmHg ABG pO2 348 H (83-108) mmHg ABG Total CO2 (19-24) mmol/L ABG O2 Saturation 100.0 H (94-97) % Potassium 3.3 L (3.5-5.1) mmol/L Chloride (98-107) mmol/L Carbon Dioxide 18 L (22-30) mmol/L BUN 32 H (9-20) mg/dL Creatinine 1.41 H (0.66-1.25) mg/dL Glucose 333 H (74-99) mg/dL POC Glucose (mg/dL) 215 H (75-99) mg/dL Plasma Lactic Acid Florentino (0.7-2.0) mmol/L Calcium 7.5 L (8.4-10.2) mg/dL Magnesium 3.9 H (1.6-2.3) mg/dL AST 72 H (17-59) U/L Troponin I (0.000-0.034) ng/mL Total Protein 4.7 L (6.3-8.2) g/dL Albumin 2.4 L (3.5-5.0) g/dL Urine Protein (Negative) Urine Glucose (UA) (Negative) Urine Blood (Negative) Urine RBC (0-5) /hpf Urine WBC (0-5) /hpf Amorphous Sediment (None) /hpf Urine Bacteria (None) /hpf Urine Mucus (None) /hpf 02/13/21 02/14/21 02/14/21 Range/Units 22:12 02:10 03:47 WBC 31.1 H (3.8-10.6) k/uL RBC 4.10 L (4.30-5.90) m/uL Hgb 7.4 L (13.0-17.5) gm/dL Hct 29.5 L (39.0-53.0) % MCV 72.1 L (80.0-100.0) fL MCH 18.0 L (25.0-35.0) pg MCHC 25.0 L (31.0-37.0) g/dL RDW 20.8 H (11.5-15.5) % Neutrophils # (Manual) 30.70 H (1.3-7.7) k/uL Nucleated RBCs 1 H (0-0) /100 WBC D-Dimer 8.61 H (<0.60) mg/L FEU ABG pH (7.35-7.45) ABG pCO2 (35-45) mmHg ABG pO2 (83-108) mmHg ABG Total CO2 (19-24) mmol/L ABG O2 Saturation (94-97) % Potassium (3.5-5.1) mmol/L Chloride (98-107) mmol/L Carbon Dioxide (22-30) mmol/L BUN (9-20) mg/dL Creatinine (0.66-1.25) mg/dL Glucose (74-99) mg/dL POC Glucose (mg/dL) (75-99) mg/dL Plasma Lactic Acid Florentino (0.7-2.0) mmol/L Calcium (8.4-10.2) mg/dL Magnesium (1.6-2.3) mg/dL AST (17-59) U/L Troponin I (0.000-0.034) ng/mL Total Protein (6.3-8.2) g/dL Albumin (3.5-5.0) g/dL Urine Protein 2+ H (Negative) Urine Glucose (UA) 1+ H (Negative) Urine Blood Small H (Negative) Urine RBC 16 H (0-5) /hpf Urine WBC 20 H (0-5) /hpf Amorphous Sediment Rare H (None) /hpf Urine Bacteria Rare H (None) /hpf Urine Mucus Rare H (None) /hpf 02/14/21 02/14/21 02/14/21 Range/Units 03:47 03:47 03:47 WBC (3.8-10.6) k/uL RBC (4.30-5.90) m/uL Hgb (13.0-17.5) gm/dL Hct (39.0-53.0) % MCV (80.0-100.0) fL MCH (25.0-35.0) pg MCHC (31.0-37.0) g/dL RDW (11.5-15.5) % Neutrophils # (Manual) (1.3-7.7) k/uL Nucleated RBCs (0-0) /100 WBC D-Dimer (<0.60) mg/L FEU ABG pH (7.35-7.45) ABG pCO2 (35-45) mmHg ABG pO2 (83-108) mmHg ABG Total CO2 (19-24) mmol/L ABG O2 Saturation (94-97) % Potassium (3.5-5.1) mmol/L Chloride 108 H (98-107) mmol/L Carbon Dioxide 21 L (22-30) mmol/L BUN 35 H (9-20) mg/dL Creatinine 1.45 H (0.66-1.25) mg/dL Glucose 216 H (74-99) mg/dL POC Glucose (mg/dL) (75-99) mg/dL Plasma Lactic Acid Florentino 2.3 H* (0.7-2.0) mmol/L Calcium 7.8 L (8.4-10.2) mg/dL Magnesium 3.0 H (1.6-2.3) mg/dL AST 79 H (17-59) U/L Troponin I 5.030 H* (0.000-0.034) ng/mL Total Protein 5.0 L (6.3-8.2) g/dL Albumin 2.5 L (3.5-5.0) g/dL Urine Protein (Negative) Urine Glucose (UA) (Negative) Urine Blood (Negative) Urine RBC (0-5) /hpf Urine WBC (0-5) /hpf Amorphous Sediment (None) /hpf Urine Bacteria (None) /hpf Urine Mucus (None) /hpf 02/14/21 02/14/21 02/14/21 Range/Units 04:38 06:02 07:46 WBC (3.8-10.6) k/uL RBC (4.30-5.90) m/uL Hgb (13.0-17.5) gm/dL Hct (39.0-53.0) % MCV (80.0-100.0) fL MCH (25.0-35.0) pg MCHC (31.0-37.0) g/dL RDW (11.5-15.5) % Neutrophils # (Manual) (1.3-7.7) k/uL Nucleated RBCs (0-0) /100 WBC D-Dimer (<0.60) mg/L FEU ABG pH 7.46 H (7.35-7.45) ABG pCO2 (35-45) mmHg ABG pO2 215 H (83-108) mmHg ABG Total CO2 27 H (19-24) mmol/L ABG O2 Saturation 100.0 H (94-97) % Potassium (3.5-5.1) mmol/L Chloride (98-107) mmol/L Carbon Dioxide (22-30) mmol/L BUN (9-20) mg/dL Creatinine (0.66-1.25) mg/dL Glucose (74-99) mg/dL POC Glucose (mg/dL) 215 H (75-99) mg/dL Plasma Lactic Acid Florentino 2.1 H* (0.7-2.0) mmol/L Calcium (8.4-10.2) mg/dL Magnesium (1.6-2.3) mg/dL AST (17-59) U/L Troponin I (0.000-0.034) ng/mL Total Protein (6.3-8.2) g/dL Albumin (3.5-5.0) g/dL Urine Protein (Negative) Urine Glucose (UA) (Negative) Urine Blood (Negative) Urine RBC (0-5) /hpf Urine WBC (0-5) /hpf Amorphous Sediment (None) /hpf Urine Bacteria (None) /hpf Urine Mucus (None) /hpf 02/14/21 02/14/21 02/14/21 Range/Units 10:37 11:52 13:15 WBC (3.8-10.6) k/uL RBC (4.30-5.90) m/uL Hgb (13.0-17.5) gm/dL Hct (39.0-53.0) % MCV (80.0-100.0) fL MCH (25.0-35.0) pg MCHC (31.0-37.0) g/dL RDW (11.5-15.5) % Neutrophils # (Manual) (1.3-7.7) k/uL Nucleated RBCs (0-0) /100 WBC D-Dimer (<0.60) mg/L FEU ABG pH (7.35-7.45) ABG pCO2 (35-45) mmHg ABG pO2 (83-108) mmHg ABG Total CO2 (19-24) mmol/L ABG O2 Saturation (94-97) % Potassium (3.5-5.1) mmol/L Chloride (98-107) mmol/L Carbon Dioxide (22-30) mmol/L BUN (9-20) mg/dL Creatinine (0.66-1.25) mg/dL Glucose (74-99) mg/dL POC Glucose (mg/dL) 174 H (75-99) mg/dL Plasma Lactic Acid Florentino 3.1 H* 4.0 H* (0.7-2.0) mmol/L Calcium (8.4-10.2) mg/dL Magnesium (1.6-2.3) mg/dL AST (17-59) U/L Troponin I (0.000-0.034) ng/mL Total Protein (6.3-8.2) g/dL Albumin (3.5-5.0) g/dL Urine Protein (Negative) Urine Glucose (UA) (Negative) Urine Blood (Negative) Urine RBC (0-5) /hpf Urine WBC (0-5) /hpf Amorphous Sediment (None) /hpf Urine Bacteria (None) /hpf Urine Mucus (None) /hpf 02/14/21 02/14/21 Range/Units 17:31 18:38 WBC (3.8-10.6) k/uL RBC (4.30-5.90) m/uL Hgb (13.0-17.5) gm/dL Hct (39.0-53.0) % MCV (80.0-100.0) fL MCH (25.0-35.0) pg MCHC (31.0-37.0) g/dL RDW (11.5-15.5) % Neutrophils # (Manual) (1.3-7.7) k/uL Nucleated RBCs (0-0) /100 WBC D-Dimer (<0.60) mg/L FEU ABG pH (7.35-7.45) ABG pCO2 (35-45) mmHg ABG pO2 (83-108) mmHg ABG Total CO2 (19-24) mmol/L ABG O2 Saturation (94-97) % Potassium (3.5-5.1) mmol/L Chloride (98-107) mmol/L Carbon Dioxide (22-30) mmol/L BUN (9-20) mg/dL Creatinine (0.66-1.25) mg/dL Glucose (74-99) mg/dL POC Glucose (mg/dL) 160 H (75-99) mg/dL Plasma Lactic Acid Florentino 2.4 H* (0.7-2.0) mmol/L Calcium (8.4-10.2) mg/dL Magnesium (1.6-2.3) mg/dL AST (17-59) U/L Troponin I (0.000-0.034) ng/mL Total Protein (6.3-8.2) g/dL Albumin (3.5-5.0) g/dL Urine Protein (Negative) Urine Glucose (UA) (Negative) Urine Blood (Negative) Urine RBC (0-5) /hpf Urine WBC (0-5) /hpf Amorphous Sediment (None) /hpf Urine Bacteria (None) /hpf Urine Mucus (None) /hpf Microbiology - Last 24 Hours (Table) 02/13/21 23:48 Gram Stain - Preliminary Sputum Sputum Culture - Preliminary 02/14/21 02:10 Urine Culture - Preliminary Urine,Voided
[2021-02-15] LABS: Glucose,Whole Blood 192 mg/dL (75-99)
[2021-02-15] MEDS: IPRATROPIUM-ALBUTEROL 3 ML NEB INHALATION SCH ×5 (03:50→20:47)
[2021-02-15 04:05] LABS: Albumin 2.4 g/dL (3.5-5.0); Calcium 7.7 mg/dL (8.4-10.2); Magnesium 2.7 mg/dL (1.6-2.3); Total Bilirubin 1.2 mg/dL (0.2-1.3); Total Protein 4.9 g/dL (6.3-8.2)
[2021-02-15 04:12] LABS: Potassium 4.4 mmol/L (3.5-5.1)
[2021-02-15 04:45] LABS: Anisocytosis Moderate; Basophils % (A) 0 %; Eosinophils % (A) 0 %; HCT 30.2 % (39.0-53.0); HGB 7.6 gm/dL (13.0-17.5); Hypochromasia Marked; Lymphocytes # (A) 0.3 k/uL (1.0-4.8); Lymphocytes % (A) 1 %; MCH 18.4 pg (25.0-35.0); MCHC 25.1 g/dL (31.0-37.0); MCV 73.2 fL (80.0-100.0); Mean Platelet Volume 11.4; Microcytosis Marked; Monocytes # (A) 0.4 k/uL (0-1.0); Monocytes % (A) 2 %; Neutrophils # (A) 18.5 k/uL (1.3-7.7); Neutrophils % (A) 96 %; Platelet Count 235 k/uL (150-450); RBC 4.13 m/uL (4.30-5.90); RDW 21.7 % (11.5-15.5); WBC 19.3 k/uL (3.8-10.6)
[2021-02-15 05:28] LABS: ABG Base Excess -5.3 mmol/L; ABG HCO3 20 mmol/L (21-25); ABG Oxygen Saturation 82.4 % (94-97); ABG PCO2 32 mmHg (35-45); ABG TCO2 21 mmol/L (19-24); Allen Test Performed? Yes
[2021-02-15 05:32] LABS: ABG PO2 53 mmHg (83-108)
[2021-02-15] MEDS: AMIODARONE 360 MG in DEXTROSE 5% IN WATER 200 ML IV SCH ×6 (05:48→18:30)
[2021-02-15 05:51] LABS: Glucose,Whole Blood 196 mg/dL (75-99)
[2021-02-15] MEDS: INSULIN ASPART (NovoLOG) 100 UNIT/ML VIAL SQ SCH ×3 (05:51→18:38)
[2021-02-15] MEDS: SODIUM CHLORIDE 0.9% 1,000 ML IV SCH ×2 (06:54→18:30)
--- NOTE | 2021-02-15 07:35 | PN ---
PROGRESS NOTE 80-year-old white male status post VFib with cardiac shock 6 to 7 times yesterday. No significant electrolyte abnormalities prior to that. He was next defibrillated into sinus rhythm. He is intubated. His left arm is turning dusky. He had an IV in his left arm, but is getting more dusky. We are getting a STAT consult with vascular. Discussed case with frame table operator Dr. Willoughby is going to put him on high-dose Heparin. In the meantime he is on Levophed. Blood pressure is 80s to 90 systolic heart rate. Heart: S1, S2. Lungs clear. ASSESSMENT: 1. Ventricular fibrillation arrest. 2. Cardiomyopathy. 3. Status post colon resection. Continue with amiodarone drip and try to extubate him. Switch to oral amiodarone, metoprolol. Continue current treatment. Try to wean off the vent. Discussed case with Dr. Willoughby. He is to have vascular consult. Placed on IV heparin and stat venous Doppler, on Cordarone drip. He is on Lovenox 40 mg subcutaneously daily, at this time, updraft treatments and try to wean him off IV Solu-Medrol, IV Reglan. PROGNOSIS: Guarded. CONDITION: Stable. Check electrolytes in the morning. MMODL / IJN: [id number] /
--- NOTE | 2021-02-15 08:29 | XR ---
EXAMINATION TYPE: XR chest 1V portable DATE OF EXAM: 02/15/2021 Comparison: 02/14/2021 Clinical History: 80 year-old male tube placement Findings: ET tube satisfactory. NG tube courses below the diaphragm. Median sternotomy wires with annuloplasty ring. The patient is obliqued and rotated towards the left. Heart remains mildly enlarged. Diffuse in terstitial density persists. Small left pleural effusion with left basilar and retrocardiac opacity p ersists. Impression: 1. Cardiomegaly and interstitial changes persist, correlate for CHF with mild pulmonary vascular willow estion. 2. Continued small left pleural effusion with left basilar atelectasis and/or consolidation.
--- NOTE | 2021-02-15 08:30 | US ---
EXAMINATION TYPE: US venous doppler duplex UE LT DATE OF EXAM: 02/14/2021 COMPARISON: NONE CLINICAL HISTORY: 80-year-old male possible DVT. Edema SIDE PERFORMED: left TECHNIQUE: Grayscale, color doppler, spectral doppler imaging performed of the deep veins of the upp er extremities. FINDINGS: STRATEGY ASSOCIATE NOTES: Technically difficult exam performed portably in ICU on patient unable to coopera te for exam. There is normal flow, compressibility and vascular waveforms. Left Arm: Negative for DVT IMPRESSION: No evidence for DVT within the left upper extremity allowing for some examination limitations.
[2021-02-15] MEDS: PIPERACILLIN-TAZOBACTAM 3.375 GM in SODIUM CHLORIDE 0.9% 100 ML IVPB SCH ×2 (08:54→15:18)
[2021-02-15] MEDS: methylPREDNISolone SOD SUCCI 40 MG/ML 1 ML VIAL IV SCH ×2 (08:55→15:18)
--- NOTE | 2021-02-15 08:58 | ECHOF ---
Referral Reason:Post code MEASUREMENTS -------- HEIGHT: 177.8 cm WEIGHT: 81.6 kg BP: 106/61 RVIDd: 3.4 cm (< 3.3) IVSd: 1.2 cm (0.6 - 1.1) LVIDd: 6.3 cm (3.9 - 5.3) LVPWd: 1.3 cm (0.6 - 1.1) IVSs: 2.0 cm LVIDs: 4.7 cm LVPWs: 1.4 cm LA Diam: 5.1 cm (2.7 - 3.8) Ao Diam: 3.6 cm (2.0 - 3.7) AV Cusp: 2.2 cm (1.5 - 2.6) MV EXCURSION: 13.536 mm (> 18.000) MV EF SLOPE: 20 mm/s (70 - 150) EPSS: 1.7 cm RAP: 15.00 mmHg RVSP: 64.76 mmHg FINDINGS -------- Sinus rhythm. This was a technically difficult study with suboptimal apical views. The left ventricle is mildly dilated. There is mild concentric left ventricular hypertrophy. Over all left ventricular systolic function is severely impaired with, an EF between 25 - 30 %. Global h ypokinesia .Only basal segments show fair contraction. The right ventricle is mildly enlarged. The left atrium is moderately dilated. The right atrium is normal in size. xx ml of Lumason was utilized for enhancement of images. Interatrial and interventricular septum intact. Aortic valve is trileaflet and is mildly thickened. There is mild aortic regurgitation. The mitral valve leaflets are mildly thickened. Mild mitral annular calcification present. Mild m itral regurgitation is present. The peak and mean MV gradients are 19.56mmHg 6.30mmHg as measured by doppler. Mild tricuspid regurgitation present. There is severe pulmonary hypertension. The right ventricul ar systolic pressure, as measured by Doppler, is 64.76mmHg. The pulmonic valve was not well visualized. The aortic root size is normal. The inferior vena cava is dilated with no significant inspiratory collapse which is consistent estima kermit right atrial pressure of >15 mmHg. There is no pericardial effusion. CONCLUSIONS -------- 1. The left ventricle is mildly dilated. 2. There is mild concentric left ventricular hypertrophy. 3. Overall left ventricular systolic function is severely impaired with, an EF between 25 - 30 %. 4. Global hypokinesia .Only basal segments show fair contraction. 5. The right ventricle is mildly enlarged. 6. The left atrium is moderately dilated. 7. xx ml of Lumason was utilized for enhancement of images. 8. Aortic valve is trileaflet and is mildly thickened. 9. There is mild aortic regurgitation. 10. The mitral valve leaflets are mildly thickened. 11. Mild mitral annular calcification present. 12. Mild mitral regurgitation is present. 13. The peak and mean MV gradients are 19.56mmHg 6.30mmHg as measured by doppler. 14. Mild tricuspid regurgitation present. 15. There is severe pulmonary hypertension. 16. The right ventricular systolic pressure, as measured by Doppler, is 64.76mmHg. 17. The inferior vena cava is dilated with no significant inspiratory collapse which is consistent es timated right atrial pressure of >15 mmHg. 18. There is no pericardial effusion. REWIND OPERATOR: Lena Adamson RDCS
[2021-02-15] MEDS: PANTOPRAZOLE 40 MG/10 ML VIAL IV SCH (09:19)
[2021-02-15] MEDS: ENOXAPARIN 40 MG/0.4 ML SYRINGE SQ SCH (09:19)
[2021-02-15] MEDS: CHLORHEXIDINE GLUCONATE 15 ML CUP MUCOUS MEM SCH ×2 (09:19→21:37)
[2021-02-15] MEDS: ATORVASTATIN 40 MG TAB PO SCH (09:19)
--- NOTE | 2021-02-15 09:28 | P.PN ---
Subjective Progress Note Date: 02/15/21 HISTORY OF PRESENT ILLNESS: This is a pleasant 80-year-old male past medical history significant for chronic persistent atrial fibrillation, coronary artery disease status post multivessel PCI in 2016, ischemic cardiomyopathy, hypertension, hyperlipidemia, mitral valve repair in 2002, history of inguinal and umbilical hernia repair. He used to follow in the office with Dr. Hammond, have ever has not followed up since 2019. He is not seeing a new wire spooler at this time. We have been asked to see in consultation for atrial fibrillation with rapid ventricular response. Patient is seen and examined at bedside, patient presents emergency department with complaints of abdominal pain and nausea and vomiting for 3 days. He ate some salmon from [employer] and thought he had food poisoning, however, his symptoms worsened. CT abdomen and pelvis revealed high-grade small bowel obstruction session with small bowel loops dilated to 4.8 cm. Mild dull ascites, cecum is also fluid filled measuring up to 6.7 cm we suggested transition point at the lower ascending colon. Benign 3.7 cm right adrenal adenoma and to continued shortness of abdominal aortic aneurysm in the mid and distal abdominal aorta measuring up to 0.3 cm cyst, generalized colonic diverticulosis. Surgery was c onsulted. NG tube was placed. Patient states he had 2 bowel movements today. On admission, patient did not receive his metoprolol succinate. Today, patient recieved metoprolol tartrate 50mg once, and his home dose of metoprolol succinate 25mg daily With improved rates currently in low 100s. In June 2016, patient had an abnormal lexiscan stress test. Patient underwent cardiac catheterization and PCI after in 2016. Patient states he has not follow up with cardiology since 2019, he has been following up regularly with his PCP. He states since 2019 he has not had any recent cardiac workup or cardiac catheterizations. In 2019, patient stopped taking his Eliquis because he was also taking Plavix and Aspirin at that time. He had EKG changes at that time, cardiac catheterization was recommended but patient did not proceed at that time. DIAGNOSTICS -Cardiac catheterization history includes: 07/2016 which revealed critical stenosis involving the proximal LAD, significant stenosis on the ramus intermedius in the proximal left circumflex, mild disease in RCA. Patient subsequently underwent stenting to the proximal circumflex, proximal LAD x2, and proximal ramus intermedius -Most recent echocardiogram 11/2018 revealed an EF of 32%, moderate concentric hypertrophy, akinesis of the anterior wall and anterior septum from the mid wall to the apex, akinesis of the septum from mid-wall to apex, akinesis of anterio and later ibarra. akinesis of inferior wall at the apex, severely dilated left atrium, mild aortic regurgitation, mild prosthetic valvular regurgitation, moderate tricuspid regurgitation 02/08/21: Patient underwent right colectomy with Dr. Adamson. 02/09/2021: Patient seen and examined at bedside, no acute distress. Blood pressure 125/60, heart rate 116, afebrile, maintaining oxygen saturations 95% 2 L nasal cannula. Telemetry reviewed patient continues to be atrial fibrillation heart rate 110 and 120. Patient did have an episode of 8 beat NSVT run. Patient is asymptomatic. Laboratory data reviewed sodium 143, potassium 3.4, BUN 38, serum creatinine 1.5, WBC 9.9, hemoglobin 7.6, platelets 296. Patient currently maintained on Bumex 1 mg daily, atorvastatin 40 mg daily, metoprolol succinate 50 mg daily. 02/10/2021 Patient is status post right colectomy. Patient examined this morning. He is sitting up in the chair. He is tolerating clear liquid diet. He denies chest pain or pressure. Denies short as of breath. Telemetry reveals atrial fibrillation with heart rate around 100. Anticoagulation was discussed with the patient and Dr. Buckner. The patient refuses to take Eliquis. He is willing to try other anticoagulation medications though. Echocardiogram completed revealing ejection fraction 30-35%. Multiple LV wall motion abnormalities. Trace amount of aortic regurgitation. Mitral valve repair. Moderate to severe tricuspid regurgitation. Severe pulmonary hypertension. 02/11/2021 Patient is status post right colectomy with Dr. Adamson. Patient was started on anticoagulation yesterday with Xarelto. Hemoglobin today 7.1. BUN 43. Creatinine 1.39. Blood pressure 103/68. He is on room air with oxygen satu rations greater than 92%. Telemetry reviewed revealing atrial fibrillation with heart rate around 100-105. Patient does complain of abdominal pain. Patient also was febrile this morning. 02/15/2021 Patient examined this morning at the bedside in the intensive care unit. Patient went into V. fib arrest over the weekend. He remains intubated. Telemetry reveals sinus mechanism. He remains on IV amiodarone. Blood pressure 89/51. He is currently off his pressors. FiO2 60% PHYSICAL EXAM: VITAL SIGNS: Reviewed. GENERAL: Well-developed in no acute distress. NECK: Supple. No JVD or thyromegaly LUNGS: Respirations even and unlabored. Lungs essentially clear to auscultation bilaterally. HEART: Irregular rate and rhythm. S1 and S2 heard. Systolic murmur noted. EXTREMITIES: Normal range of motion. No clubbing or cyanosis. Peripheral pulses intact. 1+ bilateral lower extremity edema ASSESSMENT: Right colon mass causing small bowel obstruction, status post right colectomy Paroxysmal atrial fibrillation with RVR V. fib arrest requiring defibrillation Acute hypoxic respiratory failure requiring mechanical ventilation Coronary artery disease status post multivessel PCI, 2016 Ischemic cardiomyopathy, ejection fraction 30-35% Hypertension Hyperlipidemia History of mitral valve repair, 2002 Hypokalemia Acute kidney injury PLAN: Continue current cardiac medications Continue IV amio while intubated Further recommendations pending patient course Nurse practitioner note has been reviewed by physician. Signing provider agrees with the documented findings, assessment, and plan of care. Objective - Vital Signs Vital signs: Vital Signs Temp 97.7 F 02/15/21 08:00 Pulse 66 02/15/21 08:24 Resp 22 02/15/21 08:15 BP 89/51 02/15/21 08:15 Pulse Ox 99 02/15/21 08:15 Intake & Output 02/14/21 02/15/21 02/15/21 18:59 06:59 18:59 Intake Total 2207.810 1358.163 205.074 Output Total 383 430 60 Balance 1824.810 928.163 145.074 Weight 82 kg 82.69 kg Intake: IV 1150 733 103 .9 550 600 50 Fluid Bolus 500 Sodium Chloride 0.9% 1, 50 000 ml @ 50 mls/hr IV . Q20H [facility] Rx#:[id number] Zosyn IVPB 100 100 pressure bag 33 3 Intake, IV Titration 1057.810 625.163 102.074 Amount Amiodarone 360 mg In 200 400 Dextrose 5% in Water 200 ml @ 1 MG/MIN 33.333 mls/ hr IV .Q6H [facility] Rx#: [id number] Norepinephrine 4 mg In 442.554 126.147 2.074 Sodium Chloride 0.9% 250 ml @ 0.05 MCG/KG/MIN 15. 554 mls/hr IV .[id number] [facility] Rx#:[id number] Sodium Chloride 0.9% 500 250 ml 250 ml @ 999 mls/hr IV .Q16M ONE Rx#:[id number] propofoL 1,000 mg In 165.256 99.016 100 Empty Bag 1 bag @ Titrate IV .Q0M [facility] Rx#: [id number] Oral 0 Output: Gastric Drainage 50 Urine 333 430 60 Other: Voiding Method Indwelling Catheter Indwelling Catheter # Bowel Movements 1 - Labs CBC & Chem 7: 02/15/21 03:39 02/15/21 03:39 Labs: Abnormal Lab Results - Last 24 Hours (Table) 02/14/21 02/14/21 02/14/21 Range/Units 10:37 11:52 13:15 WBC (3.8-10.6) k/uL RBC (4.30-5.90) m/uL Hgb (13.0-17.5) gm/dL Hct (39.0-53.0) % MCV (80.0-100.0) fL MCH (25.0-35.0) pg MCHC (31.0-37.0) g/dL RDW (11.5-15.5) % Neutrophils # (1.3-7.7) k/uL Lymphocytes # (1.0-4.8) k/uL ABG pCO2 (35-45) mmHg ABG pO2 (83-108) mmHg ABG HCO3 (21-25) mmol/L ABG O2 Saturation (94-97) % Chloride (98-107) mmol/L Carbon Dioxide (22-30) mmol/L BUN (9-20) mg/dL Creatinine (0.66-1.25) mg/dL Glucose (74-99) mg/dL POC Glucose (mg/dL) 174 H (75-99) mg/dL Plasma Lactic Acid Florentino 3.1 H* 4.0 H* (0.7-2.0) mmol/L Calcium (8.4-10.2) mg/dL Magnesium (1.6-2.3) mg/dL AST (17-59) U/L ALT (4-49) U/L Total Protein (6.3-8.2) g/dL Albumin (3.5-5.0) g/dL 02/14/21 02/14/21 02/14/21 Range/Units 17:31 18:38 23:55 WBC (3.8-10.6) k/uL RBC (4.30-5.90) m/uL Hgb (13.0-17.5) gm/dL Hct (39.0-53.0) % MCV (80.0-100.0) fL MCH (25.0-35.0) pg MCHC (31.0-37.0) g/dL RDW (11.5-15.5) % Neutrophils # (1.3-7.7) k/uL Lymphocytes # (1.0-4.8) k/uL ABG pCO2 (35-45) mmHg ABG pO2 (83-108) mmHg ABG HCO3 (21-25) mmol/L ABG O2 Saturation (94-97) % Chloride (98-107) mmol/L Carbon Dioxide (22-30) mmol/L BUN (9-20) mg/dL Creatinine (0.66-1.25) mg/dL Glucose (74-99) mg/dL POC Glucose (mg/dL) 160 H 192 H (75-99) mg/dL Plasma Lactic Acid Florentino 2.4 H* (0.7-2.0) mmol/L Calcium (8.4-10.2) mg/dL Magnesium (1.6-2.3) mg/dL AST (17-59) U/L ALT (4-49) U/L Total Protein (6.3-8.2) g/dL Albumin (3.5-5.0) g/dL 02/15/21 02/15/21 02/15/21 Range/Units 03:39 03:39 05:07 WBC 19.3 H (3.8-10.6) k/uL RBC 4.13 L (4.30-5.90) m/uL Hgb 7.6 L (13.0-17.5) gm/dL Hct 30.2 L (39.0-53.0) % MCV 73.2 L (80.0-100.0) fL MCH 18.4 L (25.0-35.0) pg MCHC 25.1 L (31.0-37.0) g/dL RDW 21.7 H (11.5-15.5) % Neutrophils # 18.5 H (1.3-7.7) k/uL Lymphocytes # 0.3 L (1.0-4.8) k/uL ABG pCO2 32 L (35-45) mmHg ABG pO2 53 L* (83-108) mmHg ABG HCO3 20 L (21-25) mmol/L ABG O2 Saturation 82.4 L (94-97) % Chloride 110 H (98-107) mmol/L Carbon Dioxide 18 L (22-30) mmol/L BUN 43 H (9-20) mg/dL Creatinine 1.94 H (0.66-1.25) mg/dL Glucose 165 H (74-99) mg/dL POC Glucose (mg/dL) (75-99) mg/dL Plasma Lactic Acid Florentino (0.7-2.0) mmol/L Calcium 7.7 L (8.4-10.2) mg/dL Magnesium 2.7 H (1.6-2.3) mg/dL AST 118 H (17-59) U/L ALT 66 H (4-49) U/L Total Protein 4.9 L (6.3-8.2) g/dL Albumin 2.4 L (3.5-5.0) g/dL 02/15/21 Range/Units 05:50 WBC (3.8-10.6) k/uL RBC (4.30-5.90) m/uL Hgb (13.0-17.5) gm/dL Hct (39.0-53.0) % MCV (80.0-100.0) fL MCH (25.0-35.0) pg MCHC (31.0-37.0) g/dL RDW (11.5-15.5) % Neutrophils # (1.3-7.7) k/uL Lymphocytes # (1.0-4.8) k/uL ABG pCO2 (35-45) mmHg ABG pO2 (83-108) mmHg ABG HCO3 (21-25) mmol/L ABG O2 Saturation (94-97) % Chloride (98-107) mmol/L Carbon Dioxide (22-30) mmol/L BUN (9-20) mg/dL Creatinine (0.66-1.25) mg/dL Glucose (74-99) mg/dL POC Glucose (mg/dL) 196 H (75-99) mg/dL Plasma Lactic Acid Florentino (0.7-2.0) mmol/L Calcium (8.4-10.2) mg/dL Magnesium (1.6-2.3) mg/dL AST (17-59) U/L ALT (4-49) U/L Total Protein (6.3-8.2) g/dL Albumin (3.5-5.0) g/dL Microbiology - Last 24 Hours (Table) 02/14/21 02:10 Urine Culture - Final Urine,Voided 02/13/21 23:48 Gram Stain - Preliminary Sputum Sputum Culture - Preliminary
--- NOTE | 2021-02-15 10:51 | P.PN ---
Subjective Progress Note Date: 02/15/21 (Critical care time 35 minutes) Principal diagnosis: V. tach cardiac arrest Hypoxic respiratory failure Cardiomyopathy with ejection fraction of 35% Bilateral atelectasis Bilateral pleural effusion Bowel obstruction and resection of mass CK D 02/15/2021, critical care time 35 minutes patient remains sedated with propofol drip, remains on full ventilatory support assist control rate of 16 and breathing 16 tidal volume of 505 of PEEP and 100% oxygen, and discussed with RN to titrated oxygen down to 50-75% over 12 hours to 24 hours patient is not ready for weaning extubation, the left arm externalization appears to have happened causing his skin breakdown, will get a PICC line, arterial blood gas chest x-ray reviewed suspect venous sample, continue broad-spectrum antibiotics, white cell count is up to 19,000, BUN/creatinine is 143 and 1.94, echocardiogram reviewed LV mildly dilated with concentric LVH, ejection fraction is yesterday 5%, patient remains on amiodarone, Solu-Medrol and IV Zosyn, This is a 80-year-old male with the symptoms suggestive of bowel obstruction for which he was admitted into the hospital patient underwent exploratory laparotomy and the found to have a mass as well which was resected patient is end-to-end anastomosis, also had an adrenal gland mass which wasn't biopsied, around 8:15 PM patient because more short of breath feeling uneasy and lost his pulse. Breathing, he was noted to be in ventricular tachycardia require cardioversion times 08/02/2019 and 150 J after second return of spontaneous circulation was achieved, patient continued to have the episodes of V. tach, intubated by anesthesia transferred to the ICU, patient has been started on amiodarone, with that the V. tach appears to have controlled with 200 J into sinus rhythm, since a d-dimer was elevated patient underwent a computed tomography scan of the chest negative for PE however basal atelectasis and effusion was seen, patient currently on 0.17 mics of levo fed drip 25 mics of the propofol, cardiology on consult I have ordered an echocardiogram as well, reviewed computed tomography scan of the chest as well, patient remains on IV Zosyn noted white cell count is 30,000 likely contribution of the inflammatory change as well as is being stimulated due to steroids, however also noted lactic acid mildly elevated at 2.1, strokes are 5.03 BUN/creatinine is a 35/1.45 Objective - Vital Signs Vital signs: Vital Signs Temp 97.7 F 02/15/21 08:00 Pulse 69 02/15/21 10:00 Resp 24 02/15/21 10:00 BP 105/60 02/15/21 10:00 Pulse Ox 100 02/15/21 10:00 Intake & Output 02/14/21 02/15/21 02/15/21 18:59 06:59 18:59 Intake Total 2207.810 1358.163 405.074 Output Total 383 430 130 Balance 1824.810 928.163 275.074 Weight 82 kg 82.69 kg Intake: IV 1150 733 303 .9 550 600 50 Fluid Bolus 500 Sodium Chloride 0.9% 1, 150 000 ml @ 50 mls/hr IV . Q20H [facility] Rx#:[id number] Zosyn IVPB 100 100 100 pressure bag 33 3 Intake, IV Titration 1057.810 625.163 102.074 Amount Amiodarone 360 mg In 200 400 Dextrose 5% in Water 200 ml @ 1 MG/MIN 33.333 mls/ hr IV .Q6H [facility] Rx#: [id number] Norepinephrine 4 mg In 442.554 126.147 2.074 Sodium Chloride 0.9% 250 ml @ 0.05 MCG/KG/MIN 15. 554 mls/hr IV .[id number] [facility] Rx#:[id number] Sodium Chloride 0.9% 500 250 ml 250 ml @ 999 mls/hr IV .Q16M [facility] Rx#:[id number] propofoL 1,000 mg In 165.256 99.016 100 Empty Bag 1 bag @ Titrate IV .Q0M [facility] Rx#: [id number] Oral 0 Output: Gastric Drainage 50 Urine 333 430 130 Other: Voiding Method Indwelling Catheter Indwelling Catheter Indwelling Catheter # Bowel Movements 1 - Exam Constitutional General appearance: average body habitus, cooperative, no acute distress - Neck Neck: normal ROM Carotids: bilateral: upstroke normal Thyroid: bilateral: normal size - Respiratory Respiratory: bilateral: diminished, rales - Cardiovascular Rhythm: regular Heart sounds: normal: S1, S2 - Gastrointestinal General gastrointestinal: soft - Integumentary Integumentary: normal turgor - Neurologic Neurologic: CNII-XII intact - Musculoskeletal Musculoskeletal: Left upper extremity his skin changes noted vascular follow - Psychiatric Sedated on full ventilator support - Labs CBC & Chem 7: 02/15/21 03:39 02/15/21 03:39 Labs: Abnormal Lab Results - Last 24 Hours (Table) 02/14/21 02/14/21 02/14/21 Range/Units 10:37 11:52 13:15 WBC (3.8-10.6) k/uL RBC (4.30-5.90) m/uL Hgb (13.0-17.5) gm/dL Hct (39.0-53.0) % MCV (80.0-100.0) fL MCH (25.0-35.0) pg MCHC (31.0-37.0) g/dL RDW (11.5-15.5) % Neutrophils # (1.3-7.7) k/uL Lymphocytes # (1.0-4.8) k/uL ABG pCO2 (35-45) mmHg ABG pO2 (83-108) mmHg ABG HCO3 (21-25) mmol/L ABG O2 Saturation (94-97) % Chloride (98-107) mmol/L Carbon Dioxide (22-30) mmol/L BUN (9-20) mg/dL Creatinine (0.66-1.25) mg/dL Glucose (74-99) mg/dL POC Glucose (mg/dL) 174 H (75-99) mg/dL Plasma Lactic Acid Florentino 3.1 H* 4.0 H* (0.7-2.0) mmol/L Calcium (8.4-10.2) mg/dL Magnesium (1.6-2.3) mg/dL AST (17-59) U/L ALT (4-49) U/L Total Protein (6.3-8.2) g/dL Albumin (3.5-5.0) g/dL 02/14/21 02/14/21 02/14/21 Range/Units 17:31 18:38 23:55 WBC (3.8-10.6) k/uL RBC (4.30-5.90) m/uL Hgb (13.0-17.5) gm/dL Hct (39.0-53.0) % MCV (80.0-100.0) fL MCH (25.0-35.0) pg MCHC (31.0-37.0) g/dL RDW (11.5-15.5) % Neutrophils # (1.3-7.7) k/uL Lymphocytes # (1.0-4.8) k/uL ABG pCO2 (35-45) mmHg ABG pO2 (83-108) mmHg ABG HCO3 (21-25) mmol/L ABG O2 Saturation (94-97) % Chloride (98-107) mmol/L Carbon Dioxide (22-30) mmol/L BUN (9-20) mg/dL Creatinine (0.66-1.25) mg/dL Glucose (74-99) mg/dL POC Glucose (mg/dL) 160 H 192 H (75-99) mg/dL Plasma Lactic Acid Florentino 2.4 H* (0.7-2.0) mmol/L Calcium (8.4-10.2) mg/dL Magnesium (1.6-2.3) mg/dL AST (17-59) U/L ALT (4-49) U/L Total Protein (6.3-8.2) g/dL Albumin (3.5-5.0) g/dL 02/15/21 02/15/21 02/15/21 Range/Units 03:39 03:39 05:07 WBC 19.3 H (3.8-10.6) k/uL RBC 4.13 L (4.30-5.90) m/uL Hgb 7.6 L (13.0-17.5) gm/dL Hct 30.2 L (39.0-53.0) % MCV 73.2 L (80.0-100.0) fL MCH 18.4 L (25.0-35.0) pg MCHC 25.1 L (31.0-37.0) g/dL RDW 21.7 H (11.5-15.5) % Neutrophils # 18.5 H (1.3-7.7) k/uL Lymphocytes # 0.3 L (1.0-4.8) k/uL ABG pCO2 32 L (35-45) mmHg ABG pO2 53 L* (83-108) mmHg ABG HCO3 20 L (21-25) mmol/L ABG O2 Saturation 82.4 L (94-97) % Chloride 110 H (98-107) mmol/L Carbon Dioxide 18 L (22-30) mmol/L BUN 43 H (9-20) mg/dL Creatinine 1.94 H (0.66-1.25) mg/dL Glucose 165 H (74-99) mg/dL POC Glucose (mg/dL) (75-99) mg/dL Plasma Lactic Acid Florentino (0.7-2.0) mmol/L Calcium 7.7 L (8.4-10.2) mg/dL Magnesium 2.7 H (1.6-2.3) mg/dL AST 118 H (17-59) U/L ALT 66 H (4-49) U/L Total Protein 4.9 L (6.3-8.2) g/dL Albumin 2.4 L (3.5-5.0) g/dL 02/15/21 Range/Units 05:50 WBC (3.8-10.6) k/uL RBC (4.30-5.90) m/uL Hgb (13.0-17.5) gm/dL Hct (39.0-53.0) % MCV (80.0-100.0) fL MCH (25.0-35.0) pg MCHC (31.0-37.0) g/dL RDW (11.5-15.5) % Neutrophils # (1.3-7.7) k/uL Lymphocytes # (1.0-4.8) k/uL ABG pCO2 (35-45) mmHg ABG pO2 (83-108) mmHg ABG HCO3 (21-25) mmol/L ABG O2 Saturation (94-97) % Chloride (98-107) mmol/L Carbon Dioxide (22-30) mmol/L BUN (9-20) mg/dL Creatinine (0.66-1.25) mg/dL Glucose (74-99) mg/dL POC Glucose (mg/dL) 196 H (75-99) mg/dL Plasma Lactic Acid Florentino (0.7-2.0) mmol/L Calcium (8.4-10.2) mg/dL Magnesium (1.6-2.3) mg/dL AST (17-59) U/L ALT (4-49) U/L Total Protein (6.3-8.2) g/dL Albumin (3.5-5.0) g/dL Microbiology - Last 24 Hours (Table) 02/14/21 02:10 Urine Culture - Final Urine,Voided 02/13/21 23:48 Gram Stain - Preliminary Sputum Sputum Culture - Preliminary
[2021-02-15 11:46] LABS: Glucose,Whole Blood 199 mg/dL (75-99)
--- NOTE | 2021-02-15 11:51 | P.PN ---
Progress Note - Text Progress Note Date: 02/14/21 The patient is in the ICU on the ventilator. Apparently earlier this morning he had a cardiac arrest related to rapid ventricular rate. Patient underwent CPR with resuscitation. Currently is on the ventilator. Vital signs appear stable. Abdomen soft incision site is clean dry tach. Patient's left forearm appears to be dusky. Arterial Dopplers have been ordered. Status post right clipped before right colon mass. Patient will continue receive supportive care
--- NOTE | 2021-02-15 11:52 | P.PN ---
Progress Note - Text Progress Note Date: 02/15/21 The patient appears to be awake on the ventilator. His respirations has improved. On exam her vital signs appear stable. Abdomen is soft. Incisions clean and intact. Left forearm is still cyanotic. Patient is having vascular consultation today. CPAP trials of inserted. He'll receive supportive care.
[2021-02-15] MEDS: SODIUM FERRIC GLUCONAT-SUCROSE 125 MG in SODIUM CHLORIDE 0.9% 100 ML IVPB SCH (13:13)
--- NOTE | 2021-02-15 13:19 | P.GSCN ---
History of Present Illness Consult date: 02/15/21 Reason for Consult: Possible left upper extremity DVT Requesting physician: Wallace Adamson History of present illness: This is a 80-year-old male patient who presented to the emergency department on 02/06/2021 with complaints of nausea, vomiting, and abdominal pain. Has a past medical history of coronary artery disease, basal cell cancer, CVA, hyperlipidemia, hypertension, and myocardial infarction. The patient was found to have a small bowel obstruction on admission with findings of a colon mass and underwent a right colectomy on 02/08/21. According to chart documents there was an event note and the patient suddenly complained of feeling uneasy and short of breath and became pulseless and stopped breathing on 02/13/2021 ACLS protocol was initiated. The patient was subsequently intubated and transferred to the ICU. Vascular surgery has been consult and related to possible left upper extremity DVT. The patient did undergo a CT angiogram of the chest which showed no evidence of a pulmonary embolism, cardiomegaly with pleural fluid and pulmonary consolidation consistent with chronic congestive heart failure, and pleural fluid and pulmonary infiltrates increased compared to computed tomography scan of the abdomen of 02/07/2021. Doppler ultrasound of the left upper extremity is deferred DVT. Nurses state that he had 2 IVs in the left upper extremity 1 and his hand and one just about the wrist which they gave a bolus yesterday and then he had discoloration in his skin following. IVs were discontinuedfrom upper extremity. He's had no reported recent falls or injuries to the left upper extremity that they know of. Review of Systems ROS unobtainable: due to endotracheal tube Past Medical History Past Medical History: Atrial Fibrillation, Coronary Artery Disease (CAD), Cancer, Heart Failure, CVA/TIA, Hyperlipidemia, Hypertension, Myocardial Infarction (OR), Osteoarthritis (OA), Prostate Disorder, Renal Disease, Skin Disorder Additional Past Medical History / Comment(s): 04/08/18 pt stated wants flu vaccine before discharge if ok with 01/2016-denies any residual, OR on stress test, constipation, arthritis in neck, basal cell cancer, bleeds easily with cuts, has crushed vertebra in neck. 04/2018 Acute renal Failure, Hyperkalemia, 3cm AAA, enlarged prostate and right adrenal mass. Last Myocardial Infarction Date:: unknown History of Any Multi-Drug Resistant Organisms: None Reported Past Surgical History: Bowel Resection, Heart Catheterization With Stent, Hernia Repair, Tonsillectomy Additional Past Surgical History / Comment(s): mitral valve repair 2002. total 4 cardiac stents, clara cataracts with lens implants, Right inguinal hernia repair 03/2018, SBO with right colectomy, right colon mass found and pathology sent 02/08/2021. Past Anesthesia/Blood Transfusion Reactions: No Reported Reaction Additional Past Anesthesia/Blood Transfusion Reaction / Comm: car sickness as child, " i seem to need more oxygen" with anesthesia. denies any diff with past intubation Date of Last Stent Placement:: 07/2016 Past Psychological History: No Psychological Hx Reported Additional Psychological History / Comment(s): ppt stated he lives in own home- alone. no home care services, no medical equiment Smoking Status: Former smoker Past Alcohol Use History: Rare Additional Past Alcohol Use History / Comment(s): started smoking at age 20 and quit 2002. was smoking 1/2 ppd. Past Drug Use History: None Reported - Past Family History Mother History Unknown: Yes Family Medical History: No Reported History Father History Unknown: Yes Additional Family Medical History / Comment(s): "heart problems" Medications and Allergies Home Medications Medication Instructions Recorded Confirmed Type Zolpidem [Ambien] 10 mg PO HS PRN 06/08/16 02/06/21 History Clopidogrel [Plavix] 75 mg PO DAILY #90 tab 07/19/16 02/06/21 Rx Nitroglycerin Sl Tabs [Nitrostat] 0.4 mg SUBLINGUAL Q5M PRN #25 tab 07/19/16 02/06/21 Rx Bumetanide [Bumex] 1 mg PO DAILY 02/06/21 02/06/21 History HYDROcodone/APAP 10-325MG [Rindge 1 tab PO TID PRN 02/06/21 02/06/21 History 10-325] Metoprolol Succinate (ER) [Toprol 25 mg PO DAILY 02/06/21 02/06/21 History Xl] lisinopriL [Zestril] 5 mg PO DAILY 02/06/21 02/06/21 History Allergies Allergy/AdvReac Type Severity Reaction Status Date / Time No Known Allergies Allergy Verified 02/06/21 22:39 Surgical - Exam Vital Signs Temp Pulse Resp BP Pulse Ox 98.3 F 99 16 138/58 98 02/06/21 20:43 02/06/21 20:43 02/06/21 20:43 02/06/21 20:43 02/06/21 20:43 General appearance: The patient is intubated and sedated. HET: Head is normocephalic and atraumatic. Neck: Supple without lymphadenopathy. Trachea midline. Heart: S1 S2. Regular rate and rhythm. Lungs: Clear to auscultation, on mechanical ventilation. Abdomen: Soft, nontender, nondistended with bowel sounds. Surgical incision clean dry and intact. Extremities: Normal skin color and turgor. Bilateral palpable radial pulses. Left upper extremity with swelling and discoloration, hand is swollen and dusky purple with good capillary refill. Neurological: Intubated and sedated. Results - Labs 02/15/21 03:39 02/15/21 03:39 Abnormal Lab Results - Last 24 Hours (Table) 02/14/21 02/14/21 02/14/21 Range/Units 07:46 10:37 11:52 WBC (3.8-10.6) k/uL RBC (4.30-5.90) m/uL Hgb (13.0-17.5) gm/dL Hct (39.0-53.0) % MCV (80.0-100.0) fL MCH (25.0-35.0) pg MCHC (31.0-37.0) g/dL RDW (11.5-15.5) % Neutrophils # (1.3-7.7) k/uL Lymphocytes # (1.0-4.8) k/uL ABG pCO2 (35-45) mmHg ABG pO2 (83-108) mmHg ABG HCO3 (21-25) mmol/L ABG O2 Saturation (94-97) % Chloride (98-107) mmol/L Carbon Dioxide (22-30) mmol/L BUN (9-20) mg/dL Creatinine (0.66-1.25) mg/dL Glucose (74-99) mg/dL POC Glucose (mg/dL) 174 H (75-99) mg/dL Plasma Lactic Acid Florentino 2.1 H* 3.1 H* (0.7-2.0) mmol/L Calcium (8.4-10.2) mg/dL Magnesium (1.6-2.3) mg/dL AST (17-59) U/L ALT (4-49) U/L Total Protein (6.3-8.2) g/dL Albumin (3.5-5.0) g/dL 02/14/21 02/14/21 02/14/21 Range/Units 13:15 17:31 18:38 WBC (3.8-10.6) k/uL RBC (4.30-5.90) m/uL Hgb (13.0-17.5) gm/dL Hct (39.0-53.0) % MCV (80.0-100.0) fL MCH (25.0-35.0) pg MCHC (31.0-37.0) g/dL RDW (11.5-15.5) % Neutrophils # (1.3-7.7) k/uL Lymphocytes # (1.0-4.8) k/uL ABG pCO2 (35-45) mmHg ABG pO2 (83-108) mmHg ABG HCO3 (21-25) mmol/L ABG O2 Saturation (94-97) % Chloride (98-107) mmol/L Carbon Dioxide (22-30) mmol/L BUN (9-20) mg/dL Creatinine (0.66-1.25) mg/dL Glucose (74-99) mg/dL POC Glucose (mg/dL) 160 H (75-99) mg/dL Plasma Lactic Acid Florentino 4.0 H* 2.4 H* (0.7-2.0) mmol/L Calcium (8.4-10.2) mg/dL Magnesium (1.6-2.3) mg/dL AST (17-59) U/L ALT (4-49) U/L Total Protein (6.3-8.2) g/dL Albumin (3.5-5.0) g/dL 02/14/21 02/15/21 02/15/21 Range/Units 23:55 03:39 03:39 WBC 19.3 H (3.8-10.6) k/uL RBC 4.13 L (4.30-5.90) m/uL Hgb 7.6 L (13.0-17.5) gm/dL Hct 30.2 L (39.0-53.0) % MCV 73.2 L (80.0-100.0) fL MCH 18.4 L (25.0-35.0) pg MCHC 25.1 L (31.0-37.0) g/dL RDW 21.7 H (11.5-15.5) % Neutrophils # 18.5 H (1.3-7.7) k/uL Lymphocytes # 0.3 L (1.0-4.8) k/uL ABG pCO2 (35-45) mmHg ABG pO2 (83-108) mmHg ABG HCO3 (21-25) mmol/L ABG O2 Saturation (94-97) % Chloride 110 H (98-107) mmol/L Carbon Dioxide 18 L (22-30) mmol/L BUN 43 H (9-20) mg/dL Creatinine 1.94 H (0.66-1.25) mg/dL Glucose 165 H (74-99) mg/dL POC Glucose (mg/dL) 192 H (75-99) mg/dL Plasma Lactic Acid Florentino (0.7-2.0) mmol/L Calcium 7.7 L (8.4-10.2) mg/dL Magnesium 2.7 H (1.6-2.3) mg/dL AST 118 H (17-59) U/L ALT 66 H (4-49) U/L Total Protein 4.9 L (6.3-8.2) g/dL Albumin 2.4 L (3.5-5.0) g/dL 02/15/21 02/15/21 Range/Units 05:07 05:50 WBC (3.8-10.6) k/uL RBC (4.30-5.90) m/uL Hgb (13.0-17.5) gm/dL Hct (39.0-53.0) % MCV (80.0-100.0) fL MCH (25.0-35.0) pg MCHC (31.0-37.0) g/dL RDW (11.5-15.5) % Neutrophils # (1.3-7.7) k/uL Lymphocytes # (1.0-4.8) k/uL ABG pCO2 32 L (35-45) mmHg ABG pO2 53 L* (83-108) mmHg ABG HCO3 20 L (21-25) mmol/L ABG O2 Saturation 82.4 L (94-97) % Chloride (98-107) mmol/L Carbon Dioxide (22-30) mmol/L BUN (9-20) mg/dL Creatinine (0.66-1.25) mg/dL Glucose (74-99) mg/dL POC Glucose (mg/dL) 196 H (75-99) mg/dL Plasma Lactic Acid Florentino (0.7-2.0) mmol/L Calcium (8.4-10.2) mg/dL Magnesium (1.6-2.3) mg/dL AST (17-59) U/L ALT (4-49) U/L Total Protein (6.3-8.2) g/dL Albumin (3.5-5.0) g/dL Microbiology - Last 24 Hours (Table) 02/13/21 23:48 Gram Stain - Preliminary Sputum Sputum Culture - Preliminary 02/14/21 02:10 Urine Culture - Preliminary Urine,Voided Diabetes panel 02/14/21 02/15/21 Range/Units 07:46 03:39 Sodium 140 (137-145) mmol/L Potassium 4.4 4.4 (3.5-5.1) mmol/L Chloride 110 H (98-107) mmol/L Carbon Dioxide 18 L (22-30) mmol/L BUN 43 H (9-20) mg/dL Creatinine 1.94 H (0.66-1.25) mg/dL Glucose 165 H (74-99) mg/dL Calcium 7.7 L (8.4-10.2) mg/dL AST 118 H (17-59) U/L ALT 66 H (4-49) U/L Alkaline Phosphatase 61 (38-126) U/L Total Protein 4.9 L (6.3-8.2) g/dL Albumin 2.4 L (3.5-5.0) g/dL Calcium panel 02/15/21 Range/Units 03:39 Calcium 7.7 L (8.4-10.2) mg/dL Albumin 2.4 L (3.5-5.0) g/dL Pituitary panel 02/14/21 02/15/21 Range/Units 07:46 03:39 Sodium 140 (137-145) mmol/L Potassium 4.4 4.4 (3.5-5.1) mmol/L Chloride 110 H (98-107) mmol/L Carbon Dioxide 18 L (22-30) mmol/L BUN 43 H (9-20) mg/dL Creatinine 1.94 H (0.66-1.25) mg/dL Glucose 165 H (74-99) mg/dL Calcium 7.7 L (8.4-10.2) mg/dL Adrenal panel 02/14/21 02/15/21 Range/Units 07:46 03:39 Sodium 140 (137-145) mmol/L Potassium 4.4 4.4 (3.5-5.1) mmol/L Chloride 110 H (98-107) mmol/L Carbon Dioxide 18 L (22-30) mmol/L BUN 43 H (9-20) mg/dL Creatinine 1.94 H (0.66-1.25) mg/dL Glucose 165 H (74-99) mg/dL Calcium 7.7 L (8.4-10.2) mg/dL Total Bilirubin 1.2 (0.2-1.3) mg/dL AST 118 H (17-59) U/L ALT 66 H (4-49) U/L Alkaline Phosphatase 61 (38-126) U/L Total Protein 4.9 L (6.3-8.2) g/dL Albumin 2.4 L (3.5-5.0) g/dL - Imaging Comments: CT angiogram chest: No evidence of pulmonary embolism. Cardiomegaly with pleural fluid and pulmonary consolidation consistent with chronic congestive heart failure. Pleural fluid and pulmonary infiltrates increased compared to computed tomography scan of the abdomen of 02/07/2021. Venous Doppler left upper extremity: Pending Assessment and Plan Assessment: 1. Left upper extremity swelling, likely hypoperfusion and microvascular. Left upper extremity venous Doppler negative for DVT 2. Cardiac arrest 3. Status post right colectomy Plan: Left upper extremity ultrasound reviewed negative for DVT. There is no indication for vascular surgical intervention. Keep left upper extremity elevated. Thank you for this consultation allowing us take part in the plan of care of your patient during his hospital stay. The impression and plan of care has been dictated as directed. I performed a history and examination of this patient, discussed the same with the dictator. I agree with the dictator's note ,documented as a scribe. Any additional findings or plans will be noted.
[2021-02-15] MEDS ORDERED: LIDOCAINE 1% INJ 10MG/ML (20 ML MDV) SQ ONE (14:10)
--- NOTE | 2021-02-15 14:31 | XR ---
EXAMINATION TYPE: XR chest 1V portable DATE OF EXAM: 02/15/2021 CLINICAL HISTORY: Post PICC line placement TECHNIQUE: Single AP portable semiupright view of the chest is obtained. COMPARISON: Chest x-ray from earlier today an older study FINDINGS: New right-sided PICC line terminates near the cavoatrial junction. Stable endotracheal and orogastric tubes. Persistent cardiomegaly with atherosclerotic thoracic aorta. Persistent small bilateral pleural effus ions and mild central vascular congestion fairly stable from prior. Osseous structures are intact. IMPRESSION: As above.
--- NOTE | 2021-02-15 14:37 | IR ---
PICC LINE PLACEMENT: HISTORY: Infection requiring long-term antibiotic therapy PROCEDURE: Ultrasound guidance of PICC line placement. ROW BOSS HOEING: Dr. Meadows. COMPLICATIONS: None ANESTHESIA: 1. 1% Lidocaine locally. FINDINGS/TECHNIQUE: The procedure was explained to the patient. The risks, complications, benefits and alternatives were discussed and any questions were answered. Informed consent was obtained. The patient was placed supine on the fluoroscopic table and prepped and draped in the usual sterile fas ion. Utilizing a 21 gauge needle and sonographic guidance, access in the right basilic vein was ach ieved and there is placement of a 0.018 guidewire. The vein is patent. A 5-F. sheath was placed ove r the guidewire. The guidewire and dilator were removed and a 5-F. Double lumen PICC line was placed through the sheath with the chest x-ray confirming the tip at the level of the SVC. The sheath was removed, the catheter was flushed and sutured into position. The patient was stable throughout the p rocedure and remained stable upon discharge from the Department of Radiology. The vein puncture was patent under ultrasound. A porras scale image was obtained to document patency of the vein punctured. All elements of the maximal barrier technique were utilized. IMPRESSION: 1. Successful PICC line placement under ultrasound performed bedside within the ICU.
[2021-02-15 18:04] LABS: Glucose,Whole Blood 232 mg/dL (75-99)
[2021-02-15 18:04] LABS: Glucose,Whole Blood 196 mg/dL (75-99)
--- NOTE | 2021-02-15 18:42 | PN ---
PROGRESS NOTE DATE OF SERVICE: 02/15/2021 REASON FOR FOLLOWUP: 1. Sepsis, possible aspiration pneumonia, abdominal source. 2. Pressure ulcer to the lower back. INTERVAL HISTORY: The patient is afebrile. The patient is hemodynamically stable. The patient has significant discoloration to the left arm which is cold to touch. No vomiting, diarrhea or other change reported by nursing staff. EXAMINATION: Blood pressure 104/49, pulse of 78, temperature 98.5, he is 100% on 50% FiO2. General description is an elderly male lying in bed in no distress. Respiratory system: Unlabored breathing, decreased breath sounds at the base, no wheeze. Heart S1, S2. Regular rate and rhythm. Abdomen soft, no tenderness. The left arm is cold to touch and some discoloration. No drainage was noticed. LABS: Hemoglobin 7.1, white count 19.3, BUN of 43, creatinine 1.94. Sputum grew Ruth albicans. Blood culture has been negative. DIAGNOSTIC IMPRESSION AND PLAN: Patient with acute respiratory failure after the patient did have cardiac arrest with ventricular fibrillation. The patient is currently covered with Zosyn. White count is showing a downward trend. Zosyn will be continued for now while waiting for the culture to finalize. Prognosis remains to be guarded. MMODL / IJN: [id number] /
[2021-02-16 00:36] LABS: Glucose,Whole Blood 179 mg/dL (75-99)
[2021-02-16] MEDS: AMIODARONE 360 MG in DEXTROSE 5% IN WATER 200 ML IV SCH ×8 (00:38→17:36)
[2021-02-16] MEDS: PIPERACILLIN-TAZOBACTAM 3.375 GM in SODIUM CHLORIDE 0.9% 100 ML IVPB SCH ×3 (00:39→15:52)
[2021-02-16] MEDS: INSULIN ASPART (NovoLOG) 100 UNIT/ML VIAL SQ SCH ×4 (00:39→17:57)
[2021-02-16] MEDS: methylPREDNISolone SOD SUCCI 40 MG/ML 1 ML VIAL IV SCH ×3 (00:39→15:52)
[2021-02-16] MEDS: IPRATROPIUM-ALBUTEROL 3 ML NEB INHALATION SCH ×8 (01:30→23:55)
[2021-02-16 05:25] LABS: ABG Base Excess -1.6 mmol/L; ABG HCO3 22 mmol/L (21-25); ABG Oxygen Saturation 99.7 % (94-97); ABG PCO2 31 mmHg (35-45); ABG PH 7.46 (7.35-7.45); ABG PO2 179 mmHg (83-108); ABG TCO2 23 mmol/L (19-24); Allen Test Performed? Yes
[2021-02-16 05:52] LABS: Anisocytosis Moderate; Basophils % (A) 0 %; Eosinophils % (A) 0 %; HCT 29.5 % (39.0-53.0); HGB 7.4 gm/dL (13.0-17.5); Hypochromasia Marked; Lymphocytes # (A) 0.3 k/uL (1.0-4.8); Lymphocytes % (A) 1 %; MCH 18.2 pg (25.0-35.0); MCHC 25.2 g/dL (31.0-37.0); MCV 72.2 fL (80.0-100.0); Mean Platelet Volume 9.7; Microcytosis Marked; Monocytes # (A) 0.6 k/uL (0-1.0); Monocytes % (A) 3 %; Neutrophils # (A) 20.6 k/uL (1.3-7.7); Neutrophils % (A) 95 %; Platelet Count 235 k/uL (150-450); Poikilocytosis Slight; RBC 4.08 m/uL (4.30-5.90); RDW 22.8 % (11.5-15.5); WBC 21.5 k/uL (3.8-10.6)
[2021-02-16 05:57] LABS: Magnesium 2.8 mg/dL (1.6-2.3)
[2021-02-16 06:03] LABS: Potassium 4.7 mmol/L (3.5-5.1)
--- NOTE | 2021-02-16 06:26 | XR ---
EXAMINATION TYPE: XR chest 1V portable DATE OF EXAM: 02/16/2021 CLINICAL HISTORY: Difficulty breathing progress study. TECHNIQUE: Single AP portable semiupright view of the chest is obtained. COMPARISON: Chest x-ray from one day earlier and older studies. FINDINGS: Stable right-sided PICC line. Stable endotracheal and orogastric tubes. Persistent cardiomegaly with atherosclerotic thoracic aorta. Persistent small bilateral pleural effus ions and mild central vascular congestion along with bibasilar opacities fairly stable from prior. Os seous structures are intact. Metallic cardiac valvular ring redemonstrated. IMPRESSION: Correlate for CHF exacerbation and/or fluid overload status as there is persistent cardio megaly with central vascular congestion and small bilateral pleural effusions are all redemonstrated. Associated compressive atelectasis noted. No significant change from one day earlier.
[2021-02-16] MEDS: SODIUM CHLORIDE 0.9% 1,000 ML IV SCH (06:40)
[2021-02-16 06:57] LABS: Glucose,Whole Blood 211 mg/dL (75-99)
[2021-02-16] MEDS: PANTOPRAZOLE 40 MG/10 ML VIAL IV SCH (08:10)
[2021-02-16] MEDS: ATORVASTATIN 40 MG TAB PO SCH (08:10)
[2021-02-16] MEDS: CHLORHEXIDINE GLUCONATE 15 ML CUP MUCOUS MEM SCH ×2 (08:10→20:45)
[2021-02-16] MEDS: ENOXAPARIN 40 MG/0.4 ML SYRINGE SQ SCH (08:10)
--- NOTE | 2021-02-16 08:10 | P.PN ---
Subjective Progress Note Date: 02/16/21 Principal diagnosis: Left upper extremity swelling, possible schemic changes Patient seen and examined in the ICU he remains intubated and has been starting sedation holiday. No acute changes through the night. Serial ultrasound of left upper extremity was obtained yesterday and reviewed with an MADISON 0.95 with good waveforms. Objective - Vital Signs Vital signs: Vital Signs Temp 97.8 F 02/16/21 04:00 Pulse 58 L 02/16/21 07:59 Resp 26 H 02/16/21 07:00 BP 105/53 02/16/21 07:00 Pulse Ox 100 02/16/21 07:00 Intake & Output 02/15/21 02/16/21 02/16/21 18:59 06:59 18:59 Intake Total 5415.030 7209.01 Output Total 425 940 Balance 905.182 405.01 Weight 86 kg Intake: IV 803 750 .9 50 Sodium Chloride 0.9% 1, 550 650 000 ml @ 50 mls/hr IV . Q20H MARY Rx#:[id number] Zosyn IVPB 200 100 pressure bag 3 Intake, IV Titration 527.182 595.01 Amount Amiodarone 360 mg In 392.776 400 Dextrose 5% in Water 200 ml @ 1 MG/MIN 33.333 mls/ hr IV .Q6H MARY Rx#: [id number] Norepinephrine 4 mg In 2.074 Sodium Chloride 0.9% 250 ml @ 0.05 MCG/KG/MIN 15. 554 mls/hr IV .[id number] MARY Rx#:[id number] propofoL 1,000 mg In 132.332 195.01 Empty Bag 1 bag @ Titrate IV .Q0M MARY Rx#: [id number] Output: Gastric Drainage 500 Urine 425 440 Other: Voiding Method Indwelling Catheter Indwelling Catheter - Exam General appearance: The patient is intubated and sedated. HET: Head is normocephalic and atraumatic. Neck: Supple without lymphadenopathy. Trachea midline. Extremities: Palpable bilateral radial pulses. Left upper extremity swelling along the forearm to left hand. Hand cool to touch with dusky discoloration, although warmer than yesterday. Neurological: Intubated and sedated. - Labs CBC & Chem 7: 02/16/21 05:08 02/16/21 05:08 Labs: Abnormal Lab Results - Last 24 Hours (Table) 02/15/21 02/15/21 02/15/21 Range/Units 11:44 18:01 18:02 WBC (3.8-10.6) k/uL RBC (4.30-5.90) m/uL Hgb (13.0-17.5) gm/dL Hct (39.0-53.0) % MCV (80.0-100.0) fL MCH (25.0-35.0) pg MCHC (31.0-37.0) g/dL RDW (11.5-15.5) % Neutrophils # (1.3-7.7) k/uL Lymphocytes # (1.0-4.8) k/uL ABG pH (7.35-7.45) ABG pCO2 (35-45) mmHg ABG pO2 (83-108) mmHg ABG O2 Saturation (94-97) % Chloride (98-107) mmol/L Carbon Dioxide (22-30) mmol/L BUN (9-20) mg/dL Creatinine (0.66-1.25) mg/dL Glucose (74-99) mg/dL POC Glucose (mg/dL) 199 H 232 H 196 H (75-99) mg/dL Calcium (8.4-10.2) mg/dL Magnesium (1.6-2.3) mg/dL 02/16/21 02/16/21 02/16/21 Range/Units 00:33 05:08 05:08 WBC 21.5 H (3.8-10.6) k/uL RBC 4.08 L (4.30-5.90) m/uL Hgb 7.4 L (13.0-17.5) gm/dL Hct 29.5 L (39.0-53.0) % MCV 72.2 L (80.0-100.0) fL MCH 18.2 L (25.0-35.0) pg MCHC 25.2 L (31.0-37.0) g/dL RDW 22.8 H (11.5-15.5) % Neutrophils # 20.6 H (1.3-7.7) k/uL Lymphocytes # 0.3 L (1.0-4.8) k/uL ABG pH (7.35-7.45) ABG pCO2 (35-45) mmHg ABG pO2 (83-108) mmHg ABG O2 Saturation (94-97) % Chloride 110 H (98-107) mmol/L Carbon Dioxide 19 L (22-30) mmol/L BUN 54 H (9-20) mg/dL Creatinine 2.23 H (0.66-1.25) mg/dL Glucose 161 H (74-99) mg/dL POC Glucose (mg/dL) 179 H (75-99) mg/dL Calcium 8.0 L (8.4-10.2) mg/dL Magnesium 2.8 H (1.6-2.3) mg/dL 02/16/21 02/16/21 Range/Units 05:22 06:56 WBC (3.8-10.6) k/uL RBC (4.30-5.90) m/uL Hgb (13.0-17.5) gm/dL Hct (39.0-53.0) % MCV (80.0-100.0) fL MCH (25.0-35.0) pg MCHC (31.0-37.0) g/dL RDW (11.5-15.5) % Neutrophils # (1.3-7.7) k/uL Lymphocytes # (1.0-4.8) k/uL ABG pH 7.46 H (7.35-7.45) ABG pCO2 31 L (35-45) mmHg ABG pO2 179 H (83-108) mmHg ABG O2 Saturation 99.7 H (94-97) % Chloride (98-107) mmol/L Carbon Dioxide (22-30) mmol/L BUN (9-20) mg/dL Creatinine (0.66-1.25) mg/dL Glucose (74-99) mg/dL POC Glucose (mg/dL) 211 H (75-99) mg/dL Calcium (8.4-10.2) mg/dL Magnesium (1.6-2.3) mg/dL Microbiology - Last 24 Hours (Table) 02/13/21 23:48 Gram Stain - Preliminary Sputum Sputum Culture - Preliminary Ruth albicans 02/14/21 08:54 Blood Culture - Preliminary Blood No Growth after 24 hours 02/14/21 02:10 Urine Culture - Final Urine,Voided Assessment and Plan Assessment: 1. Left upper extremity swelling, likely hypoperfusion and microvascular. Left upper extremity venous Doppler negative for DVT 2. Cardiac arrest 3. Status post right colectomy Plan: Left upper extremity ultrasound reviewed negative for DVT. Adryan ultrasound of left upper extremity reviewed, MADISON 0.95. There is no indication for vascular surgical intervention. Keep left upper extremity elevated. Thank you for this consultation allowing us take part in the plan of care of your patient during his hospital stay. Vascular surgery will be on standby, please do not hesitate to call us if further needed. The impression and plan of care has been dictated as directed. I performed a history and examination of this patient, discussed the same with the dictator. I agree with the dictator's note ,documented as a scribe. Any additional findings or plans will be noted.
--- NOTE | 2021-02-16 10:20 | P.ARTDOP ---
Arterial Doppler Left upper extremity arterial Doppler. Date of study: 02/15/2021. Reason for study: Discoloration and potential ischemic changes left hand. Findings: Doppler waveforms are multiphasic at both brachials, at the left radial and atypical after the left ulnar but still sharply peaked. Finger pressures are 80 on the left and 44 on the right. Impression: Given limited information, findings wouldn't suggest no significant proximal obstructive process. Could relate to vasospastic phenomenon. Finger pressure on the left would suggest viability. Clinical correlation recommended.
[2021-02-16 11:45] LABS: Glucose,Whole Blood 177 mg/dL (75-99)
--- NOTE | 2021-02-16 12:46 | P.PN ---
Subjective Progress Note Date: 02/16/21 HISTORY OF PRESENT ILLNESS: This is a pleasant 80-year-old male past medical history significant for chronic persistent atrial fibrillation, coronary artery disease status post multivessel PCI in 2016, ischemic cardiomyopathy, hypertension, hyperlipidemia, mitral valve repair in 2002, history of inguinal and umbilical hernia repair. He used to follow in the office with Dr. Hammond, have ever has not followed up since 2019. 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 We have been asked to see in consultation for atrial fibrillation with rapid ventricular response. Patient is seen and examined at bedside, patient presents emergency department with complaints of abdominal pain and nausea and vomiting for 3 days. He ate some salmon from [employer] and thought he had food poisoning, however, his symptoms worsened. CT abdomen and pelvis revealed high-grade small bowel obstruction session with small bowel loops dilated to 4.8 cm. Mild dull ascites, cecum is also fluid filled measuring up to 6.7 cm we suggested transition point at the lower ascending colon. Benign 3.7 cm right adrenal adenoma and to continued shortness of abdominal aortic aneurysm in the mid and distal abdominal aorta measuring up to 0.3 cm cyst, generalized colonic diverticulosis. Surgery was c onsulted. NG tube was placed. Patient states he had 2 bowel movements today. On admission, patient did not receive his metoprolol succinate. Today, patient recieved metoprolol tartrate 50mg once, and his home dose of metoprolol succinate 25mg daily With improved rates currently in low 100s. In June 2016, patient had an abnormal lexiscan stress test. Patient underwent cardiac catheterization and PCI after in 2016. Patient states he has not follow up with cardiology since 2019, he has been following up regularly with his PCP. He states since 2019 he has not had any recent cardiac workup or cardiac catheterizations. In 2019, patient stopped taking his Eliquis because he was also taking Plavix and Aspirin at that time. He had EKG changes at that time, cardiac catheterization was recommended but patient did not proceed at that time. DIAGNOSTICS -Cardiac catheterization history includes: 07/2016 which revealed critical stenosis involving the proximal LAD, significant stenosis on the ramus intermedius in the proximal left circumflex, mild disease in RCA. Patient subsequently underwent stenting to the proximal circumflex, proximal LAD x2, and proximal ramus intermedius -Most recent echocardiogram 11/2018 revealed an EF of 32%, moderate concentric hypertrophy, akinesis of the anterior wall and anterior septum from the mid wall to the apex, akinesis of the septum from mid-wall to apex, akinesis of anterio and later ibarra. akinesis of inferior wall at the apex, severely dilated left atrium, mild aortic regurgitation, mild prosthetic valvular regurgitation, moderate tricuspid regurgitation 02/08/21: Patient underwent right colectomy with Dr. Adamson. 02/09/2021: Patient seen and examined at bedside, no acute distress. Blood pressure 125/60, heart rate 116, afebrile, maintaining oxygen saturations 95% 2 L nasal cannula. Telemetry reviewed patient continues to be atrial fibrillation heart rate 110 and 120. Patient did have an episode of 8 beat NSVT run. Patient is asymptomatic. Laboratory data reviewed sodium 143, potassium 3.4, BUN 38, serum creatinine 1.5, WBC 9.9, hemoglobin 7.6, platelets 296. Patient currently maintained on Bumex 1 mg daily, atorvastatin 40 mg daily, metoprolol succinate 50 mg daily. 02/10/2021 Patient is status post right colectomy. Patient examined this morning. He is sitting up in the chair. He is tolerating clear liquid diet. He denies chest pain or pressure. Denies short as of breath. Telemetry reveals atrial fibrillation with heart rate around 100. Anticoagulation was discussed with the patient and Dr. Buckner. The patient refuses to take Eliquis. He is willing to try other anticoagulation medications though. Echocardiogram completed revealing ejection fraction 30-35%. Multiple LV wall motion abnormalities. Trace amount of aortic regurgitation. Mitral valve repair. Moderate to severe tricuspid regurgitation. Severe pulmonary hypertension. 02/11/2021 Patient is status post right colectomy with Dr. Adamson. Patient was started on anticoagulation yesterday with Xarelto. Hemoglobin today 7.1. BUN 43. Creatinine 1.39. Blood pressure 103/68. He is on room air with oxygen satu rations greater than 92%. Telemetry reviewed revealing atrial fibrillation with heart rate around 100-105. Patient does complain of abdominal pain. Patient also was febrile this morning. 02/15/2021 Patient examined this morning at the bedside in the intensive care unit. Patient went into V. fib arrest over the weekend. He remains intubated. Telemetry reveals sinus mechanism. He remains on IV amiodarone. Blood pressure 89/51. He is currently off his pressors. FiO2 60% 02/16/2021 Patient examined this morning at the bedside. Patient remains on mechanical ventilation. FiO2 has been decreased to 40%. He remains off vasopressor support. Blood pressure is stable. He remains in sinus mechanism. He continues on a amiodarone infusion. PHYSICAL EXAM: VITAL SIGNS: Reviewed. GENERAL: Well-developed in no acute distress. NECK: Supple. No JVD or thyromegaly LUNGS: Respirations even and unlabored. Lungs essentially clear to auscultation bilaterally. HEART: Irregular rate and rhythm. S1 and S2 heard. Systolic murmur noted. EXTREMITIES: Normal range of motion. No clubbing or cyanosis. Peripheral pulses intact. 1+ bilateral lower extremity edema ASSESSMENT: Right colon mass causing small bowel obstruction, status post right colectomy Paroxysmal atrial fibrillation with RVR V. fib arrest requiring defibrillation Acute hypoxic respiratory failure requiring mechanical ventilation Coronary artery disease status post multivessel PCI, 2016 Ischemic cardiomyopathy, ejection fraction 30-35% Hypertension Hyperlipidemia History of mitral valve repair, 2002 Hypokalemia Acute kidney injury PLAN: Continue current cardiac medications Continue IV amio while intubated Further recommendations pending patient course Nurse practitioner note has been reviewed by physician. Signing provider agrees with the documented findings, assessment, and plan of care. Objective - Vital Signs Vital signs: Vital Signs Temp 97.2 F L 02/16/21 12:00 Pulse 64 02/16/21 12:28 Resp 20 02/16/21 12:00 BP 104/52 02/16/21 12:00 Pulse Ox 100 02/16/21 12:00 Intake & Output 02/15/21 02/16/21 02/16/21 18:59 06:59 18:59 Intake Total 3471.628 9048.01 619.999 Output Total 425 940 165 Balance 905.182 405.01 454.999 Weight 86 kg Intake: IV 803 750 350 .9 50 Sodium Chloride 0.9% 1, 550 650 250 000 ml @ 50 mls/hr IV . Q20H [facility] Rx#:[id number] Zosyn IVPB 200 100 100 pressure bag 3 Intake, IV Titration 527.182 595.01 239.999 Amount Amiodarone 360 mg In 392.776 400 186.665 Dextrose 5% in Water 200 ml @ 1 MG/MIN 33.333 mls/ hr IV .Q6H [facility] Rx#: [id number] Norepinephrine 4 mg In 2.074 Sodium Chloride 0.9% 250 ml @ 0.05 MCG/KG/MIN 15. 554 mls/hr IV .[id number] [facility] Rx#:[id number] propofoL 1,000 mg In 132.332 195.01 53.334 Empty Bag 1 bag @ Titrate IV .Q0M [facility] Rx#: [id number] Oral 30 Output: Gastric Drainage 500 Urine 425 440 165 Other: Voiding Method Indwelling Catheter Indwelling Catheter Indwelling Catheter - Labs CBC & Chem 7: 02/16/21 05:08 02/16/21 05:08 Labs: Abnormal Lab Results - Last 24 Hours (Table) 02/15/21 02/15/21 02/16/21 Range/Units 18:01 18:02 00:33 WBC (3.8-10.6) k/uL RBC (4.30-5.90) m/uL Hgb (13.0-17.5) gm/dL Hct (39.0-53.0) % MCV (80.0-100.0) fL MCH (25.0-35.0) pg MCHC (31.0-37.0) g/dL RDW (11.5-15.5) % Neutrophils # (1.3-7.7) k/uL Lymphocytes # (1.0-4.8) k/uL ABG pH (7.35-7.45) ABG pCO2 (35-45) mmHg ABG pO2 (83-108) mmHg ABG O2 Saturation (94-97) % Chloride (98-107) mmol/L Carbon Dioxide (22-30) mmol/L BUN (9-20) mg/dL Creatinine (0.66-1.25) mg/dL Glucose (74-99) mg/dL POC Glucose (mg/dL) 232 H 196 H 179 H (75-99) mg/dL Calcium (8.4-10.2) mg/dL Phosphorus (2.5-4.5) mg/dL Magnesium (1.6-2.3) mg/dL 02/16/21 02/16/21 02/16/21 Range/Units 05:06 05:08 05:08 WBC 21.5 H (3.8-10.6) k/uL RBC 4.08 L (4.30-5.90) m/uL Hgb 7.4 L (13.0-17.5) gm/dL Hct 29.5 L (39.0-53.0) % MCV 72.2 L (80.0-100.0) fL MCH 18.2 L (25.0-35.0) pg MCHC 25.2 L (31.0-37.0) g/dL RDW 22.8 H (11.5-15.5) % Neutrophils # 20.6 H (1.3-7.7) k/uL Lymphocytes # 0.3 L (1.0-4.8) k/uL ABG pH (7.35-7.45) ABG pCO2 (35-45) mmHg ABG pO2 (83-108) mmHg ABG O2 Saturation (94-97) % Chloride 110 H (98-107) mmol/L Carbon Dioxide 19 L (22-30) mmol/L BUN 54 H (9-20) mg/dL Creatinine 2.23 H (0.66-1.25) mg/dL Glucose 161 H (74-99) mg/dL POC Glucose (mg/dL) (75-99) mg/dL Calcium 8.0 L (8.4-10.2) mg/dL Phosphorus 6.5 H (2.5-4.5) mg/dL Magnesium 2.8 H (1.6-2.3) mg/dL 02/16/21 02/16/21 02/16/21 Range/Units 05:22 06:56 11:43 WBC (3.8-10.6) k/uL RBC (4.30-5.90) m/uL Hgb (13.0-17.5) gm/dL Hct (39.0-53.0) % MCV (80.0-100.0) fL MCH (25.0-35.0) pg MCHC (31.0-37.0) g/dL RDW (11.5-15.5) % Neutrophils # (1.3-7.7) k/uL Lymphocytes # (1.0-4.8) k/uL ABG pH 7.46 H (7.35-7.45) ABG pCO2 31 L (35-45) mmHg ABG pO2 179 H (83-108) mmHg ABG O2 Saturation 99.7 H (94-97) % Chloride (98-107) mmol/L Carbon Dioxide (22-30) mmol/L BUN (9-20) mg/dL Creatinine (0.66-1.25) mg/dL Glucose (74-99) mg/dL POC Glucose (mg/dL) 211 H 177 H (75-99) mg/dL Calcium (8.4-10.2) mg/dL Phosphorus (2.5-4.5) mg/dL Magnesium (1.6-2.3) mg/dL Microbiology - Last 24 Hours (Table) 02/14/21 08:54 Blood Culture - Preliminary Blood No Growth after 48 hours 02/13/21 23:48 Gram Stain - Final Sputum Sputum Culture - Final Ruth albicans
[2021-02-16] MEDS: SODIUM FERRIC GLUCONAT-SUCROSE 125 MG in SODIUM CHLORIDE 0.9% 100 ML IVPB SCH (13:00)
--- NOTE | 2021-02-16 13:11 | P.PN ---
Progress Note - Text Progress Note Date: 02/16/21 The patient remains on the ventilator. He did some CPAP trials yesterday. On exam patient's belly. His abdomen soft. Incisions clean dry tach. Status post right colectomy for colonic tumor. Pathology still pending. Patient will have TPN started today.
--- NOTE | 2021-02-16 13:24 | PN ---
PROGRESS NOTE DATE OF SERVICE: This 80-year-old white male is status post ventricular tachycardia, cardiac arrest, hypoxemic respiratory failure, cardiomyopathy, ejection fraction 35%, possible aspiration pneumonia, elevated white count, on Zosyn, bilateral pleural effusion, bowel obstruction, status post colon resection, kidney disease. Tried to wean him off the vent. He did not tolerate it well yesterday on 02/15/2021. going to try to get tonight. Remains on Zosyn. Infectious disease consult, cardiology and elevator installer apprentice consults are all reviewed. He is resting comfortably on the vent. Lungs sound are clear. Cardiovascular: S1, S2. Hematology: Negative Homans. Labs reviewed. Cardiac notes reviewed. Collections Rep notes reviewed. Prognosis is guarded. Continue with IV antibiotics. Wean off the vent. Adjust electrolytes. Please see further orders. MMODL / IJN: [id number] /
[2021-02-16] MEDS: MVI, ADULT NO.4 WITH VIT K 10 ML, TRACE (CONC-1ML/DOSE) 1 ML, SODIUM ACETATE 30 MEQ, PO... IV SCH ×6 (13:38)
[2021-02-16] MEDS: NOREPINEPHRINE 4 MG in SODIUM CHLORIDE 0.9% 250 ML IV SCH (14:07)
--- NOTE | 2021-02-16 16:27 | P.PN ---
Subjective Progress Note Date: 02/16/21 (cct 35 min) Principal diagnosis: V. tach cardiac arrest Hypoxic respiratory failure Cardiomyopathy with ejection fraction of 35% Bilateral atelectasis Bilateral pleural effusion Bowel obstruction and resection of mass CK D 02/16/2021, patient seen eval reexamined during the rounds labs reviewed medications reviewed critical care time spent 35 minutes with the patient, and family meeting is present at bedside, patient has been attempted CPAP and pressure support but tired out yesterday today however he isn't better strep symptoms weaning, currently on CPAP the tidal volume of 300 400 respiratory rate slightly high however patient appears slightly confused we'll keep the CPAP as tolerated put him back on assist control at nighttime, his labs from today reviewed, afebrile, chest x-ray are not done today, blood cultures are meds reviewed remains on amiodarone and Zosyn with TPN 02/15/2021, critical care time 35 minutes patient remains sedated with propofol drip, remains on full ventilatory support assist control rate of 16 and breathing 16 tidal volume of 505 of PEEP and 100% oxygen, and discussed with RN to titrated oxygen down to 50-75% over 12 hours to 24 hours patient is not ready for weaning extubation, the left arm externalization appears to have happened causing his skin breakdown, will get a PICC line, arterial blood gas chest x-ray reviewed suspect venous sample, continue broad-spectrum antibiotics, white cell count is up to 19,000, BUN/creatinine is 143 and 1.94, echocardiogram reviewed LV mildly dilated with concentric LVH, ejection fraction is yesterday 5%, patient remains on amiodarone, Solu-Medrol and IV Zosyn, This is a 80-year-old male with the symptoms suggestive of bowel obstruction for which he was admitted into the hospital patient underwent exploratory laparotomy and the found to have a mass as well which was resected patient is end-to-end anastomosis, also had an adrenal gland mass which wasn't biopsied, around 8:15 PM patient because more short of breath feeling uneasy and lost his pulse. Breathing, he was noted to be in ventricular tachycardia require cardioversion times 08/02/2019 and 150 J after second return of spontaneous circulation was achieved, patient continued to have the episodes of V. tach, intubated by anesthesia transferred to the ICU, patient has been started on amiodarone, with that the V. tach appears to have controlled with 200 J into sinus rhythm, since a d-dimer was elevated patient underwent a computed tomography scan of the chest negative for PE however basal atelectasis and effusion was seen, patient currently on 0.17 mics of levo fed drip 25 mics of the propofol, cardiology on consult I have ordered an echocardiogram as well, reviewed computed tomography scan of the chest as well, patient remains on IV Zosyn noted white cell count is 30,000 likely contribution of the inflammatory change as well as is being stimulated due to steroids, however also noted lactic acid mildly elevated at 2.1, strokes are 5.03 BUN/creatinine is a 35/1.45 Objective - Vital Signs Vital signs: Vital Signs Temp 97.9 F 02/16/21 16:00 Pulse 63 02/16/21 16:00 Resp 18 02/16/21 16:00 BP 90/56 02/16/21 16:00 Pulse Ox 100 02/16/21 16:00 Intake & Output 02/15/21 02/16/21 02/16/21 18:59 06:59 18:59 Intake Total 8213.870 5284.01 1009.999 Output Total 425 940 345 Balance 905.182 405.01 664.999 Weight 86 kg 86 kg Intake: IV 803 750 650 .9 50 Sodium Chloride 0.9% 1, 550 650 450 000 ml @ 50 mls/hr IV . Q20H [facility] Rx#:[id number] Sodium Ferric Gluconat- 100 Sucrose 125 mg In Sodium Chloride 0.9% 100 ml @ 100 mls/hr IVPB Q24H [facility] Rx#:[id number] Zosyn IVPB 200 100 100 pressure bag 3 Intake, IV Titration 527.182 595.01 329.999 Amount Amiodarone 360 mg In 392.776 400 186.665 Dextrose 5% in Water 200 ml @ 1 MG/MIN 33.333 mls/ hr IV .Q6H [facility] Rx#: [id number] Mvi, Adult No.4 with Vit 90 K 10 ml Trace (Conc-1Ml/ Dose) 1 ml Sodium Acetate 30 meq Potassium Chloride 20 meq Calcium Gluconate 1 gm In Amino Acid 5%-D15w 1,000 ml @ 30 mls/hr IV .Q24H [facility] Rx #:[id number] Norepinephrine 4 mg In 2.074 Sodium Chloride 0.9% 250 ml @ 0.05 MCG/KG/MIN 15. 554 mls/hr IV .[id number] [facility] Rx#:[id number] propofoL 1,000 mg In 132.332 195.01 53.334 Empty Bag 1 bag @ Titrate IV .Q0M [facility] Rx#: [id number] Oral 30 Output: Gastric Drainage 500 Urine 425 440 345 Other: Voiding Method Indwelling Catheter Indwelling Catheter Indwelling Catheter - Exam Constitutional General appearance: average body habitus, cooperative, no acute distress - Neck Neck: normal ROM Carotids: bilateral: upstroke normal Thyroid: bilateral: normal size - Respiratory Respiratory: bilateral: diminished, rales - Cardiovascular Rhythm: regular Heart sounds: normal: S1, S2 - Gastrointestinal General gastrointestinal: soft - Integumentary Integumentary: normal turgor - Neurologic Neurologic: CNII-XII intact - Musculoskeletal Musculoskeletal: Left upper extremity his skin changes noted , overall is stable vascular follow - Psychiatric Sedated on full ventilator support - Labs CBC & Chem 7: 02/16/21 05:08 02/16/21 05:08 Labs: Abnormal Lab Results - Last 24 Hours (Table) 02/15/21 02/15/21 02/16/21 Range/Units 18:01 18:02 00:33 WBC (3.8-10.6) k/uL RBC (4.30-5.90) m/uL Hgb (13.0-17.5) gm/dL Hct (39.0-53.0) % MCV (80.0-100.0) fL MCH (25.0-35.0) pg MCHC (31.0-37.0) g/dL RDW (11.5-15.5) % Neutrophils # (1.3-7.7) k/uL Lymphocytes # (1.0-4.8) k/uL ABG pH (7.35-7.45) ABG pCO2 (35-45) mmHg ABG pO2 (83-108) mmHg ABG O2 Saturation (94-97) % Chloride (98-107) mmol/L Carbon Dioxide (22-30) mmol/L BUN (9-20) mg/dL Creatinine (0.66-1.25) mg/dL Glucose (74-99) mg/dL POC Glucose (mg/dL) 232 H 196 H 179 H (75-99) mg/dL Calcium (8.4-10.2) mg/dL Phosphorus (2.5-4.5) mg/dL Magnesium (1.6-2.3) mg/dL 02/16/21 02/16/21 02/16/21 Range/Units 05:06 05:08 05:08 WBC 21.5 H (3.8-10.6) k/uL RBC 4.08 L (4.30-5.90) m/uL Hgb 7.4 L (13.0-17.5) gm/dL Hct 29.5 L (39.0-53.0) % MCV 72.2 L (80.0-100.0) fL MCH 18.2 L (25.0-35.0) pg MCHC 25.2 L (31.0-37.0) g/dL RDW 22.8 H (11.5-15.5) % Neutrophils # 20.6 H (1.3-7.7) k/uL Lymphocytes # 0.3 L (1.0-4.8) k/uL ABG pH (7.35-7.45) ABG pCO2 (35-45) mmHg ABG pO2 (83-108) mmHg ABG O2 Saturation (94-97) % Chloride 110 H (98-107) mmol/L Carbon Dioxide 19 L (22-30) mmol/L BUN 54 H (9-20) mg/dL Creatinine 2.23 H (0.66-1.25) mg/dL Glucose 161 H (74-99) mg/dL POC Glucose (mg/dL) (75-99) mg/dL Calcium 8.0 L (8.4-10.2) mg/dL Phosphorus 6.5 H (2.5-4.5) mg/dL Magnesium 2.8 H (1.6-2.3) mg/dL 02/16/21 02/16/21 02/16/21 Range/Units 05:22 06:56 11:43 WBC (3.8-10.6) k/uL RBC (4.30-5.90) m/uL Hgb (13.0-17.5) gm/dL Hct (39.0-53.0) % MCV (80.0-100.0) fL MCH (25.0-35.0) pg MCHC (31.0-37.0) g/dL RDW (11.5-15.5) % Neutrophils # (1.3-7.7) k/uL Lymphocytes # (1.0-4.8) k/uL ABG pH 7.46 H (7.35-7.45) ABG pCO2 31 L (35-45) mmHg ABG pO2 179 H (83-108) mmHg ABG O2 Saturation 99.7 H (94-97) % Chloride (98-107) mmol/L Carbon Dioxide (22-30) mmol/L BUN (9-20) mg/dL Creatinine (0.66-1.25) mg/dL Glucose (74-99) mg/dL POC Glucose (mg/dL) 211 H 177 H (75-99) mg/dL Calcium (8.4-10.2) mg/dL Phosphorus (2.5-4.5) mg/dL Magnesium (1.6-2.3) mg/dL Microbiology - Last 24 Hours (Table) 02/14/21 08:54 Blood Culture - Preliminary Blood No Growth after 48 hours 02/13/21 23:48 Gram Stain - Final Sputum Sputum Culture - Final Ruth albicans Assessment and Plan Assessment: Aspiration pneumonia V. tach cardiac arrest Hypoxic respiratory failure Bilateral atelectasis Bilateral pleural effusion Bowel obstruction and resection of mass CK D Plan: Observe off of vasopressors, Keep CPAP pressure support during the day with assist control at nighttime Patient to be placed back on CPAP mode tomorrow Hold on extubation today as there are several issues family needs to discuss including CODE STATUS if patient decompensated with them to intubate or not status of colon mass Continue broad-spectrum antibiotics steroids and breathing treatment Echocardiogram Continue CPAP pressure support during the day along with assist control mode at nighttime patient to be placed back on CPAP tomorrow Time with Patient: Greater than 30
--- NOTE | 2021-02-16 17:32 | PN ---
PROGRESS NOTE DATE OF SERVICE: 02/16/2021 REASON FOR FOLLOWUP: Possible aspiration pneumonia and leukocytosis. INTERVAL HISTORY: The patient is afebrile. The patient is hemodynamically stable, not on pressor support. FiO2 is currently stable. No significant purulent secretions in the ET or diarrhea reported by the nursing staff. PHYSICAL EXAMINATION: On examination, blood pressure 111/55 with a pulse of 55, temperature 97.2. He is 100% on 40% FiO2. GENERAL DESCRIPTION: Elderly male lying in bed in no distress. RESPIRATORY SYSTEM: Unlabored breathing. Decreased breath sounds at the bases. No wheeze. HEART: S1, S2. Regular rate and rhythm. ABDOMEN: Soft. No tenderness. Left arm did have the area of discoloration. No worsening was noticed. LABS: Hemoglobin 7.4, BUN of 54, creatinine is 2.03. DIAGNOSTIC IMPRESSION AND PLAN: Patient with acute respiratory failure status post resuscitation and there was a concern for possible aspiration pneumonia. The patient is currently covered with Zosyn; to continue while waiting for the culture to finalize. Monitor his clinical course closely. MMODL / IJN: [id number] / MTDD
[2021-02-16 17:56] LABS: Glucose,Whole Blood 190 mg/dL (75-99)
--- NOTE | 2021-02-16 20:02 | CONS ---
CONSULTATION REASON FOR CONSULTATION: PICC line clearance. HISTORY OF PRESENT ILLNESS: The patient is a 80-year-old male who was admitted to the hospital with abdominal pain. He was found to have an abdominal mass, for which he had surgery on 02/08/2021. Patient had a right colectomy for a right colon mass and small-bowel obstruction. Patient sustained a cardiac arrest on 02/13/2021 and he has been intubated since then. He also had a chest CTA done on 02/13/2021 to rule out PE. This was negative. Patient's serum creatinine has been slowly increasing. It had been initially around 1.3. It increased to 1.5, 1.6, decreased back down to 1.27, and now it is up to 2.23. Urine output has been borderline. Patient was hypotensive and maintained on Levophed, which is now discontinued. He is currently maintained on saline at about 70 mL/hour. Levophed is off and he will be started on TPN. Patient's sputum culture grew Ruth. He is currently maintained on amiodarone drip. PAST MEDICAL HISTORY: Past medical history is significant for coronary artery disease, CVA, TIA, hyperlipidemia, hypertension, [place], osteoarthritis, peripheral vascular disease. PAST SURGICAL HISTORY: Cardiac catheterization, coronary stent placement, tonsillectomy, mitral valve repair, cataract surgery with lens implant. ALLERGIES: NONE. MEDICATIONS: Medication prior to admission included Ambien, Lipitor, Toprol, MiraLAX, Zestril, Colace, Xarelto, Flomax, Cipro. REVIEW OF SYSTEMS: Review of systems cannot be obtained. Patient is on the vent. He is currently awake. He is following commands. Awaiting possible extubation. PHYSICAL EXAMINATION: Patient is currently awake, comfortable. He is following commands. He is on the vent. Blood pressure 104/52, heart rate of 62 per minute. He is afebrile. EXAMINATION OF THE HEART: S1 and S2. EXAMINATION OF LUNGS: Bilateral breath sounds are heard. ABDOMEN: Soft, nontender. LOWER EXTREMITIES: Examination of lower extremities shows no significant edema. PET SITTER EXAM: Grossly intact. Patient is following commands. LABS: Labs show sodium of 141, potassium 4.7, chloride 110. CO2 is 19, BUN 54, creatinine 2.23, hemoglobin of 7.4 g/dL. ASSESSMENT: 1. Acute kidney injury, acute tubular necrosis, currently nonoliguric, secondary to hypotension. Patient was on Levophed. Currently he is off of Levophed. Blood pressure is staying above 100 mmHg. I will continue with the saline at 50 mL/hour. However, when patient starts the TPN, we can discontinue the saline. Blood pressure is on the lower side. We can add midodrine if he continues to have systolic below 100 mmHg. 2. Right colonic mass, status post resection/colectomy. 3. Atrial fibrillation, maintained on amiodarone drip, being followed by Cardiology. Patient has history of chronic persistent atrial fibrillation. 4. History of mitral valve repair. 5. History of coronary artery disease, status post coronary artery stenting. 6. Cardiomyopathy; ejection fraction 30% to 35%. 7. Status post cardiac arrest. PLAN: Continue with saline. Once TPN is started, we can discontinue the saline. Add midodrine if blood pressure remains low. Continue to avoid nephrotoxic agents. There is probably a component of contrast nephropathy as well, as patient had dye for CTA on 02/13/2021. Okay to proceed with PICC line. Thank you for this consultation. Will continue to follow the patient with you during his hospitalization. MMODL / IJN: [id number] /
[2021-02-17 00:24] LABS: Glucose,Whole Blood 213 mg/dL (75-99)
[2021-02-17] MEDS: methylPREDNISolone SOD SUCCI 40 MG/ML 1 ML VIAL IV SCH ×3 (00:45→16:29)
[2021-02-17] MEDS: INSULIN ASPART (NovoLOG) 100 UNIT/ML VIAL SQ SCH ×4 (00:45→18:13)
[2021-02-17] MEDS: PIPERACILLIN-TAZOBACTAM 3.375 GM in SODIUM CHLORIDE 0.9% 100 ML IVPB SCH ×3 (00:45→16:29)
[2021-02-17] MEDS: AMIODARONE 360 MG in DEXTROSE 5% IN WATER 200 ML IV SCH ×10 (00:46→23:35)
[2021-02-17] MEDS: IPRATROPIUM-ALBUTEROL 3 ML NEB INHALATION SCH ×5 (03:35→20:08)
[2021-02-17 04:36] LABS: Anisocytosis Marked; HGB 7.1 gm/dL (13.0-17.5); Hypochromasia Marked; MCH 19.6 pg (25.0-35.0); MCHC 26.3 g/dL (31.0-37.0); MCV 74.5 fL (80.0-100.0); Mean Platelet Volume 9.1; Microcytosis Marked; Platelet Count 285 k/uL (150-450); Poikilocytosis Slight; RBC 3.63 m/uL (4.30-5.90); RDW 24.8 % (11.5-15.5); WBC 20.5 k/uL (3.8-10.6)
[2021-02-17 04:52] LABS: Albumin 2.3 g/dL (3.5-5.0); Calcium 7.9 mg/dL (8.4-10.2); Magnesium 2.9 mg/dL (1.6-2.3); Phosphorus 6.2 mg/dL (2.5-4.5); Potassium 3.8 mmol/L (3.5-5.1); Total Bilirubin 0.8 mg/dL (0.2-1.3); Total Protein 4.8 g/dL (6.3-8.2)
[2021-02-17 05:34] LABS: ABG Base Excess -2.5 mmol/L; ABG HCO3 22 mmol/L (21-25); ABG Oxygen Saturation 99.7 % (94-97); ABG PCO2 34 mmHg (35-45); ABG PH 7.42 (7.35-7.45); ABG PO2 162 mmHg (83-108); ABG TCO2 23 mmol/L (19-24); Allen Test Performed? Yes
[2021-02-17 06:48] LABS: Glucose,Whole Blood 249 mg/dL (75-99)
[2021-02-17] MEDS: NOREPINEPHRINE 4 MG in SODIUM CHLORIDE 0.9% 250 ML IV SCH (07:04)
--- NOTE | 2021-02-17 07:36 | PN ---
PROGRESS NOTE 80-year-old white male with ventricular tachycardia, cardiac arrest, hypoxic respiratory failure, cardiomyopathy, ejection fraction 35%, bilateral atelectasis, bilateral pleural effusion, bowel obstruction, resection mass is having difficulty weaning off the vent. He is up. He is awake. He has been weaned off sedation. He is shaking his head to no answers. He is moving his extremities, but he is trying to get off the vent. Discussed the case with Dr. Willoughby and family. Vital signs reviewed. Cardiovascular S1, S2. Lungs clear. GI soft. Hematology negative Homans. Psych: Fair mood and affect. ASSESSMENT: 1. Acute hypoxemic respiratory distress status post cardiac arrest. 2. Aspiration pneumonia. 3. Atrial fibrillation. 4. Hypertension. 5. Electrolyte abnormalities. 6. Prerenal renal failure. 7. Chronic kidney disease. 8. Prognosis extremely guarded. Try to wean off vent as tolerated. He has been weaned off vasopressors. Continue broad-spectrum antibiotics. Discussed case with family and litigation claim representative. MMODL / IJN: [id number] /
[2021-02-17] MEDS: ENOXAPARIN 30 MG/0.3 ML SYRINGE SQ SCH (08:43)
[2021-02-17] MEDS: CHLORHEXIDINE GLUCONATE 15 ML CUP MUCOUS MEM SCH (08:43)
[2021-02-17] MEDS: PANTOPRAZOLE 40 MG/10 ML VIAL IV SCH (08:44)
[2021-02-17] MEDS: ATORVASTATIN 40 MG TAB PO SCH (08:44)
--- NOTE | 2021-02-17 10:42 | P.PN ---
Subjective Progress Note Date: 02/17/21 HISTORY OF PRESENT ILLNESS: This is a pleasant 80-year-old male past medical history significant for chronic persistent atrial fibrillation, coronary artery disease status post multivessel PCI in 2016, ischemic cardiomyopathy, hypertension, hyperlipidemia, mitral valve repair in 2002, history of inguinal and umbilical hernia repair. He used to follow in the office with Dr. Hammond, have ever has not followed up since 2019. He is not seeing a new seaming inspector at this time. We have been asked to see in consultation for atrial fibrillation with rapid ventricular response. Patient is seen and examined at bedside, patient presents emergency department with complaints of abdominal pain and nausea and vomiting for 3 days. He ate some salmon from [employer] and thought he had food poisoning, however, his symptoms worsened. CT abdomen and pelvis revealed high-grade small bowel obstruction session with small bowel loops dilated to 4.8 cm. Mild dull ascites, cecum is also fluid filled measuring up to 6.7 cm we suggested transition point at the lower ascending colon. Benign 3.7 cm right adrenal adenoma and to continued shortness of abdominal aortic aneurysm in the mid and distal abdominal aorta measuring up to 0.3 cm cyst, generalized colonic diverticulosis. Surgery was c onsulted. NG tube was placed. Patient states he had 2 bowel movements today. On admission, patient did not receive his metoprolol succinate. Today, patient recieved metoprolol tartrate 50mg once, and his home dose of metoprolol succinate 25mg daily With improved rates currently in low 100s. In June 2016, patient had an abnormal lexiscan stress test. Patient underwent cardiac catheterization and PCI after in 2016. Patient states he has not follow up with cardiology since 2019, he has been following up regularly with his PCP. He states since 2019 he has not had any recent cardiac workup or cardiac catheterizations. In 2019, patient stopped taking his Eliquis because he was also taking Plavix and Aspirin at that time. He had EKG changes at that time, cardiac catheterization was recommended but patient did not proceed at that time. DIAGNOSTICS -Cardiac catheterization history includes: 07/2016 which revealed critical stenosis involving the proximal LAD, significant stenosis on the ramus intermedius in the proximal left circumflex, mild disease in RCA. Patient subsequently underwent stenting to the proximal circumflex, proximal LAD x2, and proximal ramus intermedius -Most recent echocardiogram 11/2018 revealed an EF of 32%, moderate concentric hypertrophy, akinesis of the anterior wall and anterior septum from the mid wall to the apex, akinesis of the septum from mid-wall to apex, akinesis of anterio and later ibarra. akinesis of inferior wall at the apex, severely dilated left atrium, mild aortic regurgitation, mild prosthetic valvular regurgitation, moderate tricuspid regurgitation 02/08/21: Patient underwent right colectomy with Dr. Adamson. 02/09/2021: Patient seen and examined at bedside, no acute distress. Blood pressure 125/60, heart rate 116, afebrile, maintaining oxygen saturations 95% 2 L nasal cannula. Telemetry reviewed patient continues to be atrial fibrillation heart rate 110 and 120. Patient did have an episode of 8 beat NSVT run. Patient is asymptomatic. Laboratory data reviewed sodium 143, potassium 3.4, BUN 38, serum creatinine 1.5, WBC 9.9, hemoglobin 7.6, platelets 296. Patient currently maintained on Bumex 1 mg daily, atorvastatin 40 mg daily, metoprolol succinate 50 mg daily. 02/10/2021 Patient is status post right colectomy. Patient examined this morning. He is sitting up in the chair. He is tolerating clear liquid diet. He denies chest pain or pressure. Denies short as of breath. Telemetry reveals atrial fibrillation with heart rate around 100. Anticoagulation was discussed with the patient and Dr. Buckner. The patient refuses to take Eliquis. He is willing to try other anticoagulation medications though. Echocardiogram completed revealing ejection fraction 30-35%. Multiple LV wall motion abnormalities. Trace amount of aortic regurgitation. Mitral valve repair. Moderate to severe tricuspid regurgitation. Severe pulmonary hypertension. 02/11/2021 Patient is status post right colectomy with Dr. Adamson. Patient was started on anticoagulation yesterday with Xarelto. Hemoglobin today 7.1. BUN 43. Creatinine 1.39. Blood pressure 103/68. He is on room air with oxygen satu rations greater than 92%. Telemetry reviewed revealing atrial fibrillation with heart rate around 100-105. Patient does complain of abdominal pain. Patient also was febrile this morning. 02/15/2021 Patient examined this morning at the bedside in the intensive care unit. Patient went into V. fib arrest over the weekend. He remains intubated. Telemetry reveals sinus mechanism. He remains on IV amiodarone. Blood pressure 89/51. He is currently off his pressors. FiO2 60% 02/16/2021 Patient examined this morning at the bedside. Patient remains on mechanical ventilation. FiO2 has been decreased to 40%. He remains off vasopressor support. Blood pressure is stable. He remains in sinus mechanism. He continues on a amiodarone infusion. 02/17/2021 Patient examined this morning in the intensive care unit. Patient remains on mechanical ventilation. Patient did CPAP yesterday and tolerated well. He remains hemodynamically stable. He is not requiring any vasopressor support. Telemetry reveals sinus mechanism. He remains on amiodarone infusion. PHYSICAL EXAM: VITAL SIGNS: Reviewed. GENERAL: Well-developed in no acute distress. NECK: Supple. No JVD or thyromegaly LUNGS: Respirations even and unlabored. Lungs essentially clear to auscultation bilaterally. HEART: Irregular rate and rhythm. S1 and S2 heard. Systolic murmur noted. EXTREMITIES: Normal range of motion. No clubbing or cyanosis. Peripheral pulses intact. 1+ bilateral lower extremity edema ASSESSMENT: Right colon mass causing small bowel obstruction, status post right colectomy Paroxysmal atrial fibrillation with RVR V. fib arrest requiring defibrillation Acute hypoxic respiratory failure requiring mechanical ventilation Coronary artery disease status post multivessel PCI, 2016 Ischemic cardiomyopathy, ejection fraction 30-35% Hypertension Hyperlipidemia History of mitral valve repair, 2002 Hypokalemia Acute kidney injury PLAN: Continue current cardiac medications Continue IV amio while intubated. Once extubated while change amiodarone to oral dosing 400 mg twice a day Further recommendations pending patient course Nurse practitioner note has been reviewed by physician. Signing provider agrees with the documented findings, assessment, and plan of care. Objective - Vital Signs Vital signs: Vital Signs Temp 98.0 F 02/17/21 00:00 Pulse 54 L 02/17/21 09:10 Resp 19 02/17/21 09:00 BP 118/60 02/17/21 09:00 Pulse Ox 100 02/17/21 09:00 Intake & Output 02/16/21 02/17/21 02/17/21 18:59 06:59 18:59 Intake Total 0786.431 3413 346.879 Output Total 575 640 150 Balance 874.277 490 196.879 Weight 86 kg 86.4 kg Intake: IV 850 700 250 Sodium Chloride 0.9% 1, 550 600 150 000 ml @ 50 mls/hr IV . Q20H MARY Rx#:[id number] Sodium Ferric Gluconat- 100 Sucrose 125 mg In Sodium Chloride 0.9% 100 ml @ 100 mls/hr IVPB Q24H MARY Rx#:[id number] Zosyn IVPB 200 100 100 Intake, IV Titration 569.277 430 96.879 Amount Amiodarone 360 mg In 364.997 400 Dextrose 5% in Water 200 ml @ 1 MG/MIN 33.333 mls/ hr IV .Q6H MARY Rx#: [id number] Mvi, Adult No.4 with Vit 150 30 K 10 ml Trace (Conc-1Ml/ Dose) 1 ml Sodium Acetate 30 meq Potassium Chloride 20 meq Calcium Gluconate 1 gm In Amino Acid 5%-D15w 1,000 ml @ 30 mls/hr IV .Q24H MARY Rx #:[id number] propofoL 1,000 mg In 54.280 96.879 Empty Bag 1 bag @ Titrate IV .Q0M MARY Rx#: [id number] Oral 30 Output: Gastric Drainage 150 50 Urine 425 590 150 Other: Voiding Method Indwelling Catheter Indwelling Catheter Indwelling Catheter - Labs CBC & Chem 7: 02/17/21 04:10 02/17/21 04:10 Labs: Abnormal Lab Results - Last 24 Hours (Table) 02/16/21 02/16/21 02/16/21 Range/Units 05:06 11:43 17:54 WBC (3.8-10.6) k/uL RBC (4.30-5.90) m/uL Hgb (13.0-17.5) gm/dL Hct (39.0-53.0) % MCV (80.0-100.0) fL MCH (25.0-35.0) pg MCHC (31.0-37.0) g/dL RDW (11.5-15.5) % ABG pCO2 (35-45) mmHg ABG pO2 (83-108) mmHg ABG O2 Saturation (94-97) % Chloride (98-107) mmol/L Carbon Dioxide (22-30) mmol/L BUN (9-20) mg/dL Creatinine (0.66-1.25) mg/dL Glucose (74-99) mg/dL POC Glucose (mg/dL) 177 H 190 H (75-99) mg/dL Calcium (8.4-10.2) mg/dL Phosphorus 6.5 H (2.5-4.5) mg/dL Magnesium (1.6-2.3) mg/dL Total Protein (6.3-8.2) g/dL Albumin (3.5-5.0) g/dL 02/17/21 02/17/21 02/17/21 Range/Units 00:22 04:10 04:10 WBC 20.5 H (3.8-10.6) k/uL RBC 3.63 L (4.30-5.90) m/uL Hgb 7.1 L (13.0-17.5) gm/dL Hct 27.0 L (39.0-53.0) % MCV 74.5 L (80.0-100.0) fL MCH 19.6 L (25.0-35.0) pg MCHC 26.3 L (31.0-37.0) g/dL RDW 24.8 H (11.5-15.5) % ABG pCO2 (35-45) mmHg ABG pO2 (83-108) mmHg ABG O2 Saturation (94-97) % Chloride 109 H (98-107) mmol/L Carbon Dioxide 21 L (22-30) mmol/L BUN 64 H (9-20) mg/dL Creatinine 2.44 H (0.66-1.25) mg/dL Glucose 204 H (74-99) mg/dL POC Glucose (mg/dL) 213 H (75-99) mg/dL Calcium 7.9 L (8.4-10.2) mg/dL Phosphorus 6.2 H (2.5-4.5) mg/dL Magnesium 2.9 H (1.6-2.3) mg/dL Total Protein 4.8 L (6.3-8.2) g/dL Albumin 2.3 L (3.5-5.0) g/dL 02/17/21 02/17/21 Range/Units 05:32 06:47 WBC (3.8-10.6) k/uL RBC (4.30-5.90) m/uL Hgb (13.0-17.5) gm/dL Hct (39.0-53.0) % MCV (80.0-100.0) fL MCH (25.0-35.0) pg MCHC (31.0-37.0) g/dL RDW (11.5-15.5) % ABG pCO2 34 L (35-45) mmHg ABG pO2 162 H (83-108) mmHg ABG O2 Saturation 99.7 H (94-97) % Chloride (98-107) mmol/L Carbon Dioxide (22-30) mmol/L BUN (9-20) mg/dL Creatinine (0.66-1.25) mg/dL Glucose (74-99) mg/dL POC Glucose (mg/dL) 249 H (75-99) mg/dL Calcium (8.4-10.2) mg/dL Phosphorus (2.5-4.5) mg/dL Magnesium (1.6-2.3) mg/dL Total Protein (6.3-8.2) g/dL Albumin (3.5-5.0) g/dL Microbiology - Last 24 Hours (Table) 02/14/21 08:54 Blood Culture - Preliminary Blood No Growth after 48 hours 02/13/21 23:48 Gram Stain - Final Sputum Sputum Culture - Final Ruth albicans
[2021-02-17 12:01] LABS: Glucose,Whole Blood 260 mg/dL (75-99)
[2021-02-17] MEDS: SODIUM FERRIC GLUCONAT-SUCROSE 125 MG in SODIUM CHLORIDE 0.9% 100 ML IVPB SCH (12:20)
--- NOTE | 2021-02-17 16:31 | PN ---
PROGRESS NOTE Patient is seen for followup for acute kidney injury associated with hypotension, hypoperfusion as well as some degree of contrast nephropathy. The patient has been off of pressors. Blood pressure has been holding around 100-120 mmHg systolic. He is currently maintained on TPN. He remains on the vent. He had been awake and following commands and did well on CPAP yesterday. PHYSICAL EXAMINATION: On examination today, blood pressure 117/54, heart rate 61 per minute. Patient is afebrile. He is currently sedated. EXAMINATION OF THE HEART: S1 and S2. EXAMINATION OF LUNGS: Bilateral breath sounds are heard. ABDOMEN: Soft. LOWER EXTREMITIES: Examination of lower extremities shows edema 1+ bilaterally. LABS: Labs show sodium 139, potassium 3.8, chloride 109, BUN 64, creatinine 2.4, hemoglobin 7.1 g/dL. ASSESSMENT: 1. Acute kidney injury secondary to hypotension, hypoperfusion and contrast nephropathy. Serum creatinine slightly higher. Patient is nonoliguric. No nephrotoxic agents on board. Continue with the TPN. We can discontinue the saline. 2. Colonic mass, status post right colectomy. 3. Atrial fibrillation, maintained on amiodarone. Patient has history of underlying chronic atrial fibrillation. 4. History of mitral valve repair. 5. Cardiomyopathy, ejection fraction 30% to 35%. 6. Status post cardiac arrest this admission. PLAN: Discontinue the saline. Continue with TPN. Check iron studies if not done this admission. MMODL / IJN: [id number] /
[2021-02-17 17:33] LABS: Glucose,Whole Blood 171 mg/dL (75-99)
--- NOTE | 2021-02-17 18:10 | PN ---
PROGRESS NOTE DATE OF SERVICE: 02/17/2021 REASON FOR FOLLOWUP: Aspiration pneumonia. INTERVAL HISTORY: The patient is afebrile. The patient is hemodynamically stable, not on pressor support. FiO2 is currently stable at 40%. No purulent secretions through the ET and diarrhea reported by the nursing staff PHYSICAL EXAMINATION: Blood pressure 121/58 with a pulse of 80, temperature is 98.6. She is 100% on 40% FiO2. GENERAL DESCRIPTION: General description is an elderly male lying in bed in no distress. RESPIRATORY SYSTEM: Unlabored breathing. Decreased intensity of breath sounds. No wheeze. HEART: S1, S2. Regular rate and rhythm. ABDOMEN: Soft. Mildly distended. No guarding or rigidity. Left arm area of discoloration about the same; no worsening or redness. LABS: Hemoglobin 7.1, BUN of 64, creatinine is 2.44. DIAGNOSTIC IMPRESSION AND PLAN: Patient with leukocytosis, multifactorial, in this patient who did have abdominal surgery for a tumor; subsequent did have cardiac arrest with a concern for possible aspiration pneumonitis. Patient is covered with Zosyn. Persistent elevated white count is more likely due to steroid effect. We will monitor closely. Continue supportive care. MMODL / IJN: [id number] / DARIANA
[2021-02-17 20:47] LABS: % Iron Saturation 11.39 (15.00-50.00)
--- NOTE | 2021-02-17 22:53 | PN ---
PROGRESS NOTE 80-year-old white male acute kidney injury, hypotension, hypoperfusion, possible contrast nephropathy. He has been off vasopressors. He has been weaned off the vent. His blood pressure is maintaining 100 to 120 systolic. Blood pressure is 117/54, heart rate 60, afebrile. Cardiovascular S1-S2. Lungs clear. GI soft. Hematology negative Yoandy. Patient shaking head. His speech is minimal. He has acute kidney injury secondary to hypotension, hypoperfusion, contrast nephropathy, status post colonic mass, atrial fibrillation, mitral valve repair, cardiomyopathy, he is status post cardiac arrest. Continue TPN, PT/OT. Monitor electrolytes and renal function. Continue with antibiotics for aspiration pneumonia. Prognosis guarded. MMODL / IJN: [id number] /
[2021-02-18] MEDS: methylPREDNISolone SOD SUCCI 40 MG/ML 1 ML VIAL IV SCH ×3 (01:00→16:45)
[2021-02-18] MEDS: PIPERACILLIN-TAZOBACTAM 3.375 GM in SODIUM CHLORIDE 0.9% 100 ML IVPB SCH ×3 (01:00→16:45)
[2021-02-18] MEDS: INSULIN ASPART (NovoLOG) 100 UNIT/ML VIAL SQ SCH ×4 (01:03→18:23)
[2021-02-18 01:04] LABS: Glucose,Whole Blood 83 mg/dL (75-99)
[2021-02-18] MEDS: MVI, ADULT NO.4 WITH VIT K 10 ML, TRACE (CONC-1ML/DOSE) 1 ML, SODIUM ACETATE 30 MEQ, PO... IV SCH ×6 (01:04)
[2021-02-18] MEDS: NOREPINEPHRINE 4 MG in SODIUM CHLORIDE 0.9% 250 ML IV SCH ×2 (05:38→16:23)
[2021-02-18] MEDS: AMIODARONE 360 MG in DEXTROSE 5% IN WATER 200 ML IV SCH ×4 (05:45→14:20)
[2021-02-18 05:46] LABS: Glucose,Whole Blood 351 mg/dL (75-99)
[2021-02-18 05:52] LABS: Glucose,Whole Blood 135 mg/dL (75-99)
[2021-02-18 06:04] LABS: Anisocytosis Marked; Basophils % (A) 0 %; Eosinophils # (A) 0.1 k/uL (0-0.7); Eosinophils % (A) 0 %; HCT 31.7 % (39.0-53.0); HGB 7.9 gm/dL (13.0-17.5); Hypochromasia Marked; Lymphocytes # (A) 0.2 k/uL (1.0-4.8); Lymphocytes % (A) 1 %; MCH 18.7 pg (25.0-35.0); MCHC 24.9 g/dL (31.0-37.0); MCV 74.9 fL (80.0-100.0); Mean Platelet Volume 7.9; Microcytosis Marked; Monocytes # (A) 0.5 k/uL (0-1.0); Monocytes % (A) 3 %; Neutrophils # (A) 18.3 k/uL (1.3-7.7); Neutrophils % (A) 96 %; Platelet Count 284 k/uL (150-450); Poikilocytosis Slight; RBC 4.23 m/uL (4.30-5.90); WBC 19.1 k/uL (3.8-10.6)
[2021-02-18 06:38] LABS: RDW 25.7 % (11.5-15.5)
[2021-02-18 06:49] LABS: Albumin 2.5 g/dL (3.5-5.0); Calcium 8.7 mg/dL (8.4-10.2); Magnesium 2.7 mg/dL (1.6-2.3); Phosphorus 4.9 mg/dL (2.5-4.5); Potassium 3.6 mmol/L (3.5-5.1); Total Bilirubin 1.1 mg/dL (0.2-1.3); Total Protein 5.1 g/dL (6.3-8.2)
[2021-02-18] MEDS: IPRATROPIUM-ALBUTEROL 3 ML NEB INHALATION SCH ×4 (08:39→19:06)
[2021-02-18] MEDS: ENOXAPARIN 30 MG/0.3 ML SYRINGE SQ SCH (08:50)
[2021-02-18] MEDS: PANTOPRAZOLE 40 MG/10 ML VIAL IV SCH (08:50)
[2021-02-18] MEDS ORDERED: POTASSIUM BICARBONATE/CIT AC 20 MEQ TABLET.EFF PO SCH (09:30)
[2021-02-18] MEDS: ATORVASTATIN 40 MG TAB PO SCH (09:44)
[2021-02-18] MEDS: POTASSIUM CHLORIDE 10 MEQ in WATER FOR INJECTION 1 100ML.BAG IVPB SCH ×2 (10:17→11:16)
[2021-02-18] MEDS: METOPROLOL TARTRATE 5 MG/5 ML VIAL IVP SCH ×2 (10:34→16:45)
[2021-02-18] MEDS: HYDROmorphone 1 MG/ML 1 ML SYRINGE IVP PRN ×2 (10:46→18:24)
[2021-02-18] MEDS: FAT EMULSION 20% 500 ML in EMPTY BAG 1 BAG IV SCH (11:16)
[2021-02-18 11:29] LABS: Glucose,Whole Blood 198 mg/dL (75-99)
--- NOTE | 2021-02-18 11:29 | P.PN ---
Progress Note - Text Progress Note Date: 02/18/21 Patient remains extubated. He is not alert today. On exam her vital signs are stable. Abdomen is soft. Incision is clean dry tach Status post right colectomy for right colon cancer. Patient will continue receive supportive care.
--- NOTE | 2021-02-18 11:29 | P.PN ---
Subjective Patient is now extubated but he does not respond to any verbal commands Pulse rate in the 70s and 80s, respirations 25, mild short of breath Blood pressure 133/78 mmHg Breath sounds are reduced bilaterally Heart sounds are soft Patient is unable to swallow at this time White count 19,000, hemoglobin 7.9 Potassium 3.6 sodium 144 BUN 69 and creatinine 2.2 Impression Known ischemic cardio myopathy VF arrest Status post resuscitation Status post extubation Plan At this point it is unsafe for the patient to take orally pending his swallowing evaluation Continue IV amiodarone at a low dose of 0.5 mg a minute If the blood pressure allows it then metoprolol IV 2.5 mg every 8 hours Discussed with the nurse Objective - Vital Signs Vital signs: Vital Signs Temp 98.0 F 02/18/21 08:00 Pulse 68 02/18/21 11:00 Resp 36 H 02/18/21 11:00 BP 133/78 02/18/21 11:00 Pulse Ox 92 L 02/18/21 11:00 Intake & Output 02/17/21 02/18/21 02/18/21 18:59 06:59 18:59 Intake Total 8902.784 0624.887 441.665 Output Total 785 975 340 Balance 444.695 839.887 101.665 Weight 86 kg Intake: IV 720 390 275 Mvi, Adult No.4 with Vit 120 K 10 ml Trace (Conc-1Ml/ Dose) 1 ml Sodium Acetate 30 meq Potassium Chloride 20 meq Calcium Gluconate 1 gm In Amino Acid 5%-D15w 1,000 ml @ 30 mls/hr IV .Q24H MARY Rx #:[id number] Sodium Chloride 0.9% 1, 420 290 80 000 ml @ 50 mls/hr IV . Q20H MARY Rx#:[id number] Sodium Ferric Gluconat- 100 Sucrose 125 mg In Sodium Chloride 0.9% 100 ml @ 100 mls/hr IVPB Q24H MARY Rx#:[id number] Zosyn IVPB 200 100 75 Intake, IV Titration 114.593 7698.887 166.665 Amount Amiodarone 360 mg In 371.665 378.887 166.665 Dextrose 5% in Water 200 ml @ 0.5 MG/MIN 16.667 mls/hr IV .Q12H MARY Rx#: [id number] Mvi, Adult No.4 with Vit 1046 K 10 ml Trace (Conc-1Ml/ Dose) 1 ml Sodium Acetate 30 meq Potassium Chloride 20 meq Calcium Gluconate 1 gm In Amino Acid 5%-D15w 1,000 ml @ 30 mls/hr IV .Q24H MARY Rx #:[id number] propofoL 1,000 mg In 138.030 Empty Bag 1 bag @ Titrate IV .Q0M MARY Rx#: [id number] Output: Urine 785 975 340 Other: Voiding Method Indwelling Catheter Indwelling Catheter Indwelling Catheter - Labs CBC & Chem 7: 02/18/21 05:35 02/18/21 05:35 Labs: Abnormal Lab Results - Last 24 Hours (Table) 02/17/21 02/17/21 02/17/21 Range/Units 12:00 14:51 17:32 WBC (3.8-10.6) k/uL RBC (4.30-5.90) m/uL Hgb (13.0-17.5) gm/dL Hct (39.0-53.0) % MCV (80.0-100.0) fL MCH (25.0-35.0) pg MCHC (31.0-37.0) g/dL RDW (11.5-15.5) % Neutrophils # (1.3-7.7) k/uL Lymphocytes # (1.0-4.8) k/uL Chloride (98-107) mmol/L BUN (9-20) mg/dL Creatinine (0.66-1.25) mg/dL Glucose (74-99) mg/dL POC Glucose (mg/dL) 260 H 171 H (75-99) mg/dL Phosphorus (2.5-4.5) mg/dL Magnesium (1.6-2.3) mg/dL Iron 27 L (65-175) ug/dL % Saturation 11.39 L (15.00-50.00) Total Protein (6.3-8.2) g/dL Albumin (3.5-5.0) g/dL 02/18/21 02/18/21 02/18/21 Range/Units 05:35 05:35 05:44 WBC 19.1 H (3.8-10.6) k/uL RBC 4.23 L (4.30-5.90) m/uL Hgb 7.9 L (13.0-17.5) gm/dL Hct 31.7 L (39.0-53.0) % MCV 74.9 L (80.0-100.0) fL MCH 18.7 L (25.0-35.0) pg MCHC 24.9 L (31.0-37.0) g/dL RDW 25.7 H (11.5-15.5) % Neutrophils # 18.3 H (1.3-7.7) k/uL Lymphocytes # 0.2 L (1.0-4.8) k/uL Chloride 112 H (98-107) mmol/L BUN 69 H (9-20) mg/dL Creatinine 2.18 H (0.66-1.25) mg/dL Glucose 133 H (74-99) mg/dL POC Glucose (mg/dL) 351 H (75-99) mg/dL Phosphorus 4.9 H (2.5-4.5) mg/dL Magnesium 2.7 H (1.6-2.3) mg/dL Iron (65-175) ug/dL % Saturation (15.00-50.00) Total Protein 5.1 L (6.3-8.2) g/dL Albumin 2.5 L (3.5-5.0) g/dL 02/18/21 Range/Units 05:50 WBC (3.8-10.6) k/uL RBC (4.30-5.90) m/uL Hgb (13.0-17.5) gm/dL Hct (39.0-53.0) % MCV (80.0-100.0) fL MCH (25.0-35.0) pg MCHC (31.0-37.0) g/dL RDW (11.5-15.5) % Neutrophils # (1.3-7.7) k/uL Lymphocytes # (1.0-4.8) k/uL Chloride (98-107) mmol/L BUN (9-20) mg/dL Creatinine (0.66-1.25) mg/dL Glucose (74-99) mg/dL POC Glucose (mg/dL) 135 H (75-99) mg/dL Phosphorus (2.5-4.5) mg/dL Magnesium (1.6-2.3) mg/dL Iron (65-175) ug/dL % Saturation (15.00-50.00) Total Protein (6.3-8.2) g/dL Albumin (3.5-5.0) g/dL Microbiology - Last 24 Hours (Table) 02/14/21 08:54 Blood Culture - Preliminary Blood No Growth after 96 hours
--- NOTE | 2021-02-18 12:47 | PN ---
PROGRESS NOTE Patient is seen for followup for acute kidney injury, mostly ATN associated with hypotension and history of cardiac arrest. The patient was extubated yesterday. This morning, however, he has not been following commands. He is status post right colectomy for a right colonic abscess, currently maintained on TPN. Renal function has been improving, with serum creatinine now decreased to 2.1 from 2.4 yesterday. Urine output is maintained at about 75 to 50 mL/hour. PHYSICAL EXAMINATION: On examination today, blood pressure was 126/67, heart rate 82 per minute. Patient is afebrile. EXAMINATION OF THE HEART: S1 and S2. EXAMINATION OF LUNGS: Decreased breath sounds at the bases. Upper airway sounds are heard. ABDOMEN: Soft. LOWER EXTREMITIES: Examination of lower extremities shows edema 1+ bilaterally with scrotal edema as well. COTTON DISPATCHER EXAM: Grossly intact. LABS: Labs show hemoglobin 7.9, sodium 144, potassium 3. , chloride 112, BUN 69, creatinine 2.18. ASSESSMENT: 1. Acute kidney injury, acute tubular necrosis, secondary to hypotension and contrast nephropathy, currently nonoliguric with improving renal function. The patient is mildly hypervolemic and we will give a dose of IV Lasix today. He is maintained on TPN, as patient is not able to tolerate oral diet since he is postoperative. 2. Status post right hemicolectomy for right colonic mass and bowel obstruction, currently on TPN. 3. Status post cardiac arrest, currently extubated. 4. Mental status changes, which appears to be new from yesterday or the day before yesterday. Consider CT of the head. PLAN: IV Lasix x1. May continue TPN. Repeat labs in a.m. Avoid nephrotoxic agents. MMODL / IJN: [id number] /
[2021-02-18] MEDS ORDERED: FUROSEMIDE 10 MG/ML 4 ML VIAL IV STA (13:50)
[2021-02-18] MEDS: SODIUM FERRIC GLUCONAT-SUCROSE 125 MG in SODIUM CHLORIDE 0.9% 100 ML IVPB SCH (14:20)
--- NOTE | 2021-02-18 16:09 | CT ---
EXAMINATION TYPE: CT brain wo con DATE OF EXAM: 02/18/2021 COMPARISON: None HISTORY: 80-year-old male confusion, altered mental status TECHNIQUE: Examination was done in axial plane without intravenous contrast. Coronal and sagittal r econstructions performed. CT DLP: 1173.4 mGycm Automated exposure control for dose reduction was used. FINDINGS: There is no evidence of acute intracranial hemorrhage, acute ischemic changes, mass, mass-effect, or extra-axial fluid collection. There is no effacement of cerebral sulci or basal subarachnoid cister ns. There is no hydrocephalus. There is no midline shift. Menon-white matter distinction is preserv ed. Mild bifrontal cerebral volume loss. Stable chronic deep white matter infarct left wetzel radiata. Mi ld patchy subcortical white matter hypodensities such as in the bilateral subinsular regions and supe rior frontal lobes are unchanged. Mucosal retention cyst on the floor of the left maxillary sinus. Mastoid air cells are well pneumatiz ed. Orbits and globes are intact. IMPRESSION: No acute intracranial abnormality seen. Mild bifrontal cerebral cortical volume loss. 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
--- NOTE | 2021-02-18 16:25 | PN ---
PROGRESS NOTE DATE OF SERVICE: 02/18/2021 REASON FOR FOLLOWUP: Leukocytosis, possible pneumonia, possible abdominal source. INTERVAL HISTORY: The patient has been extubated. The patient is currently breathing comfortably on room air. The patient was lethargic, was unable to provide any history. No vomiting, diarrhea or other changes reported by the nursing staff. PHYSICAL EXAMINATION: Blood pressure 130/59, pulse of 73, temperature 98. He then 94% on room air. GENERAL DESCRIPTION: General description is an elderly male lying in bed in no distress. RESPIRATORY SYSTEM: Unlabored breathing with decreased breath sounds at the bases. No wheeze. HEART: S1, S2. Regular rate and rhythm. ABDOMEN: Soft. Mildly tender. No guarding or rigidity. Left arm discoloration persists. No worsening. Some swelling but no redness or drainage. LABS: Hemoglobin is 7.9, white count 19.1, BUN of 69, creatinine is 2.18. DIAGNOSTIC IMPRESSION AND PLAN: 1. Patient with leukocytosis, multifactorial, in this patient who did have bowel surgery for the mass and subsequently did have cardiac arrest, intubation and concern for possible aspiration pneumonia. The patient is currently on Zosyn. That will be continued for now while monitoring his clinical course closely. 2. Patient with left upper extremity area discoloration ischemia. That will be monitored closely. Vascular Surgery is on the case. MMODL / IJN: [id number] / MTDD
[2021-02-18 18:21] LABS: Glucose,Whole Blood 226 mg/dL (75-99)
--- NOTE | 2021-02-18 20:39 | P.PN ---
Subjective Progress Note Date: 02/17/21 (Critical care time 35 minutes) Principal diagnosis: V. tach cardiac arrest Hypoxic respiratory failure Cardiomyopathy with ejection fraction of 35% Bilateral atelectasis Bilateral pleural effusion Bowel obstruction and resection of mass CK D 02/17/2021, patient seen eval examined during the rounds patient has been on CPAP of 5 pressure support of 8 and 50% oxygen breathing comfortably yesterday CPAP trial couldn't be tolerated due to generalized weakness I have discussed with the patient's and staff at length given multiple comorbidities likely about the trial today and high risk of re-intubations requirement, we will extubate him today, his medications reviewed, labs are not done, chest x-ray prior consistent with fluid overload interstitial edema left arm wound overall is stable along with edema and swelling of the hand pulses are intact patient arm is placed on gravity drainage, blood culture no growth so far 02/16/2021, patient seen eval reexamined during the rounds labs reviewed medications reviewed critical care time spent 35 minutes with the patient, and family meeting is present at bedside, patient has been attempted CPAP and pressure support but tired out yesterday today however he isn't better strep symptoms weaning, currently on CPAP the tidal volume of 300 400 respiratory rate slightly high however patient appears slightly confused we'll keep the CPAP as tolerated put him back on assist control at nighttime, his labs from today reviewed, afebrile, chest x-ray are not done today, blood cultures are meds reviewed remains on amiodarone and Zosyn with TPN 02/15/2021, critical care time 35 minutes patient remains sedated with propofol drip, remains on full ventilatory support assist control rate of 16 and breathing 16 tidal volume of 505 of PEEP and 100% oxygen, and discussed with RN to titrated oxygen down to 50-75% over 12 hours to 24 hours patient is not ready for weaning extubation, the left arm externalization appears to have happened causing his skin breakdown, will get a PICC line, arterial blood gas chest x-ray reviewed suspect venous sample, continue broad-spectrum antibiotics, white cell count is up to 19,000, BUN/creatinine is 143 and 1.94, echocardiogram reviewed LV mildly dilated with concentric LVH, ejection fraction is yesterday 5%, patient remains on amiodarone, Solu-Medrol and IV Zosyn, This is a 80-year-old male with the symptoms suggestive of bowel obstruction for which he was admitted into the hospital patient underwent exploratory laparotomy and the found to have a mass as well which was resected patient is end-to-end anastomosis, also had an adrenal gland mass which wasn't biopsied, around 8:15 PM patient because more short of breath feeling uneasy and lost his pulse. Breathing, he was noted to be in ventricular tachycardia require cardioversion times 08/02/2019 and 150 J after second return of spontaneous circulation was achieved, patient continued to have the episodes of V. tach, intubated by anesthesia transferred to the ICU, patient has been started on amiodarone, with that the V. tach appears to have controlled with 200 J into sinus rhythm, since a d-dimer was elevated patient underwent a computed tomography scan of the chest negative for PE however basal atelectasis and effusion was seen, patient currently on 0.17 mics of levo fed drip 25 mics of the propofol, cardiology on consult I have ordered an echocardiogram as well, reviewed computed tomography scan of the chest as well, patient remains on IV Zosyn noted white cell count is 30,000 likely contribution of the inflammatory change as well as is being stimulated due to steroids, however also noted lactic acid mildly elevated at 2.1, strokes are 5.03 BUN/creatinine is a 35/1.45 Objective - Vital Signs Vital signs: Vital Signs Temp 98.6 F 02/17/21 12:00 Pulse 60 02/17/21 16:00 Resp 24 02/17/21 16:00 BP 121/50 02/17/21 16:00 Pulse Ox 100 02/17/21 16:15 Intake & Output 02/16/21 02/17/21 02/17/21 18:59 06:59 18:59 Intake Total 8406.385 8696 898.030 Output Total 575 640 575 Balance 874.277 490 323.030 Weight 86 kg 86.4 kg Intake: IV 850 700 560 Sodium Chloride 0.9% 1, 550 600 360 000 ml @ 50 mls/hr IV . Q20H [facility]ARY Rx#:[id number] Sodium Ferric Gluconat- 100 100 Sucrose 125 mg In Sodium Chloride 0.9% 100 ml @ 100 mls/hr IVPB Q24H MARY Rx#:[id number] Zosyn IVPB 200 100 100 Intake, IV Titration 569.277 430 338.030 Amount Amiodarone 360 mg In 364.997 400 200 Dextrose 5% in Water 200 ml @ 1 MG/MIN 33.333 mls/ hr IV .Q6H MARY Rx#: [id number] Mvi, Adult No.4 with Vit 150 30 K 10 ml Trace (Conc-1Ml/ Dose) 1 ml Sodium Acetate 30 meq Potassium Chloride 20 meq Calcium Gluconate 1 gm In Amino Acid 5%-D15w 1,000 ml @ 30 mls/hr IV .Q24H MARY Rx #:[id number] propofoL 1,000 mg In 54.280 138.030 Empty Bag 1 bag @ Titrate IV .Q0M MARY Rx#: [id number] Oral 30 Output: Gastric Drainage 150 50 Urine 425 590 575 Other: Voiding Method Indwelling Catheter Indwelling Catheter Indwelling Catheter - Exam Constitutional General appearance: average body habitus, cooperative, no acute distress - Neck Neck: normal ROM Carotids: bilateral: upstroke normal Thyroid: bilateral: normal size - Respiratory Respiratory: bilateral: diminished, rales - Cardiovascular Rhythm: regular Heart sounds: normal: S1, S2 - Gastrointestinal General gastrointestinal: soft - Integumentary Integumentary: normal turgor - Neurologic Neurologic: CNII-XII intact - Musculoskeletal Musculoskeletal: Left upper extremity his skin changes noted , overall is stable vascular follow - Psychiatric Sedated on full ventilator support - Labs CBC & Chem 7: 02/18/21 05:35 02/18/21 05:35 Labs: Abnormal Lab Results - Last 24 Hours (Table) 02/16/21 02/17/21 02/17/21 Range/Units 17:54 00:22 04:10 WBC (3.8-10.6) k/uL RBC (4.30-5.90) m/uL Hgb (13.0-17.5) gm/dL Hct (39.0-53.0) % MCV (80.0-100.0) fL MCH (25.0-35.0) pg MCHC (31.0-37.0) g/dL RDW (11.5-15.5) % ABG pCO2 (35-45) mmHg ABG pO2 (83-108) mmHg ABG O2 Saturation (94-97) % Chloride 109 H (98-107) mmol/L Carbon Dioxide 21 L (22-30) mmol/L BUN 64 H (9-20) mg/dL Creatinine 2.44 H (0.66-1.25) mg/dL Glucose 204 H (74-99) mg/dL POC Glucose (mg/dL) 190 H 213 H (75-99) mg/dL Calcium 7.9 L (8.4-10.2) mg/dL Phosphorus 6.2 H (2.5-4.5) mg/dL Magnesium 2.9 H (1.6-2.3) mg/dL Total Protein 4.8 L (6.3-8.2) g/dL Albumin 2.3 L (3.5-5.0) g/dL 02/17/21 02/17/21 02/17/21 Range/Units 04:10 05:32 06:47 WBC 20.5 H (3.8-10.6) k/uL RBC 3.63 L (4.30-5.90) m/uL Hgb 7.1 L (13.0-17.5) gm/dL Hct 27.0 L (39.0-53.0) % MCV 74.5 L (80.0-100.0) fL MCH 19.6 L (25.0-35.0) pg MCHC 26.3 L (31.0-37.0) g/dL RDW 24.8 H (11.5-15.5) % ABG pCO2 34 L (35-45) mmHg ABG pO2 162 H (83-108) mmHg ABG O2 Saturation 99.7 H (94-97) % Chloride (98-107) mmol/L Carbon Dioxide (22-30) mmol/L BUN (9-20) mg/dL Creatinine (0.66-1.25) mg/dL Glucose (74-99) mg/dL POC Glucose (mg/dL) 249 H (75-99) mg/dL Calcium (8.4-10.2) mg/dL Phosphorus (2.5-4.5) mg/dL Magnesium (1.6-2.3) mg/dL Total Protein (6.3-8.2) g/dL Albumin (3.5-5.0) g/dL 02/17/21 Range/Units 12:00 WBC (3.8-10.6) k/uL RBC (4.30-5.90) m/uL Hgb (13.0-17.5) gm/dL Hct (39.0-53.0) % MCV (80.0-100.0) fL MCH (25.0-35.0) pg MCHC (31.0-37.0) g/dL RDW (11.5-15.5) % ABG pCO2 (35-45) mmHg ABG pO2 (83-108) mmHg ABG O2 Saturation (94-97) % Chloride (98-107) mmol/L Carbon Dioxide (22-30) mmol/L BUN (9-20) mg/dL Creatinine (0.66-1.25) mg/dL Glucose (74-99) mg/dL POC Glucose (mg/dL) 260 H (75-99) mg/dL Calcium (8.4-10.2) mg/dL Phosphorus (2.5-4.5) mg/dL Magnesium (1.6-2.3) mg/dL Total Protein (6.3-8.2) g/dL Albumin (3.5-5.0) g/dL Microbiology - Last 24 Hours (Table) 02/14/21 08:54 Blood Culture - Preliminary Blood No Growth after 72 hours Assessment and Plan Assessment: Aspiration pneumonia V. tach/V. fib cardiac arrest Fluid overload CHF Hypoxic respiratory failure Bilateral atelectasis Bilateral pleural effusion Bowel obstruction and resection of mass CKD Plan: Observe off of vasopressors, Proceed with extubation on supplemental oxygen Continue broad-spectrum antibiotics steroids and breathing treatment Echocardiogram findings reviewed Time with Patient: Greater than 30
--- NOTE | 2021-02-18 20:44 | P.PN ---
Subjective Progress Note Date: 02/18/21 Principal diagnosis: V. tach cardiac arrest Hypoxic respiratory failure Cardiomyopathy with ejection fraction of 35% Bilateral atelectasis Bilateral pleural effusion Bowel obstruction and resection of mass CK D 02/18/2021, patient remains off of ventilator on room air now awake but not participating in conversation, is present at bedside, care plan discussed at length patient to undergo physical therapy and rehab, the left arm infiltration in the wound no blisters are ruptured, would recommend wound consult in the meantime can do -dry dressing with silver gel or aqua gel, patient the also underwent swallow evaluation, his speech is going to repeat tomorrow, patient remains on IV metoprolol as well as IV amiodarone dose has been decreased, 02/17/2021, patient seen eval examined during the rounds patient has been on CPAP of 5 pressure support of 8 and 50% oxygen breathing comfortably yesterday CPAP trial couldn't be tolerated due to generalized weakness I have discussed with the patient's and staff at length given multiple comorbidities likely about the trial today and high risk of re-intubations requirement, we will extubate him today, his medications reviewed, labs are not done, chest x-ray prior consistent with fluid overload interstitial edema left arm wound overall is stable along with edema and swelling of the hand pulses are intact patient arm is placed on gravity drainage, blood culture no growth so far 02/16/2021, patient seen eval reexamined during the rounds labs reviewed medications reviewed critical care time spent 35 minutes with the patient, and family meeting is present at bedside, patient has been attempted CPAP and pressure support but tired out yesterday today however he isn't better strep symptoms weaning, currently on CPAP the tidal volume of 300 400 respiratory rate slightly high however patient appears slightly confused we'll keep the CPAP as tolerated put him back on assist control at nighttime, his labs from today reviewed, afebrile, chest x-ray are not done today, blood cultures are meds reviewed remains on amiodarone and Zosyn with TPN 02/15/2021, critical care time 35 minutes patient remains sedated with propofol drip, remains on full ventilatory support assist control rate of 16 and pramod thing 16 tidal volume of 505 of PEEP and 100% oxygen, and discussed with RN to titrated oxygen down to 50-75% over 12 hours to 24 hours patient is not ready for weaning extubation, the left arm externalization appears to have happened causing his skin breakdown, will get a PICC line, arterial blood gas chest x-ray reviewed suspect venous sample, continue broad-spectrum antibiotics, white cell count is up to 19,000, BUN/creatinine is 143 and 1.94, echocardiogram reviewed LV mildly dilated with concentric LVH, ejection fraction is yesterday 5%, patient remains on amiodarone, Solu-Medrol and IV Zosyn, This is a 80-year-old male with the symptoms suggestive of bowel obstruction for which he was admitted into the hospital patient underwent exploratory laparotomy and the found to have a mass as well which was resected patient is end-to-end anastomosis, also had an adrenal gland mass which wasn't biopsied, around 8:15 PM patient because more short of breath feeling uneasy and lost his pulse. Breathing, he was noted to be in ventricular tachycardia require cardioversion times 08/02/2019 and 150 J after second return of spontaneous circulation was achieved, patient continued to have the episodes of V. tach, intubated by anesthesia transferred to the ICU, patient has been started on amiodarone, with that the V. tach appears to have controlled with 200 J into sinus rhythm, since a d-dimer was elevated patient underwent a computed tomography scan of the chest negative for PE however basal atelectasis and effusion was seen, patient currently on 0.17 mics of levo fed drip 25 mics of the propofol, cardiology on consult I have ordered an echocardiogram as well, reviewed computed tomography scan of the chest as well, patient remains on IV Zosyn noted white cell count is 30,000 likely contribution of the inflammatory change as well as is being stimulated due to steroids, however also noted lactic acid mildly elevated at 2.1, strokes are 5.03 BUN/creatinine is a 35/1.45 Objective - Vital Signs Vital signs: Vital Signs Temp 98.0 F 02/18/21 16:00 Pulse 76 02/18/21 19:00 Resp 20 02/18/21 19:00 BP 135/67 02/18/21 19:00 Pulse Ox 96 02/18/21 19:00 Intake & Output 02/18/21 02/18/21 02/19/21 06:59 18:59 06:59 Intake Total 1814.887 836.165 51 Output Total 975 2130 250 Balance 839.887 -1293.835 -199 Weight 86 kg 86 kg Intake: IV 390 657 51 Fat Emulsion 20% 500 ml 147 21 In Empty Bag 1 bag @ 21 mls/hr IV MoWeFr MARY Rx#: [id number] Mvi, Adult No.4 with Vit 330 30 K 10 ml Trace (Conc-1Ml/ Dose) 1 ml Sodium Acetate 30 meq Potassium Chloride 20 meq Calcium Gluconate 1 gm In Amino Acid 5%-D15w 1,000 ml @ 30 mls/hr IV .Q24H [facility] Rx #:[id number] Sodium Chloride 0.9% 1, 290 80 000 ml @ 50 mls/hr IV . Q20H [facility]ARY Rx#:[id number] Zosyn IVPB 100 100 Intake, IV Titration 1424.887 179.165 Amount Amiodarone 360 mg In 378.887 179.165 Dextrose 5% in Water 200 ml @ 0.5 MG/MIN 16.667 mls/hr IV .Q12H MARY Rx#: [id number] Mvi, Adult No.4 with Vit 1046 K 10 ml Trace (Conc-1Ml/ Dose) 1 ml Sodium Acetate 30 meq Potassium Chloride 20 meq Calcium Gluconate 1 gm In Amino Acid 5%-D15w 1,000 ml @ 30 mls/hr IV .Q24H [facility] Rx #:[id number] Output: Urine 975 2130 250 Other: Voiding Method Indwelling Catheter Indwelling Catheter - Exam Constitutional General appearance: average body habitus, cooperative, no acute distress - Neck Neck: normal ROM Carotids: bilateral: upstroke normal Thyroid: bilateral: normal size - Respiratory Respiratory: bilateral: diminished, rales - Cardiovascular Rhythm: regular Heart sounds: normal: S1, S2 - Gastrointestinal General gastrointestinal: soft - Integumentary Integumentary: normal turgor - Neurologic Neurologic: CNII-XII intact - Musculoskeletal Musculoskeletal: Left upper extremity his skin changes noted , blister ruptured vascular follow - Psychiatric Sedated on full ventilator support - Labs CBC & Chem 7: 02/18/21 05:35 02/18/21 05:35 Labs: Abnormal Lab Results - Last 24 Hours (Table) 02/17/21 02/18/21 02/18/21 Range/Units 14:51 05:35 05:35 WBC 19.1 H (3.8-10.6) k/uL RBC 4.23 L (4.30-5.90) m/uL Hgb 7.9 L (13.0-17.5) gm/dL Hct 31.7 L (39.0-53.0) % MCV 74.9 L (80.0-100.0) fL MCH 18.7 L (25.0-35.0) pg MCHC 24.9 L (31.0-37.0) g/dL RDW 25.7 H (11.5-15.5) % Neutrophils # 18.3 H (1.3-7.7) k/uL Lymphocytes # 0.2 L (1.0-4.8) k/uL Chloride 112 H (98-107) mmol/L BUN 69 H (9-20) mg/dL Creatinine 2.18 H (0.66-1.25) mg/dL Glucose 133 H (74-99) mg/dL POC Glucose (mg/dL) (75-99) mg/dL Phosphorus 4.9 H (2.5-4.5) mg/dL Magnesium 2.7 H (1.6-2.3) mg/dL Iron 27 L (65-175) ug/dL % Saturation 11.39 L (15.00-50.00) Total Protein 5.1 L (6.3-8.2) g/dL Albumin 2.5 L (3.5-5.0) g/dL 02/18/21 02/18/21 02/18/21 Range/Units 05:44 05:50 11:27 WBC (3.8-10.6) k/uL RBC (4.30-5.90) m/uL Hgb (13.0-17.5) gm/dL Hct (39.0-53.0) % MCV (80.0-100.0) fL MCH (25.0-35.0) pg MCHC (31.0-37.0) g/dL RDW (11.5-15.5) % Neutrophils # (1.3-7.7) k/uL Lymphocytes # (1.0-4.8) k/uL Chloride (98-107) mmol/L BUN (9-20) mg/dL Creatinine (0.66-1.25) mg/dL Glucose (74-99) mg/dL POC Glucose (mg/dL) 351 H 135 H 198 H (75-99) mg/dL Phosphorus (2.5-4.5) mg/dL Magnesium (1.6-2.3) mg/dL Iron (65-175) ug/dL % Saturation (15.00-50.00) Total Protein (6.3-8.2) g/dL Albumin (3.5-5.0) g/dL 02/18/21 Range/Units 18:19 WBC (3.8-10.6) k/uL RBC (4.30-5.90) m/uL Hgb (13.0-17.5) gm/dL Hct (39.0-53.0) % MCV (80.0-100.0) fL MCH (25.0-35.0) pg MCHC (31.0-37.0) g/dL RDW (11.5-15.5) % Neutrophils # (1.3-7.7) k/uL Lymphocytes # (1.0-4.8) k/uL Chloride (98-107) mmol/L BUN (9-20) mg/dL Creatinine (0.66-1.25) mg/dL Glucose (74-99) mg/dL POC Glucose (mg/dL) 226 H (75-99) mg/dL Phosphorus (2.5-4.5) mg/dL Magnesium (1.6-2.3) mg/dL Iron (65-175) ug/dL % Saturation (15.00-50.00) Total Protein (6.3-8.2) g/dL Albumin (3.5-5.0) g/dL Microbiology - Last 24 Hours (Table) 02/14/21 08:54 Blood Culture - Preliminary Blood No Growth after 96 hours Assessment and Plan Assessment: Aspiration pneumonia Left upper extremity wound with blisters V. tach/V. fib cardiac arrest Fluid overload CHF Hypoxic respiratory failure Bilateral atelectasis Bilateral pleural effusion Bowel obstruction and resection of mass CKD Plan: Wound care evaluation Observe off of vasopressors, Continue broad-spectrum antibiotics steroids and breathing treatment Ammann start tapering down the steroids Echocardiogram findings reviewed Time with Patient: Greater than 30
[2021-02-19] MEDS: PIPERACILLIN-TAZOBACTAM 3.375 GM in SODIUM CHLORIDE 0.9% 100 ML IVPB SCH ×2 (02:00→07:04)
[2021-02-19 02:11] LABS: Glucose,Whole Blood 157 mg/dL (75-99)
[2021-02-19] MEDS: METOPROLOL TARTRATE 5 MG/5 ML VIAL IVP SCH ×3 (02:16→17:19)
[2021-02-19] MEDS: methylPREDNISolone SOD SUCCI 40 MG/ML 1 ML VIAL IV SCH ×3 (02:17→17:19)
[2021-02-19] MEDS: INSULIN ASPART (NovoLOG) 100 UNIT/ML VIAL SQ SCH ×4 (02:17→19:10)
[2021-02-19] MEDS: AMIODARONE 360 MG in DEXTROSE 5% IN WATER 200 ML IV SCH ×4 (04:37→18:07)
[2021-02-19] MEDS: MVI, ADULT NO.4 WITH VIT K 10 ML, TRACE (CONC-1ML/DOSE) 1 ML, SODIUM ACETATE 30 MEQ, PO... IV SCH ×6 (04:38)
[2021-02-19 06:20] LABS: Glucose,Whole Blood 157 mg/dL (75-99)
[2021-02-19 06:33] LABS: Ionized Calcium 5.2 mg/dL (4.5-5.3)
[2021-02-19 06:59] LABS: Calcium 8.5 mg/dL (8.4-10.2)
[2021-02-19 07:44] LABS: Magnesium 2.2 mg/dL (1.6-2.3); Potassium 4.2 mmol/L (3.5-5.1)
[2021-02-19 07:45] LABS: Phosphorus 3.9 mg/dL (2.5-4.5)
[2021-02-19] MEDS: IPRATROPIUM-ALBUTEROL 3 ML NEB INHALATION SCH ×4 (08:34→20:31)
[2021-02-19 08:35] LABS: Anisocytosis Marked; Basophils % (A) 0 %; Eosinophils % (A) 0 %; HCT 32.8 % (39.0-53.0); Hypochromasia Marked; Lymphocytes # (A) 0.3 k/uL (1.0-4.8); Lymphocytes % (A) 2 %; MCH 23.5 pg (25.0-35.0); MCV 78.3 fL (80.0-100.0); Macrocytosis Slight; Mean Platelet Volume 9.7; Microcytosis Moderate; Monocytes # (A) 0.5 k/uL (0-1.0); Monocytes % (A) 3 %; Neutrophils # (A) 16.7 k/uL (1.3-7.7); Neutrophils % (A) 95 %; Platelet Count 312 k/uL (150-450); Poikilocytosis Slight; RBC 4.19 m/uL (4.30-5.90); WBC 17.5 k/uL (3.8-10.6)
[2021-02-19 08:36] LABS: RDW 28.2 % (11.5-15.5)
[2021-02-19 08:37] LABS: HGB 9.9 gm/dL (13.0-17.5)
--- NOTE | 2021-02-19 09:29 | P.PN ---
Subjective Progress Note Date: 02/19/21 Principal diagnosis: Right colectomy Patient remains in the ICU. Nonverbal at present. Denies abdominal pain by shaking his head. No oral intake currently. CT brain performed shows no acute changes. White blood cell count 17.5 today. Objective - Vital Signs Vital signs: Vital Signs Temp 97.8 F 02/19/21 04:00 Pulse 80 02/19/21 08:46 Resp 20 02/19/21 07:00 BP 142/68 02/19/21 07:00 Pulse Ox 98 02/19/21 07:00 Intake & Output 02/18/21 02/19/21 02/19/21 18:59 06:59 18:59 Intake Total 588.829 9475 51 Output Total 2130 1670 100 Balance -1293.835 -31 -49 Weight 86 kg 91.5 kg Intake: IV 657 612 51 Fat Emulsion 20% 500 ml 147 252 21 In Empty Bag 1 bag @ 21 mls/hr IV MoWeFr MARY Rx#: [id number] Mvi, Adult No.4 with Vit 330 360 30 K 10 ml Trace (Conc-1Ml/ Dose) 1 ml Sodium Acetate 30 meq Potassium Chloride 20 meq Calcium Gluconate 1 gm In Amino Acid 5%-D15w 1,000 ml @ 30 mls/hr IV .Q24H [facility] Rx #:[id number] Sodium Chloride 0.9% 1, 80 000 ml @ 50 mls/hr IV . Q20H [facility] Rx#:[id number] Zosyn IVPB 100 Intake, IV Titration 737.431 0787 Amount Amiodarone 360 mg In 179.165 200 Dextrose 5% in Water 200 ml @ 0.5 MG/MIN 16.667 mls/hr IV .Q12H MARY Rx#: [id number] Mvi, Adult No.4 with Vit 827 K 10 ml Trace (Conc-1Ml/ Dose) 1 ml Sodium Acetate 30 meq Potassium Chloride 20 meq Calcium Gluconate 1 gm In Amino Acid 5%-D15w 1,000 ml @ 30 mls/hr IV .Q24H M[facility] Rx #:[id number] Output: Urine 2130 1670 100 Other: Voiding Method Indwelling Catheter Indwelling Catheter - Exam Abdomen: Soft, nondistended, incision clean and dry, nontender - Labs CBC & Chem 7: 02/19/21 06:03 08/21/21 06:03 Labs: Abnormal Lab Results - Last 24 Hours (Table) 02/18/21 02/18/21 02/19/21 Range/Units 11:27 18:19 02:10 WBC (3.8-10.6) k/uL RBC (4.30-5.90) m/uL Hgb (13.0-17.5) gm/dL Hct (39.0-53.0) % MCV (80.0-100.0) fL MCH (25.0-35.0) pg MCHC (31.0-37.0) g/dL RDW (11.5-15.5) % Neutrophils # (1.3-7.7) k/uL Lymphocytes # (1.0-4.8) k/uL Chloride (98-107) mmol/L Carbon Dioxide (22-30) mmol/L BUN (9-20) mg/dL Creatinine (0.66-1.25) mg/dL Glucose (74-99) mg/dL POC Glucose (mg/dL) 198 H 226 H 157 H (75-99) mg/dL 02/19/21 02/19/21 02/19/21 Range/Units 06:03 06:03 06:19 WBC 17.5 H (3.8-10.6) k/uL RBC 4.19 L (4.30-5.90) m/uL Hgb 9.9 L D (13.0-17.5) gm/dL Hct 32.8 L (39.0-53.0) % MCV 78.3 L (80.0-100.0) fL MCH 23.5 L (25.0-35.0) pg MCHC 30.0 L (31.0-37.0) g/dL RDW 28.2 H (11.5-15.5) % Neutrophils # 16.7 H (1.3-7.7) k/uL Lymphocytes # 0.3 L (1.0-4.8) k/uL Chloride 110 H (98-107) mmol/L Carbon Dioxide 19 L (22-30) mmol/L BUN 71 H (9-20) mg/dL Creatinine 1.89 H (0.66-1.25) mg/dL Glucose 406 H (74-99) mg/dL POC Glucose (mg/dL) 157 H (75-99) mg/dL Microbiology - Last 24 Hours (Table) 02/14/21 08:54 Blood Culture - Preliminary Blood No Growth after 96 hours Assessment and Plan (1) Bowel obstruction Narrative/Plan: 80-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 Patient with arrest postoperatively. Remains in ICU. Abdominal incision healing up properly. No significant tenderness. Continue supportive care and neurologic workup. Current Visit: Yes Status: Acute Code(s): K56.609 - UNSP INTESTNL OBST, UNSP TO PARTIAL VERSUS COMPLETE OBST SNOMED Code(s): 37980361
--- NOTE | 2021-02-19 10:45 | P.PN ---
Subjective Progress Note Date: 02/19/21 Principal diagnosis: V. tach cardiac arrest Hypoxic respiratory failure Cardiomyopathy with ejection fraction of 35% Bilateral atelectasis Bilateral pleural effusion Bowel obstruction and resection of mass CK D 02/19/2021, patient seen and evaluated examined during the rounds patient remains off of ventilator on room air breathing comfortably, denies any chest pain remains on broad-spectrum antibiotics, and the left forearm wound blisters are present discussed with the staff will do silver dressing for now until wound care and infectious disease services are available in the meantime continue antibiotics increase shouldn't is hemodynamically stable remains on TPN speech and swallow evaluation pending 02/18/2021, patient remains off of ventilator on room air now awake but not participating in conversation, is present at bedside, care plan discussed at length patient to undergo physical therapy and rehab, the left arm infiltration in the wound no blisters are ruptured, would recommend wound consult in the meantime can do -dry dressing with silver gel or aqua gel, patient the also underwent swallow evaluation, his speech is going to repeat tomorrow, patient remains on IV metoprolol as well as IV amiodarone dose has been decreased, 02/17/2021, patient seen eval examined during the rounds patient has been on CPAP of 5 pressure support of 8 and 50% oxygen breathing comfortably yesterday CPAP trial couldn't be tolerated due to generalized weakness I have discussed with the patient's and staff at length given multiple comorbidities likely about the trial today and high risk of re-intubations requirement, we will extubate him today, his medications reviewed, labs are not done, chest x-ray prior consistent with fluid overload interstitial edema left arm wound overall is stable along with edema and swelling of the hand pulses are intact patient arm is placed on gravity drainage, blood culture no growth so far 02/16/2021, patient seen eval reexamined during the rounds labs reviewed medications reviewed critical care time spent 35 minutes with the patient, and family meeting is present at bedside, patient has been attempted CPAP and pressure support but tired out yesterday today however he isn't better strep symptoms weaning, currently on CPAP the tidal volume of 300 400 respiratory rate slightly high however patient appears slightly confused we'll keep the CPAP as tolerated put him back on assist control at nighttime, his labs from today reviewed, afebrile, chest x-ray are not done today, blood cultures are meds reviewed remains on amiodarone and Zosyn with TPN 02/15/2021, critical care time 35 minutes patient remains sedated with propofol drip, remains on full ventilatory support assist control rate of 16 and pramod thing 16 tidal volume of 505 of PEEP and 100% oxygen, and discussed with RN to titrated oxygen down to 50-75% over 12 hours to 24 hours patient is not ready for weaning extubation, the left arm externalization appears to have happened causing his skin breakdown, will get a PICC line, arterial blood gas chest x-ray reviewed suspect venous sample, continue broad-spectrum antibiotics, white cell count is up to 19,000, BUN/creatinine is 143 and 1.94, echocardiogram reviewed LV mildly dilated with concentric LVH, ejection fraction is yesterday 5%, patient remains on amiodarone, Solu-Medrol and IV Zosyn, This is a 80-year-old male with the symptoms suggestive of bowel obstruction for which he was admitted into the hospital patient underwent exploratory laparotomy and the found to have a mass as well which was resected patient is end-to-end anastomosis, also had an adrenal gland mass which wasn't biopsied, around 8:15 PM patient because more short of breath feeling uneasy and lost his pulse. Breathing, he was noted to be in ventricular tachycardia require cardioversion times 08/02/2019 and 150 J after second return of spontaneous circulation was achieved, patient continued to have the episodes of V. tach, intubated by anesthesia transferred to the ICU, patient has been started on amiodarone, with that the V. tach appears to have controlled with 200 J into sinus rhythm, since a d-dimer was elevated patient underwent a computed tomography scan of the chest negative for PE however basal atelectasis and effusion was seen, patient currently on 0.17 mics of levo fed drip 25 mics of the propofol, cardiology on consult I have ordered an echocardiogram as well, reviewed computed tomography scan of the chest as well, patient remains on IV Zosyn noted white cell count is 30,000 likely contribution of the inflammatory change as well as is being stimulated due to steroids, however also noted lactic acid mildly elevated at 2.1, strokes are 5.03 BUN/creatinine is a 35/1.45 Objective - Vital Signs Vital signs: Vital Signs Temp 97.8 F 02/19/21 04:00 Pulse 80 02/19/21 08:46 Resp 20 02/19/21 07:00 BP 142/68 02/19/21 07:00 Pulse Ox 98 02/19/21 07:00 Intake & Output 02/18/21 02/19/21 02/19/21 18:59 06:59 18:59 Intake Total 028.636 4177 51 Output Total 2130 1670 100 Balance -1293.835 -31 -49 Weight 86 kg 91.5 kg Intake: IV 657 612 51 Fat Emulsion 20% 500 ml 147 252 21 In Empty Bag 1 bag @ 21 mls/hr IV MoWeFr MARY Rx#: [id number] Mvi, Adult No.4 with Vit 330 360 30 K 10 ml Trace (Conc-1Ml/ Dose) 1 ml Sodium Acetate 30 meq Potassium Chloride 20 meq Calcium Gluconate 1 gm In Amino Acid 5%-D15w 1,000 ml @ 30 mls/hr IV .Q24H MARY Rx #:[id number] Sodium Chloride 0.9% 1, 80 000 ml @ 50 mls/hr IV . Q20H MARY Rx#:[id number] Zosyn IVPB 100 Intake, IV Titration 504.794 9073 Amount Amiodarone 360 mg In 179.165 200 Dextrose 5% in Water 200 ml @ 0.5 MG/MIN 16.667 mls/hr IV .Q12H MARY Rx#: [id number] Mvi, Adult No.4 with Vit 827 K 10 ml Trace (Conc-1Ml/ Dose) 1 ml Sodium Acetate 30 meq Potassium Chloride 20 meq Calcium Gluconate 1 gm In Amino Acid 5%-D15w 1,000 ml @ 30 mls/hr IV .Q24H MARY Rx #:[id number] Output: Urine 2130 1670 100 Other: Voiding Method Indwelling Catheter Indwelling Catheter - Exam Constitutional General appearance: average body habitus, cooperative, no acute distress - Neck Neck: normal ROM Carotids: bilateral: upstroke normal Thyroid: bilateral: normal size - Respiratory Respiratory: bilateral: diminished, rales - Cardiovascular Rhythm: regular Heart sounds: normal: S1, S2 - Gastrointestinal General gastrointestinal: soft - Integumentary Integumentary: normal turgor - Neurologic Neurologic: CNII-XII intact - Musculoskeletal Musculoskeletal: Left upper extremity his skin changes noted , blister ruptured vascular follow - Psychiatric Sedated on full ventilator support - Labs CBC & Chem 7: 02/19/21 06:03 02/19/21 06:03 Labs: Abnormal Lab Results - Last 24 Hours (Table) 02/18/21 02/18/21 02/19/21 Range/Units 11:27 18:19 02:10 WBC (3.8-10.6) k/uL RBC (4.30-5.90) m/uL Hgb (13.0-17.5) gm/dL Hct (39.0-53.0) % MCV (80.0-100.0) fL MCH (25.0-35.0) pg MCHC (31.0-37.0) g/dL RDW (11.5-15.5) % Neutrophils # (1.3-7.7) k/uL Lymphocytes # (1.0-4.8) k/uL Chloride (98-107) mmol/L Carbon Dioxide (22-30) mmol/L BUN (9-20) mg/dL Creatinine (0.66-1.25) mg/dL Glucose (74-99) mg/dL POC Glucose (mg/dL) 198 H 226 H 157 H (75-99) mg/dL 02/19/21 02/19/21 02/19/21 Range/Units 06:03 06:03 06:19 WBC 17.5 H (3.8-10.6) k/uL RBC 4.19 L (4.30-5.90) m/uL Hgb 9.9 L D (13.0-17.5) gm/dL Hct 32.8 L (39.0-53.0) % MCV 78.3 L (80.0-100.0) fL MCH 23.5 L (25.0-35.0) pg MCHC 30.0 L (31.0-37.0) g/dL RDW 28.2 H (11.5-15.5) % Neutrophils # 16.7 H (1.3-7.7) k/uL Lymphocytes # 0.3 L (1.0-4.8) k/uL Chloride 110 H (98-107) mmol/L Carbon Dioxide 19 L (22-30) mmol/L BUN 71 H (9-20) mg/dL Creatinine 1.89 H (0.66-1.25) mg/dL Glucose 406 H (74-99) mg/dL POC Glucose (mg/dL) 157 H (75-99) mg/dL Microbiology - Last 24 Hours (Table) 02/14/21 08:54 Blood Culture - Preliminary Blood No Growth after 96 hours Assessment and Plan Assessment: Aspiration pneumonia Left upper extremity wound with blisters V. tach/V. fib cardiac arrest Fluid overload CHF Hypoxic respiratory failure Bilateral atelectasis Bilateral pleural effusion Bowel obstruction and resection of mass CKD Plan: Wound care evaluation Observe off of vasopressors, Continue broad-spectrum antibiotics steroids and breathing treatment Ammann start tapering down the steroids Echocardiogram findings reviewed increase activity as tolerated Out of bed on chair Aggressive PTOT Speech evaluation Time with Patient: Greater than 30
[2021-02-19] MEDS: ATORVASTATIN 40 MG TAB PO SCH (11:02)
[2021-02-19] MEDS: ENOXAPARIN 30 MG/0.3 ML SYRINGE SQ SCH (11:02)
[2021-02-19] MEDS: PANTOPRAZOLE 40 MG/10 ML VIAL IV SCH (11:02)
[2021-02-19 11:23] LABS: Glucose,Whole Blood 195 mg/dL (75-99)
--- NOTE | 2021-02-19 12:06 | P.CNNES ---
History of Present Illness Consult date: 02/19/21 Requesting physician: Jeremiah Jansen Reason for Consult: altered mental status History of Present Illness: This is a 80-year-old gentleman with medical history of hypertension, hyperlipidemia, mitral valve repair, ATRIAL fibrillation, coronary artery disease status post PCI, ischemic cardiomyopathy inguinal and umbilical hernia presented emergency department on 02/06/2021 for abdominal pain nausea and vomiting for the last 3 days prior to presentation to the hospital. History is obtained from medical record. Neurology is consulted for altered mental status. During the hospital stay the patient had CT of the abdomen and pelvis which revealed high-grade small bowel obstruction. Patient had surgery on 02/08/2021 and underwent expiratory laparotomy and was found to have a mass as well as adrenal mass. 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 Low-grade dysplasia focally present at the distal colonic resection margin. 7:15 at pericolonic lymph nodes positive for metastatic carcinoma. He was found to have adrenal mass He had post right colectomy for right colon cancer. Patient was intubated and is seems that the patient was extubated on 02/17/2021 and the was found to be altered in mentation and not responding. In the hospital stay the patient is getting Dilaudid 1 mg every 3 hours in the last Dilaudid that he received was at the last night around 1824. She is also getting methylprednisolone 40 mg every 8 hours. She also has orders for Ativan but is not getting it. Per the patient nurse he is doing better today and responding to her and following commands. Of note it is documented has history of old stroke in 2016 without any focal deficits. Some other workup in the hospital consisted of: Most recent vital size is a blood pressure of 142/68, heart rate of 78, respiratory of 20, pulse ox of 98% room air and the most recent temperature taken per EMR is 97.[address] of the head on 02/18/2021 is reported the as no acute intracranial abnormality seen. Mild bilateral frontal cerebral cortical volume loss. 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 Most recent wbc is 17.5 which is trending down. His most recent hemoglobin is 9.9 which is trending up was low as 7.1 recorded during this admission and he presented with a 8.6. Most recent chemistry panel as a the sodium serum is 406 which is elevated but the POC glucose has been in the range of 150s to 220. Creatinine is 1.89 which is trending down compared to yesterday was 2.18 on presentation he presented with 1.56 calcium most recent one is 8.5 and that was done today. Magnesium is 2.2 and neck cancer within normal limits This recent AST is 31 which is a improved compared the to 118 on 02/15/2021 Most recent ALT is 41 which is considered within normal limits. 2-D echo was reported as moderate consider left ventricular hypertrophy ejection fraction of 30-35% that. Patient has left ventricular wall wall motion hypokinetic at different territories. Left atrium is severely dilated. Moderate to severe tricuspid regurgitation. There is severe pulmonary hypertension. Review of Systems Review of system is limited but the prone positive and negative as per HPI. Past Medical History Past Medical History: Atrial Fibrillation, Coronary Artery Disease (CAD), C ancer, Heart Failure, CVA/TIA, Hyperlipidemia, Hypertension, Myocardial Infarction (SC), Osteoarthritis (OA), Prostate Disorder, Renal Disease, Skin Disorder Additional Past Medical History / Comment(s): 04/08/18 pt stated wants flu vaccine before discharge if ok with 01/2016-denies any residual, SC on stress test, constipation, arthritis in neck, basal cell cancer, bleeds easily with cuts, has crushed vertebra in neck. 04/2018 Acute renal Failure, Hyperkalemia, 3cm AAA, enlarged prostate and right adrenal mass. Last Myocardial Infarction Date:: unknown History of Any Multi-Drug Resistant Organisms: None Reported Past Surgical History: Bowel Resection, Heart Catheterization With Stent, Hernia Repair, Tonsillectomy Additional Past Surgical History / Comment(s): mitral valve repair 2002. total 4 cardiac stents, clara cataracts with lens implants, Right inguinal hernia repair 03/2018, SBO with right colectomy, right colon mass found and pathology sent 02/08. Past Anesthesia/Blood Transfusion Reactions: No Reported Reaction Additional Past Anesthesia/Blood Transfusion Reaction / Comment(s): car sickness as child, " i seem to need more oxygen" with anesthesia. denies any diff with past intubation Date of Last Stent Placement:: 07/2016 Past Psychological History: No Psychological Hx Reported Additional Psychological History / Comment(s): ppt stated he lives in own home- alone. no home care services, no medical equiment Smoking Status: Former smoker Past Alcohol Use History: Rare Additional Past Alcohol Use History / Comment(s): started smoking at age 20 and quit 2002. was smoking 1/2 ppd. Past Drug Use History: None Reported - Past Family History Mother History Unknown: Yes Family Medical History: No Reported History Father History Unknown: Yes Additional Family Medical History / Comment(s): "heart problems" Medications and Allergies Home Medications Medication Instructions Recorded Confirmed Type Zolpidem [Ambien] 10 mg PO HS PRN 06/08/16 02/06/21 History Clopidogrel [Plavix] 75 mg PO DAILY #90 tab 07/19/16 02/06/21 Rx Nitroglycerin Sl Tabs [Nitrostat] 0.4 mg SUBLINGUAL Q5M PRN #25 tab 07/19/16 02/06/21 Rx Bumetanide [Bumex] 1 mg PO DAILY 02/06/21 02/06/21 History HYDROcodone/APAP 10-325MG [[place] 1 tab PO TID PRN 02/06/21 02/06/21 History 10-325] Metoprolol Succinate (ER) [Toprol 25 mg PO DAILY 02/06/21 02/06/21 History Xl] lisinopriL [Zestril] 5 mg PO DAILY 02/06/21 02/06/21 History Allergies Allergy/AdvReac Type Severity Reaction Status Date / Time No Known Allergies Allergy Verified 02/06/21 22:39 Physical Examination - Vital Signs Vital Signs: Vital Signs Temp Pulse Resp BP Pulse Ox 02/19/21 08:46 80 02/19/21 08:34 81 02/19/21 07:00 78 20 142/68 98 02/19/21 06:00 78 21 141/68 97 02/19/21 05:00 77 21 140/69 98 02/19/21 04:00 97.8 F 78 22 139/64 97 02/19/21 03:00 73 21 139/63 97 02/19/21 02:00 75 22 139/65 96 02/19/21 01:00 78 23 136/61 97 02/19/21 00:00 75 21 133/61 97 02/18/21 23:00 75 20 132/60 96 02/18/21 22:30 71 12 132/60 96 02/18/21 22:00 73 20 132/60 96 02/18/21 21:00 73 21 136/63 96 02/18/21 20:00 98 F 71 23 135/65 96 02/18/21 19:00 76 20 135/67 96 02/18/21 18:00 75 24 131/68 97 02/18/21 17:00 71 22 143/81 96 02/18/21 16:00 98.0 F 89 33 H 131/59 95 02/18/21 15:00 76 22 130/59 94 L 02/18/21 14:00 73 18 136/63 90 L 02/18/21 13:00 73 14 135/71 92 L 02/18/21 12:00 98.0 F 75 20 128/59 96 02/18/21 11:00 68 36 H 133/78 92 L Intake and Output 02/18/21 02/19/21 02/19/21 22:59 06:59 14:59 Intake Total 408 1435 51 Output Total 2170 1075 100 Balance -1762 360 -49 Intake: IV 408 408 51 Fat Emulsion 20% 500 ml 168 168 21 In Empty Bag 1 bag @ 21 mls/hr IV MoWeFr MARY Rx#: [id number] Mvi, Adult No.4 with Vit 240 240 30 K 10 ml Trace (Conc-1Ml/ Dose) 1 ml Sodium Acetate 30 meq Potassium Chloride 20 meq Calcium Gluconate 1 gm In Amino Acid 5%-D15w 1,000 ml @ 30 mls/hr IV .Q24H MARY Rx #:[id number] Intake, IV Titration 1027 Amount Amiodarone 360 mg In 200 Dextrose 5% in Water 200 ml @ 0.5 MG/MIN 16.667 mls/hr IV .Q12H MARY Rx#: [id number] Mvi, Adult No.4 with Vit 827 K 10 ml Trace (Conc-1Ml/ Dose) 1 ml Sodium Acetate 30 meq Potassium Chloride 20 meq Calcium Gluconate 1 gm In Amino Acid 5%-D15w 1,000 ml @ 30 mls/hr IV .Q24H MARY Rx #:[id number] Output: Urine 2170 1075 100 Other: Voiding Method Indwelling Catheter Indwelling Catheter Weight 86 kg 91.5 kg GENERAL: The patient is lying in bed and is not in acute distress. CHEST: The heart rate is regular rate rhythm. No murmurs to auscultation. LUNG: Clear to auscultation bilaterally no wheezing noted throughout. Not labored breathing. ABDOMEN/GI: Bowel sounds present in all 4 quadrants. No tenderness to palpation throughout. INTEGUMENTARY: Has edema of extremities (upper and lower). NEUROLOGICAL: Higher mental function: The patient is awake, alert, oriented and he nods appropriately to his name with options. He was following simple commands (closing eyes, showing thumbs up and wiggling his toes). He is attempting to verbalize. Cranial nerves: The pupils are round, equal and reactive to light and accommodation. Extraocular movement is intact no nystagmus is noted (tracking throughout the room). No facial weakness. Rest could not be assess because his condition. He seems to have bilateral temporal atrophy. Motor: The strength is lift the left upper extremity above gravity briefly and was able to bend his right elbow briefly, squeezing hands symmetrically and wiggling toes. He seems to be diffusely weak. Decrease tone throughout. Normal bulk. Cerebellum: Unable to assess. Sensation: Unable to assess. Reflexes (right/left): 0-1+ throughout. Plantars are mute bilaterally. Results - Laboratory Findings CBC and BMP: 02/19/21 06:03 02/19/21 06:03 Abnormal Lab Findings: Abnormal Labs 02/06/21 02/06/21 02/06/21 21:14 21:14 21:14 WBC RBC Hgb 8.6 L Hct 33.0 L MCV 68.6 L MCH 17.9 L MCHC 26.0 L RDW 20.2 H Neutrophils # Neutrophils # (Manual) Lymphocytes # Lymphocytes # (Manual) 0.59 L Monocytes # (Manual) 1.06 H Nucleated RBCs 4 H PT 13.1 H INR 1.3 H D-Dimer ABG pH ABG pCO2 ABG pO2 ABG HCO3 ABG Total CO2 ABG O2 Saturation Sodium Potassium Chloride 97 L Carbon Dioxide 32 H BUN 56 H Creatinine 1.56 H Est GFR (CKD-EPI)AfAm Est GFR (CKD-EPI)NonAf BUN/Creatinine Ratio Glucose 159 H POC Glucose (mg/dL) Plasma Lactic Acid Florentino Calcium Phosphorus Magnesium Iron % Saturation Total Bilirubin 1.4 H AST ALT Troponin I Total Protein Albumin Albumin/Globulin Ratio Urine Protein Urine Glucose (UA) Urine Blood Urine RBC Urine WBC Amorphous Sediment Urine Bacteria Urine Mucus 02/06/21 02/07/21 02/07/21 21:14 00:14 09:19 WBC RBC Hgb 7.9 L Hct 30.7 L MCV 69.9 L MCH 17.9 L MCHC 25.6 L RDW 19.8 H Neutrophils # Neutrophils # (Manual) Lymphocytes # Lymphocytes # (Manual) Monocytes # (Manual) Nucleated RBCs PT INR D-Dimer ABG pH ABG pCO2 ABG pO2 ABG HCO3 ABG Total CO2 ABG O2 Saturation Sodium Potassium Chloride Carbon Dioxide BUN Creatinine Est GFR (CKD-EPI)AfAm Est GFR (CKD-EPI)NonAf BUN/Creatinine Ratio Glucose POC Glucose (mg/dL) Plasma Lactic Acid Florentino 3.3 H* Calcium Phosphorus Magnesium Iron % Saturation Total Bilirubin AST ALT Troponin I Total Protein Albumin Albumin/Globulin Ratio Urine Protein Trace H Urine Glucose (UA) Urine Blood Urine RBC Urine WBC Amorphous Sediment Urine Bacteria Urine Mucus 02/07/21 02/08/21 02/08/21 09:19 05:19 05:19 WBC RBC Hgb 7.8 L Hct 30.8 L MCV 71.3 L MCH 17.9 L MCHC 25.1 L RDW 19.6 H Neutrophils # 8.0 H Neutrophils # (Manual) Lymphocytes # 0.5 L Lymphocytes # (Manual) Monocytes # (Manual) Nucleated RBCs PT INR D-Dimer ABG pH ABG pCO2 ABG pO2 ABG HCO3 ABG Total CO2 ABG O2 Saturation Sodium 150 H Potassium Chloride 110 H Carbon Dioxide 31 H BUN 47 H 35.0 H Creatinine 1.30 H Est GFR (CKD-EPI)AfAm Est GFR (CKD-EPI)NonAf 52.3 L BUN/Creatinine Ratio 26.92 H Glucose 141 H 135 H POC Glucose (mg/dL) Plasma Lactic Acid Florentino Calcium 8.3 L Phosphorus Magnesium Iron % Saturation Total Bilirubin AST ALT Troponin I Total Protein Albumin Albumin/Globulin Ratio Urine Protein Urine Glucose (UA) Urine Blood Urine RBC Urine WBC Amorphous Sediment Urine Bacteria Urine Mucus 02/09/21 02/09/21 02/10/21 06:37 06:37 05:56 WBC 12.4 H RBC Hgb 7.6 L 7.8 L Hct 30.6 L 31.1 L MCV 70.8 L 70.9 L MCH 17.6 L 17.7 L MCHC 24.8 L 25.0 L RDW 19.7 H 19.3 H Neutrophils # 8.5 H 10.5 H Neutrophils # (Manual) Lymphocytes # 0.6 L 0.7 L Lymphocytes # (Manual) Monocytes # (Manual) Nucleated RBCs PT INR D-Dimer ABG pH ABG pCO2 ABG pO2 ABG HCO3 ABG Total CO2 ABG O2 Saturation Sodium Potassium 3.4 L Chloride 109 H Carbon Dioxide BUN 38 H Creatinine 1.52 H Est GFR (CKD-EPI)AfAm Est GFR (CKD-EPI)NonAf BUN/Creatinine Ratio Glucose 140 H POC Glucose (mg/dL) Plasma Lactic Acid Florentino Calcium 8.1 L Phosphorus Magnesium Iron % Saturation Total Bilirubin AST ALT Troponin I Total Protein Albumin Albumin/Globulin Ratio Urine Protein Urine Glucose (UA) Urine Blood Urine RBC Urine WBC Amorphous Sediment Urine Bacteria Urine Mucus 02/10/21 02/11/21 02/11/21 05:56 05:52 05:52 WBC 12.0 H RBC 3.89 L Hgb 7.1 L Hct 27.4 L MCV 70.4 L MCH 18.2 L MCHC 25.9 L RDW 19.6 H Neutrophils # 9.9 H Neutrophils # (Manual) Lymphocytes # 0.9 L Lymphocytes # (Manual) Monocytes # (Manual) Nucleated RBCs PT INR D-Dimer ABG pH ABG pCO2 ABG pO2 ABG HCO3 ABG Total CO2 ABG O2 Saturation Sodium Potassium Chloride 108 H Carbon Dioxide BUN 38.0 H 43 H Creatinine 1.6 H 1.39 H Est GFR (CKD-EPI)AfAm 47.1 L Est GFR (CKD-EPI)NonAf 40.7 L BUN/Creatinine Ratio 23.75 H Glucose 146 H 102 H POC Glucose (mg/dL) Plasma Lactic Acid Florentino Calcium 7.9 L 8.3 L Phosphorus Magnesium Iron % Saturation Total Bilirubin 1.3 H 1.5 H AST 103 H ALT Troponin I Total Protein 5.4 L 5.2 L Albumin 3.20 L 2.6 L Albumin/Globulin Ratio 1.45 L Urine Protein Urine Glucose (UA) Urine Blood Urine RBC Urine WBC Amorphous Sediment Urine Bacteria Urine Mucus 02/12/21 02/12/21 02/13/21 05:52 05:52 11:52 WBC 15.6 H 16.6 H RBC 4.00 L Hgb 7.7 L 7.1 L Hct 30.8 L 28.1 L MCV 69.9 L 70.2 L MCH 17.6 L 17.9 L MCHC 25.1 L 25.5 L RDW 20.0 H 20.4 H Neutrophils # 15.4 H Neutrophils # (Manual) 13.70 H Lymphocytes # 0.5 L Lymphocytes # (Manual) Monocytes # (Manual) Nucleated RBCs 2 H PT INR D-Dimer ABG pH ABG pCO2 ABG pO2 ABG HCO3 ABG Total CO2 ABG O2 Saturation Sodium Potassium 3.4 L Chloride Carbon Dioxide BUN 37.0 H Creatinine Est GFR (CKD-EPI)AfAm Est GFR (CKD-EPI)NonAf 52.3 L BUN/Creatinine Ratio 28.46 H Glucose POC Glucose (mg/dL) Plasma Lactic Acid Florentino Calcium 7.8 L Phosphorus Magnesium Iron % Saturation Total Bilirubin AST 86 H ALT Troponin I Total Protein 5.1 L Albumin 3.00 L Albumin/Globulin Ratio 1.43 L Urine Protein Urine Glucose (UA) Urine Blood Urine RBC Urine WBC Amorphous Sediment Urine Bacteria Urine Mucus 02/13/21 02/13/21 02/13/21 11:52 16:50 20:35 WBC RBC Hgb Hct MCV MCH MCHC RDW Neutrophils # Neutrophils # (Manual) Lymphocytes # Lymphocytes # (Manual) Monocytes # (Manual) Nucleated RBCs PT INR D-Dimer ABG pH ABG pCO2 ABG pO2 ABG HCO3 ABG Total CO2 ABG O2 Saturation Sodium Potassium 2.9 L 3.3 L Chloride Carbon Dioxide BUN 31 H Creatinine 1.27 H Est GFR (CKD-EPI)AfAm Est GFR (CKD-EPI)NonAf BUN/Creatinine Ratio Glucose 202 H POC Glucose (mg/dL) 215 H Plasma Lactic Acid Florentino Calcium 8.0 L Phosphorus Magnesium Iron % Saturation Total Bilirubin AST ALT Troponin I Total Protein 5.1 L Albumin 2.6 L Albumin/Globulin Ratio Urine Protein Urine Glucose (UA) Urine Blood Urine RBC Urine WBC Amorphous Sediment Urine Bacteria Urine Mucus 02/13/21 02/13/21 02/13/21 21:14 21:55 22:12 WBC RBC Hgb Hct MCV MCH MCHC RDW Neutrophils # Neutrophils # (Manual) Lymphocytes # Lymphocytes # (Manual) Monocytes # (Manual) Nucleated RBCs PT INR D-Dimer 8.61 H ABG pH ABG pCO2 33 L ABG pO2 348 H ABG HCO3 ABG Total CO2 ABG O2 Saturation 100.0 H Sodium Potassium 3.3 L Chloride Carbon Dioxide 18 L BUN 32 H Creatinine 1.41 H Est GFR (CKD-EPI)AfAm Est GFR (CKD-EPI)NonAf BUN/Creatinine Ratio Glucose 333 H POC Glucose (mg/dL) Plasma Lactic Acid Florentino Calcium 7.5 L Phosphorus Magnesium 3.9 H Iron % Saturation Total Bilirubin AST 72 H ALT Troponin I Total Protein 4.7 L Albumin 2.4 L Albumin/Globulin Ratio Urine Protein Urine Glucose (UA) Urine Blood Urine RBC Urine WBC Amorphous Sediment Urine Bacteria Urine Mucus 02/14/21 02/14/21 02/14/21 02:10 03:47 03:47 WBC 31.1 H RBC 4.10 L Hgb 7.4 L Hct 29.5 L MCV 72.1 L MCH 18.0 L MCHC 25.0 L RDW 20.8 H Neutrophils # Neutrophils # (Manual) 30.70 H Lymphocytes # Lymphocytes # (Manual) Monocytes # (Manual) Nucleated RBCs 1 H PT INR D-Dimer ABG pH ABG pCO2 ABG pO2 ABG HCO3 ABG Total CO2 ABG O2 Saturation Sodium Potassium Chloride 108 H Carbon Dioxide 21 L BUN 35 H Creatinine 1.45 H Est GFR (CKD-EPI)AfAm Est GFR (CKD-EPI)NonAf BUN/Creatinine Ratio Glucose 216 H POC Glucose (mg/dL) Plasma Lactic Acid Florentino Calcium 7.8 L Phosphorus Magnesium 3.0 H Iron % Saturation Total Bilirubin AST 79 H ALT Troponin I Total Protein 5.0 L Albumin 2.5 L Albumin/Globulin Ratio Urine Protein 2+ H Urine Glucose (UA) 1+ H Urine Blood Small H Urine RBC 16 H Urine WBC 20 H Amorphous Sediment Rare H Urine Bacteria Rare H Urine Mucus Rare H 02/14/21 02/14/21 02/14/21 03:47 03:47 04:38 WBC RBC Hgb Hct MCV MCH MCHC RDW Neutrophils # Neutrophils # (Manual) Lymphocytes # Lymphocytes # (Manual) Monocytes # (Manual) Nucleated RBCs PT INR D-Dimer ABG pH 7.46 H ABG pCO2 ABG pO2 215 H ABG HCO3 ABG Total CO2 27 H ABG O2 Saturation 100.0 H Sodium Potassium Chloride Carbon Dioxide BUN Creatinine Est GFR (CKD-EPI)AfAm Est GFR (CKD-EPI)NonAf BUN/Creatinine Ratio Glucose POC Glucose (mg/dL) Plasma Lactic Acid Florentino 2.3 H* Calcium Phosphorus Magnesium Iron % Saturation Total Bilirubin AST ALT Troponin I 5.030 H* Total Protein Albumin Albumin/Globulin Ratio Urine Protein Urine Glucose (UA) Urine Blood Urine RBC Urine WBC Amorphous Sediment Urine Bacteria Urine Mucus 02/14/21 02/14/21 02/14/21 06:02 07:46 10:37 WBC RBC Hgb Hct MCV MCH MCHC RDW Neutrophils # Neutrophils # (Manual) Lymphocytes # Lymphocytes # (Manual) Monocytes # (Manual) Nucleated RBCs PT INR D-Dimer ABG pH ABG pCO2 ABG pO2 ABG HCO3 ABG Total CO2 ABG O2 Saturation Sodium Potassium Chloride Carbon Dioxide BUN Creatinine Est GFR (CKD-EPI)AfAm Est GFR (CKD-EPI)NonAf BUN/Creatinine Ratio Glucose POC Glucose (mg/dL) 215 H Plasma Lactic Acid Florentino 2.1 H* 3.1 H* Calcium Phosphorus Magnesium Iron % Saturation Total Bilirubin AST ALT Troponin I Total Protein Albumin Albumin/Globulin Ratio Urine Protein Urine Glucose (UA) Urine Blood Urine RBC Urine WBC Amorphous Sediment Urine Bacteria Urine Mucus 02/14/21 02/14/21 02/14/21 11:52 13:15 17:31 WBC RBC Hgb Hct MCV MCH MCHC RDW Neutrophils # Neutrophils # (Manual) Lymphocytes # Lymphocytes # (Manual) Monocytes # (Manual) Nucleated RBCs PT INR D-Dimer ABG pH ABG pCO2 ABG pO2 ABG HCO3 ABG Total CO2 ABG O2 Saturation Sodium Potassium Chloride Carbon Dioxide BUN Creatinine Est GFR (CKD-EPI)AfAm Est GFR (CKD-EPI)NonAf BUN/Creatinine Ratio Glucose POC Glucose (mg/dL) 174 H 160 H Plasma Lactic Acid Florentino 4.0 H* Calcium Phosphorus Magnesium Iron % Saturation Total Bilirubin AST ALT Troponin I Total Protein Albumin Albumin/Globulin Ratio Urine Protein Urine Glucose (UA) Urine Blood Urine RBC Urine WBC Amorphous Sediment Urine Bacteria Urine Mucus 02/14/21 02/14/21 02/15/21 18:38 23:55 03:39 WBC RBC Hgb Hct MCV MCH MCHC RDW Neutrophils # Neutrophils # (Manual) Lymphocytes # Lymphocytes # (Manual) Monocytes # (Manual) Nucleated RBCs PT INR D-Dimer ABG pH ABG pCO2 ABG pO2 ABG HCO3 ABG Total CO2 ABG O2 Saturation Sodium Potassium Chloride 110 H Carbon Dioxide 18 L BUN 43 H Creatinine 1.94 H Est GFR (CKD-EPI)AfAm Est GFR (CKD-EPI)NonAf BUN/Creatinine Ratio Glucose 165 H POC Glucose (mg/dL) 192 H Plasma Lactic Acid Florentino 2.4 H* Calcium 7.7 L Phosphorus Magnesium 2.7 H Iron % Saturation Total Bilirubin AST 118 H ALT 66 H Troponin I Total Protein 4.9 L Albumin 2.4 L Albumin/Globulin Ratio Urine Protein Urine Glucose (UA) Urine Blood Urine RBC Urine WBC Amorphous Sediment Urine Bacteria Urine Mucus 02/15/21 02/15/21 02/15/21 03:39 05:07 05:50 WBC 19.3 H RBC 4.13 L Hgb 7.6 L Hct 30.2 L MCV 73.2 L MCH 18.4 L MCHC 25.1 L RDW 21.7 H Neutrophils # 18.5 H Neutrophils # (Manual) Lymphocytes # 0.3 L Lymphocytes # (Manual) Monocytes # (Manual) Nucleated RBCs PT INR D-Dimer ABG pH ABG pCO2 32 L ABG pO2 53 L* ABG HCO3 20 L ABG Total CO2 ABG O2 Saturation 82.4 L Sodium Potassium Chloride Carbon Dioxide BUN Creatinine Est GFR (CKD-EPI)AfAm Est GFR (CKD-EPI)NonAf BUN/Creatinine Ratio Glucose POC Glucose (mg/dL) 196 H Plasma Lactic Acid Florentino Calcium Phosphorus Magnesium Iron % Saturation Total Bilirubin AST ALT Troponin I Total Protein Albumin Albumin/Globulin Ratio Urine Protein Urine Glucose (UA) Urine Blood Urine RBC Urine WBC Amorphous Sediment Urine Bacteria Urine Mucus 02/15/21 02/15/21 02/15/21 11:44 18:01 18:02 WBC RBC Hgb Hct MCV MCH MCHC RDW Neutrophils # Neutrophils # (Manual) Lymphocytes # Lymphocytes # (Manual) Monocytes # (Manual) Nucleated RBCs PT INR D-Dimer ABG pH ABG pCO2 ABG pO2 ABG HCO3 ABG Total CO2 ABG O2 Saturation Sodium Potassium Chloride Carbon Dioxide BUN Creatinine Est GFR (CKD-EPI)AfAm Est GFR (CKD-EPI)NonAf BUN/Creatinine Ratio Glucose POC Glucose (mg/dL) 199 H 232 H 196 H Plasma Lactic Acid Florentino Calcium Phosphorus Magnesium Iron % Saturation Total Bilirubin AST ALT Troponin I Total Protein Albumin Albumin/Globulin Ratio Urine Protein Urine Glucose (UA) Urine Blood Urine RBC Urine WBC Amorphous Sediment Urine Bacteria Urine Mucus 02/16/21 02/16/21 02/16/21 00:33 05:06 05:08 WBC 21.5 H RBC 4.08 L Hgb 7.4 L Hct 29.5 L MCV 72.2 L MCH 18.2 L MCHC 25.2 L RDW 22.8 H Neutrophils # 20.6 H Neutrophils # (Manual) Lymphocytes # 0.3 L Lymphocytes # (Manual) Monocytes # (Manual) Nucleated RBCs PT INR D-Dimer ABG pH ABG pCO2 ABG pO2 ABG HCO3 ABG Total CO2 ABG O2 Saturation Sodium Potassium Chloride Carbon Dioxide BUN Creatinine Est GFR (CKD-EPI)AfAm Est GFR (CKD-EPI)NonAf BUN/Creatinine Ratio Glucose POC Glucose (mg/dL) 179 H Plasma Lactic Acid Florentino Calcium Phosphorus 6.5 H Magnesium Iron % Saturation Total Bilirubin AST ALT Troponin I Total Protein Albumin Albumin/Globulin Ratio Urine Protein Urine Glucose (UA) Urine Blood Urine RBC Urine WBC Amorphous Sediment Urine Bacteria Urine Mucus 02/16/21 02/16/21 02/16/21 05:08 05:22 06:56 WBC RBC Hgb Hct MCV MCH MCHC RDW Neutrophils # Neutrophils # (Manual) Lymphocytes # Lymphocytes # (Manual) Monocytes # (Manual) Nucleated RBCs PT INR D-Dimer ABG pH 7.46 H ABG pCO2 31 L ABG pO2 179 H ABG HCO3 ABG Total CO2 ABG O2 Saturation 99.7 H Sodium Potassium Chloride 110 H Carbon Dioxide 19 L BUN 54 H Creatinine 2.23 H Est GFR (CKD-EPI)AfAm Est GFR (CKD-EPI)NonAf BUN/Creatinine Ratio Glucose 161 H POC Glucose (mg/dL) 211 H Plasma Lactic Acid Florentino Calcium 8.0 L Phosphorus Magnesium 2.8 H Iron % Saturation Total Bilirubin AST ALT Troponin I Total Protein Albumin Albumin/Globulin Ratio Urine Protein Urine Glucose (UA) Urine Blood Urine RBC Urine WBC Amorphous Sediment Urine Bacteria Urine Mucus 02/16/21 02/16/21 02/17/21 11:43 17:54 00:22 WBC RBC Hgb Hct MCV MCH MCHC RDW Neutrophils # Neutrophils # (Manual) Lymphocytes # Lymphocytes # (Manual) Monocytes # (Manual) Nucleated RBCs PT INR D-Dimer ABG pH ABG pCO2 ABG pO2 ABG HCO3 ABG Total CO2 ABG O2 Saturation Sodium Potassium Chloride Carbon Dioxide BUN Creatinine Est GFR (CKD-EPI)AfAm Est GFR (CKD-EPI)NonAf BUN/Creatinine Ratio Glucose POC Glucose (mg/dL) 177 H 190 H 213 H Plasma Lactic Acid Florentino Calcium Phosphorus Magnesium Iron % Saturation Total Bilirubin AST ALT Troponin I Total Protein Albumin Albumin/Globulin Ratio Urine Protein Urine Glucose (UA) Urine Blood Urine RBC Urine WBC Amorphous Sediment Urine Bacteria Urine Mucus 02/17/21 02/17/21 02/17/21 04:10 04:10 05:32 WBC 20.5 H RBC 3.63 L Hgb 7.1 L Hct 27.0 L MCV 74.5 L MCH 19.6 L MCHC 26.3 L RDW 24.8 H Neutrophils # Neutrophils # (Manual) Lymphocytes # Lymphocytes # (Manual) Monocytes # (Manual) Nucleated RBCs PT INR D-Dimer ABG pH ABG pCO2 34 L ABG pO2 162 H ABG HCO3 ABG Total CO2 ABG O2 Saturation 99.7 H Sodium Potassium Chloride 109 H Carbon Dioxide 21 L BUN 64 H Creatinine 2.44 H Est GFR (CKD-EPI)AfAm Est GFR (CKD-EPI)NonAf BUN/Creatinine Ratio Glucose 204 H POC Glucose (mg/dL) Plasma Lactic Acid Florentino Calcium 7.9 L Phosphorus 6.2 H Magnesium 2.9 H Iron % Saturation Total Bilirubin AST ALT Troponin I Total Protein 4.8 L Albumin 2.3 L Albumin/Globulin Ratio Urine Protein Urine Glucose (UA) Urine Blood Urine RBC Urine WBC Amorphous Sediment Urine Bacteria Urine Mucus 02/17/21 02/17/21 02/17/21 06:47 12:00 14:51 WBC RBC Hgb Hct MCV MCH MCHC RDW Neutrophils # Neutrophils # (Manual) Lymphocytes # Lymphocytes # (Manual) Monocytes # (Manual) Nucleated RBCs PT INR D-Dimer ABG pH ABG pCO2 ABG pO2 ABG HCO3 ABG Total CO2 ABG O2 Saturation Sodium Potassium Chloride Carbon Dioxide BUN Creatinine Est GFR (CKD-EPI)AfAm Est GFR (CKD-EPI)NonAf BUN/Creatinine Ratio Glucose POC Glucose (mg/dL) 249 H 260 H Plasma Lactic Acid Florentino Calcium Phosphorus Magnesium Iron 27 L % Saturation 11.39 L Total Bilirubin AST ALT Troponin I Total Protein Albumin Albumin/Globulin Ratio Urine Protein Urine Glucose (UA) Urine Blood Urine RBC Urine WBC Amorphous Sediment Urine Bacteria Urine Mucus 02/17/21 02/18/21 02/18/21 17:32 05:35 05:35 WBC 19.1 H RBC 4.23 L Hgb 7.9 L Hct 31.7 L MCV 74.9 L MCH 18.7 L MCHC 24.9 L RDW 25.7 H Neutrophils # 18.3 H Neutrophils # (Manual) Lymphocytes # 0.2 L Lymphocytes # (Manual) Monocytes # (Manual) Nucleated RBCs PT INR D-Dimer ABG pH ABG pCO2 ABG pO2 ABG HCO3 ABG Total CO2 ABG O2 Saturation Sodium Potassium Chloride 112 H Carbon Dioxide BUN 69 H Creatinine 2.18 H Est GFR (CKD-EPI)AfAm Est GFR (CKD-EPI)NonAf BUN/Creatinine Ratio Glucose 133 H POC Glucose (mg/dL) 171 H Plasma Lactic Acid Florentino Calcium Phosphorus 4.9 H Magnesium 2.7 H Iron % Saturation Total Bilirubin AST ALT Troponin I Total Protein 5.1 L Albumin 2.5 L Albumin/Globulin Ratio Urine Protein Urine Glucose (UA) Urine Blood Urine RBC Urine WBC Amorphous Sediment Urine Bacteria Urine Mucus 02/18/21 02/18/21 02/18/21 05:44 05:50 11:27 WBC RBC Hgb Hct MCV MCH MCHC RDW Neutrophils # Neutrophils # (Manual) Lymphocytes # Lymphocytes # (Manual) Monocytes # (Manual) Nucleated RBCs PT INR D-Dimer ABG pH ABG pCO2 ABG pO2 ABG HCO3 ABG Total CO2 ABG O2 Saturation Sodium Potassium Chloride Carbon Dioxide BUN Creatinine Est GFR (CKD-EPI)AfAm Est GFR (CKD-EPI)NonAf BUN/Creatinine Ratio Glucose POC Glucose (mg/dL) 351 H 135 H 198 H Plasma Lactic Acid Florentino Calcium Phosphorus Magnesium Iron % Saturation Total Bilirubin AST ALT Troponin I Total Protein Albumin Albumin/Globulin Ratio Urine Protein Urine Glucose (UA) Urine Blood Urine RBC Urine WBC Amorphous Sediment Urine Bacteria Urine Mucus 02/18/21 02/19/21 02/19/21 18:19 02:10 06:03 WBC RBC Hgb Hct MCV MCH MCHC RDW Neutrophils # Neutrophils # (Manual) Lymphocytes # Lymphocytes # (Manual) Monocytes # (Manual) Nucleated RBCs PT INR D-Dimer ABG pH ABG pCO2 ABG pO2 ABG HCO3 ABG Total CO2 ABG O2 Saturation Sodium Potassium Chloride 110 H Carbon Dioxide 19 L BUN 71 H Creatinine 1.89 H Est GFR (CKD-EPI)AfAm Est GFR (CKD-EPI)NonAf BUN/Creatinine Ratio Glucose 406 H POC Glucose (mg/dL) 226 H 157 H Plasma Lactic Acid Florentino Calcium Phosphorus Magnesium Iron % Saturation Total Bilirubin AST ALT Troponin I Total Protein Albumin Albumin/Globulin Ratio Urine Protein Urine Glucose (UA) Urine Blood Urine RBC Urine WBC Amorphous Sediment Urine Bacteria Urine Mucus 02/19/21 02/19/21 06:03 06:19 WBC 17.5 H RBC 4.19 L Hgb 9.9 L D Hct 32.8 L MCV 78.3 L MCH 23.5 L MCHC 30.0 L RDW 28.2 H Neutrophils # 16.7 H Neutrophils # (Manual) Lymphocytes # 0.3 L Lymphocytes # (Manual) Monocytes # (Manual) Nucleated RBCs PT INR D-Dimer ABG pH ABG pCO2 ABG pO2 ABG HCO3 ABG Total CO2 ABG O2 Saturation Sodium Potassium Chloride Carbon Dioxide BUN Creatinine Est GFR (CKD-EPI)AfAm Est GFR (CKD-EPI)NonAf BUN/Creatinine Ratio Glucose POC Glucose (mg/dL) 157 H Plasma Lactic Acid Florentino Calcium Phosphorus Magnesium Iron % Saturation Total Bilirubin AST ALT Troponin I Total Protein Albumin Albumin/Globulin Ratio Urine Protein Urine Glucose (UA) Urine Blood Urine RBC Urine WBC Amorphous Sediment Urine Bacteria Urine Mucus Assessment and Plan Assessment: Altered mental status due to likely multifactorial: metabolic encephalopathy, also due to medication effect receiving Dilaudid and Deconditioning (required intubated on ventilator and surgical procedure)--improving Acute on chronic kidney insufficiency--trending down. 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 During the hospital stay the patient had elevated liver function--resolved. History of hyperlipidemia Atrial fibrillation Coronary artery disease status post PCI Ischemic cardiomyopathy Plan: An EEG is not warranted since the patient's condition is improving and it felt like this is more encephalopathy due to metabolic as well as deconditioning. If the Patient's condition does not improve will consider getting EEG down the line. I ordered vitamin B12, folate, TSH, hemoglobin A1c levels. Regarding the patient old stroke recommend the aspirin as primary team feels its safe especially with the patient's anemia. Continue Lipitor 40md daily for seondary stroke prophylaxis. There is no need for further workup of the stroke since he's known to have history of stroke that's documented. Recommend further evaluation of the stroke as an outpatient. Q4 hour neuro-checks. PT and AUDIO VISUAL ENGINEER are consulted. I consulted OT as well. He is avoid any sedation, narcotic oral opiates. Regarding the atrial fibrillation cardiology is on board and will defer management to them. We'll defer the rest of the medical management to the primary and ICU team. The plan is discussed with his ICU nurse. Thank you for consultation. Gerson Campbell M.D. Neuro-hospital Time with Patient: Greater than 30
--- NOTE | 2021-02-19 12:54 | P.PN ---
Subjective Patient is extubated but is nonverbal. He is unable to swallow He remains in sinus rhythm He remains on IV amiodarone and IV metoprolol pushes Breath sounds are reduced bilaterally poor respiratory effort Heart sounds S1 and S2 are soft Impression Ischemic cardio myopathy Has refused cardiac catheterization in the past with Dr. Hammond VF arrest Inability to swallow Decreased mentation post extubation Suggest Medical management for ischemic cardio myopathy and VF Unable to give oral medications currently Continue IV medications Objective - Vital Signs Vital signs: Vital Signs Temp 98.3 F 02/19/21 12:00 Pulse 80 02/19/21 12:33 Resp 26 H 02/19/21 12:00 BP 119/97 02/19/21 12:00 Pulse Ox 97 02/19/21 12:00 Intake & Output 02/18/21 02/19/21 02/19/21 18:59 06:59 18:59 Intake Total 917.305 6000 301 Output Total 2130 1670 565 Balance -1293.835 -31 -264 Weight 86 kg 91.5 kg Intake: IV 657 612 301 .9 100 Fat Emulsion 20% 500 ml 147 252 21 In Empty Bag 1 bag @ 21 mls/hr IV MoWeFr MARY Rx#: [id number] Mvi, Adult No.4 with Vit 330 360 180 K 10 ml Trace (Conc-1Ml/ Dose) 1 ml Sodium Acetate 30 meq Potassium Chloride 20 meq Calcium Gluconate 1 gm In Amino Acid 5%-D15w 1,000 ml @ 30 mls/hr IV .Q24H MARY Rx #:[id number] Sodium Chloride 0.9% 1, 80 000 ml @ 50 mls/hr IV . Q20H MARY Rx#:[id number] Zosyn IVPB 100 Intake, IV Titration 326.258 8291 Amount Amiodarone 360 mg In 179.165 200 Dextrose 5% in Water 200 ml @ 0.5 MG/MIN 16.667 mls/hr IV .Q12H MARY Rx#: [id number] Mvi, Adult No.4 with Vit 827 K 10 ml Trace (Conc-1Ml/ Dose) 1 ml Sodium Acetate 30 meq Potassium Chloride 20 meq Calcium Gluconate 1 gm In Amino Acid 5%-D15w 1,000 ml @ 30 mls/hr IV .Q24H MARY Rx #:[id number] Output: Urine 2130 1670 565 Other: Voiding Method Indwelling Catheter Indwelling Catheter - Labs CBC & Chem 7: 02/19/21 06:03 02/19/21 06:03 Labs: Abnormal Lab Results - Last 24 Hours (Table) 02/18/21 02/19/21 02/19/21 Range/Units 18:19 02:10 06:03 WBC (3.8-10.6) k/uL RBC (4.30-5.90) m/uL Hgb (13.0-17.5) gm/dL Hct (39.0-53.0) % MCV (80.0-100.0) fL MCH (25.0-35.0) pg MCHC (31.0-37.0) g/dL RDW (11.5-15.5) % Neutrophils # (1.3-7.7) k/uL Lymphocytes # (1.0-4.8) k/uL Chloride 110 H (98-107) mmol/L Carbon Dioxide 19 L (22-30) mmol/L BUN 71 H (9-20) mg/dL Creatinine 1.89 H (0.66-1.25) mg/dL Glucose 406 H (74-99) mg/dL POC Glucose (mg/dL) 226 H 157 H (75-99) mg/dL 02/19/21 02/19/21 02/19/21 Range/Units 06:03 06:19 11:21 WBC 17.5 H (3.8-10.6) k/uL RBC 4.19 L (4.30-5.90) m/uL Hgb 9.9 L D (13.0-17.5) gm/dL Hct 32.8 L (39.0-53.0) % MCV 78.3 L (80.0-100.0) fL MCH 23.5 L (25.0-35.0) pg MCHC 30.0 L (31.0-37.0) g/dL RDW 28.2 H (11.5-15.5) % Neutrophils # 16.7 H (1.3-7.7) k/uL Lymphocytes # 0.3 L (1.0-4.8) k/uL Chloride (98-107) mmol/L Carbon Dioxide (22-30) mmol/L BUN (9-20) mg/dL Creatinine (0.66-1.25) mg/dL Glucose (74-99) mg/dL POC Glucose (mg/dL) 157 H 195 H (75-99) mg/dL Microbiology - Last 24 Hours (Table) 02/14/21 08:54 Blood Culture - Preliminary Blood No Growth after 120 hours
--- NOTE | 2021-02-19 12:57 | PN ---
PROGRESS NOTE DATE OF SERVICE: 02/18/2021 White male who is status post colectomy with event. He has been weaned off the vent. He is in ICU at this time. He is not responding to questions but he does shake his head to questions. We are going to get neurology consult as mentioned to wean off the vent. He is breathing comfortably. Denies any chest pain. He is on broad- spectrum antibiotics. He has some left forearm wound blisters discussed with some Silvadene dressing. Infectious Diseases trying to monitor this. Vital signs stable. Afebrile. Cardiovascular S1, S2. Lungs clear. GI soft. Hematology negative Homans. Psych: Fair mood and affect. White count 17.5, hemoglobin 9.9, BUN 71, creatinine 1.39. ASSESSMENT: 1. Aspiration pneumonia left upper extremity wound with blisters. 2. Atrial fibrillation. 3. Congestive heart failure. 4. Fluid overload. 5. Hypoxemic respiratory failure. 6. Bilateral atelectasis. 7. Pleural perfusion. 8. Bowel obstruction. 9. . Wound care. Observe off vasopressors. Wait for Neurology consult. Continue with Infectious Disease, PT/OT. Prognosis guarded. MMODL / IJN: [id number] /
[2021-02-19] MEDS: SODIUM FERRIC GLUCONAT-SUCROSE 125 MG in SODIUM CHLORIDE 0.9% 100 ML IVPB SCH (13:16)
--- NOTE | 2021-02-19 14:08 | P.PN ---
Subjective Progress Note Date: 02/19/21 Principal diagnosis: This is a 80-year-old male, seen in consultation of ATN. He was admitted with bowel obstruction and had a colonic mass which was resected. He had end-to-end anastomosis. Subsequently had cardiac arrest and was intubated. He was extubated on 02/17/2021 Currently he is on nasal cannula oxygen and awake and alert but profoundly weak His creatinine is improving. Urine output is 3800 mL's. He is an alert but very weak Objective - Vital Signs Vital signs: Vital Signs Temp 98.3 F 02/19/21 12:00 Pulse 84 02/19/21 13:00 Resp 22 02/19/21 13:00 BP 140/68 02/19/21 13:00 Pulse Ox 96 02/19/21 13:00 Intake & Output 02/18/21 02/19/21 02/19/21 18:59 06:59 18:59 Intake Total 044.870 8994 456 Output Total 2130 1670 680 Balance -1293.835 -31 -224 Weight 86 kg 91.5 kg Intake: IV 657 612 456 .9 120 Fat Emulsion 20% 500 ml 147 252 126 In Empty Bag 1 bag @ 21 mls/hr IV MoWeFr MARY Rx#: [id number] Mvi, Adult No.4 with Vit 330 360 210 K 10 ml Trace (Conc-1Ml/ Dose) 1 ml Sodium Acetate 30 meq Potassium Chloride 20 meq Calcium Gluconate 1 gm In Amino Acid 5%-D15w 1,000 ml @ 30 mls/hr IV .Q24H MARY Rx #:[id number] Sodium Chloride 0.9% 1, 80 000 ml @ 50 mls/hr IV . Q20H MARY Rx#:[id number] Zosyn IVPB 100 Intake, IV Titration 560.736 3187 Amount Amiodarone 360 mg In 179.165 200 Dextrose 5% in Water 200 ml @ 0.5 MG/MIN 16.667 mls/hr IV .Q12H MARY Rx#: [id number] Mvi, Adult No.4 with Vit 827 K 10 ml Trace (Conc-1Ml/ Dose) 1 ml Sodium Acetate 30 meq Potassium Chloride 20 meq Calcium Gluconate 1 gm In Amino Acid 5%-D15w 1,000 ml @ 30 mls/hr IV .Q24H MARY Rx #:[id number] Output: Urine 2130 1670 680 Other: Voiding Method Indwelling Catheter Indwelling Catheter Indwelling Catheter On examination awake alert but profoundly weak. HEENT exam no JVP no facial asymmetry Lungs are clear to auscultation fair air entry bilaterally Heart sounds unremarkable for any murmur rub gallop Abdomen soft he has dressing on his abdomen. Extreme exam reveals moderate edema Neurologically awake alert follows commands but profoundly - Labs CBC & Chem 7: 02/19/21 06:03 02/19/21 06:03 Labs: Abnormal Lab Results - Last 24 Hours (Table) 02/18/21 02/19/21 02/19/21 Range/Units 18:19 02:10 06:03 WBC (3.8-10.6) k/uL RBC (4.30-5.90) m/uL Hgb (13.0-17.5) gm/dL Hct (39.0-53.0) % MCV (80.0-100.0) fL MCH (25.0-35.0) pg MCHC (31.0-37.0) g/dL RDW (11.5-15.5) % Neutrophils # (1.3-7.7) k/uL Lymphocytes # (1.0-4.8) k/uL Chloride 110 H (98-107) mmol/L Carbon Dioxide 19 L (22-30) mmol/L BUN 71 H (9-20) mg/dL Creatinine 1.89 H (0.66-1.25) mg/dL Glucose 406 H (74-99) mg/dL POC Glucose (mg/dL) 226 H 157 H (75-99) mg/dL 02/19/21 02/19/21 02/19/21 Range/Units 06:03 06:19 11:21 WBC 17.5 H (3.8-10.6) k/uL RBC 4.19 L (4.30-5.90) m/uL Hgb 9.9 L D (13.0-17.5) gm/dL Hct 32.8 L (39.0-53.0) % MCV 78.3 L (80.0-100.0) fL MCH 23.5 L (25.0-35.0) pg MCHC 30.0 L (31.0-37.0) g/dL RDW 28.2 H (11.5-15.5) % Neutrophils # 16.7 H (1.3-7.7) k/uL Lymphocytes # 0.3 L (1.0-4.8) k/uL Chloride (98-107) mmol/L Carbon Dioxide (22-30) mmol/L BUN (9-20) mg/dL Creatinine (0.66-1.25) mg/dL Glucose (74-99) mg/dL POC Glucose (mg/dL) 157 H 195 H (75-99) mg/dL Microbiology - Last 24 Hours (Table) 02/14/21 08:54 Blood Culture - Preliminary Blood No Growth after 120 hours Assessment and Plan Assessment: Impression 1. Acute kidney injury from ATN from cardiac arrest. Post op Right colectomy, creatinine improving urine output is satisfactory 2. Mild degree of non-gap acidosis bicarb is 19 gap is 9. 3. On TPN 4. Status post right hemicolectomy for tumor. 5. Status post cardiac arrest. 6. Edema 7. Anemia hemoglobin is 9.9 Recommendation 1. Continue TPN 2. Increase acetate oral bicarb in the TPN 3. Continue Lasix as needed, will give him 1 dose of Lasix 40 mg IV 4. Monitor labs
[2021-02-19] MEDS ORDERED: FUROSEMIDE 10 MG/ML 4 ML VIAL IV STA (14:09)
--- NOTE | 2021-02-19 15:07 | PN ---
PROGRESS NOTE DATE OF SERVICE: 02/19/2021 REASON FOR FOLLOWUP: 1. Possible aspiration pneumonia. 2. Left upper extremity blistering, rash and necrosis. INTERVAL HISTORY: The patient is afebrile. The patient is currently breathing comfortably on room air. The patient remains lethargic and is unable to provide any history. No vomiting, diarrhea or other changes reported by the nursing staff. Did have discoloration to the left upper extremity and some blistering per the nursing staff. PHYSICAL EXAMINATION: Blood pressure 140/68 with a pulse of 84, temperature of 98.3. He is 96% on room air. GENERAL DESCRIPTION: General description is an elderly male lying in bed in no distress. RESPIRATORY SYSTEM: Unlabored breathing with decreased breath sounds in the base. No wheeze. HEART: S1, S2. Regular rate and rhythm. ABDOMEN: Soft. Incision is currently intact. LEFT UPPER EXTREMITY: Hand is cold, swollen, with skin necrosis and some blisters. LABS: Hemoglobin 11, white count 17.5, creatinine 1.81. DIAGNOSTIC IMPRESSION AND PLAN: 1. Patient with acute respiratory failure after cardiac arrest with concern for aspiration pneumonia. Sputum has been negative for resistant pathogen. Patient is covered with Zosyn. 2. Patient with a left upper extremity skin necrosis, possibly from an IV with concern for possible significant cellulitis. Will add daptomycin. The patient does have borderline kidney function and high risk of nephrotoxicity from vancomycin. Migue the area of the discoloration. Discussed with the nurse. MMODL / IJN: [id number] / MTDD
--- NOTE | 2021-02-19 17:28 | P.CONS ---
History of Present Illness - Reason for Consult Consult date: 02/19/21 Diagnosis of colon Cancer - History of Present Illness The patient is 80-year-old white male with multiple medical problems. He was initially admitted on 02/06/21 with complaints of abdominal pain, distention associated with some nausea and vomiting. Symptoms had developed over 1-2 days and had progressed. In the emergency room he was found to have evidence of small bowel obstruction on abdominal x-ray. Subsequent CT of the abdomen and pelvis confirmed the same with transition point appearing to be in the proximal colon area. A left adrenal mass was noted which was consistent with a benign adenoma. There is possibility of a small subcentimeter nodule in the lung base. The patient was taken to surgery and had right hemicolectomy. Post surgery was initially doing reasonably well but then suffered a cardiac arrest associated with went to her tachycardia. He was intubated and moved to the ICU. He was subsequently able to be extubated on 02/17/21. The patient's pathology came back positive for carcinoma of the colon, T3, 4 cm, with multiple lymph nodes including at least 4 noncontiguous tumor deposits in the serosal fat. 7/15 lymph nodes were involved Consult was therefore placed a further evaluation and recommendations The patient is very weak and can only speak a few words at a time. Partial history was able to be obtained from him with the rest having to be obtained from the EMR He denied any prior history of malignancy or colonoscopy previously. He states that prior to his admission he had noted a change in bowel habits with intermittent diarrhea over the past some weeks at least. It also lost some weight but was unable to quantify how much. He had not noted any obvious ble eding. Review of Systems Constitutional: Reports fatigue, Reports poor appetite, Reports weakness, Reports weight loss Eyes: denies blurred vision, denies pain Ears: deny: decreased hearing, ear discharge, earache, tinnitus Ears, nose, mouth and throat: Denies headache, Denies sore throat Cardiovascular: Reports as per HPI (Known history of cardiovascular disease at baseline), Reports dyspnea on exertion Respiratory: Reports as per HPI, Reports dyspnea Gastrointestinal: Reports as per HPI Genitourinary: Reports as per HPI Musculoskeletal: Reports muscle weakness Integumentary: Reports lesions (ulcer with skin necrosis left forearm) Neurological: Reports weakness Psychiatric: Reports difficulty concentrating, Denies anxiety, Denies depression Endocrine: Reports fatigue, Reports weight change Hematologic/Lymphatic: Reports as per HPI Past Medical History Past Medical History: Atrial Fibrillation, Coronary Artery Disease (CAD), Cancer, Heart Failure, CVA/TIA, Hyperlipidemia, Hypertension, Myocardial Infarction (FL), Osteoarthritis (OA), Prostate Disorder, Renal Disease, Skin Disorder Additional Past Medical History / Comment(s): 04/08/18 pt stated wants flu vaccine before discharge if ok with 01/2016-denies any residual, FL on stress test, constipation, arthritis in neck, basal cell cancer, bleeds easily with cuts, has crushed vertebra in neck. 04/2018 Acute renal Failure, Hyperkalemia, 3cm AAA, enlarged prostate and right adrenal mass. Last Myocardial Infarction Date:: unknown History of Any Multi-Drug Resistant Organisms: None Reported Past Surgical History: Bowel Resection, Heart Catheterization With Stent, Hernia Repair, Tonsillectomy Additional Past Surgical History / Comment(s): mitral valve repair 2002. total 4 cardiac stents, clara cataracts with lens implants, Right inguinal hernia repair 03/2018, SBO with right colectomy, right colon mass found and pathology sent 02/08/2021. Past Anesthesia/Blood Transfusion Reactions: No Reported Reaction Additional Past Anesthesia/Blood Transfusion Reaction / Comm: car sickness as child, " i seem to need more oxygen" with anesthesia. denies any diff with past intubation Date of Last Stent Placement:: 07/2016 Past Psychological History: No Psychological Hx Reported Additional Psychological History / Comment(s): ppt stated he lives in own home- alone. no home care services, no medical equiment Smoking Status: Former smoker Past Alcohol Use History: Rare Additional Past Alcohol Use History / Comment(s): started smoking at age 20 and quit 2002. was smoking 1/2 ppd. Past Drug Use History: None Reported - Past Family History Mother History Unknown: Yes Family Medical History: No Reported History Father History Unknown: Yes Additional Family Medical History / Comment(s): "heart problems" Medications and Allergies Home Medications Medication Instructions Recorded Confirmed Type Zolpidem [Ambien] 10 mg PO HS PRN 06/08/16 02/06/21 History Clopidogrel [Plavix] 75 mg PO DAILY #90 tab 07/19/16 02/06/21 Rx Nitroglycerin Sl Tabs [Nitrostat] 0.4 mg SUBLINGUAL Q5M PRN #25 tab 07/19/16 02/06/21 Rx Bumetanide [Bumex] 1 mg PO DAILY 02/06/21 02/06/21 History HYDROcodone/APAP 10-325MG [[place] 1 tab PO TID PRN 02/06/21 02/06/21 History 10-325] Metoprolol Succinate (ER) [Toprol 25 mg PO DAILY 02/06/21 02/06/21 History Xl] lisinopriL [Zestril] 5 mg PO DAILY 02/06/21 02/06/21 History Allergies Allergy/AdvReac Type Severity Reaction Status Date / Time No Known Allergies Allergy Verified 02/06/21 22:39 Physical Exam Vitals: Vital Signs Temp Pulse Resp BP Pulse Ox 02/19/21 15:00 86 24 145/67 98 02/19/21 14:00 85 23 144/59 97 02/19/21 13:00 84 22 140/68 96 02/19/21 12:33 80 02/19/21 12:21 81 02/19/21 12:00 98.3 F 82 26 H 119/97 97 02/19/21 11:00 89 24 140/63 96 02/19/21 10:00 86 22 145/63 97 02/19/21 09:00 86 20 147/71 96 02/19/21 08:46 80 02/19/21 08:34 81 02/19/21 08:25 26 H 02/19/21 08:00 98.3 F 81 21 145/71 97 02/19/21 07:00 78 20 142/68 98 02/19/21 06:00 78 21 141/68 97 02/19/21 05:00 77 21 140/69 98 02/19/21 04:00 97.8 F 78 22 139/64 97 02/19/21 03:00 73 21 139/63 97 02/19/21 02:00 75 22 139/65 96 02/19/21 01:00 78 23 136/61 97 02/19/21 00:00 75 21 133/61 97 02/18/21 23:00 75 20 132/60 96 02/18/21 22:30 71 12 132/60 96 02/18/21 22:00 73 20 132/60 96 02/18/21 21:00 73 21 136/63 96 02/18/21 20:00 98 F 71 23 135/65 96 02/18/21 19:00 76 20 135/67 96 02/18/21 18:00 75 24 131/68 97 02/18/21 17:00 71 22 143/81 96 Intake and Output 02/19/21 02/19/21 02/19/21 06:59 14:59 22:59 Intake Total 1435 546 90 Output Total 1075 805 130 Balance 360 -259 -40 Intake: IV 408 546 90 .9 140 20 Fat Emulsion 20% 500 ml 168 126 In Empty Bag 1 bag @ 21 mls/hr IV MoWeFr MARY Rx#: [id number] Mvi, Adult No.4 with Vit 240 280 70 K 10 ml Trace (Conc-1Ml/ Dose) 1 ml Sodium Acetate 30 meq Potassium Chloride 20 meq Calcium Gluconate 1 gm In Amino Acid 5%-D15w 1,000 ml @ 30 mls/hr IV .Q24H MARY Rx #:[id number] Intake, IV Titration 1027 Amount Amiodarone 360 mg In 200 Dextrose 5% in Water 200 ml @ 0.5 MG/MIN 16.667 mls/hr IV .Q12H MARY Rx#: [id number] Mvi, Adult No.4 with Vit 827 K 10 ml Trace (Conc-1Ml/ Dose) 1 ml Sodium Acetate 30 meq Potassium Chloride 20 meq Calcium Gluconate 1 gm In Amino Acid 5%-D15w 1,000 ml @ 30 mls/hr IV .Q24H MARY Rx #:[id number] Output: Urine 1075 805 130 Other: Voiding Method Indwelling Catheter Indwelling Catheter Weight 91.5 kg - Constitutional marked weakness - EENT Eyes: EOMI, PERRLA ENT: hearing grossly normal, normal oropharynx - Neck Thyroid: bilateral: normal size - Respiratory Respiratory: bilateral: diminished - Cardiovascular Rhythm: regular Heart sounds: normal: S1, S2 - Gastrointestinal Abdominal band. Alina in situ. Wound appears clean General gastrointestinal: normal bowel sounds, soft - Integumentary Extensive area of hyperpigmentation with blistering and skin breakdown with ulceration approximately centrally left forearm, - Neurologic Neurologic: CNII-XII intact - Musculoskeletal Musculoskeletal: generalized weakness, strength equal bilaterally - Psychiatric Psychiatric: A&O x's 3 Results CBC & Chem 7: 02/19/21 06:03 02/19/21 06:03 Labs: Abnormal Lab Results - Last 24 Hours (Table) 02/18/21 02/19/21 02/19/21 Range/Units 18:19 02:10 06:03 WBC (3.8-10.6) k/uL RBC (4.30-5.90) m/uL Hgb (13.0-17.5) gm/dL Hct (39.0-53.0) % MCV (80.0-100.0) fL MCH (25.0-35.0) pg MCHC (31.0-37.0) g/dL RDW (11.5-15.5) % Neutrophils # (1.3-7.7) k/uL Lymphocytes # (1.0-4.8) k/uL Chloride 110 H (98-107) mmol/L Carbon Dioxide 19 L (22-30) mmol/L BUN 71 H (9-20) mg/dL Creatinine 1.89 H (0.66-1.25) mg/dL Glucose 406 H (74-99) mg/dL POC Glucose (mg/dL) 226 H 157 H (75-99) mg/dL 02/19/21 02/19/21 02/19/21 Range/Units 06:03 06:19 11:21 WBC 17.5 H (3.8-10.6) k/uL RBC 4.19 L (4.30-5.90) m/uL Hgb 9.9 L D (13.0-17.5) gm/dL Hct 32.8 L (39.0-53.0) % MCV 78.3 L (80.0-100.0) fL MCH 23.5 L (25.0-35.0) pg MCHC 30.0 L (31.0-37.0) g/dL RDW 28.2 H (11.5-15.5) % Neutrophils # 16.7 H (1.3-7.7) k/uL Lymphocytes # 0.3 L (1.0-4.8) k/uL Chloride (98-107) mmol/L Carbon Dioxide (22-30) mmol/L BUN (9-20) mg/dL Creatinine (0.66-1.25) mg/dL Glucose (74-99) mg/dL POC Glucose (mg/dL) 157 H 195 H (75-99) mg/dL Microbiology - Last 24 Hours (Table) 02/14/21 08:54 Blood Culture - Preliminary Blood No Growth after 120 hours Comments: ECHO report reviewed. Ejection fraction is diminished, 25-30% Chest x-ray: report reviewed Abdominal x-ray: report reviewed CT scan - abdomen: report reviewed CT scan - chest: report reviewed CT Scan - head: report reviewed CT scan - pelvis: report reviewed Assessment and Plan (1) Cancer of colon Narrative/Plan: The patient has a new diagnosis of carcinoma of the ascending colon, which was the reason for his presentation due to causing bowel obstruction. the patient is status post surgery with pathology as described in the HPI. - The pathology and implications were discussed with the patient. At this time he does not appear to have any obvious metastatic disease based on CT and CT of the abdomen and pelvis. The adrenal lesion appears to be consistent with lipid rich adenoma. Even in the absence of obvious metastatic disease he would be considered high risk given multiple lymph node involvement. Therefore ideally aggressive adjuvant chemotherapy would be recommended after the patient has recovered from surgery - The patient was advised that even in the absence of any complications related typically have to wait about 4-6 weeks after surgery to start chemotherapy. In his situation this could be further delayed because of his current events causing increased weakness, as well as underlying medical conditions including decreased EF and other cardiovascular disease - Therefore recommended that he be evaluated about 3-4 weeks after hospital discharge. At that time I would also recommend doing a PET scan to check for any development of metastatic disease in the interim. Specific treatment recommendations at that time would depend on PET scan results as well as his performance status Current Visit: Yes Status: Acute Code(s): C18.9 - MALIGNANT NEOPLASM OF COLON, UNSPECIFIED SNOMED Code(s): 955384211 (2) Anemia Narrative/Plan: Likely due to iron deficiency and then subsequently acute illness. Check iron studies and supplement as needed transfuse for hemoglobin less than 7. Current Visit: Yes Status: Acute Code(s): D64.9 - ANEMIA, UNSPECIFIED SNOMED Code(s): 738230602 Plan: Defer to the admitting service and other consultants for management of his multiple, ongoing medical/ surgical issues
[2021-02-19 18:36] LABS: Glucose,Whole Blood 253 mg/dL (75-99)
[2021-02-19 21:02] LABS: Glucose,Whole Blood 277 mg/dL (75-99)
[2021-02-19] MEDS: HYDROmorphone 1 MG/ML 1 ML SYRINGE IVP PRN (22:47)
[2021-02-19 23:37] LABS: Glucose,Whole Blood 228 mg/dL (75-99)
[2021-02-20] MEDS: METOPROLOL TARTRATE 5 MG/5 ML VIAL IVP SCH
[2021-02-20 06:11] LABS: Glucose,Whole Blood 263 mg/dL (75-99)
[2021-02-20 07:05] LABS: Glucose,Whole Blood 260 mg/dL (75-99)
[2021-02-20] MEDS: INSULIN ASPART (NovoLOG) 100 UNIT/ML VIAL SQ SCH ×4 (07:08→21:07)
[2021-02-20 07:55] LABS: Anisocytosis Marked; Basophils % (A) 0 %; Eosinophils % (A) 0 %; HCT 35.9 % (39.0-53.0); HGB 9.1 gm/dL (13.0-17.5); Hypochromasia Marked; Lymphocytes # (A) 0.1 k/uL (1.0-4.8); Lymphocytes % (A) 1 %; MCH 19.7 pg (25.0-35.0); MCHC 25.4 g/dL (31.0-37.0); MCV 77.7 fL (80.0-100.0); Macrocytosis Slight; Mean Platelet Volume 8.1; Microcytosis Marked; Monocytes # (A) 0.4 k/uL (0-1.0); Monocytes % (A) 3 %; Neutrophils # (A) 14.5 k/uL (1.3-7.7); Neutrophils % (A) 95 %; Platelet Count 273 k/uL (150-450); Poikilocytosis Slight; RBC 4.62 m/uL (4.30-5.90); WBC 15.2 k/uL (3.8-10.6)
[2021-02-20 07:56] LABS: Folate, Serum >24.0 ng/mL
[2021-02-20 08:07] LABS: RDW 29.1 % (11.5-15.5)
[2021-02-20 08:20] LABS: Calcium 8.8 mg/dL (8.4-10.2); Magnesium 2.2 mg/dL (1.6-2.3); Phosphorus 3.4 mg/dL (2.5-4.5); Potassium 3.1 mmol/L (3.5-5.1)
[2021-02-20] MEDS: IPRATROPIUM-ALBUTEROL 3 ML NEB INHALATION SCH ×4 (08:47→20:25)
[2021-02-20] MEDS: methylPREDNISolone SOD SUCCI 40 MG/ML 1 ML VIAL IV SCH ×4 (09:28→23:06)
[2021-02-20] MEDS: ENOXAPARIN 30 MG/0.3 ML SYRINGE SQ SCH (09:28)
[2021-02-20] MEDS: PANTOPRAZOLE 40 MG/10 ML VIAL IV SCH (09:28)
[2021-02-20] MEDS: 1: MVI, ADULT NO.4 WITH VIT K 10 ML, TRACE (CONC-1ML/DOSE) 1 ML, SODIUM ACETATE 30 MEQ, IV SCH ×12 (09:28→12:00)
[2021-02-20] MEDS: METOPROLOL TARTRATE 25 MG TAB PO SCH ×2 (09:29→21:07)
[2021-02-20] MEDS: ATORVASTATIN 40 MG TAB PO SCH (09:29)
[2021-02-20] MEDS: NOREPINEPHRINE 4 MG in SODIUM CHLORIDE 0.9% 250 ML IV SCH (09:30)
[2021-02-20] MEDS: AMIODARONE 360 MG in DEXTROSE 5% IN WATER 200 ML IV SCH ×2 (09:31)
[2021-02-20 09:55] LABS: Polychromasia Present; RBC Fragments Present
--- NOTE | 2021-02-20 10:00 | P.PN ---
Subjective Principal diagnosis: This is a 80-year-old male, seen in consultation for ATN. He was admitted with bowel obstruction and had a colonic mass which was resected. He had end-to-end anastomosis. Subsequently had cardiac arrest and was intubated. He was extubated on 02/17/2021 Currently he is on room air and is sitting. He complains of being tired and weak. He was started on liquid and is able to swallow. No abdominal pain. While signs are stable is in normal sinus rhythm creatinine continues to improve, although he is alert but profoundly weak Objective - Vital Signs Vital signs: Vital Signs Temp 98.1 F 02/20/21 08:00 Pulse 87 02/20/21 09:00 Resp 19 02/20/21 09:00 BP 127/63 02/20/21 09:00 Pulse Ox 99 02/20/21 09:00 Intake & Output 02/19/21 02/20/21 02/20/21 18:59 06:59 18:59 Intake Total 1226 895 265 Output Total 1595 1825 330 Balance -369 -930 -65 Weight 84.3 kg Intake: IV 906 895 265 .9 220 20 40 Fat Emulsion 20% 500 ml 126 In Empty Bag 1 bag @ 21 mls/hr IV MoWeFr MARY Rx#: [id number] Mvi, Adult No.4 with Vit 560 800 225 K 10 ml Trace (Conc-1Ml/ Dose) 1 ml Sodium Acetate 30 meq Potassium Chloride 20 meq Calcium Gluconate 1 gm In Amino Acid 5%-D15w 1,000 ml @ 30 mls/hr IV .Q24H MARY Rx #:[id number] Sodium Ferric Gluconat- 75 Sucrose 125 mg In Sodium Chloride 0.9% 100 ml @ 100 mls/hr IVPB Q24H MARY Rx#:[id number] Intake, IV Titration 200 Amount Amiodarone 360 mg In 200 Dextrose 5% in Water 200 ml @ 0.5 MG/MIN 16.667 mls/hr IV .Q12H MARY Rx#: [id number] Oral 120 Output: Urine 1595 1825 330 Other: Voiding Method Indwelling Catheter Indwelling Catheter # Bowel Movements 1 Examination he is awake alert comfortable. HEENT exam no JVP neck is supple no facial asymmetry Lungs are clear to auscultation good air entry bilaterally Heart sounds unremarkable. No murmur rub gallop Normal sinus rhythm on the monitor Abdomen is soft he has a binder on his abdomen. Extremity exam was 2+ edema Neurologically awake alert but may be somewhat disoriented. No focal motor deficit - Labs CBC & Chem 7: 02/20/21 06:55 02/20/21 06:55 Labs: Abnormal Lab Results - Last 24 Hours (Table) 02/19/21 02/19/21 02/19/21 Range/Units 11:21 18:34 21:00 WBC (3.8-10.6) k/uL Hgb (13.0-17.5) gm/dL Hct (39.0-53.0) % MCV (80.0-100.0) fL MCH (25.0-35.0) pg MCHC (31.0-37.0) g/dL RDW (11.5-15.5) % Sodium (137-145) mmol/L Potassium (3.5-5.1) mmol/L Chloride (98-107) mmol/L BUN (9-20) mg/dL Creatinine (0.66-1.25) mg/dL Glucose (74-99) mg/dL POC Glucose (mg/dL) 195 H 253 H 277 H (75-99) mg/dL 02/19/21 02/20/21 02/20/21 Range/Units 23:36 06:09 06:55 WBC (3.8-10.6) k/uL Hgb (13.0-17.5) gm/dL Hct (39.0-53.0) % MCV (80.0-100.0) fL MCH (25.0-35.0) pg MCHC (31.0-37.0) g/dL RDW (11.5-15.5) % Sodium 147 H (137-145) mmol/L Potassium 3.1 L (3.5-5.1) mmol/L Chloride 113 H (98-107) mmol/L BUN 73 H (9-20) mg/dL Creatinine 1.71 H (0.66-1.25) mg/dL Glucose 252 H (74-99) mg/dL POC Glucose (mg/dL) 228 H 263 H (75-99) mg/dL 02/20/21 02/20/21 Range/Units 06:55 07:03 WBC 15.2 H (3.8-10.6) k/uL Hgb 9.1 L (13.0-17.5) gm/dL Hct 35.9 L (39.0-53.0) % MCV 77.7 L (80.0-100.0) fL MCH 19.7 L (25.0-35.0) pg MCHC 25.4 L (31.0-37.0) g/dL RDW 29.1 H (11.5-15.5) % Sodium (137-145) mmol/L Potassium (3.5-5.1) mmol/L Chloride (98-107) mmol/L BUN (9-20) mg/dL Creatinine (0.66-1.25) mg/dL Glucose (74-99) mg/dL POC Glucose (mg/dL) 260 H (75-99) mg/dL Microbiology - Last 24 Hours (Table) 02/14/21 08:54 Blood Culture - Preliminary Blood No Growth after 120 hours Assessment and Plan Assessment: Impression 1. Acute kidney injury from ATN from cardiac arrest. Post op Right colectomy, creatinine improving urine output is satisfactory, creatinine down to 1.7 2. Mild degree of non-gap acidosis him a resolved bicarb is 25 3. Was on On TPN as of yesterday, off today and started on by mouth intake with liquids and tolerating it 4. Status post right hemicolectomy for tumor. 5. Status post cardiac arrest. 6. Edema 7. Anemia hemoglobin is 9.9, down to 9.1 this morning. 8. Hypokalemia secondary to diuresis potassium is 3.1. 9. Magnesium is normal Recommendation 1. KCl 20 mEq every hour for 3 doses for a total of 60 mEq 2. Continue Lasix to reduce edema, start him on Lasix 20 mg twice a day po 4. Monitor labs, including CBC
--- NOTE | 2021-02-20 10:06 | P.PN ---
Subjective Progress Note Date: 02/20/21 Principal diagnosis: Right colectomy Patient doing much better today. He is complaining only of mild abdominal discomfort and left arm pain. Tolerating diet. He is hungry. No nausea or vomiting. White blood cell count 15.2, hemoglobin 9.1. Objective - Vital Signs Vital signs: Vital Signs Temp 98.1 F 02/20/21 08:00 Pulse 87 02/20/21 09:00 Resp 19 02/20/21 09:00 BP 127/63 02/20/21 09:00 Pulse Ox 99 02/20/21 09:00 Intake & Output 02/19/21 02/20/21 02/20/21 18:59 06:59 18:59 Intake Total 1226 895 265 Output Total 1595 1825 330 Balance -369 -930 -65 Weight 84.3 kg Intake: IV 906 895 265 .9 220 20 40 Fat Emulsion 20% 500 ml 126 In Empty Bag 1 bag @ 21 mls/hr IV MoWeFr MARY Rx#: [id number] Mvi, Adult No.4 with Vit 560 800 225 K 10 ml Trace (Conc-1Ml/ Dose) 1 ml Sodium Acetate 30 meq Potassium Chloride 20 meq Calcium Gluconate 1 gm In Amino Acid 5%-D15w 1,000 ml @ 30 mls/hr IV .Q24H MARY Rx #:[id number] Sodium Ferric Gluconat- 75 Sucrose 125 mg In Sodium Chloride 0.9% 100 ml @ 100 mls/hr IVPB Q24H MARY Rx#:[id number] Intake, IV Titration 200 Amount Amiodarone 360 mg In 200 Dextrose 5% in Water 200 ml @ 0.5 MG/MIN 16.667 mls/hr IV .Q12H MARY Rx#: [id number] Oral 120 Output: Urine 1595 1825 330 Other: Voiding Method Indwelling Catheter Indwelling Catheter # Bowel Movements 1 - Exam Abdomen: Soft, minimal distention, incision clean and dry, minimal tenderness - Labs CBC & Chem 7: 02/20/21 06:55 02/20/21 06:55 Labs: Abnormal Lab Results - Last 24 Hours (Table) 02/19/21 02/19/21 02/19/21 Range/Units 11:21 18:34 21:00 WBC (3.8-10.6) k/uL Hgb (13.0-17.5) gm/dL Hct (39.0-53.0) % MCV (80.0-100.0) fL MCH (25.0-35.0) pg MCHC (31.0-37.0) g/dL RDW (11.5-15.5) % Neutrophils # (1.3-7.7) k/uL Lymphocytes # (1.0-4.8) k/uL Sodium (137-145) mmol/L Potassium (3.5-5.1) mmol/L Chloride (98-107) mmol/L BUN (9-20) mg/dL Creatinine (0.66-1.25) mg/dL Glucose (74-99) mg/dL POC Glucose (mg/dL) 195 H 253 H 277 H (75-99) mg/dL 02/19/21 02/20/21 02/20/21 Range/Units 23:36 06:09 06:55 WBC (3.8-10.6) k/uL Hgb (13.0-17.5) gm/dL Hct (39.0-53.0) % MCV (80.0-100.0) fL MCH (25.0-35.0) pg MCHC (31.0-37.0) g/dL RDW (11.5-15.5) % Neutrophils # (1.3-7.7) k/uL Lymphocytes # (1.0-4.8) k/uL Sodium 147 H (137-145) mmol/L Potassium 3.1 L (3.5-5.1) mmol/L Chloride 113 H (98-107) mmol/L BUN 73 H (9-20) mg/dL Creatinine 1.71 H (0.66-1.25) mg/dL Glucose 252 H (74-99) mg/dL POC Glucose (mg/dL) 228 H 263 H (75-99) mg/dL 02/20/21 02/20/21 Range/Units 06:55 07:03 WBC 15.2 H (3.8-10.6) k/uL Hgb 9.1 L (13.0-17.5) gm/dL Hct 35.9 L (39.0-53.0) % MCV 77.7 L (80.0-100.0) fL MCH 19.7 L (25.0-35.0) pg MCHC 25.4 L (31.0-37.0) g/dL RDW 29.1 H (11.5-15.5) % Neutrophils # 14.5 H (1.3-7.7) k/uL Lymphocytes # 0.1 L (1.0-4.8) k/uL Sodium (137-145) mmol/L Potassium (3.5-5.1) mmol/L Chloride (98-107) mmol/L BUN (9-20) mg/dL Creatinine (0.66-1.25) mg/dL Glucose (74-99) mg/dL POC Glucose (mg/dL) 260 H (75-99) mg/dL Microbiology - Last 24 Hours (Table) 02/14/21 08:54 Blood Culture - Preliminary Blood No Growth after 120 hours Assessment and Plan (1) Bowel obstruction Narrative/Plan: Patient doing well at this time. Will advance diet to full liquids. Continue neurologic and cardiac workup. Will follow. Current Visit: Yes Status: Acute Code(s): K56.609 - UNSP INTESTNL OBST, UNSP TO PARTIAL VERSUS COMPLETE OBST SNOMED Code(s): 18915087
[2021-02-20] MEDS: POTASSIUM CHLORIDE ER 20 MEQ TAB.ER PO SCH ×5 (10:09→20:25)
[2021-02-20 11:32] LABS: Glucose,Whole Blood 251 mg/dL (75-99)
--- NOTE | 2021-02-20 11:43 | P.PN ---
Subjective Progress Note Date: 02/20/21 The patient is seen at bedside and per the patient nurse he is drastically doing better. He is verbalizing more and following commands. He stated he is doing betters. He feels his entire body is weak and feels this was a prolonged stay. He denies any focal weakness, visual distrubance or difficulty getting his words out. He did acknowledge he had old stroke in past and was on "baby aspirin" daily but does not recall if he was on statins. Objective - Vital Signs Vital signs: Vital Signs Temp 98.1 F 02/20/21 08:00 Pulse 87 02/20/21 09:00 Resp 19 02/20/21 09:00 BP 127/63 02/20/21 09:00 Pulse Ox 99 02/20/21 09:00 Intake & Output 02/19/21 02/20/21 02/20/21 18:59 06:59 18:59 Intake Total 1226 895 540 Output Total 1595 1825 455 Balance -369 -930 85 Weight 84.3 kg Intake: IV 906 895 340 .9 220 20 40 Fat Emulsion 20% 500 ml 126 In Empty Bag 1 bag @ 21 mls/hr IV MoWeFr MARY Rx#: [id number] Mvi, Adult No.4 with Vit 560 800 225 K 10 ml Trace (Conc-1Ml/ Dose) 1 ml Sodium Acetate 30 meq Potassium Chloride 20 meq Calcium Gluconate 1 gm In Amino Acid 5%-D15w 1,000 ml @ 30 mls/hr IV .Q24H MARY Rx #:[id number] Sodium Ferric Gluconat- 75 75 Sucrose 125 mg In Sodium Chloride 0.9% 100 ml @ 100 mls/hr IVPB Q24H MARY Rx#:[id number] Intake, IV Titration 200 Amount Amiodarone 360 mg In 200 Dextrose 5% in Water 200 ml @ 0.5 MG/MIN 16.667 mls/hr IV .Q12H MARY Rx#: [id number] Oral 120 200 Output: Urine 1595 1825 455 Other: Voiding Method Indwelling Catheter Indwelling Catheter # Bowel Movements 1 - Exam GENERAL: The patient is lying in bed and is not in acute distress. INTEGUMENATRY: Edematous throughout extremities. NEUROLOGICAL: Higher mental function: The patient is awake, alert, oriented to self, place and time. Patient is able to name objects (pen and watch). Patient is following commands. No aphasia and no neglect. Cranial nerves: The pupils are round, equal and reactive to light. Visual quevedo are full to confrontation throughout. Extraocular movement is intact no nystagmus is noted. Facial sensation is normal to touch throughout. The facial strength is normal throughout. Tongue is midline and moved [id number] without any difficulty. No dysarthria is noted but has hypophonia. Motor: Gait is deferred because of his condition. The strength is able to squeeze hands (3-4 bilaterally) and ankle plantar/dorsiflexion 4 bilaterally. Decrease tone throught but feels pain throughout upon touching him. Cerebellum: Could not assess. Sensation: Sensation is normal to touch throughout. WORK-UP: CT of the head on 02/18/2021 is reported the as no acute intracranial abn ormality seen. Mild bilateral frontal cerebral cortical volume loss. 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 This recent AST is 31 which is a improved compared the to 118 on 02/15/2021 Most recent ALT is 41 which is considered within normal limits. 2-D echo was reported as moderate consider left ventricular hypertrophy ejection fraction of 30-35% that. Patient has left ventricular wall wall motion hyp okinetic at different territories. Left atrium is severely dilated. Moderate to severe tricuspid regurgitation. There is severe pulmonary hypertension. HbA1c: 5.3 Vitamin B12: 891 (normal) Folate: >24 (normal) TSH: 0.904 - Labs CBC & Chem 7: 02/20/21 06:55 02/20/21 06:55 Labs: Abnormal Lab Results - Last 24 Hours (Table) 02/19/21 02/19/21 02/19/21 Range/Units 18:34 21:00 23:36 WBC (3.8-10.6) k/uL Hgb (13.0-17.5) gm/dL Hct (39.0-53.0) % MCV (80.0-100.0) fL MCH (25.0-35.0) pg MCHC (31.0-37.0) g/dL RDW (11.5-15.5) % Neutrophils # (1.3-7.7) k/uL Lymphocytes # (1.0-4.8) k/uL Sodium (137-145) mmol/L Potassium (3.5-5.1) mmol/L Chloride (98-107) mmol/L BUN (9-20) mg/dL Creatinine (0.66-1.25) mg/dL Glucose (74-99) mg/dL POC Glucose (mg/dL) 253 H 277 H 228 H (75-99) mg/dL 02/20/21 02/20/21 02/20/21 Range/Units 06:09 06:55 06:55 WBC 15.2 H (3.8-10.6) k/uL Hgb 9.1 L (13.0-17.5) gm/dL Hct 35.9 L (39.0-53.0) % MCV 77.7 L (80.0-100.0) fL MCH 19.7 L (25.0-35.0) pg MCHC 25.4 L (31.0-37.0) g/dL RDW 29.1 H (11.5-15.5) % Neutrophils # 14.5 H (1.3-7.7) k/uL Lymphocytes # 0.1 L (1.0-4.8) k/uL Sodium 147 H (137-145) mmol/L Potassium 3.1 L (3.5-5.1) mmol/L Chloride 113 H (98-107) mmol/L BUN 73 H (9-20) mg/dL Creatinine 1.71 H (0.66-1.25) mg/dL Glucose 252 H (74-99) mg/dL POC Glucose (mg/dL) 263 H (75-99) mg/dL 02/20/21 02/20/21 Range/Units 07:03 11:31 WBC (3.8-10.6) k/uL Hgb (13.0-17.5) gm/dL Hct (39.0-53.0) % MCV (80.0-100.0) fL MCH (25.0-35.0) pg MCHC (31.0-37.0) g/dL RDW (11.5-15.5) % Neutrophils # (1.3-7.7) k/uL Lymphocytes # (1.0-4.8) k/uL Sodium (137-145) mmol/L Potassium (3.5-5.1) mmol/L Chloride (98-107) mmol/L BUN (9-20) mg/dL Creatinine (0.66-1.25) mg/dL Glucose (74-99) mg/dL POC Glucose (mg/dL) 260 H 251 H (75-99) mg/dL Microbiology - Last 24 Hours (Table) 02/14/21 08:54 Blood Culture - Final Blood No Growth after 144 hours Assessment and Plan Assessment: Altered mental status due to likely multifactorial: Deconditioning (because of his hospital stay requiring intubation and on vent and had surgery) and component of metabolic encephalopathy---drastic improvement Acute on chronic kidney insufficiency--trending down. 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 During the hospital stay the patient had elevated liver function--resolved. History of hyperlipidemia Atrial fibrillation Coronary artery disease status post PCI Ischemic cardiomyopathy Plan: * An EEG is not warranted since the patient's condition is improving and it felt like this is more encephalopathy due to metabolic as well as deconditioning. If the Patient's condition does not improve will consider getting EEG down the line. * Regarding the patient old stroke recommend the aspirin as primary team feels its safe especially with the patient's anemia. Continue Lipitor 40md daily for seondary stroke prophylaxis. * There is no need for further workup of the stroke since he's known to have history of stroke that's documented. Recommend further evaluation of the stroke as an outpatient. * Q4 hour neuro-checks. * PT, OT and INJECTION MOLDER are consulted. * He is avoid any sedation, narcotic oral opiates. * Regarding the atrial fibrillation cardiology is on board and will defer management to them. * We'll defer the rest of the medical management to the primary and ICU team. The plan is discussed with his ICU nurse. There is no further neurological work-up. Neurology will sign off. Please reconsult neurology if needed. Gerson Campbell M.D. Neuro-hospital Time with Patient: Less than 30
--- NOTE | 2021-02-20 12:12 | P.PN ---
Subjective Progress Note Date: 02/20/21 Principal diagnosis: V. tach cardiac arrest Hypoxic respiratory failure Cardiomyopathy with ejection fraction of 35% Bilateral atelectasis Bilateral pleural effusion Bowel obstruction and resection of mass CK D 02/20/2021, patient seen and evaluated examined the rounds labs reviewed medications reviewed care plan discussed, hemodynamically patient remains stable last set of blood pressure is 100 763 saturation 99%, cultures so far all of them negative, total status however continued to improve, patient has been evaluated by oncology also their recommendation from critical care standpoint patient remains stable can be moved down to the stepdown unit 02/19/2021, patient seen and evaluated examined during the rounds patient remains off of ventilator on room air breathing comfortably, denies any chest pain remains on broad-spectrum antibiotics, and the left forearm wound blisters are present discussed with the staff will do silver dressing for now until wound care and infectious disease services are available in the meantime continue antibiotics increase shouldn't is hemodynamically stable remains on TPN speech and swallow evaluation pending 02/18/2021, patient remains off of ventilator on room air now awake but not participating in conversation, is present at bedside, care plan discussed at length patient to undergo physical therapy and rehab, the left arm infiltration in the wound no blisters are ruptured, would recommend wound consult in the meantime can do -dry dressing with silver gel or aqua gel, patient the also underwent swallow evaluation, his speech is going to repeat tomorrow, patient remains on IV metoprolol as well as IV amiodarone dose has been decreased, 02/17/2021, patient seen eval examined during the rounds patient has been on CPAP of 5 pressure support of 8 and 50% oxygen breathing comfortably yesterday CPAP trial couldn't be tolerated due to generalized weakness I have discussed with the patient's and staff at length given multiple comorbidities likely about the trial today and high risk of re-intubations requirement, we will extubate him today, his medications reviewed, labs are not done, chest x-ray prior consistent with fluid overload interstitial edema left arm wound overall is stable along with edema and swelling of the hand pulses are intact patient arm is placed on gravity drainage, blood culture no growth so far 02/16/2021, patient seen eval reexamined during the rounds labs reviewed medicat ions reviewed critical care time spent 35 minutes with the patient, and family meeting is present at bedside, patient has been attempted CPAP and pressure support but tired out yesterday today however he isn't better strep symptoms weaning, currently on CPAP the tidal volume of 300 400 respiratory rate slightly high however patient appears slightly confused we'll keep the CPAP as tolerated put him back on assist control at nighttime, his labs from today reviewed, afebrile, chest x-ray are not done today, blood cultures are meds reviewed remains on amiodarone and Zosyn with TPN 02/15/2021, critical care time 35 minutes patient remains sedated with propofol drip, remains on full ventilatory support assist control rate of 16 and breathing 16 tidal volume of 505 of PEEP and 100% oxygen, and discussed with RN to titrated oxygen down to 50-75% over 12 hours to 24 hours patient is not ready for weaning extubation, the left arm externalization appears to have happened causing his skin breakdown, will get a PICC line, arterial blood gas chest x-ray reviewed suspect venous sample, continue broad-spectrum antibiotics, white cell count is up to 19,000, BUN/creatinine is 143 and 1.94, echocardiogram reviewed LV mildly dilated with concentric LVH, ejection fraction is yesterday 5%, heidy ent remains on amiodarone, Solu-Medrol and IV Zosyn, This is a 80-year-old male with the symptoms suggestive of bowel obstruction for which he was admitted into the hospital patient underwent exploratory laparotomy and the found to have a mass as well which was resected patient is end-to-end anastomosis, also had an adrenal gland mass which wasn't biopsied, around 8:15 PM patient because more short of breath feeling uneasy and lost his pulse. Breathing, he was noted to be in ventricular tachycardia require cardioversion times 08/02/2019 and 150 J after second return of spontaneous circulation was achieved, patient continued to have the episodes of V. tach, intubated by anesthesia transferred to the ICU, patient has been started on amiodarone, with that the V. tach appears to have controlled with 200 J into sinus rhythm, since a d-dimer was elevated patient underwent a computed tomography scan of the chest negative for PE however basal atelectasis and effusion was seen, patient curren tly on 0.17 mics of levo fed drip 25 mics of the propofol, cardiology on consult I have ordered an echocardiogram as well, reviewed computed tomography scan of the chest as well, patient remains on IV Zosyn noted white cell count is 30,000 likely contribution of the inflammatory change as well as is being stimulated due to steroids, however also noted lactic acid mildly elevated at 2.1, strokes are 5.03 BUN/creatinine is a 35/1.45 Objective - Vital Signs Vital signs: Vital Signs Temp 98.1 F 02/20/21 08:00 Pulse 72 02/20/21 12:05 Resp 19 02/20/21 09:00 BP 127/63 02/20/21 09:00 Pulse Ox 99 02/20/21 09:00 Intake & Output 02/19/21 02/20/21 02/20/21 18:59 06:59 18:59 Intake Total 1226 895 540 Output Total 1595 1825 455 Balance -369 -930 85 Weight 84.3 kg Intake: IV 906 895 340 .9 220 20 40 Fat Emulsion 20% 500 ml 126 In Empty Bag 1 bag @ 21 mls/hr IV MoWeFr MARY Rx#: [id number] Mvi, Adult No.4 with Vit 560 800 225 K 10 ml Trace (Conc-1Ml/ Dose) 1 ml Sodium Acetate 30 meq Potassium Chloride 20 meq Calcium Gluconate 1 gm In Amino Acid 5%-D15w 1,000 ml @ 30 mls/hr IV .Q24H MARY Rx #:[id number] Sodium Ferric Gluconat- 75 75 Sucrose 125 mg In Sodium Chloride 0.9% 100 ml @ 100 mls/hr IVPB Q24H MARY Rx#:[id number] Intake, IV Titration 200 Amount Amiodarone 360 mg In 200 Dextrose 5% in Water 200 ml @ 0.5 MG/MIN 16.667 mls/hr IV .Q12H MARY Rx#: [id number] Oral 120 200 Output: Urine 1595 1825 455 Other: Voiding Method Indwelling Catheter Indwelling Catheter # Bowel Movements 1 - Exam Constitutional General appearance: average body habitus, cooperative, no acute distress - Neck Neck: normal ROM Carotids: bilateral: upstroke normal Thyroid: bilateral: normal size - Respiratory Respiratory: bilateral: diminished, rales - Cardiovascular Rhythm: regular Heart sounds: normal: S1, S2 - Gastrointestinal General gastrointestinal: soft - Integumentary Integumentary: normal turgor - Neurologic Neurologic: CNII-XII intact - Musculoskeletal Musculoskeletal: Left upper extremity his skin changes noted , blister ruptured vascular follow - Psychiatric Sedated on full ventilator support - Labs CBC & Chem 7: 02/20/21 06:55 02/20/21 06:55 Labs: Abnormal Lab Results - Last 24 Hours (Table) 02/19/21 02/19/21 02/19/21 Range/Units 18:34 21:00 23:36 WBC (3.8-10.6) k/uL Hgb (13.0-17.5) gm/dL Hct (39.0-53.0) % MCV (80.0-100.0) fL MCH (25.0-35.0) pg MCHC (31.0-37.0) g/dL RDW (11.5-15.5) % Neutrophils # (1.3-7.7) k/uL Lymphocytes # (1.0-4.8) k/uL Sodium (137-145) mmol/L Potassium (3.5-5.1) mmol/L Chloride (98-107) mmol/L BUN (9-20) mg/dL Creatinine (0.66-1.25) mg/dL Glucose (74-99) mg/dL POC Glucose (mg/dL) 253 H 277 H 228 H (75-99) mg/dL 02/20/21 02/20/21 02/20/21 Range/Units 06:09 06:55 06:55 WBC 15.2 H (3.8-10.6) k/uL Hgb 9.1 L (13.0-17.5) gm/dL Hct 35.9 L (39.0-53.0) % MCV 77.7 L (80.0-100.0) fL MCH 19.7 L (25.0-35.0) pg MCHC 25.4 L (31.0-37.0) g/dL RDW 29.1 H (11.5-15.5) % Neutrophils # 14.5 H (1.3-7.7) k/uL Lymphocytes # 0.1 L (1.0-4.8) k/uL Sodium 147 H (137-145) mmol/L Potassium 3.1 L (3.5-5.1) mmol/L Chloride 113 H (98-107) mmol/L BUN 73 H (9-20) mg/dL Creatinine 1.71 H (0.66-1.25) mg/dL Glucose 252 H (74-99) mg/dL POC Glucose (mg/dL) 263 H (75-99) mg/dL 02/20/21 02/20/21 Range/Units 07:03 11:31 WBC (3.8-10.6) k/uL Hgb (13.0-17.5) gm/dL Hct (39.0-53.0) % MCV (80.0-100.0) fL MCH (25.0-35.0) pg MCHC (31.0-37.0) g/dL RDW (11.5-15.5) % Neutrophils # (1.3-7.7) k/uL Lymphocytes # (1.0-4.8) k/uL Sodium (137-145) mmol/L Potassium (3.5-5.1) mmol/L Chloride (98-107) mmol/L BUN (9-20) mg/dL Creatinine (0.66-1.25) mg/dL Glucose (74-99) mg/dL POC Glucose (mg/dL) 260 H 251 H (75-99) mg/dL Microbiology - Last 24 Hours (Table) 02/14/21 08:54 Blood Culture - Final Blood No Growth after 144 hours Assessment and Plan Assessment: Aspiration pneumonia Left upper extremity wound with blisters V. tach/V. fib cardiac arrest Fluid overload CHF Hypoxic respiratory failure Bilateral atelectasis Bilateral pleural effusion Bowel obstruction and resection of mass CKD Plan: Can moved down to stepdown unit Wound care evaluation Observe off of vasopressors, Continue broad-spectrum antibiotics steroids and breathing treatment Ammann start tapering down the steroids Echocardiogram findings reviewed increase activity as tolerated Out of bed on chair Aggressive PTOT Speech evaluation Time with Patient: Greater than 30
[2021-02-20 12:40] LABS: Ferritin 242.4 ng/mL (22.0-322.0)
[2021-02-20 12:50] LABS: % Iron Saturation 10.25 (15.00-50.00)
--- NOTE | 2021-02-20 12:51 | P.PN ---
Subjective Patient is now fully awake alert and responsive and smiles appropriately He started talking vitals are stable He does not appear to be in any respiratory distress Denies shortness of breath or chest pain On examination Pulse rate in the 80s, blood pressure 132/61 mmHg Breath sounds are clear Heart sounds S1 and S2 are normal Impression Severe cardio myopathy VF arrest Suggest Oral amiodarone continue, 200 mg twice a day Continue beta blockers and maximize beta adithya dose Medical management for CAD and cardio myopathy as per the patient's prior wishes Objective - Vital Signs Vital signs: Vital Signs Temp 97.9 F 02/20/21 12:00 Pulse 72 02/20/21 12:05 Resp 20 02/20/21 12:00 BP 132/61 02/20/21 12:00 Pulse Ox 99 02/20/21 09:00 Intake & Output 02/19/21 02/20/21 02/20/21 18:59 06:59 18:59 Intake Total 1226 895 540 Output Total 1595 1825 455 Balance -369 -930 85 Weight 84.3 kg Intake: IV 906 895 340 .9 220 20 40 Fat Emulsion 20% 500 ml 126 In Empty Bag 1 bag @ 21 mls/hr IV MoWeFr MARY Rx#: [id number] Mvi, Adult No.4 with Vit 560 800 225 K 10 ml Trace (Conc-1Ml/ Dose) 1 ml Sodium Acetate 30 meq Potassium Chloride 20 meq Calcium Gluconate 1 gm In Amino Acid 5%-D15w 1,000 ml @ 30 mls/hr IV .Q24H MARY Rx #:[id number] Sodium Ferric Gluconat- 75 75 Sucrose 125 mg In Sodium Chloride 0.9% 100 ml @ 100 mls/hr IVPB Q24H MARY Rx#:[id number] Intake, IV Titration 200 Amount Amiodarone 360 mg In 200 Dextrose 5% in Water 200 ml @ 0.5 MG/MIN 16.667 mls/hr IV .Q12H MARY Rx#: [id number] Oral 120 200 Output: Urine 1595 1825 455 Other: Voiding Method Indwelling Catheter Indwelling Catheter # Bowel Movements 1 - Labs CBC & Chem 7: 02/20/21 06:55 02/20/21 06:55 Labs: Abnormal Lab Results - Last 24 Hours (Table) 02/19/21 02/19/21 02/19/21 Range/Units 18:34 21:00 23:36 WBC (3.8-10.6) k/uL Hgb (13.0-17.5) gm/dL Hct (39.0-53.0) % MCV (80.0-100.0) fL MCH (25.0-35.0) pg MCHC (31.0-37.0) g/dL RDW (11.5-15.5) % Neutrophils # (1.3-7.7) k/uL Lymphocytes # (1.0-4.8) k/uL Sodium (137-145) mmol/L Potassium (3.5-5.1) mmol/L Chloride (98-107) mmol/L BUN (9-20) mg/dL Creatinine (0.66-1.25) mg/dL Glucose (74-99) mg/dL POC Glucose (mg/dL) 253 H 277 H 228 H (75-99) mg/dL Iron (65-175) ug/dL % Saturation (15.00-50.00) 02/20/21 02/20/21 02/20/21 Range/Units 06:09 06:55 06:55 WBC 15.2 H (3.8-10.6) k/uL Hgb 9.1 L (13.0-17.5) gm/dL Hct 35.9 L (39.0-53.0) % MCV 77.7 L (80.0-100.0) fL MCH 19.7 L (25.0-35.0) pg MCHC 25.4 L (31.0-37.0) g/dL RDW 29.1 H (11.5-15.5) % Neutrophils # 14.5 H (1.3-7.7) k/uL Lymphocytes # 0.1 L (1.0-4.8) k/uL Sodium 147 H (137-145) mmol/L Potassium 3.1 L (3.5-5.1) mmol/L Chloride 113 H (98-107) mmol/L BUN 73 H (9-20) mg/dL Creatinine 1.71 H (0.66-1.25) mg/dL Glucose 252 H (74-99) mg/dL POC Glucose (mg/dL) 263 H (75-99) mg/dL Iron 25 L (65-175) ug/dL % Saturation 10.25 L (15.00-50.00) 02/20/21 02/20/21 Range/Units 07:03 11:31 WBC (3.8-10.6) k/uL Hgb (13.0-17.5) gm/dL Hct (39.0-53.0) % MCV (80.0-100.0) fL MCH (25.0-35.0) pg MCHC (31.0-37.0) g/dL RDW (11.5-15.5) % Neutrophils # (1.3-7.7) k/uL Lymphocytes # (1.0-4.8) k/uL Sodium (137-145) mmol/L Potassium (3.5-5.1) mmol/L Chloride (98-107) mmol/L BUN (9-20) mg/dL Creatinine (0.66-1.25) mg/dL Glucose (74-99) mg/dL POC Glucose (mg/dL) 260 H 251 H (75-99) mg/dL Iron (65-175) ug/dL % Saturation (15.00-50.00) Microbiology - Last 24 Hours (Table) 02/14/21 08:54 Blood Culture - Final Blood No Growth after 144 hours
[2021-02-20] MEDS: SODIUM FERRIC GLUCONAT-SUCROSE 125 MG in SODIUM CHLORIDE 0.9% 100 ML IVPB SCH (12:52)
[2021-02-20] MEDS ORDERED: DEXTROSE 5% IN WATER 100 ML with AMIODARONE 150 MG IV ONE (14:04)
[2021-02-20] MEDS ORDERED: ADENOSINE 3 MG/ML 2 ML VIAL IVP ONE ×2 (14:25→14:30)
[2021-02-20] MEDS: HYDROmorphone 1 MG/ML 1 ML SYRINGE IVP PRN (14:47)
[2021-02-20] MEDS ORDERED: AMIODARONE 360 MG in DEXTROSE 5% IN WATER 200 ML IV ONE ×4 (14:50→14:52)
[2021-02-20 14:55] LABS: Magnesium 2.2 mg/dL (1.6-2.3); Potassium 3.5 mmol/L (3.5-5.1)
[2021-02-20] MEDS ORDERED: AMIODARONE 450 MG in DEXTROSE 5% IN WATER 250 ML IV SCH ×4 (15:00→21:50)
[2021-02-20] MEDS: FUROSEMIDE 40 MG TAB PO SCH (16:44)
--- NOTE | 2021-02-20 17:08 | PN ---
PROGRESS NOTE DATE OF SERVICE: 02/20/2021 REASON FOR FOLLOWUP: 1. Aspiration pneumonia. 2. Left arm skin necrosis and possible cellulitis. INTERVAL HISTORY: The patient is afebrile. The patient is hemodynamically stable. The patient continues to have problems with atrial fibrillation with RVR. He is being monitored closely by Cardiology. He is hemodynamically stable, not on pressor support. The patient mentioned he is feeling tired and wants to sleep. No chest pain or cough. No abdominal pain or pain to the left upper extremity. PHYSICAL EXAMINATION: Blood pressure 132/61, pulse 80, temperature 97.9. He is 99% on 40% FiO2. GENERAL DESCRIPTION: General description is an elderly male lying in bed in no distress. RESPIRATORY SYSTEM: Unlabored breathing. Decreased breath sounds at the base. No wheeze. HEART: S1, S2. Irregular rhythm. ABDOMEN: Soft. No tenderness. Incision is currently intact and clean. LEFT UPPER EXTREMITY: Skin necrosis and some redness. No drainage. LABS: Hemoglobin is 9.1, white count 15.2, creatinine 0.71. DIAGNOSTIC IMPRESSION AND PLAN: 1. Patient with cardiac arrest requiring intubation and concern for possible aspiration pneumonitis, covered with Zosyn. 2. Patient with left upper extremity skin necrosis and possible cellulitis. Continue daptomycin. MMODL / IJN: [id number] / DARIANA
[2021-02-20 17:29] LABS: Glucose,Whole Blood 308 mg/dL (75-99)
--- NOTE | 2021-02-20 19:00 | P.EN ---
A- team: Indication: wide complex tachycardia. Arrived on Scene to find: PAtient awake talking, diaphoretic, states that he feels terrible. Vital signs reviewed General: non toxic, no distress, appears at stated age Derm: warm, dry Head: atraumatic, normocephalic, symmetric Eyes: EOMI, no lid lag, anicteric sclera Mouth: no lip lesion, mucus membranes moist Cardiovascular: S1S2 irreg, no murmur, positive posterior tibial pulse bilateral, Lungs: CTA bilateral, no rhonchi, no rales , no accessory muscle use Psych: Alert, oriented, appropriate affect Assessment: Unstable wide complex tachycardia Plan: synch cardio vesrion at 100 J X 1 with return to normal sinru rhythm Patient premeditated with dilaudid 0.5 mg Amio gtt ordered (patient had already received bolus) Notified: Juve Garza notified by nursing. Dr. Willoughby notified by nursing. A Total of 32 minutes of critical care time was spent on the complex care of this patient.
[2021-02-20 21:03] LABS: Glucose,Whole Blood 285 mg/dL (75-99)
--- NOTE | 2021-02-20 21:11 | PN ---
PROGRESS NOTE This is a 80-year-old white male who is sitting up in bed in ICU. He is down to 2 or 3 liters. He is talking now. He has some left arm skin necrosis, aspiration pneumonia, status post cardiac arrest, atrial fibrillation with rapid ventricular response. He has been weaned off vasopressors. Temperature is 97.9, blood pressure 130s over 60s, pulse 70s and 80s. He is 99% on 40% FiO2. Heart: S1, S2. Abdomen is soft, nontender. Extremities show skin necrosis, some redness, no drainage. Hemoglobin is 9.1, white count is 15.2. Creatinine is 0.71. ASSESSMENT: 1. Cardiac arrest requiring intubation. 2. Aspiration pneumonia. 3. Cardiomyopathy. 4. Coronary artery disease. 5. Left upper extremity and left lower extremity necrosis. Cardiology is trying to get his atrial fibrillation under control. He apparently had an event wide-complex tachycardia, for which he underwent a synchronized ventricular 100-joule cardioversion today. Prognosis is guarded at this time. MMODL / IJN: [id number] /
[2021-02-20] MEDS: HYDROcodone/APAP 10-325MG 1 EACH TAB PO PRN (23:06)
[2021-02-21 04:28] LABS: Anisocytosis Marked; Basophils % (A) 0 %; Eosinophils % (A) 0 %; HCT 35.5 % (39.0-53.0); Hypochromasia Marked; Lymphocytes # (A) 0.3 k/uL (1.0-4.8); Lymphocytes % (A) 2 %; MCH 20.5 pg (25.0-35.0); MCHC 25.5 g/dL (31.0-37.0); MCV 80.4 fL (80.0-100.0); Macrocytosis Slight; Mean Platelet Volume 9.4; Microcytosis Moderate; Monocytes # (A) 0.4 k/uL (0-1.0); Monocytes % (A) 3 %; Neutrophils # (A) 16.2 k/uL (1.3-7.7); Neutrophils % (A) 95 %; Platelet Count 261 k/uL (150-450); Poikilocytosis Slight; RBC 4.41 m/uL (4.30-5.90)
[2021-02-21 04:30] LABS: RDW 29.6 % (11.5-15.5)
[2021-02-21 04:33] LABS: Calcium 8.8 mg/dL (8.4-10.2); Magnesium 2.1 mg/dL (1.6-2.3); Phosphorus 2.9 mg/dL (2.5-4.5); Potassium 4.9 mmol/L (3.5-5.1)
[2021-02-21 06:46] LABS: Glucose,Whole Blood 289 mg/dL (75-99)
[2021-02-21] MEDS: INSULIN ASPART (NovoLOG) 100 UNIT/ML VIAL SQ SCH ×4 (06:57→21:47)
[2021-02-21] MEDS: IPRATROPIUM-ALBUTEROL 3 ML NEB INHALATION SCH ×4 (07:16→20:03)
--- NOTE | 2021-02-21 08:55 | P.PN ---
Subjective Patient is seen in follow-up for acute kidney injury. Renal function improving. Maintain on oral Lasix. Good urine output. No chest pain or shortness of breath. On full liquid diet. Receiving TPN and lipids. Vital signs are stable. General: The patient appeared well nourished and normally developed. HEENT: Head exam is unremarkable. Neck is without jugular venous distension. LUNGS: Breath sounds decreased. HEART: Rate and Rhythm are regular. ABDOMEN: Soft, no distention. EXTREMITITES: 1+ edema. Objective - Vital Signs Vital signs: Vital Signs Temp 98.2 F 02/21/21 04:00 Pulse 74 02/21/21 07:23 Resp 22 02/21/21 04:00 BP 135/62 02/21/21 04:00 Pulse Ox 96 02/21/21 04:00 Intake & Output 02/20/21 02/21/21 02/21/21 18:59 06:59 18:59 Intake Total 1555 1482.7 Output Total 1130 1400 Balance 425 82.7 Weight 86.5 kg Intake: IV 1115 1482.7 .9 90 Amiodarone 360 mg In 166.5 Dextrose 5% in Water 200 ml @ 1 MG/MIN 33.333 mls/ hr IV .Q6H [facility] Rx#: [id number] Amiodarone 450 mg In 250 Dextrose 5% in Water 250 ml @ 0.5 MG/MIN 16.667 mls/hr IV .Q15H [facility] Rx#: [id number] Amiodarone 450 mg In 116.2 Dextrose 5% in Water 250 ml @ 0.5 MG/MIN 16.667 mls/hr IV .Q15H [facility] Rx#: [id number] Mvi, Adult No.4 with Vit 1200 K 10 ml Trace (Conc-1Ml/ Dose) 1 ml Potassium Phosphate 10 mmol Potassium Acetate 30 meq Calcium Gluconate 1 gm In Amino Acid 5%-D15w 1,000 ml @ 75 mls/hr IV .BY DURATION [facility] Rx#: [id number] Mvi, Adult No.4 with Vit 600 K 10 ml Trace (Conc-1Ml/ Dose) 1 ml Sodium Acetate 30 meq Potassium Chloride 20 meq Calcium Gluconate 1 gm In Amino Acid 5%-D15w 1,000 ml @ 30 mls/hr IV .Q24H [facility] Rx #:[id number] Sodium Ferric Gluconat- 175 Sucrose 125 mg In Sodium Chloride 0.9% 100 ml @ 100 mls/hr IVPB Q24H [facility] Rx#:[id number] Oral 440 Output: Urine 1130 1400 Other: Voiding Method Indwelling Catheter Indwelling Catheter # Bowel Movements 1 - Labs CBC & Chem 7: 02/21/21 03:43 02/21/21 03:48 Labs: Abnormal Lab Results - Last 24 Hours (Table) 02/20/21 02/20/21 02/20/21 Range/Units 06:55 06:55 11:31 WBC (3.8-10.6) k/uL Hgb (13.0-17.5) gm/dL Hct (39.0-53.0) % MCH (25.0-35.0) pg MCHC (31.0-37.0) g/dL RDW (11.5-15.5) % Neutrophils # 14.5 H (1.3-7.7) k/uL Lymphocytes # 0.1 L (1.0-4.8) k/uL Chloride (98-107) mmol/L Carbon Dioxide (22-30) mmol/L BUN (9-20) mg/dL Creatinine (0.66-1.25) mg/dL Glucose (74-99) mg/dL POC Glucose (mg/dL) 251 H (75-99) mg/dL Iron 25 L (65-175) ug/dL % Saturation 10.25 L (15.00-50.00) 02/20/21 02/20/21 02/21/21 Range/Units 17:28 21:01 03:43 WBC 17.0 H (3.8-10.6) k/uL Hgb 9.0 L (13.0-17.5) gm/dL Hct 35.5 L (39.0-53.0) % MCH 20.5 L (25.0-35.0) pg MCHC 25.5 L (31.0-37.0) g/dL RDW 29.6 H (11.5-15.5) % Neutrophils # 16.2 H (1.3-7.7) k/uL Lymphocytes # 0.3 L (1.0-4.8) k/uL Chloride (98-107) mmol/L Carbon Dioxide (22-30) mmol/L BUN (9-20) mg/dL Creatinine (0.66-1.25) mg/dL Glucose (74-99) mg/dL POC Glucose (mg/dL) 308 H 285 H (75-99) mg/dL Iron (65-175) ug/dL % Saturation (15.00-50.00) 02/21/21 02/21/21 Range/Units 03:48 06:45 WBC (3.8-10.6) k/uL Hgb (13.0-17.5) gm/dL Hct (39.0-53.0) % MCH (25.0-35.0) pg MCHC (31.0-37.0) g/dL RDW (11.5-15.5) % Neutrophils # (1.3-7.7) k/uL Lymphocytes # (1.0-4.8) k/uL Chloride 115 H (98-107) mmol/L Carbon Dioxide 21 L (22-30) mmol/L BUN 70 H (9-20) mg/dL Creatinine 1.40 H (0.66-1.25) mg/dL Glucose 274 H (74-99) mg/dL POC Glucose (mg/dL) 289 H (75-99) mg/dL Iron (65-175) ug/dL % Saturation (15.00-50.00) Microbiology - Last 24 Hours (Table) 02/14/21 08:54 Blood Culture - Final Blood No Growth after 144 hours Assessment and Plan Plan: Assessment: 1. Acute kidney injury secondary to ATN secondary to cardiac arrest. Renal function improving. Creatinine 1.4 today. 2. Status post V. fib arrest maintained on amiodarone drip. 3. Acute systolic CHF with ejection fraction of 25-30%. 4. Colon mass status post colectomy. Currently on TPN and lipids. 5. Volume overload maintained on oral Lasix. Plan: Maintain oral Lasix. Avoid nephrotoxins. Continue to monitor renal function and urine output.
[2021-02-21] MEDS: FUROSEMIDE 40 MG TAB PO SCH ×2 (08:59→18:04)
[2021-02-21] MEDS: PANTOPRAZOLE 40 MG/10 ML VIAL IV SCH (08:59)
[2021-02-21] MEDS: ATORVASTATIN 40 MG TAB PO SCH (08:59)
[2021-02-21] MEDS: METOPROLOL TARTRATE 25 MG TAB PO SCH ×2 (08:59→21:47)
[2021-02-21] MEDS: methylPREDNISolone SOD SUCCI 40 MG/ML 1 ML VIAL IV SCH ×2 (09:00→18:03)
[2021-02-21] MEDS: ENOXAPARIN 40 MG/0.4 ML SYRINGE SQ SCH (09:00)
[2021-02-21] MEDS: AMIODARONE 200 MG TAB PO SCH ×2 (09:07→21:47)
[2021-02-21 11:33] LABS: Glucose,Whole Blood 239 mg/dL (75-99)
--- NOTE | 2021-02-21 12:48 | P.PN ---
Subjective Progress Note Date: 02/21/21 CHIEF COMPLAINT: Small bowel obstruction HISTORY OF PRESENT ILLNESS: Patient is status post right colectomy for right colon mass on 02/08/21. Patient is currently in the ICU as MedSurg overflow. Transmission he has had cardiac arrest. Yesterday he had unstable complex tachycardia. Patient did require cardioversion and did return to normal sinus rhythm. He is followed by cardiology. Patient reports his pain is controlled. He is having bowel movements. Denies any nausea or vomiting. Currently on a full liquid diet. Does have TPN. Afebrile. WBC did go up from 15.2-17. He has been receiving steroids. PHYSICAL EXAM: VITAL SIGNS: Reviewed. GENERAL: Well-developed in no acute distress. HEENT: No sclera icterus. Extraocular movements grossly intact. Moist buccal mucosa. Head is atraumatic, normocephalic. ABDOMEN: Soft. Minimal abdominal distention. Patient does have clearish, yel lowish drainage from the lower part of his abdominal incision NEUROLOGIC: Patient is awake and alert. Cranial nerves II through XII grossly intact. ASSESSMENT: 1. Right Colon mass causing small bowel obstruction status post right colectomy PLAN: -Advance diet to a heart healthy, consistent carbohydrate chopped diet -Continue cardiology and neuro workup -Continue TPN for now until appetite increases -Continue to increase activity -Continue to work with PT OT Physician Train Braker note has been reviewed by physician. Signing provider agrees with the documented findings, assessment, and plan of care. Objective - Vital Signs Vital signs: Vital Signs Temp 98.2 F 02/21/21 04:00 Pulse 84 02/21/21 08:00 Resp 23 02/21/21 08:00 BP 141/63 02/21/21 08:00 Pulse Ox 96 02/21/21 08:00 Intake & Output 02/20/21 02/21/21 02/21/21 18:59 06:59 18:59 Intake Total 1555 1482.7 Output Total 1130 1400 Balance 425 82.7 Weight 86.5 kg Intake: IV 1115 1482.7 .9 90 Amiodarone 360 mg In 166.5 Dextrose 5% in Water 200 ml @ 1 MG/MIN 33.333 mls/ hr IV .Q6H [facility] Rx#: [id number] Amiodarone 450 mg In 250 Dextrose 5% in Water 250 ml @ 0.5 MG/MIN 16.667 mls/hr IV .Q15H [facility] Rx#: [id number] Amiodarone 450 mg In 116.2 Dextrose 5% in Water 250 ml @ 0.5 MG/MIN 16.667 mls/hr IV .Q15H [facility] Rx#: [id number] Mvi, Adult No.4 with Vit 1200 K 10 ml Trace (Conc-1Ml/ Dose) 1 ml Potassium Phosphate 10 mmol Potassium Acetate 30 meq Calcium Gluconate 1 gm In Amino Acid 5%-D15w 1,000 ml @ 75 mls/hr IV .BY DURATION [facility] Rx#: [id number] Mvi, Adult No.4 with Vit 600 K 10 ml Trace (Conc-1Ml/ Dose) 1 ml Sodium Acetate 30 meq Potassium Chloride 20 meq Calcium Gluconate 1 gm In Amino Acid 5%-D15w 1,000 ml @ 30 mls/hr IV .Q24H [facility] Rx #:[id number] Sodium Ferric Gluconat- 175 Sucrose 125 mg In Sodium Chloride 0.9% 100 ml @ 100 mls/hr IVPB Q24H [facility] Rx#:[id number] Oral 440 Output: Urine 1130 1400 Other: Voiding Method Indwelling Catheter Indwelling Catheter Indwelling Catheter # Bowel Movements 1 - Labs CBC & Chem 7: 02/21/21 03:43 02/21/21 03:48 Labs: Abnormal Lab Results - Last 24 Hours (Table) 02/20/21 02/20/21 02/20/21 Range/Units 06:55 17:28 21:01 WBC (3.8-10.6) k/uL Hgb (13.0-17.5) gm/dL Hct (39.0-53.0) % MCH (25.0-35.0) pg MCHC (31.0-37.0) g/dL RDW (11.5-15.5) % Neutrophils # (1.3-7.7) k/uL Lymphocytes # (1.0-4.8) k/uL Chloride (98-107) mmol/L Carbon Dioxide (22-30) mmol/L BUN (9-20) mg/dL Creatinine (0.66-1.25) mg/dL Glucose (74-99) mg/dL POC Glucose (mg/dL) 308 H 285 H (75-99) mg/dL Iron 25 L (65-175) ug/dL % Saturation 10.25 L (15.00-50.00) 02/21/21 02/21/21 02/21/21 Range/Units 03:43 03:48 06:45 WBC 17.0 H (3.8-10.6) k/uL Hgb 9.0 L (13.0-17.5) gm/dL Hct 35.5 L (39.0-53.0) % MCH 20.5 L (25.0-35.0) pg MCHC 25.5 L (31.0-37.0) g/dL RDW 29.6 H (11.5-15.5) % Neutrophils # 16.2 H (1.3-7.7) k/uL Lymphocytes # 0.3 L (1.0-4.8) k/uL Chloride 115 H (98-107) mmol/L Carbon Dioxide 21 L (22-30) mmol/L BUN 70 H (9-20) mg/dL Creatinine 1.40 H (0.66-1.25) mg/dL Glucose 274 H (74-99) mg/dL POC Glucose (mg/dL) 289 H (75-99) mg/dL Iron (65-175) ug/dL % Saturation (15.00-50.00) 02/21/21 Range/Units 11:32 WBC (3.8-10.6) k/uL Hgb (13.0-17.5) gm/dL Hct (39.0-53.0) % MCH (25.0-35.0) pg MCHC (31.0-37.0) g/dL RDW (11.5-15.5) % Neutrophils # (1.3-7.7) k/uL Lymphocytes # (1.0-4.8) k/uL Chloride (98-107) mmol/L Carbon Dioxide (22-30) mmol/L BUN (9-20) mg/dL Creatinine (0.66-1.25) mg/dL Glucose (74-99) mg/dL POC Glucose (mg/dL) 239 H (75-99) mg/dL Iron (65-175) ug/dL % Saturation (15.00-50.00) Microbiology - Last 24 Hours (Table) 08/16/21 08:54 Blood Culture - Final Blood No Growth after 144 hours
--- NOTE | 2021-02-21 13:44 | P.PN ---
Subjective Progress Note Date: 02/21/21 Principal diagnosis: New diagnosis of colon adenocarcinoma, status post resection In follow-up today patient is resting comfortably, he has no acute complaints. Objective - Vital Signs Vital signs: Vital Signs Temp 98.2 F 02/21/21 04:00 Pulse 82 02/21/21 12:37 Resp 22 02/21/21 12:00 BP 141/63 02/21/21 12:00 Pulse Ox 95 02/21/21 12:00 Intake & Output 02/20/21 02/21/21 02/21/21 18:59 06:59 18:59 Intake Total 1555 1482.7 405 Output Total 1130 1400 Balance 425 82.7 405 Weight 86.5 kg Intake: IV 1115 1482.7 355 .9 90 Amiodarone 360 mg In 166.5 Dextrose 5% in Water 200 ml @ 1 MG/MIN 33.333 mls/ hr IV .Q6H [facility] Rx#: [id number] Amiodarone 450 mg In 250 Dextrose 5% in Water 250 ml @ 0.5 MG/MIN 16.667 mls/hr IV .Q15H [facility] Rx#: [id number] Amiodarone 450 mg In 116.2 30 Dextrose 5% in Water 250 ml @ 0.5 MG/MIN 16.667 mls/hr IV .Q15H [facility] Rx#: [id number] Mvi, Adult No.4 with Vit 1200 225 K 10 ml Trace (Conc-1Ml/ Dose) 1 ml Potassium Phosphate 10 mmol Potassium Acetate 30 meq Calcium Gluconate 1 gm In Amino Acid 5%-D15w 1,000 ml @ 75 mls/hr IV .BY DURATION [facility] Rx#: [id number] Mvi, Adult No.4 with Vit 600 K 10 ml Trace (Conc-1Ml/ Dose) 1 ml Sodium Acetate 30 meq Potassium Chloride 20 meq Calcium Gluconate 1 gm In Amino Acid 5%-D15w 1,000 ml @ 30 mls/hr IV .Q24H [facility] Rx #:[id number] Sodium Ferric Gluconat- 175 100 Sucrose 125 mg In Sodium Chloride 0.9% 100 ml @ 100 mls/hr IVPB Q24H [facility] Rx#:[id number] Intake, IV Titration 50 Amount DAPTOmycin 350 mg In 50 Sodium Chloride 0.9% 50 ml @ 100 mls/hr IVPB Q24H [facility] Rx#:[id number] Oral 440 Output: Urine 1130 1400 Other: Voiding Method Indwelling Catheter Indwelling Catheter Indwelling Catheter # Bowel Movements 1 - Constitutional General appearance: Present: cooperative, no acute distress, thin - EENT Eyes: Present: anicteric sclerae ENT: Present: hearing grossly normal - Gastrointestinal General gastrointestinal: Present: soft - Labs CBC & Chem 7: 02/21/21 03:43 02/21/21 03:48 Labs: Abnormal Lab Results - Last 24 Hours (Table) 02/20/21 02/20/21 02/21/21 Range/Units 17:28 21:01 03:43 WBC 17.0 H (3.8-10.6) k/uL Hgb 9.0 L (13.0-17.5) gm/dL Hct 35.5 L (39.0-53.0) % MCH 20.5 L (25.0-35.0) pg MCHC 25.5 L (31.0-37.0) g/dL RDW 29.6 H (11.5-15.5) % Neutrophils # 16.2 H (1.3-7.7) k/uL Lymphocytes # 0.3 L (1.0-4.8) k/uL Chloride (98-107) mmol/L Carbon Dioxide (22-30) mmol/L BUN (9-20) mg/dL Creatinine (0.66-1.25) mg/dL Glucose (74-99) mg/dL POC Glucose (mg/dL) 308 H 285 H (75-99) mg/dL 02/21/21 02/21/21 02/21/21 Range/Units 03:48 06:45 11:32 WBC (3.8-10.6) k/uL Hgb (13.0-17.5) gm/dL Hct (39.0-53.0) % MCH (25.0-35.0) pg MCHC (31.0-37.0) g/dL RDW (11.5-15.5) % Neutrophils # (1.3-7.7) k/uL Lymphocytes # (1.0-4.8) k/uL Chloride 115 H (98-107) mmol/L Carbon Dioxide 21 L (22-30) mmol/L BUN 70 H (9-20) mg/dL Creatinine 1.40 H (0.66-1.25) mg/dL Glucose 274 H (74-99) mg/dL POC Glucose (mg/dL) 289 H 239 H (75-99) mg/dL Microbiology - Last 24 Hours (Table) 02/14/21 08:54 Blood Culture - Final Blood No Growth after 144 hours Assessment and Plan (1) Colon adenocarcinoma Narrative/Plan: PT3 N2b MX, grade 3 adenocarcinoma of colon. Plan is for follow-up with Medical Oncology after rehabilitation and healing from surgery-approximately 4-6 weeks. PET scan to complete staging will be ordered outpatient. Current Visit: Yes Status: Acute Priority: High Code(s): C18.9 - MALIGNANT NEOPLASM OF COLON, UNSPECIFIED SNOMED Code(s): 764783891 (2) Microcytic hypochromic anemia Narrative/Plan: Patient's iron studies show anemia with elevated ferritin. Iron studies will be rechecked after adequate healing/recovery. Supplement will be decided at that time. Current Visit: Yes Status: Acute Priority: High Code(s): D50.9 - IRON DEFICIENCY ANEMIA, UNSPECIFIED SNOMED Code(s): 98114077 Plan: Doctor attests: I performed a history and physical examination of this patient, developed impression and plan of care. Discussed with dictator. I agree with dictators note, documented as a scribe.
[2021-02-21] MEDS: FAT EMULSION 20% 500 ML in EMPTY BAG 1 BAG IV SCH (13:48)
[2021-02-21] MEDS: SODIUM FERRIC GLUCONAT-SUCROSE 125 MG in SODIUM CHLORIDE 0.9% 100 ML IVPB SCH (13:48)
--- NOTE | 2021-02-21 14:02 | PN ---
PROGRESS NOTE DATE OF SERVICE: 02/21/2021 REASON FOR FOLLOWUP VISIT: Aspiration pneumonia and left upper extremity skin necrosis and cellulitis. INTERVAL HISTORY: Patient is currently afebrile. The patient is pleasantly confused though denies having any chest pain. No shortness of breath. No cough. No abdominal pain or any worsening pain to the left upper extremity. PHYSICAL EXAMINATION: Blood pressure 141/63, pulse 84, temperature is 98.2. He is 96% on room air. General description is an elderly male lying in bed in no distress. Respiratory system: Unlabored breathing, decreased breath sounds in the base. No wheeze. Heart S1, S2. Regular rate and rhythm. Abdomen: Soft, no tenderness. LABS: Hemoglobin 9, white count 17,000. BUN of 70, creatinine 1.40. DIAGNOSTIC IMPRESSION AND PLAN: Patient with aspiration pneumonia also with left upper extremity skin necrosis and concern for cellulitis. Patient is covered with Zosyn and Dapto to continue while monitoring clinical course closely. Continue supportive care. MMODL / IJN: [id number] /
--- NOTE | 2021-02-21 14:28 | P.PN ---
Subjective This is a pleasant 80-year-old male past medical history significant for chronic persistent atrial fibrillation, coronary artery disease status post multivessel PCI in 2017, ischemic cardiomyopathy, hypertension, hyperlipidemia, mitral valve repair in 2002, history of inguinal and umbilical hernia repair. He used to follow in the office with Dr. Hammond, have ever has not followed up since 2019. He is not seeing a new limousine and hearse upholsterer at this time. We have been asked to see in consultation for atrial fibrillation with rapid ventricular response. Patient is seen and examined at bedside, patient presents emergency department with complaints of abdominal pain and nausea and vomiting for 3 days. He ate some salmon from [employer] and thought he had food poisoning, however, his symptoms worsened. CT abdomen and pelvis revealed high-grade small bowel obstruction session with small bowel loops dilated to 4.8 cm. Mild dull ascites, cecum is also fluid filled measuring up to 6.7 cm we suggested transition point at the lower ascending colon. Benign 3.7 cm right adrenal adenoma and to continued shortness of abdominal aortic aneurysm in the mid and distal abdominal aorta measuring up to 0.3 cm cyst, generalized colonic diverticulosis. Surgery was consulted. NG tube was placed. Patient states he had 2 bowel movements today. On admission, patient did not receive his metoprolol succinate. Today, patient recieved metoprolol tartrate 50mg once, and his home dose of metoprolol succinate 25mg daily With improved rates currently in low 100s. In June 2016, patient had an abnormal lexiscan stress test. Patient underwent cardiac catheterization and PCI after in 2016. Patient states he has not follow up with cardiology since 2019, he has been following up regularly with his PCP. He states since 2019 he has not had any recent cardiac workup or cardiac catheterizations. In 2019, patient stopped taking his Eliquis because he was also taking Plavix and Aspirin at that time. He had EKG changes at that time, cardiac catheterization was recommended but patient did not proceed at that time. DIAGNOSTICS -Cardiac catheterization history includes: 07/2016 which revealed critical stenosis involving the proximal LAD, significant stenosis on the ramus intermedius in the proximal left circumflex, mild disease in RCA. Patient subs equently underwent stenting to the proximal circumflex, proximal LAD x2, and proximal ramus intermedius -Most recent echocardiogram 11/2018 revealed an EF of 32%, moderate concentric hypertrophy, akinesis of the anterior wall and anterior septum from the mid wall to the apex, akinesis of the septum from mid-wall to apex, akinesis of anterio and later ibarra. akinesis of inferior wall at the apex, severely dilated left atrium, mild aortic regurgitation, mild prosthetic valvular regurgitation, mode rate tricuspid regurgitation 02/08/21: Patient underwent right colectomy with Dr. Adamson. 02/10/21: Anticoagulation discussed with patient, he refused Eliquis at that time. Echocardiogram completed revealing ejection fraction 30-35%. Multiple LV wall motion abnormalities. Trace amount of aortic regurgitation. Mitral valve repair. Moderate to severe tricuspid regurgitation. Severe pulmonary hypertension. 02/13/21: Patient went into V fib arrest and intubated. Transferred to ICU 02/21/2021: Patient seen and examined in the intensive care unit. Patient is extubated on 02/17. Overnight patient went into wide complex tachycardia. Received synchronized cardioversion at 100 J X 1 with return to normal sinus rhythm. Blood pressure 141/63, heart rate 75, afebrile, maintaining oxygen saturations 95% on room air. Patient is in sinus mechanism HR 70-80s at bedside. Up-to-date. WBC 17, hemoglobin 9, platelets 261, sodium 143, potassium 4.9, BUN 70, serum creatinine 1.4, magnesium 2.1. Patient maintained on amiodarone 1 mg/min, atorvastatin 40 mg daily, Lovenox 40 Sq daily, Lasix 20 mg twice a day, metoprolol tartrate 25 mg twice a day. PHYSICAL EXAMINATION CONSTITUTIONAL: No apparent distress. HEENT: Head is normocephalic. No JVD. CHEST EXAMINATION: Lungs are clear to auscultation. HEART EXAMINATION: Regular rate and rhythm. S1, S2 heard. Systolic murmur noted at the base ABDOMEN: Soft, nontender. Positive bowel sounds. EXTREMITIES: 2+ peripheral pulses, mild bilateral non pitting lower extremity edema and no calf tenderness. SKIN: Abdominal incision closed with rene NEUROLOGIC EXAMINATION: Patient is awake, alert and oriented x3. ASSESSMENT Right colon mass causing small bowel obstruction s/p right colectomy on 02/08/21 New diagnosis of carcinoma of ascendin gcolon Paroxysmal atrial fibrillation with RVR- -[id number] score 5. Xarelto has been held due to anemia on 02/16 V. fib arrest requiring defibrillation Acute hypoxic respiratory failure requiring mechanical ventilation Coronary artery disease status post multivessel PCI in 2017 Ischemic cardiomyopathy most recent EF 32% Hypertension Hyperlipidemia Mitral valve repair in 2002 Hypokalemia Acute Kidney Injury PLAN -Start amiodarone 200mg BID. Stop amiodarone IV. -Continue statin and beta adithya -Aspirin and anticoagulation have been held due to anemia. -Further recommendations based on clinical course Nurse Practitioner note has been reviewed, I agree with a documented findings and plan of care. Patient was seen and examined. Objective - Vital Signs Vital signs: Vital Signs Temp 98.2 F 02/21/21 04:00 Pulse 84 02/21/21 08:00 Resp 23 02/21/21 08:00 BP 141/63 02/21/21 08:00 Pulse Ox 96 02/21/21 08:00 Intake & Output 02/20/21 02/21/21 02/21/21 18:59 06:59 18:59 Intake Total 1555 1482.7 Output Total 1130 1400 Balance 425 82.7 Weight 86.5 kg Intake: IV 1115 1482.7 .9 90 Amiodarone 360 mg In 166.5 Dextrose 5% in Water 200 ml @ 1 MG/MIN 33.333 mls/ hr IV .Q6H [facility] Rx#: [id number] Amiodarone 450 mg In 250 Dextrose 5% in Water 250 ml @ 0.5 MG/MIN 16.667 mls/hr IV .Q15H [facility] Rx#: [id number] Amiodarone 450 mg In 116.2 Dextrose 5% in Water 250 ml @ 0.5 MG/MIN 16.667 mls/hr IV .Q15H [facility] Rx#: [id number] Mvi, Adult No.4 with Vit 1200 K 10 ml Trace (Conc-1Ml/ Dose) 1 ml Potassium Phosphate 10 mmol Potassium Acetate 30 meq Calcium Gluconate 1 gm In Amino Acid 5%-D15w 1,000 ml @ 75 mls/hr IV .BY DURATION [facility] Rx#: [id number] Mvi, Adult No.4 with Vit 600 K 10 ml Trace (Conc-1Ml/ Dose) 1 ml Sodium Acetate 30 meq Potassium Chloride 20 meq Calcium Gluconate 1 gm In Amino Acid 5%-D15w 1,000 ml @ 30 mls/hr IV .Q24H [facility] Rx #:[id number] Sodium Ferric Gluconat- 175 Sucrose 125 mg In Sodium Chloride 0.9% 100 ml @ 100 mls/hr IVPB Q24H [facility] Rx#:[id number] Oral 440 Output: Urine 1130 1400 Other: Voiding Method Indwelling Catheter Indwelling Catheter # Bowel Movements 1 - Labs CBC & Chem 7: 02/21/21 03:43 02/21/21 03:48 Labs: Abnormal Lab Results - Last 24 Hours (Table) 02/20/21 02/20/21 02/20/21 Range/Units 06:55 06:55 11:31 WBC (3.8-10.6) k/uL Hgb (13.0-17.5) gm/dL Hct (39.0-53.0) % MCH (25.0-35.0) pg MCHC (31.0-37.0) g/dL RDW (11.5-15.5) % Neutrophils # 14.5 H (1.3-7.7) k/uL Lymphocytes # 0.1 L (1.0-4.8) k/uL Chloride (98-107) mmol/L Carbon Dioxide (22-30) mmol/L BUN (9-20) mg/dL Creatinine (0.66-1.25) mg/dL Glucose (74-99) mg/dL POC Glucose (mg/dL) 251 H (75-99) mg/dL Iron 25 L (65-175) ug/dL % Saturation 10.25 L (15.00-50.00) 02/20/21 02/20/21 02/21/21 Range/Units 17:28 21:01 03:43 WBC 17.0 H (3.8-10.6) k/uL Hgb 9.0 L (13.0-17.5) gm/dL Hct 35.5 L (39.0-53.0) % MCH 20.5 L (25.0-35.0) pg MCHC 25.5 L (31.0-37.0) g/dL RDW 29.6 H (11.5-15.5) % Neutrophils # 16.2 H (1.3-7.7) k/uL Lymphocytes # 0.3 L (1.0-4.8) k/uL Chloride (98-107) mmol/L Carbon Dioxide (22-30) mmol/L BUN (9-20) mg/dL Creatinine (0.66-1.25) mg/dL Glucose (74-99) mg/dL POC Glucose (mg/dL) 308 H 285 H (75-99) mg/dL Iron (65-175) ug/dL % Saturation (15.00-50.00) 02/21/21 02/21/21 Range/Units 03:48 06:45 WBC (3.8-10.6) k/uL Hgb (13.0-17.5) gm/dL Hct (39.0-53.0) % MCH (25.0-35.0) pg MCHC (31.0-37.0) g/dL RDW (11.5-15.5) % Neutrophils # (1.3-7.7) k/uL Lymphocytes # (1.0-4.8) k/uL Chloride 115 H (98-107) mmol/L Carbon Dioxide 21 L (22-30) mmol/L BUN 70 H (9-20) mg/dL Creatinine 1.40 H (0.66-1.25) mg/dL Glucose 274 H (74-99) mg/dL POC Glucose (mg/dL) 289 H (75-99) mg/dL Iron (65-175) ug/dL % Saturation (15.00-50.00) Microbiology - Last 24 Hours (Table) 02/14/21 08:54 Blood Culture - Final Blood No Growth after 144 hours
[2021-02-21 16:32] LABS: Glucose,Whole Blood 268 mg/dL (75-99)
--- NOTE | 2021-02-21 16:34 | P.PN ---
Subjective Progress Note Date: 02/21/21 Principal diagnosis: V. tach cardiac arrest Hypoxic respiratory failure Cardiomyopathy with ejection fraction of 35% Bilateral atelectasis Bilateral pleural effusion Bowel obstruction and resection of mass CK D 02/21/2021, patient seen eval examined the patient appears to have better now breathing more clearly, denies any chest pain, patient had a run of ventricular tachycardia was given IV amiodarone and fusion from no switched to oral, patient has a been eating by mouth no overt aspiration seen but usually have problems with swallowing, aspiration precautions are underway, wound in the left extremity remained stable, wound care nurse is following, 02/20/2021, patient seen and evaluated examined the rounds labs reviewed medications reviewed care plan discussed, hemodynamically patient remains stable last set of blood pressure is 100 763 saturation 99%, cultures so far all of them negative, total status however continued to improve, patient has been evaluated by oncology also their recommendation from critical care standpoint patient remains stable can be moved down to the stepdown unit 02/19/2021, patient seen and evaluated examined during the rounds patient remains off of ventilator on room air breathing comfortably, denies any chest pain remains on broad-spectrum antibiotics, and the left forearm wound blisters are present discussed with the staff will do silver dressing for now until wound care and infectious disease services are available in the meantime continue antibiotics increase shouldn't is hemodynamically stable remains on TPN speech and swallow evaluation pending 02/18/2021, patient remains off of ventilator on room air now awake but not participating in conversation, is present at bedside, care plan discussed at length patient to undergo physical therapy and rehab, the left arm infiltration in the wound no blisters are ruptured, would recommend wound consult in the meantime can do -dry dressing with silver gel or aqua gel, patient the also underwent swallow evaluation, his speech is going to repeat tomorrow, patient remains on IV metoprolol as well as IV amiodarone dose has been decreased, 02/17/2021, patient seen eval examined during the rounds patient has been on CPAP of 5 pressure support of 8 and 50% oxygen breathing comfortably yesterday CPAP trial couldn't be tolerated due to generalized weakness I have discussed with the patient's and staff at length given multiple comorbidities likely about the trial today and high risk of re-intubations requirement, we will extubate him today, his medications reviewed, labs are not done, chest x-ray prior consistent with fluid overload interstitial edema left arm wound overall is stable along with edema and swelling of the hand pulses are intact patient arm is placed on gravity drainage, blood culture no growth so far 02/16/2021, patient seen eval reexamined during the rounds labs reviewed medications reviewed critical care time spent 35 minutes with the patient, and family meeting is present at bedside, patient has been attempted CPAP and p ressure support but tired out yesterday today however he isn't better strep symptoms weaning, currently on CPAP the tidal volume of 300 400 respiratory rate slightly high however patient appears slightly confused we'll keep the CPAP as tolerated put him back on assist control at nighttime, his labs from today reviewed, afebrile, chest x-ray are not done today, blood cultures are meds reviewed remains on amiodarone and Zosyn with TPN 02/15/2021, critical care time 35 minutes patient remains sedated with propofol drip, remains on full ventilatory support assist control rate of 16 and breathing 16 tidal volume of 505 of PEEP and 100% oxygen, and discussed with RN to titrated oxygen down to 50-75% over 12 hours to 24 hours patient is not ready for weaning extubation, the left arm externalization appears to have happened causing his skin breakdown, will get a PICC line, arterial blood gas chest x-ray reviewed suspect venous sample, continue broad-spectrum antibiotics, white cell count is up to 19,000, BUN/creatinine is 143 and 1.94, echocardiogram reviewed LV mildly dilated with concentric LVH, ejection fraction is yesterday 5%, patient remains on amiodarone, Solu-Medrol and IV Zosyn, This is a 80-year-old male with the symptoms suggestive of bowel obstruction for which he was admitted into the hospital patient underwent exploratory laparotomy and the found to have a mass as well which was resected patient is end-to-end anastomosis, also had an adrenal gland mass which wasn't biopsied, around 8:15 PM patient because more short of breath feeling uneasy and lost his pulse. Jennifer athing, he was noted to be in ventricular tachycardia require cardioversion times 08/02/2019 and 150 J after second return of spontaneous circulation was achieved, patient continued to have the episodes of V. tach, intubated by anesthesia transferred to the ICU, patient has been started on amiodarone, with that the V. tach appears to have controlled with 200 J into sinus rhythm, since a d-dimer was elevated patient underwent a computed tomography scan of the chest negative for PE however basal atelectasis and effusion was seen, patient currently on 0.17 mics of levo fed drip 25 mics of the propofol, cardiology on consult I have ordered an echocardiogram as well, reviewed computed tomography scan of the chest as well, patient remains on IV Zosyn noted white cell count is 30,000 likely contribution of the inflammatory change as well as is being stimulated due to steroids, however also noted lactic acid mildly elevated at 2.1, strokes are 5.03 BUN/creatinine is a 35/1.45 Objective - Vital Signs Vital signs: Vital Signs Temp 98.2 F 02/21/21 04:00 Pulse 81 02/21/21 16:04 Resp 16 02/21/21 16:04 BP 141/63 02/21/21 12:00 Pulse Ox 95 02/21/21 12:00 Intake & Output 02/20/21 02/21/21 02/21/21 18:59 06:59 18:59 Intake Total 1555 1482.7 405 Output Total 1130 1400 Balance 425 82.7 405 Weight 86.5 kg 86.5 kg Intake: IV 1115 1482.7 355 .9 90 Amiodarone 360 mg In 166.5 Dextrose 5% in Water 200 ml @ 1 MG/MIN 33.333 mls/ hr IV .Q6H [facility] Rx#: [id number] Amiodarone 450 mg In 250 Dextrose 5% in Water 250 ml @ 0.5 MG/MIN 16.667 mls/hr IV .Q15H [facility] Rx#: [id number] Amiodarone 450 mg In 116.2 30 Dextrose 5% in Water 250 ml @ 0.5 MG/MIN 16.667 mls/hr IV .Q15H [facility] Rx#: [id number] Mvi, Adult No.4 with Vit 1200 225 K 10 ml Trace (Conc-1Ml/ Dose) 1 ml Potassium Phosphate 10 mmol Potassium Acetate 30 meq Calcium Gluconate 1 gm In Amino Acid 5%-D15w 1,000 ml @ 75 mls/hr IV .BY DURATION [facility] Rx#: [id number] Mvi, Adult No.4 with Vit 600 K 10 ml Trace (Conc-1Ml/ Dose) 1 ml Sodium Acetate 30 meq Potassium Chloride 20 meq Calcium Gluconate 1 gm In Amino Acid 5%-D15w 1,000 ml @ 30 mls/hr IV .Q24H [facility] Rx #:[id number] Sodium Ferric Gluconat- 175 100 Sucrose 125 mg In Sodium Chloride 0.9% 100 ml @ 100 mls/hr IVPB Q24H [facility] Rx#:[id number] Intake, IV Titration 50 Amount DAPTOmycin 350 mg In 50 Sodium Chloride 0.9% 50 ml @ 100 mls/hr IVPB Q24H [facility] Rx#:[id number] Oral 440 Output: Urine 1130 1400 Other: Voiding Method Indwelling Catheter Indwelling Catheter Indwelling Catheter # Bowel Movements 1 - Exam Constitutional General appearance: average body habitus, cooperative, no acute distress - Neck Neck: normal ROM Carotids: bilateral: upstroke normal Thyroid: bilateral: normal size - Respiratory Respiratory: bilateral: diminished, rales - Cardiovascular Rhythm: regular Heart sounds: normal: S1, S2 - Gastrointestinal General gastrointestinal: soft - Integumentary Integumentary: normal turgor - Neurologic Neurologic: CNII-XII intact - Musculoskeletal Musculoskeletal: Left upper extremity his skin changes noted , blister ruptured vascular follow - Psychiatric Sedated on full ventilator support - Labs CBC & Chem 7: 02/21/21 03:43 02/21/21 03:48 Labs: Abnormal Lab Results - Last 24 Hours (Table) 02/20/21 02/20/21 02/21/21 Range/Units 17:28 21:01 03:43 WBC 17.0 H (3.8-10.6) k/uL Hgb 9.0 L (13.0-17.5) gm/dL Hct 35.5 L (39.0-53.0) % MCH 20.5 L (25.0-35.0) pg MCHC 25.5 L (31.0-37.0) g/dL RDW 29.6 H (11.5-15.5) % Neutrophils # 16.2 H (1.3-7.7) k/uL Lymphocytes # 0.3 L (1.0-4.8) k/uL Chloride (98-107) mmol/L Carbon Dioxide (22-30) mmol/L BUN (9-20) mg/dL Creatinine (0.66-1.25) mg/dL Glucose (74-99) mg/dL POC Glucose (mg/dL) 308 H 285 H (75-99) mg/dL 02/21/21 02/21/21 02/21/21 Range/Units 03:48 06:45 11:32 WBC (3.8-10.6) k/uL Hgb (13.0-17.5) gm/dL Hct (39.0-53.0) % MCH (25.0-35.0) pg MCHC (31.0-37.0) g/dL RDW (11.5-15.5) % Neutrophils # (1.3-7.7) k/uL Lymphocytes # (1.0-4.8) k/uL Chloride 115 H (98-107) mmol/L Carbon Dioxide 21 L (22-30) mmol/L BUN 70 H (9-20) mg/dL Creatinine 1.40 H (0.66-1.25) mg/dL Glucose 274 H (74-99) mg/dL POC Glucose (mg/dL) 289 H 239 H (75-99) mg/dL Assessment and Plan Assessment: Aspiration pneumonia Left upper extremity wound with blisters V. tach/V. fib cardiac arrest Fluid overload CHF Hypoxic respiratory failure Bilateral atelectasis Bilateral pleural effusion Bowel obstruction and resection of mass CKD Plan: Keep in stepdown unit Rehab evaluation By mouth amiodarone now Wound care evaluation Observe off of vasopressors, Continue broad-spectrum antibiotics steroids and breathing treatment Ammann start tapering down the steroids Echocardiogram findings reviewed increase activity as tolerated Out of bed on chair Aggressive PTOT Speech evaluation Time with Patient: Greater than 30
[2021-02-21] MEDS: DAPTOmycin 350 MG in SODIUM CHLORIDE 0.9% 50 ML IVPB SCH (18:01)
[2021-02-21 21:33] LABS: Glucose,Whole Blood 301 mg/dL (75-99)
[2021-02-21] MEDS: HYDROcodone/APAP 10-325MG 1 EACH TAB PO PRN (21:47)
[2021-02-22] MEDS: methylPREDNISolone SOD SUCCI 40 MG/ML 1 ML VIAL IV SCH ×4 (00:17→21:53)
[2021-02-22] MEDS ORDERED: DEXTROSE 5% IN WATER 100 ML with AMIODARONE 150 MG IV ONE (00:46)
[2021-02-22] MEDS ORDERED: AMIODARONE 360 MG in DEXTROSE 5% IN WATER 200 ML IV ONE ×2 (00:46)
--- NOTE | 2021-02-22 03:12 | PN ---
PROGRESS NOTE This is a 80-year-old white male who remains in the ICU. He has been weaned off vasopressors, admitted with ventricular tachycardia, cardiac arrest, hypoxemic respiratory distress, hypoxemic respiratory for cardiomegaly, cardiomyopathy, bilateral pleural effusion, bowel obstruction, status post adenocarcinoma removed with colectomy. The patient remains off the ventilator. Slowly improving. He had run of ventricular tachycardia, given IV amiodarone. He is on antibiotics for aspiration pneumonia. Wound left extremity remains stable. Cardiovascular S1, S2. Lungs clear. GI soft. Hematology: Negative Homans. Psych: Fair mood and affect. Ophthalmologic: Pupils equal, round, reactive to light and accommodation. Temp 98.7, pulse is 80 to 81, respiratory 16 to 18, blood pressure 140s over 60s, O2 95. Cardiovascular S1-S2. Lungs as mentioned above. Psych: Fair mood and affect. Neurologic: Alert and orient x3. ASSESSMENT: 1. Aspiration pneumonia. 2. Left upper extremity wound with blisters. 3. Secondary to an infusion of fluids. 4. Ventricular tachycardia. 5. VFib. 6. Cardiac arrest. 7. Fluid overdose. 8. Congestive heart failure. 9. Hypoxemic respiratory distress. 10.Bilateral atelectasis. 11.Bilateral pleural effusion. 12.Bowel obstruction, resection of mass. 13.Chronic kidney disease. Transfer to step-down, get out of ICU. Continue PT, OT, rehab evaluation and amiodarone. Wound care evaluation and observe off vasopressors. Broad-spectrum antibiotics. Cardiology and Pulmonary consult. Please see further orders. MMODL / IJN: [id number] /
[2021-02-22 05:21] LABS: Anisocytosis Marked; Basophils % (A) 0 %; Eosinophils # (A) 0.1 k/uL (0-0.7); Eosinophils % (A) 0 %; HCT 36.3 % (39.0-53.0); HGB 9.4 gm/dL (13.0-17.5); Hypochromasia Marked; Lymphocytes # (A) 0.3 k/uL (1.0-4.8); Lymphocytes % (A) 1 %; MCH 20.6 pg (25.0-35.0); MCHC 25.8 g/dL (31.0-37.0); MCV 79.7 fL (80.0-100.0); Macrocytosis Slight; Microcytosis Marked; Monocytes # (A) 0.4 k/uL (0-1.0); Monocytes % (A) 2 %; Neutrophils # (A) 21.1 k/uL (1.3-7.7); Neutrophils % (A) 97 %; Platelet Count 264 k/uL (150-450); Poikilocytosis Slight; RBC 4.56 m/uL (4.30-5.90); WBC 21.8 k/uL (3.8-10.6)
[2021-02-22 05:26] LABS: RDW 30.2 % (11.5-15.5)
[2021-02-22 05:31] LABS: Albumin 2.4 g/dL (3.5-5.0); Calcium 8.9 mg/dL (8.4-10.2); Phosphorus 3.3 mg/dL (2.5-4.5); Potassium 4.8 mmol/L (3.5-5.1); Total Bilirubin 1.1 mg/dL (0.2-1.3); Total Protein 4.9 g/dL (6.3-8.2)
[2021-02-22 07:05] LABS: Glucose,Whole Blood 318 mg/dL (75-99)
[2021-02-22] MEDS: INSULIN ASPART (NovoLOG) 100 UNIT/ML VIAL SQ SCH ×4 (07:15→21:54)
[2021-02-22] MEDS: AMIODARONE 450 MG in DEXTROSE 5% IN WATER 250 ML IV SCH ×4 (07:16→21:56)
[2021-02-22] MEDS: IPRATROPIUM-ALBUTEROL 3 ML NEB INHALATION SCH ×4 (07:17→20:24)
[2021-02-22] MEDS: ATORVASTATIN 40 MG TAB PO SCH (08:39)
[2021-02-22] MEDS: ENOXAPARIN 40 MG/0.4 ML SYRINGE SQ SCH (08:39)
[2021-02-22] MEDS: FUROSEMIDE 40 MG TAB PO SCH ×2 (08:40→16:18)
[2021-02-22] MEDS: PANTOPRAZOLE 40 MG/10 ML VIAL IV SCH (08:40)
[2021-02-22] MEDS: METOPROLOL TARTRATE 25 MG TAB PO SCH ×2 (08:40→21:53)
--- NOTE | 2021-02-22 09:00 | P.PN ---
Subjective Patient is seen in follow-up for acute kidney injury. Renal function improving. Maintain on oral Lasix. Good urine output. No chest pain or shortness of breath. On regular diet. Receiving TPN and lipids. When again in V. tach last night. Back on amiodarone drip. Vital signs are stable. General: The patient appeared well nourished and normally developed. HEENT: Head exam is unremarkable. Neck is without jugular venous distension. LUNGS: Breath sounds decreased. HEART: Rate and Rhythm are regular. ABDOMEN: Soft, no distention. EXTREMITITES: 2+ edema. Objective - Vital Signs Vital signs: Vital Signs Temp 98.3 F 02/22/21 06:00 Pulse 80 02/22/21 07:27 Resp 11 L 02/22/21 07:27 BP 136/66 02/22/21 06:00 Pulse Ox 100 02/22/21 07:17 Intake & Output 02/21/21 02/22/21 02/22/21 18:59 06:59 18:59 Intake Total 1444.3333 1580 Output Total 1475 Balance 1444.3333 105 Weight 86.5 kg 83.4 kg Intake: IV 355 1580 Amiodarone 360 mg In 50 Dextrose 5% in Water 200 ml @ 1 MG/MIN 33.333 mls/ hr IV .Q6H [facility] Rx#: [id number] Amiodarone 450 mg In 30 Dextrose 5% in Water 250 ml @ 0.5 MG/MIN 16.667 mls/hr IV .Q15H [facility] Rx#: [id number] Dextrose 5% in Water 100 150 ml @ 618 mls/hr IV .Q10M [facility] with Amiodarone 150 mg Rx#:[id number] Fat Emulsion 20% 500 ml 180 In Empty Bag 1 bag @ 21 mls/hr IV MoWeFr [facility] Rx#: [id number] Mvi, Adult No.4 with Vit 225 1200 K 10 ml Trace (Conc-1Ml/ Dose) 1 ml Potassium Phosphate 10 mmol Potassium Acetate 30 meq Calcium Gluconate 1 gm In Amino Acid 5%-D15w 1,000 ml @ 75 mls/hr IV .BY DURATION [facility] Rx#: [id number] Sodium Ferric Gluconat- 100 Sucrose 125 mg In Sodium Chloride 0.9% 100 ml @ 100 mls/hr IVPB Q24H [facility] Rx#:[id number] Intake, IV Titration 1089.3333 Amount DAPTOmycin 350 mg In 50 Sodium Chloride 0.9% 50 ml @ 100 mls/hr IVPB Q24H [facility] Rx#:[id number] Mvi, Adult No.4 with Vit 1039.3333 K 10 ml Trace (Conc-1Ml/ Dose) 1 ml Potassium Phosphate 10 mmol Potassium Acetate 30 meq Calcium Gluconate 1 gm In Amino Acid 5%-D15w 1,000 ml @ 75 mls/hr IV .BY DURATION [facility] Rx#: [id number] Output: Urine 1475 Other: Voiding Method Indwelling Catheter Indwelling Catheter - Labs CBC & Chem 7: 02/22/21 05:03 02/22/21 05:03 Labs: Abnormal Lab Results - Last 24 Hours (Table) 02/21/21 02/21/21 02/21/21 Range/Units 11:32 16:30 21:31 WBC (3.8-10.6) k/uL Hgb (13.0-17.5) gm/dL Hct (39.0-53.0) % MCV (80.0-100.0) fL MCH (25.0-35.0) pg MCHC (31.0-37.0) g/dL RDW (11.5-15.5) % Neutrophils # (1.3-7.7) k/uL Lymphocytes # (1.0-4.8) k/uL Chloride (98-107) mmol/L BUN (9-20) mg/dL Creatinine (0.66-1.25) mg/dL Glucose (74-99) mg/dL POC Glucose (mg/dL) 239 H 268 H 301 H (75-99) mg/dL ALT (4-49) U/L Total Protein (6.3-8.2) g/dL Albumin (3.5-5.0) g/dL 02/22/21 02/22/21 02/22/21 Range/Units 05:03 05:03 07:04 WBC 21.8 H (3.8-10.6) k/uL Hgb 9.4 L (13.0-17.5) gm/dL Hct 36.3 L (39.0-53.0) % MCV 79.7 L (80.0-100.0) fL MCH 20.6 L (25.0-35.0) pg MCHC 25.8 L (31.0-37.0) g/dL RDW 30.2 H (11.5-15.5) % Neutrophils # 21.1 H (1.3-7.7) k/uL Lymphocytes # 0.3 L (1.0-4.8) k/uL Chloride 113 H (98-107) mmol/L BUN 73 H (9-20) mg/dL Creatinine 1.29 H (0.66-1.25) mg/dL Glucose 295 H (74-99) mg/dL POC Glucose (mg/dL) 318 H (75-99) mg/dL ALT 56 H (4-49) U/L Total Protein 4.9 L (6.3-8.2) g/dL Albumin 2.4 L (3.5-5.0) g/dL Assessment and Plan Plan: Assessment: 1. Acute kidney injury secondary to ATN secondary to cardiac arrest. Renal function improving. Creatinine 1.29 today. 2. Status post V. fib arrest maintained on amiodarone drip. 3. Acute systolic CHF with ejection fraction of 25-30%. 4. Colon mass status post colectomy. Currently on TPN and lipids. 5. Volume overload maintained on oral Lasix. Plan: Maintain oral Lasix. Additional 40 mg IV Lasix once this afternoon. Avoid nephrotoxins. Continue to monitor renal function and urine output.
--- NOTE | 2021-02-22 09:30 | CDI ---
Documentation Clarification Form Date: 02/22/2021 09:15:04 AM From: Nicci Price CCS, CCDS Admit Date: 02/06/2021 10:18:00 PM Patient Name: Sharan Snell Visit Number: [id number] Discharge Date: ATTENTION: The Clinical Documentation Specialists (CDI) and [facility] Coding Staff appreciate your assistance in clarifying documentation. Please respond to the clarification below the line at the bottom and electronically sign. The CDI & [facility] Coding staff will review the response and follow-up if needed. Please note: Queries are made part of the Legal Health Record. If you have any questions, please contact the author of this message via ITS. Dr. Jaspreet Ayala: Unspecified CKD is documented in the 02/16 & 02/21 Attending Progress Notes, also documented in the Neurology Progress Notes and the Master Cosmetologist Progress Notes. Additional clarification regarding the stage of CKD is requested. History/Risk Factors per the 02/06 ED Note: Atrial Fibrillation on Anticoagulation, CAD with Stent, MVR '03, [place], CVA, Hypertension, Hyperlipidemia, Osteoarthritis, Former Smoker. Clinical Indicators: Presented to the ED on 02/06 with Nausea, Vomiting and Abdominal Pain. ED Clinical Impression: Bowel Obstruction Patient subsequently had a Right colectomy on 02/08 for a right colon mass with positive pathology for ascending colon cancer. Intubated on 02/13 after episode of V tach requiring cardioversions, transferred to ICU, extubated on 02/17. Patients Historical GFR: 04/08/2018: 2. 04/10/2018: 72. 02/06/2021: 42. 02/22/2021: 53 02/06 GUN 56, Creatinine 1.56, GFR 42. 02/22 BUN 73, Creatinine 1.29, GFR 53 Treatment 02/06: IV Na Cl 1,000 mls @ 999 mls/hr q1H, IV Zofran, I Protonix, IV Morphine. 02/12: IV Lasix 20 mg x1, IV Solumedrol, IV Zosyn 02/13: IV Diprivan, IV Amiodarone, IV Levophed, IV Propofol, IV Na Cl 2,000 mls @ 999 mls/hr q2H, IV Na Cl 1,000 mls @ 50 mls/hr q20H 02/14: IV Na Cl 50 mls @ 999 mls/hr q16M, IV Na Cl 500 mls @ 999 mls/hr q31M 02/16 TPN 02/22: IV Amiodarone, IV Lasix. Please clarify the stage of the CKD, if known: [ ] CKD Stage 2 (GFR 60-89) [ ] CKD Stage 3 (GFR 30-59) [ ] CKD Stage 3a (GFR 45-59) [ ] CKD Stage 3b (GFR 30-44) [ ] CKD Stage 4 (GFR 15-29) [ ] CKD ruled out [ ] Other, please specify [ ] Unable to determine (Template Last revised: August 2020) aki, no ckd MTDD
[2021-02-22 11:23] LABS: Glucose,Whole Blood 328 mg/dL (75-99)
--- NOTE | 2021-02-22 11:52 | P.CONS ---
History of Present Illness - Chief Complaint Medical debility - History of Present Illness I had the opportunity to see patient for inpatient rehab consultation with regard to medical debility. He was admitted to [facility] February 06 with emesis and abdominal pain for which is seen by surgery, Dr. Wheat who eventually did perform right colectomy. Seen by cardiology for CHF, CAD and V. tach. Seen by Dr. Willoughby for ICU care including V. tach and hypoxic respiratory failure. Seen by Dr. Ayala for acute renal failure. Workup includes abdominal x-rays, computed tomography scan of abdomen and pelvis which didn't demonstrate a small bowel obstruction. Chest CT demonstrates cardiomegaly, pulmonary consolidation, thoracic DDD and aortic atheroma ptosis. Venous Doppler negative left arm. Chest x-ray followed for CHF. Head CT demonstrates bifrontal cerebral loss as well as old right wetzel radiata lacunar infarct. PT reports performing passive range of motion and fatigues quickly. OT and SAG[employer] prescribed. Previous functional history as elicited from patient: 70-year-old right-handed white male single lives and 2 floor home alone. Works part-time as [employer]. Describes previously independent cooking, laundry, driving, standing shower gait without device. PCP Dr. Jeremiah Jansen. Patient admits to smoking but denies alcohol. Review of Systems Review of systems: ENT: Denies sneezes or discharge. Eyes: Denies discharge or photophobia. Cardiac: Denies chest pain or palpitation. Pulmonary: Perhaps mild shortness of breath. Gastrointestinal: Denies nausea, emesis, constipation, diarrhea. Genitourinary: Denies discharge or frequency. Musculoskeletal: Edema all limbs. Neurologic: Generalized weakness. Endocrine: Denies shakes or sweats. Oncology: Denies cancers. Dermatologic: Denies rash, itching, pruritus. ALLERGY/immunology: Denies sneezes, rashes. Past Medical History Past Medical History: Atrial Fibrillation, Coronary Artery Disease (CAD), Cancer, Heart Failure, CVA/TIA, Hyperlipidemia, Hypertension, Myocardial Infarction (VT), Osteoarthritis (OA), Prostate Disorder, Renal Disease, Skin Disorder Additional Past Medical History / Comment(s): 04/08/18 pt stated wants flu vaccine before discharge if ok with 01/2016-denies any residual, VT on stress test, constipation, arthritis in neck, basal cell cancer, bleeds easily with cuts, has crushed vertebra in neck. 04/2018 Acute renal Failure, Hyperkalemia, 3cm AAA, enlarged prostate and right adrenal mass. Last Myocardial Infarction Date:: unknown History of Any Multi-Drug Resistant Organisms: None Reported Past Surgical History: Bowel Resection, Heart Catheterization With Stent, Hernia Repair, Tonsillectomy Additional Past Surgical History / Comment(s): mitral valve repair 2002. total 4 cardiac stents, clara cataracts with lens implants, Right inguinal hernia repair 03/2018, SBO with right colectomy, right colon mass found and pathology sent 02/08/2021. Past Anesthesia/Blood Transfusion Reactions: No Reported Reaction Additional Past Anesthesia/Blood Transfusion Reaction / Comm: car sickness as child, " i seem to need more oxygen" with anesthesia. denies any diff with past intubation Date of Last Stent Placement:: 07/2016 Past Psychological History: No Psychological Hx Reported Additional Psychological History / Comment(s): ppt stated he lives in own home- alone. no home care services, no medical equiment Smoking Status: Former smoker Past Alcohol Use History: Rare Additional Past Alcohol Use History / Comment(s): started smoking at age 20 and quit 2002. was smoking 1/2 ppd. Past Drug Use History: None Reported - Past Family History Mother History Unknown: Yes Family Medical History: No Reported History Father History Unknown: Yes Additional Family Medical History / Comment(s): "heart problems" Medications and Allergies Home Medications Medication Instructions Recorded Confirmed Type Zolpidem [Ambien] 10 mg PO HS PRN 06/08/16 02/06/21 History Clopidogrel [Plavix] 75 mg PO DAILY #90 tab 07/19/16 02/06/21 Rx Nitroglycerin Sl Tabs [Nitrostat] 0.4 mg SUBLINGUAL Q5M PRN #25 tab 07/19/16 02/06/21 Rx Bumetanide [Bumex] 1 mg PO DAILY 02/06/21 02/06/21 History HYDROcodone/APAP 10-325MG [[place] 1 tab PO TID PRN 02/06/21 02/06/21 History 10-325] Metoprolol Succinate (ER) [Toprol 25 mg PO DAILY 02/06/21 02/06/21 History Xl] lisinopriL [Zestril] 5 mg PO DAILY 02/06/21 02/06/21 History Allergies Allergy/AdvReac Type Severity Reaction Status Date / Time No Known Allergies Allergy Verified 02/06/21 22:39 Physical Exam Vitals: Vital Signs Temp Pulse Resp BP Pulse Ox 02/22/21 11:40 70 18 02/22/21 11:30 75 21 02/22/21 07:27 80 11 L 02/22/21 07:17 80 11 L 100 02/22/21 06:00 98.3 F 78 21 136/66 100 02/22/21 04:00 76 19 136/69 100 02/22/21 02:00 76 14 124/55 97 02/22/21 00:00 84 22 138/60 95 02/21/21 22:00 99.3 F 106 H 26 H 133/63 96 02/21/21 20:00 94 21 129/57 99 02/21/21 18:16 86 25 H 129/57 98 02/21/21 18:00 86 21 129/57 95 02/21/21 16:04 81 16 02/21/21 16:00 74 21 132/72 99 02/21/21 15:54 82 16 02/21/21 14:00 81 27 H 132/72 97 02/21/21 12:37 82 02/21/21 12:00 75 22 141/63 95 Intake and Output 02/21/21 02/22/21 02/22/21 22:59 06:59 14:59 Intake Total 620 960 Output Total 800 675 Balance -180 285 Intake: IV 620 960 Amiodarone 360 mg In 50 Dextrose 5% in Water 200 ml @ 1 MG/MIN 33.333 mls/ hr IV .Q6H [facility] Rx#: [id number] Dextrose 5% in Water 100 150 ml @ 618 mls/hr IV .Q10M ONE with Amiodarone 150 mg Rx#:[id number] Fat Emulsion 20% 500 ml 20 160 In Empty Bag 1 bag @ 21 mls/hr IV MoWeFr [facility] Rx#: [id number] Mvi, Adult No.4 with Vit 600 600 K 10 ml Trace (Conc-1Ml/ Dose) 1 ml Potassium Phosphate 10 mmol Potassium Acetate 30 meq Calcium Gluconate 1 gm In Amino Acid 5%-D15w 1,000 ml @ 75 mls/hr IV .BY DURATION [facility] Rx#: [id number] Output: Urine 800 675 Other: Voiding Method Indwelling Catheter Indwelling Catheter Indwelling Catheter Weight 86.5 kg 83.4 kg Skin: Good color, texture, turgor. General: Medium build and comfortable appearance. Head: Normocephalic, atraumatic. Eyes: Symmetric. Pupils equal round. Ears: Symmetric. Hearing within normal limits. Mouth: Clear. Neck: Supple. Carotid without bruit. Cardiac: Regular rate and rhythm. Lungs: Clear anteriorly and posteriorly. Abdomen: Soft active nontender. Extremities: Normal tone. Edema all 4 limbs. Neurological: Mental status: Alert, cooperative, pleasant. Cranial nerves: Symmetric facial tone and trapezius. Motor: Poor movement all 4 limbs. Sensation: Intact throughout. DTRs: Symmetric and equal throughout. Mobility: Requires assistance multiple persons for bed mobility and care. Results CBC & Chem 7: 02/22/21 05:03 02/22/21 05:03 Labs: Abnormal Lab Results - Last 24 Hours (Table) 02/21/21 02/21/21 02/22/21 Range/Units 16:30 21:31 05:03 WBC (3.8-10.6) k/uL Hgb (13.0-17.5) gm/dL Hct (39.0-53.0) % MCV (80.0-100.0) fL MCH (25.0-35.0) pg MCHC (31.0-37.0) g/dL RDW (11.5-15.5) % Neutrophils # (1.3-7.7) k/uL Lymphocytes # (1.0-4.8) k/uL Chloride 113 H (98-107) mmol/L BUN 73 H (9-20) mg/dL Creatinine 1.29 H (0.66-1.25) mg/dL Glucose 295 H (74-99) mg/dL POC Glucose (mg/dL) 268 H 301 H (75-99) mg/dL ALT 56 H (4-49) U/L Total Protein 4.9 L (6.3-8.2) g/dL Albumin 2.4 L (3.5-5.0) g/dL 02/22/21 02/22/21 02/22/21 Range/Units 05:03 07:04 11:21 WBC 21.8 H (3.8-10.6) k/uL Hgb 9.4 L (13.0-17.5) gm/dL Hct 36.3 L (39.0-53.0) % MCV 79.7 L (80.0-100.0) fL MCH 20.6 L (25.0-35.0) pg MCHC 25.8 L (31.0-37.0) g/dL RDW 30.2 H (11.5-15.5) % Neutrophils # 21.1 H (1.3-7.7) k/uL Lymphocytes # 0.3 L (1.0-4.8) k/uL Chloride (98-107) mmol/L BUN (9-20) mg/dL Creatinine (0.66-1.25) mg/dL Glucose (74-99) mg/dL POC Glucose (mg/dL) 318 H 328 H (75-99) mg/dL ALT (4-49) U/L Total Protein (6.3-8.2) g/dL Albumin (3.5-5.0) g/dL Assessment and Plan (1) Bowel obstruction Current Visit: Yes Status: Acute Code(s): K56.609 - UNSP INTESTNL OBST, UNSP TO PARTIAL VERSUS COMPLETE OBST SNOMED Code(s): 91923196 (2) Acute renal failure (ARF) Current Visit: No Status: Acute Code(s): N17.9 - ACUTE KIDNEY FAILURE, UNSPECIFIED SNOMED Code(s): 85683387 Plan: Impression: 1. Medical debility. 2. Small bowel obstruction status post right colectomy. Colon cancer. 3. CHF. 4. Diffuse edema. 3. Coronary disease with atrial fibrillation and history of VT. 6. Hypertension. 7. Dyslipidemia. 8. Osteoarthritis. Comments and plan: At this time rehab prognosis guarded as patient able to only participate with passive range of motion. Currently requires 24/7 care multiple persons.
[2021-02-22] MEDS ORDERED: FUROSEMIDE 10 MG/ML 4 ML VIAL IV ONE (12:00)
[2021-02-22] MEDS: SODIUM FERRIC GLUCONAT-SUCROSE 125 MG in SODIUM CHLORIDE 0.9% 100 ML IVPB SCH (12:10)
--- NOTE | 2021-02-22 12:13 | P.PN ---
Subjective This is a pleasant 80-year-old male past medical history significant for chronic persistent atrial fibrillation, coronary artery disease status post multivessel PCI in 2017, ischemic cardiomyopathy, hypertension, hyperlipidemia, mitral valve repair in 2002, history of inguinal and umbilical hernia repair. He used to follow in the office with Dr. Hammond, have ever has not followed up since 2019. He is not seeing a new supply aide at this time. We have been asked to see in consultation for atrial fibrillation with rapid ventricular response. Patient is seen and examined at bedside, patient presents emergency department with complaints of abdominal pain and nausea and vomiting for 3 days. He ate some salmon from [employer] and thought he had food poisoning, however, his symptoms worsened. CT abdomen and pelvis revealed high-grade small bowel obstruction session with small bowel loops dilated to 4.8 cm. Mild dull ascites, cecum is also fluid filled measuring up to 6.7 cm we suggested transition point at the lower ascending colon. Benign 3.7 cm right adrenal adenoma and to continued shortness of abdominal aortic aneurysm in the mid and distal abdominal aorta measuring up to 0.3 cm cyst, generalized colonic diverticulosis. Surgery was consulted. NG tube was placed. Patient states he had 2 bowel movements today. On admission, patient did not receive his metoprolol succinate. Today, patient recieved metoprolol tartrate 50mg once, and his home dose of metoprolol succinate 25mg daily With improved rates currently in low 100s. In June 2016, patient had an abnormal lexiscan stress test. Patient underwent cardiac catheterization and PCI after in 2016. Patient states he has not follow up with cardiology since 2019, he has been following up regularly with his PCP. He states since 2019 he has not had any recent cardiac workup or cardiac catheterizations. In 2019, patient stopped taking his Eliquis because he was also taking Plavix and Aspirin at that time. He had EKG changes at that time, cardiac catheterization was recommended but patient did not proceed at that time. DIAGNOSTICS -Cardiac catheterization history includes: 07/2016 which revealed critical stenosis involving the proximal LAD, significant stenosis on the ramus intermedius in the proximal left circumflex, mild disease in RCA. Patient subs equently underwent stenting to the proximal circumflex, proximal LAD x2, and proximal ramus intermedius -Most recent echocardiogram 11/2018 revealed an EF of 32%, moderate concentric hypertrophy, akinesis of the anterior wall and anterior septum from the mid wall to the apex, akinesis of the septum from mid-wall to apex, akinesis of anterio and later ibarra. akinesis of inferior wall at the apex, severely dilated left atrium, mild aortic regurgitation, mild prosthetic valvular regurgitation, mode rate tricuspid regurgitation 02/08/21: Patient underwent right colectomy with Dr. Adamson. 02/10/21: Anticoagulation discussed with patient, he refused Eliquis at that time. Echocardiogram completed revealing ejection fraction 30-35%. Multiple LV wall motion abnormalities. Trace amount of aortic regurgitation. Mitral valve repair. Moderate to severe tricuspid regurgitation. Severe pulmonary hypertension. 02/13/21: Patient went into V fib arrest and intubated. Transferred to ICU 02/17/21: Patient extubated 02/21/2021: Overnight patient went into wide complex tachycardia. Received synchronized cardioversion at 100 J X 1 with return to normal sinus rhythm. Patient maintained on amiodarone 1 mg/min. Was transition to PO amiodarone and his amiodarone drip was stopped. 02/22/2021: Overnight around 3, patient had sustained ventricular tachycardia. Started on amiodarone 150mg bolus and dip at 1mg/min. Now on 0.5mg/min. Patient converted to sinus rhythm. Patient seen and examined at bedside, no acute distress. Laboratory data review WBC 21.8, hemoglobin 0.4, platelets 264, sodium 140, potassium 4.8, BUN 73, serum creatinine 1.29, magnesium 2.0, albumin 2.4. Blood pressure 136/66, heart rate 70, afebrile, maintaining oxygen saturations on room air. Telemetry reviewed patient currently in sinus mechanism heart rate 70-90s. Patient currently maintained on amiodarone 0.5 mg/min, atorvastatin 40 mg daily, PO Lasix 20 mg twice a day, metoprolol titrate 25 mg twice a day PHYSICAL EXAMINATION CONSTITUTIONAL: No apparent distress. HEENT: Head is normocephalic. No JVD. CHEST EXAMINATION: Lungs are clear to auscultation. HEART EXAMINATION: Regular rate and rhythm. S1, S2 heard. Systolic murmur noted at the base ABDOMEN: Soft, nontender. Positive bowel sounds. EXTREMITIES: 2+ peripheral pulses, mild bilateral non pitting lower extremity edema and no calf tenderness. Swelling to bilateral arms. SKIN: Abdominal incision closed with rene NEUROLOGIC EXAMINATION: Patient is awake, alert and oriented x3. ASSESSMENT Right colon mass causing small bowel obstruction s/p right colectomy on 02/08/21 New diagnosis of carcinoma of ascending colon Paroxysmal atrial fibrillation with RVR- -[id number] score 5. Xarelto has been held due to anemia on 02/16, Restart Xarelto 02/22 V. fib arrest requiring defibrillation Acute hypoxic respiratory failure requiring mechanical ventilation Coronary artery disease status post multivessel PCI in 2016 Ischemic cardiomyopathy most recent EF 32% Hypertension Hyperlipidemia Mitral valve repair in 2002 Hypokalemia Acute Kidney Injury PLAN -Continue amiodarone 0.5mg/hr -Continue statin and beta adithya -Will restart patient's Xarelto -Continue to monitor renal function and electrolytes -Further recommendations based on clinical course Nurse Practitioner note has been reviewed, I agree with a documented findings and plan of care. Patient was seen and examined. Objective - Vital Signs Vital signs: Vital Signs Temp 98.3 F 02/22/21 06:00 Pulse 70 02/22/21 11:40 Resp 18 02/22/21 11:40 BP 136/66 02/22/21 06:00 Pulse Ox 100 02/22/21 07:17 Intake & Output 02/21/21 02/22/21 02/22/21 18:59 06:59 18:59 Intake Total 1444.3333 1580 Output Total 1475 Balance 1444.3333 105 Weight 86.5 kg 83.4 kg Intake: IV 355 1580 Amiodarone 360 mg In 50 Dextrose 5% in Water 200 ml @ 1 MG/MIN 33.333 mls/ hr IV .Q6H [facility] Rx#: [id number] Amiodarone 450 mg In 30 Dextrose 5% in Water 250 ml @ 0.5 MG/MIN 16.667 mls/hr IV .Q15H [facility] Rx#: [id number] Dextrose 5% in Water 100 150 ml @ 618 mls/hr IV .Q10M [facility] with Amiodarone 150 mg Rx#:[id number] Fat Emulsion 20% 500 ml 180 In Empty Bag 1 bag @ 21 mls/hr IV MoWeFr [facility] Rx#: [id number] Mvi, Adult No.4 with Vit 225 1200 K 10 ml Trace (Conc-1Ml/ Dose) 1 ml Potassium Phosphate 10 mmol Potassium Acetate 30 meq Calcium Gluconate 1 gm In Amino Acid 5%-D15w 1,000 ml @ 75 mls/hr IV .BY DURATION [facility] Rx#: [id number] Sodium Ferric Gluconat- 100 Sucrose 125 mg In Sodium Chloride 0.9% 100 ml @ 100 mls/hr IVPB Q24H [facility] Rx#:[id number] Intake, IV Titration 1089.3333 Amount DAPTOmycin 350 mg In 50 Sodium Chloride 0.9% 50 ml @ 100 mls/hr IVPB Q24H [facility] Rx#:[id number] Mvi, Adult No.4 with Vit 1039.3333 K 10 ml Trace (Conc-1Ml/ Dose) 1 ml Potassium Phosphate 10 mmol Potassium Acetate 30 meq Calcium Gluconate 1 gm In Amino Acid 5%-D15w 1,000 ml @ 75 mls/hr IV .BY DURATION [facility] Rx#: [id number] Output: Urine 1475 Other: Voiding Method Indwelling Catheter Indwelling Catheter Indwelling Catheter - Labs CBC & Chem 7: 02/22/21 05:03 02/22/21 05:03 Labs: Abnormal Lab Results - Last 24 Hours (Table) 02/21/21 02/21/21 02/22/21 Range/Units 16:30 21:31 05:03 WBC (3.8-10.6) k/uL Hgb (13.0-17.5) gm/dL Hct (39.0-53.0) % MCV (80.0-100.0) fL MCH (25.0-35.0) pg MCHC (31.0-37.0) g/dL RDW (11.5-15.5) % Neutrophils # (1.3-7.7) k/uL Lymphocytes # (1.0-4.8) k/uL Chloride 113 H (98-107) mmol/L BUN 73 H (9-20) mg/dL Creatinine 1.29 H (0.66-1.25) mg/dL Glucose 295 H (74-99) mg/dL POC Glucose (mg/dL) 268 H 301 H (75-99) mg/dL ALT 56 H (4-49) U/L Total Protein 4.9 L (6.3-8.2) g/dL Albumin 2.4 L (3.5-5.0) g/dL 02/22/21 02/22/21 02/22/21 Range/Units 05:03 07:04 11:21 WBC 21.8 H (3.8-10.6) k/uL Hgb 9.4 L (13.0-17.5) gm/dL Hct 36.3 L (39.0-53.0) % MCV 79.7 L (80.0-100.0) fL MCH 20.6 L (25.0-35.0) pg MCHC 25.8 L (31.0-37.0) g/dL RDW 30.2 H (11.5-15.5) % Neutrophils # 21.1 H (1.3-7.7) k/uL Lymphocytes # 0.3 L (1.0-4.8) k/uL Chloride (98-107) mmol/L BUN (9-20) mg/dL Creatinine (0.66-1.25) mg/dL Glucose (74-99) mg/dL POC Glucose (mg/dL) 318 H 328 H (75-99) mg/dL ALT (4-49) U/L Total Protein (6.3-8.2) g/dL Albumin (3.5-5.0) g/dL
--- NOTE | 2021-02-22 13:01 | P.PN ---
Subjective Progress Note Date: 02/22/21 CHIEF COMPLAINT: Small bowel obstruction HISTORY OF PRESENT ILLNESS: Patient is status post right colectomy for right colon mass on 02/08/21. Patient had sustained tachycardia yesterday and required to be restarted on amiodarone drip. He has converted to normal sinus. He is followed closely by cardiology. Patient reports that his pain is controlled. He is having bowel movements. Denies any nausea or vomiting. Currently on a low fiber diet. His intake is minimal. Does have TPN running. Patient is scheduled for dose of IV Lasix for volume overload. Afebrile. WBC is 21.8 hemoglobin 9.4 platelets 264 glucose 328 creatinine 1.29 PHYSICAL EXAM: VITAL SIGNS: Reviewed. GENERAL: Well-developed in no acute distress. HEENT: No sclera icterus. Extraocular movements grossly intact. Moist buccal mucosa. Head is atraumatic, normocephalic. ABDOMEN: Soft. Minimal abdominal distention. Patient does have clearish, yellowish drainage from the lower part of his abdominal incision NEUROLOGIC: Patient is awake. Able to answer some questions but is confused. ASSESSMENT: 1. Right Colon mass causing small bowel obstruction status post right colectomy PLAN: -Continue supportive care -Continue low fiber diet -Continue TPN for now until appetite increases -Continue to increase activity -Continue to work with PT OT Physician Process Inspector note has been reviewed by physician. Signing provider agrees with the documented findings, assessment, and plan of care. Objective - Vital Signs Vital signs: Vital Signs Temp 98.2 F 02/22/21 08:00 Pulse 81 02/22/21 12:00 Resp 15 02/22/21 12:00 BP 135/71 02/22/21 12:00 Pulse Ox 96 02/22/21 12:00 Intake & Output 02/21/21 02/22/21 02/22/21 18:59 06:59 18:59 Intake Total 1444.3333 1580 1160 Output Total 1475 850 Balance 1444.3333 105 310 Weight 86.5 kg 83.4 kg Intake: IV 355 1580 1160 Amiodarone 360 mg In 50 Dextrose 5% in Water 200 ml @ 1 MG/MIN 33.333 mls/ hr IV .Q6H [facility] Rx#: [id number] Amiodarone 450 mg In 30 Dextrose 5% in Water 250 ml @ 0.5 MG/MIN 16.667 mls/hr IV .Q15H [facility] Rx#: [id number] Dextrose 5% in Water 100 150 ml @ 618 mls/hr IV .Q10M [facility] with Amiodarone 150 mg Rx#:[id number] Fat Emulsion 20% 500 ml 180 160 In Empty Bag 1 bag @ 21 mls/hr IV MoWeFr [facility] Rx#: [id number] Mvi, Adult No.4 with Vit 225 1200 900 K 10 ml Trace (Conc-1Ml/ Dose) 1 ml Potassium Phosphate 10 mmol Potassium Acetate 30 meq Calcium Gluconate 1 gm In Amino Acid 5%-D15w 1,000 ml @ 75 mls/hr IV .BY DURATION [facility] Rx#: [id number] Sodium Ferric Gluconat- 100 100 Sucrose 125 mg In Sodium Chloride 0.9% 100 ml @ 100 mls/hr IVPB Q24H [facility] Rx#:[id number] Intake, IV Titration 1089.3333 Amount DAPTOmycin 350 mg In 50 Sodium Chloride 0.9% 50 ml @ 100 mls/hr IVPB Q24H [facility] Rx#:[id number] Mvi, Adult No.4 with Vit 1039.3333 K 10 ml Trace (Conc-1Ml/ Dose) 1 ml Potassium Phosphate 10 mmol Potassium Acetate 30 meq Calcium Gluconate 1 gm In Amino Acid 5%-D15w 1,000 ml @ 75 mls/hr IV .BY DURATION [facility] Rx#: [id number] Output: Urine 1475 850 Other: Voiding Method Indwelling Catheter Indwelling Catheter Indwelling Catheter - Labs CBC & Chem 7: 02/22/21 05:03 02/22/21 05:03 Labs: Abnormal Lab Results - Last 24 Hours (Table) 02/21/21 02/21/21 02/22/21 Range/Units 16:30 21:31 05:03 WBC (3.8-10.6) k/uL Hgb (13.0-17.5) gm/dL Hct (39.0-53.0) % MCV (80.0-100.0) fL MCH (25.0-35.0) pg MCHC (31.0-37.0) g/dL RDW (11.5-15.5) % Neutrophils # (1.3-7.7) k/uL Lymphocytes # (1.0-4.8) k/uL Chloride 113 H (98-107) mmol/L BUN 73 H (9-20) mg/dL Creatinine 1.29 H (0.66-1.25) mg/dL Glucose 295 H (74-99) mg/dL POC Glucose (mg/dL) 268 H 301 H (75-99) mg/dL ALT 56 H (4-49) U/L Total Protein 4.9 L (6.3-8.2) g/dL Albumin 2.4 L (3.5-5.0) g/dL 02/22/21 02/22/21 02/22/21 Range/Units 05:03 07:04 11:21 WBC 21.8 H (3.8-10.6) k/uL Hgb 9.4 L (13.0-17.5) gm/dL Hct 36.3 L (39.0-53.0) % MCV 79.7 L (80.0-100.0) fL MCH 20.6 L (25.0-35.0) pg MCHC 25.8 L (31.0-37.0) g/dL RDW 30.2 H (11.5-15.5) % Neutrophils # 21.1 H (1.3-7.7) k/uL Lymphocytes # 0.3 L (1.0-4.8) k/uL Chloride (98-107) mmol/L BUN (9-20) mg/dL Creatinine (0.66-1.25) mg/dL Glucose (74-99) mg/dL POC Glucose (mg/dL) 318 H 328 H (75-99) mg/dL ALT (4-49) U/L Total Protein (6.3-8.2) g/dL Albumin (3.5-5.0) g/dL
--- NOTE | 2021-02-22 15:49 | P.PN ---
Subjective Progress Note Date: 02/22/21 Principal diagnosis: New diagnosis of colon adenocarcinoma, status post resection In follow-up today patient is resting comfortably, he is asking if the "girls getting along", I cannot get him to elaborate. RN was able to get hi to to answer year, president. Objective - Vital Signs Vital signs: Vital Signs Temp 98.2 F 02/22/21 08:00 Pulse 81 02/22/21 12:00 Resp 15 02/22/21 12:00 BP 135/71 02/22/21 12:00 Pulse Ox 96 02/22/21 12:00 Intake & Output 02/21/21 02/22/21 02/22/21 18:59 06:59 18:59 Intake Total 1444.3333 1580 1160 Output Total 1475 850 Balance 1444.3333 105 310 Weight 86.5 kg 83.4 kg Intake: IV 355 1580 1160 Amiodarone 360 mg In 50 Dextrose 5% in Water 200 ml @ 1 MG/MIN 33.333 mls/ hr IV .Q6H ONE Rx#: [id number] Amiodarone 450 mg In 30 Dextrose 5% in Water 250 ml @ 0.5 MG/MIN 16.667 mls/hr IV .Q15H [facility] Rx#: [id number] Dextrose 5% in Water 100 150 ml @ 618 mls/hr IV .Q10M ONE with Amiodarone 150 mg Rx#:[id number] Fat Emulsion 20% 500 ml 180 160 In Empty Bag 1 bag @ 21 mls/hr IV MoWeFr [facility] Rx#: [id number] Mvi, Adult No.4 with Vit 225 1200 900 K 10 ml Trace (Conc-1Ml/ Dose) 1 ml Potassium Phosphate 10 mmol Potassium Acetate 30 meq Calcium Gluconate 1 gm In Amino Acid 5%-D15w 1,000 ml @ 75 mls/hr IV .BY DURATION [facility] Rx#: [id number] Sodium Ferric Gluconat- 100 100 Sucrose 125 mg In Sodium Chloride 0.9% 100 ml @ 100 mls/hr IVPB Q24H [facility] Rx#:[id number] Intake, IV Titration 1089.3333 Amount DAPTOmycin 350 mg In 50 Sodium Chloride 0.9% 50 ml @ 100 mls/hr IVPB Q24H [facility] Rx#:[id number] Mvi, Adult No.4 with Vit 1039.3333 K 10 ml Trace (Conc-1Ml/ Dose) 1 ml Potassium Phosphate 10 mmol Potassium Acetate 30 meq Calcium Gluconate 1 gm In Amino Acid 5%-D15w 1,000 ml @ 75 mls/hr IV .BY DURATION [facility] Rx#: [id number] Output: Urine 1475 850 Other: Voiding Method Indwelling Catheter Indwelling Catheter Indwelling Catheter - Constitutional Constitutional Comment(s): very frail General appearance: Present: cooperative, no acute distress, thin - EENT Eyes: Present: anicteric sclerae, EOMI ENT: Present: hearing grossly normal, normal oropharynx - Respiratory Respiratory: bilateral: CTA - Cardiovascular Rhythm: regular Heart sounds: normal: S1, S2 Abnormal Heart Sounds: Absent: systolic murmur, diastolic murmur, rub, S3 Gallop, S4 Gallop, click, other - Peripheral edema leg Peripheral Edema: bilateral: 1+ - Gastrointestinal General gastrointestinal: Present: decreased bowel sounds, soft - Neurologic Neurologic: Present: CNII-XII intact - Musculoskeletal Musculoskeletal: Present: generalized weakness - Labs CBC & Chem 7: 02/22/21 05:03 02/22/21 05:03 Labs: Abnormal Lab Results - Last 24 Hours (Table) 02/21/21 02/21/21 02/22/21 Range/Units 16:30 21:31 05:03 WBC (3.8-10.6) k/uL Hgb (13.0-17.5) gm/dL Hct (39.0-53.0) % MCV (80.0-100.0) fL MCH (25.0-35.0) pg MCHC (31.0-37.0) g/dL RDW (11.5-15.5) % Neutrophils # (1.3-7.7) k/uL Lymphocytes # (1.0-4.8) k/uL Chloride 113 H (98-107) mmol/L BUN 73 H (9-20) mg/dL Creatinine 1.29 H (0.66-1.25) mg/dL Glucose 295 H (74-99) mg/dL POC Glucose (mg/dL) 268 H 301 H (75-99) mg/dL ALT 56 H (4-49) U/L Total Protein 4.9 L (6.3-8.2) g/dL Albumin 2.4 L (3.5-5.0) g/dL 02/22/21 02/22/21 02/22/21 Range/Units 05:03 07:04 11:21 WBC 21.8 H (3.8-10.6) k/uL Hgb 9.4 L (13.0-17.5) gm/dL Hct 36.3 L (39.0-53.0) % MCV 79.7 L (80.0-100.0) fL MCH 20.6 L (25.0-35.0) pg MCHC 25.8 L (31.0-37.0) g/dL RDW 30.2 H (11.5-15.5) % Neutrophils # 21.1 H (1.3-7.7) k/uL Lymphocytes # 0.3 L (1.0-4.8) k/uL Chloride (98-107) mmol/L BUN (9-20) mg/dL Creatinine (0.66-1.25) mg/dL Glucose (74-99) mg/dL POC Glucose (mg/dL) 318 H 328 H (75-99) mg/dL ALT (4-49) U/L Total Protein (6.3-8.2) g/dL Albumin (3.5-5.0) g/dL Assessment and Plan (1) Colon adenocarcinoma Narrative/Plan: PT3 N2b MX, grade 3 adenocarcinoma of colon. Plan is for follow-up with Medical Oncology after rehabilitation and healing from surgery-approximately 4-6 weeks. PET scan to complete staging will be ordered outpatient. Current Visit: Yes Status: Acute Priority: High Code(s): C18.9 - MALIGNANT NEOPLASM OF COLON, UNSPECIFIED SNOMED Code(s): 180266637 (2) Microcytic hypochromic anemia Narrative/Plan: Patient's iron studies show anemia with elevated ferritin. Current Visit: Yes Status: Acute Priority: High Code(s): D50.9 - IRON DEFICIENCY ANEMIA, UNSPECIFIED SNOMED Code(s): 55402846
[2021-02-22] MEDS: DAPTOmycin 350 MG in SODIUM CHLORIDE 0.9% 50 ML IVPB SCH (16:18)
--- NOTE | 2021-02-22 16:22 | PN ---
PROGRESS NOTE DATE OF SERVICE: 02/22/2021 REASON FOR FOLLOWUP: 1. Aspiration pneumonitis. 2. Left arm skin necrosis and possible cellulitis. INTERVAL HISTORY: The patient is currently afebrile. The patient did have problems with ventricular tachycardia last night requiring amiodarone infusion. No shocks per the nursing staff. The patient is pleasantly confused, unable to provide any history. No vomiting, diarrhea or other changes were reported. PHYSICAL EXAMINATION: Blood pressure 135/71, pulse of 81, temperature 98.2. He is 96% on room air. GENERAL DESCRIPTION: General description is an elderly male lying in bed in no distress. RESPIRATORY SYSTEM: Unlabored breathing. Decreased intensity of breath sounds. No wheeze. HEART: S1, S2. Regular rate and rhythm. ABDOMEN: Soft. No tenderness. LEFT ARM: Area of skin necrosis with some swelling. No significant redness or drainage. LABS: Hemoglobin is 9.4, white count 21.8, BUN of 73, creatinine 1.29. DIAGNOSTIC IMPRESSION AND PLAN: 1. Patient with ventricular tachycardia requiring intubation and concern for possible pneumonitis. Patient is covered with Zosyn. 2. Left arm superficial skin necrosis and concern for possible cellulitis, covered with daptomycin. 3. Elevated white count, more likely steroid-related. Will be monitored closely. MMODL / IJN: [id number] / DARIANA
--- NOTE | 2021-02-22 16:25 | P.PN ---
Subjective Progress Note Date: 02/22/21 Principal diagnosis: V. tach cardiac arrest Hypoxic respiratory failure Cardiomyopathy with ejection fraction of 35% Bilateral atelectasis Bilateral pleural effusion Bowel obstruction and resection of mass CK D 02/22/2021, patient seen eval examined during the rounds labs reviewed medications reviewed care plan discussed with the staff at length, son and [id number] present at bedside as well, he is breathing comfortably more alert, undergoing active physical therapy able to sit on the side of the bed, R running on the high side, is being started on steroid protocol also being given Lantus at bedtime, wound in the left upper extremity slightly appears better 02/21/2021, patient seen eval examined the patient appears to have better now breathing more clearly, denies any chest pain, patient had a run of ventricular tachycardia was given IV amiodarone and fusion from no switched to oral, patient has a been eating by mouth no overt aspiration seen but usually have problems with swallowing, aspiration precautions are underway, wound in the left extremity remained stable, wound care nurse is following, 02/20/2021, patient seen and evaluated examined the rounds labs reviewed medications reviewed care plan discussed, hemodynamically patient remains stable last set of blood pressure is 100 763 saturation 99%, cultures so far all of them negative, total status however continued to improve, patient has been evaluated by oncology also their recommendation from critical care standpoint patient remains stable can be moved down to the stepdown unit 02/19/2021, patient seen and evaluated examined during the rounds patient remains off of ventilator on room air breathing comfortably, denies any chest pain remains on broad-spectrum antibiotics, and the left forearm wound blisters are present discussed with the staff will do silver dressing for now until wound care and infectious disease services are available in the meantime continue antibiotics increase shouldn't is hemodynamically stable remains on TPN speech and swallow evaluation pending 02/18/2021, patient remains off of ventilator on room air now awake but not participating in conversation, is present at bedside, care plan discussed at length patient to undergo physical therapy and rehab, the left arm infiltration in the wound no blisters are ruptured, would recommend wound consult in the meantime can do -dry dressing with silver gel or aqua gel, patient the also underwent swallow evaluation, his speech is going to repeat tomorrow, patient remains on IV metoprolol as well as IV amiodarone dose has been decreased, 02/17/2021, patient seen eval examined during the rounds patient has been on CPAP of 5 pressure support of 8 and 50% oxygen breathing comfortably yesterday CPAP trial couldn't be tolerated due to generalized weakness I have discussed with the patient's and staff at length given multiple comorbidities likely about the trial today and high risk of re-intubations requirement, we will extubate him today, his medications reviewed, labs are not done, chest x-ray prior consistent with fluid overload interstitial edema left arm wound overall is stable along with edema and swelling of the hand pulses are intact patient arm is placed on gravity drainage, blood culture no growth so far 02/16/2021, patient seen eval reexamined during the rounds labs reviewed medications reviewed critical care time spent 35 minutes with the patient, and family meeting is present at bedside, patient has been attempted CPAP and pressure support but tired out yesterday today however he isn't better strep symptoms weaning, currently on CPAP the tidal volume of 300 400 respiratory rate slightly high however patient appears slightly confused we'll keep the CPAP as tolerated put him back on assist control at nighttime, his labs from today reviewed, afebrile, chest x-ray are not done today, blood cultures are meds reviewed remains on amiodarone and Zosyn with TPN 02/15/2021, critical care time 35 minutes patient remains sedated with propofol drip, remains on full ventilatory support assist control rate of 16 and breathing 16 tidal volume of 505 of PEEP and 100% oxygen, and discussed with RN to titrated oxygen down to 50-75% over 12 hours to 24 hours patient is not ready for weaning extubation, the left arm externalization appears to have happened causing his skin breakdown, will get a PICC line, arterial blood gas chest x-ray reviewed suspect venous sample, continue broad-spectrum antibiotics, white cell count is up to 19,000, BUN/creatinine is 143 and 1.94, echocardiogram reviewed LV mildly dilated with concentric LVH, ejection fraction is yesterday 5%, patient remains on amiodarone, Solu-Medrol and IV Zosyn, This is a 80-year-old male with the symptoms suggestive of bowel obstruction for which he was admitted into the hospital patient underwent exploratory laparotomy and the found to have a mass as well which was resected patient is end-to-end anastomosis, also had an adrenal gland mass which wasn't biopsied, around 8:15 PM patient because more short of breath feeling uneasy and lost his pulse. Breathing, he was noted to be in ventricular tachycardia require cardioversion times 08/02/2019 and 150 J after second return of spontaneous circulation was achieved, patient continued to have the episodes of V. tach, intubated by anesthesia transferred to the ICU, patient has been started on amiodarone, with that the V. tach appears to have controlled with 200 J into sinus rhythm, since a d-dimer was elevated patient underwent a computed tomography scan of the chest negative for PE however basal atelectasis and effusion was seen, patient currently on 0.17 mics of levo fed drip 25 mics of the propofol, cardiology on consult I have ordered an echocardiogram as well, reviewed computed tomography scan of the chest as well, patient remains on IV Zosyn noted white cell count is 30,000 likely contribution of the inflammatory change as well as is being stimulated due to steroids, however also noted lactic acid mildly elevated at 2.1, strokes are 5.03 BUN/creatinine is a 35/1.45 Objective - Vital Signs Vital signs: Vital Signs Temp 98.2 F 02/22/21 08:00 Pulse 81 02/22/21 12:00 Resp 15 02/22/21 12:00 BP 135/71 02/22/21 12:00 Pulse Ox 96 02/22/21 12:00 Intake & Output 02/21/21 02/22/21 02/22/21 18:59 06:59 18:59 Intake Total 1444.3333 1580 1160 Output Total 1475 850 Balance 1444.3333 105 310 Weight 86.5 kg 83.4 kg Intake: IV 355 1580 1160 Amiodarone 360 mg In 50 Dextrose 5% in Water 200 ml @ 1 MG/MIN 33.333 mls/ hr IV .Q6H [facility] Rx#: [id number] Amiodarone 450 mg In 30 Dextrose 5% in Water 250 ml @ 0.5 MG/MIN 16.667 mls/hr IV .Q15H [facility] Rx#: [id number] Dextrose 5% in Water 100 150 ml @ 618 mls/hr IV .Q10M [facility] with Amiodarone 150 mg Rx#:[id number] Fat Emulsion 20% 500 ml 180 160 In Empty Bag 1 bag @ 21 mls/hr IV MoWeFr [facility] Rx#: [id number] Mvi, Adult No.4 with Vit 225 1200 900 K 10 ml Trace (Conc-1Ml/ Dose) 1 ml Potassium Phosphate 10 mmol Potassium Acetate 30 meq Calcium Gluconate 1 gm In Amino Acid 5%-D15w 1,000 ml @ 75 mls/hr IV .BY DURATION [facility] Rx#: [id number] Sodium Ferric Gluconat- 100 100 Sucrose 125 mg In Sodium Chloride 0.9% 100 ml @ 100 mls/hr IVPB Q24H [facility] Rx#:[id number] Intake, IV Titration 1089.3333 Amount DAPTOmycin 350 mg In 50 Sodium Chloride 0.9% 50 ml @ 100 mls/hr IVPB Q24H [facility] Rx#:[id number] Mvi, Adult No.4 with Vit 1039.3333 K 10 ml Trace (Conc-1Ml/ Dose) 1 ml Potassium Phosphate 10 mmol Potassium Acetate 30 meq Calcium Gluconate 1 gm In Amino Acid 5%-D15w 1,000 ml @ 75 mls/hr IV .BY DURATION [facility] Rx#: [id number] Output: Urine 1475 850 Other: Voiding Method Indwelling Catheter Indwelling Catheter Indwelling Catheter - Exam Constitutional General appearance: average body habitus, cooperative, no acute distress - Neck Neck: normal ROM Carotids: bilateral: upstroke normal Thyroid: bilateral: normal size - Respiratory Respiratory: bilateral: diminished, rales - Cardiovascular Rhythm: regular Heart sounds: normal: S1, S2 - Gastrointestinal General gastrointestinal: soft - Integumentary Integumentary: normal turgor - Neurologic Neurologic: CNII-XII intact - Musculoskeletal Musculoskeletal: Left upper extremity his skin changes noted , blister ruptured vascular follow - Psychiatric Sedated on full ventilator support - Labs CBC & Chem 7: 02/22/21 05:03 02/22/21 05:03 Labs: Abnormal Lab Results - Last 24 Hours (Table) 02/21/21 02/21/21 02/22/21 Range/Units 16:30 21:31 05:03 WBC (3.8-10.6) k/uL Hgb (13.0-17.5) gm/dL Hct (39.0-53.0) % MCV (80.0-100.0) fL MCH (25.0-35.0) pg MCHC (31.0-37.0) g/dL RDW (11.5-15.5) % Neutrophils # (1.3-7.7) k/uL Lymphocytes # (1.0-4.8) k/uL Chloride 113 H (98-107) mmol/L BUN 73 H (9-20) mg/dL Creatinine 1.29 H (0.66-1.25) mg/dL Glucose 295 H (74-99) mg/dL POC Glucose (mg/dL) 268 H 301 H (75-99) mg/dL ALT 56 H (4-49) U/L Total Protein 4.9 L (6.3-8.2) g/dL Albumin 2.4 L (3.5-5.0) g/dL 02/22/21 02/22/21 02/22/21 Range/Units 05:03 07:04 11:21 WBC 21.8 H (3.8-10.6) k/uL Hgb 9.4 L (13.0-17.5) gm/dL Hct 36.3 L (39.0-53.0) % MCV 79.7 L (80.0-100.0) fL MCH 20.6 L (25.0-35.0) pg MCHC 25.8 L (31.0-37.0) g/dL RDW 30.2 H (11.5-15.5) % Neutrophils # 21.1 H (1.3-7.7) k/uL Lymphocytes # 0.3 L (1.0-4.8) k/uL Chloride (98-107) mmol/L BUN (9-20) mg/dL Creatinine (0.66-1.25) mg/dL Glucose (74-99) mg/dL POC Glucose (mg/dL) 318 H 328 H (75-99) mg/dL ALT (4-49) U/L Total Protein (6.3-8.2) g/dL Albumin (3.5-5.0) g/dL Assessment and Plan Assessment: Aspiration pneumonia Uncontrolled diabetes and hyperglycemia Left upper extremity wound with blisters V. tach/V. fib cardiac arrest Fluid overload CHF Hypoxic respiratory failure Bilateral atelectasis Bilateral pleural effusion Bowel obstruction and resection of mass CKD Plan: Keep in stepdown unit Rehab evaluation Taper his steroids Continue sliding scale insulin steroid protocol, will put him on Lantus at bedtime By mouth amiodarone now Wound care evaluation Observe off of vasopressors, Continue broad-spectrum antibiotics steroids and breathing treatment Ammann start tapering down the steroids Echocardiogram findings reviewed increase activity as tolerated Out of bed on chair Aggressive PTOT Speech evaluation Time with Patient: Greater than 30
[2021-02-22] MEDS: RIVAROXABAN 15 MG TAB PO SCH (18:06)
[2021-02-22 18:07] LABS: Glucose,Whole Blood 276 mg/dL (75-99)
[2021-02-22 21:33] LABS: Glucose,Whole Blood 293 mg/dL (75-99)
[2021-02-22] MEDS: INSULIN DETEMIR (LEVEMIR) 100 UNIT/ML SYR SQ SCH (21:34)
[2021-02-23] MEDS: HYDROmorphone 1 MG/ML 1 ML SYRINGE IVP PRN ×4 (03:01→15:35)
[2021-02-23 05:48] LABS: Glucose,Whole Blood 280 mg/dL (75-99)
[2021-02-23 06:02] LABS: Anisocytosis Marked; Basophils % (A) 0 %; Eosinophils % (A) 0 %; HCT 42.2 % (39.0-53.0); Hypochromasia Marked; Lymphocytes # (A) 0.2 k/uL (1.0-4.8); Lymphocytes % (A) 2 %; MCV 80.8 fL (80.0-100.0); Macrocytosis Slight; Mean Platelet Volume 9.8; Microcytosis Marked; Monocytes # (A) 0.4 k/uL (0-1.0); Monocytes % (A) 5 %; Neutrophils # (A) 7.5 k/uL (1.3-7.7); Neutrophils % (A) 92 %; Platelet Count 303 k/uL (150-450); Poikilocytosis Slight; RBC 5.22 m/uL (4.30-5.90); WBC 8.2 k/uL (3.8-10.6)
[2021-02-23 06:39] LABS: Calcium 8.9 mg/dL (8.4-10.2); Magnesium 1.8 mg/dL (1.6-2.3); Potassium 4.1 mmol/L (3.5-5.1)
--- NOTE | 2021-02-23 06:51 | PN ---
PROGRESS NOTE 80 -year-old white male sitting up in bed, giving appropriate answers, more alert every day. He is status post ventricular tachycardia, cardiac arrest, hypoxemic respiratory failure, cardiomyopathy, ejection fraction 35%, bilateral perfusion, bowel obstruction, status post adenocarcinoma removal with colectomy, aspiration pneumonia. He is getting physical therapy on the side of the bed. He looks a little bit puffy and swelling in his extremities today. His wounds are looking better on his arms. Blood pressure 135/71, O2 96% on 2-3 L, respiratory 16-18, pulse 81, temp 98.2. Cardiovascular: S1, S2. Lungs clear. GI soft. Hematology negative Homans. Psych: Fair mood and affect. ASSESSMENT: 1. Aspiration pneumonia. 2. Uncontrolled diabetes mellitus. 3. Chronic obstructive pulmonary disease. 4. Left upper extremity wound with blister. 5. Ventricular tachycardia. 6. VFib. 7. Cardiac arrest. 8. Fluid overload. 9. Cardiomyopathy. 10.Hypoxic respiratory distress. 11.Bilateral atelectasis. 12.Bilateral perfusion. 13.Bowel obstruction, resection mass. 14.Chronic kidney disease. Rehab evaluations, step-down unit. Taper steroids. Continue sliding scale insulin. Amiodarone by mouth for atrial fibrillation. Observe off vasopressors. Continue broad- spectrum antibiotics, steroids, breathing treatments, PT/OT, echocardiogram. Prognosis guarded. MMODL / IJN: [id number] /
[2021-02-23] MEDS: INSULIN ASPART (NovoLOG) 100 UNIT/ML VIAL SQ SCH ×4 (07:05→21:44)
--- NOTE | 2021-02-23 08:32 | CDI ---
Documentation Clarification Form Date: 02/23/2021 08:12:00 AM From: Nicci Price CCS, CCDS Admit Date: 02/06/2021 10:18:00 PM Patient Name: Sharan Snell Visit Number: [id number] Discharge Date: ATTENTION: The Clinical Documentation Specialists (CDI) and [facility] Coding Staff appreciate your assistance in clarifying documentation. Please respond to the clarification below the line at the bottom and electronically sign. The CDI & [facility] Coding staff will review the response and follow-up if needed. Please note: Queries are made part of the Legal Health Record. If you have any questions, please contact the author of this message via ITS. Dr. Jeremiah Jansen: Per the 02/14 Code Blue Progress Note: The patient was reportedly doing well when he suddenly complained of feeling uneasy and short of breath, and subsequently lost his pulse and stopped breathing. ACLS protocol was initiated. The patient was noted to be in V. tach for which synchronized cardioversion was performed with biphasic 120 J. A repeat cardioversion was performed with biphasic 150 J with subsequent ROSC. The patient continued to be in V. tach, with multiple attempts made for cardioversion unsuccessfully. The patient was intubated and subsequently transferred to the medical ICU. Amiodarone bolus was given with infusion started. Is there an additional diagnosis based on this documentation? 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 Clinical Indicators: Presented to the ED on 02/06 with Nausea, Vomiting and Abdominal Pain. ED Clinical Impression: Bowel Obstruction Patient subsequently had a Right colectomy on 02/08 for a right colon mass with positive pathology for ascending colon cancer. Intubated on 02/13 after episode of V tach requiring cardioversions, transferred to ICU, extubated on 02/17. 02/06 VS: T 98.3, P 99 - 101; R 16 - 18; BP 138/49 - 118/49; PO 98 RA 02/13 VS: T 98.2, P 96 (Irregular), R 20 (SOB, shallow, tachypnea), BP 105/65 - 102/60 - 91/54; PO 95 RA - 100 (vent) 02/06 LAB: Hgb 8.6, Hct 33.0, Lymph 0.59; PT 13.1, INR 1.3; Cl 97, CO2 32, BUN 56, Cr 1.56, Glucose 159, Lactic Acid 3.3 02/13 LAB: WBC 16.6, Hgb 7.1, Hct 28.1, Neut 15.4, Lymph 0.5; D Dimer 8.61; Blood gas: ABG: pCO2 33, pO2 348; K 2.9, BUN 32, Cr 1.41, Glucose 333, Calcium 7.5, Mag 3.9, AST 72, Total Protein 4.7, Albumin 2.4. Treatment 02/06: IV Na Cl 1,000 mls @ 999 mls/hr q1H, IV Zofran, I Protonix, IV Morphine. 02/12: IV Lasix 20 mg x1, IV Solumedrol, IV Zosyn 02/13: po KCL 20 meq q1H x2, IV Diprivan, IV Amiodarone, IV Levophed (ordered: not given), IV Propofol, IV Na Cl 2,000 mls @ 999 mls/hr q2H, IV Na Cl 1,000 mls @ 50 mls/hr q20H 02/14: IV Na Cl 50 mls @ 999 mls/hr q16M, IV Na Cl 500 mls @ 999 mls/hr q31M Please clarify if any of the following diagnoses are present: [ ] Sepsis (please specify cause and organism if known: [ ] With Septic Shock [ ] Without Septic Shock [ ] Hypovolemic Shock [ ] Cardiogenic Shock [ ] Other, please specify [ ] Unable to determine (Template Last Revised: August 2020) MTDD
[2021-02-23] MEDS ORDERED: AMIODARONE 450 MG in DEXTROSE 5% IN WATER 250 ML IV SCH ×2 (08:45)
--- NOTE | 2021-02-23 08:45 | P.PN ---
Subjective Patient is seen in follow-up for acute kidney injury. Renal function a little worse today from diuresis. Maintained on oral Lasix. He did receive a dose of IV Lasix as well yesterday. Good urine output. No chest pain or shortness of breath. On regular diet. Receiving TPN and lipids. Remains on amiodarone drip. Vital signs are stable. General: The patient appeared well nourished and normally developed. HEENT: Head exam is unremarkable. Neck is without jugular venous distension. LUNGS: Breath sounds decreased. HEART: Rate and Rhythm are regular. ABDOMEN: Soft, no distention. EXTREMITITES: 1+ edema. Objective - Vital Signs Vital signs: Vital Signs Temp 97.8 F 02/23/21 04:00 Pulse 99 02/23/21 06:00 Resp 56 H 02/23/21 06:00 BP 126/82 02/23/21 06:00 Pulse Ox 98 02/23/21 06:00 Intake & Output 02/22/21 02/23/21 02/23/21 18:59 06:59 18:59 Intake Total 2199.3333 1144.449 Output Total 850 1875 Balance 1349.3333 -730.551 Weight 85.7 kg Intake: IV 1160 900 Fat Emulsion 20% 500 ml 160 In Empty Bag 1 bag @ 21 mls/hr IV MoWeFr [facility] Rx#: [id number] Mvi, Adult No.4 with Vit 900 900 K 10 ml Trace (Conc-1Ml/ Dose) 1 ml Potassium Phosphate 10 mmol Potassium Acetate 30 meq Calcium Gluconate 1 gm In Amino Acid 5%-D15w 1,000 ml @ 75 mls/hr IV .BY DURATION [facility] Rx#: [id number] Sodium Ferric Gluconat- 100 Sucrose 125 mg In Sodium Chloride 0.9% 100 ml @ 100 mls/hr IVPB Q24H [facility] Rx#:[id number] Intake, IV Titration 1039.3333 244.449 Amount Amiodarone 450 mg In 244.449 Dextrose 5% in Water 250 ml @ 0.5 MG/MIN 16.667 mls/hr IV .Q15H [facility] Rx#: [id number] Mvi, Adult No.4 with Vit 1039.3333 K 10 ml Trace (Conc-1Ml/ Dose) 1 ml Potassium Phosphate 10 mmol Potassium Acetate 30 meq Calcium Gluconate 1 gm In Amino Acid 5%-D15w 1,000 ml @ 75 mls/hr IV .BY DURATION [facility] Rx#: [id number] Output: Urine 850 1875 Other: Voiding Method Indwelling Catheter Indwelling Catheter Indwelling Catheter - Labs CBC & Chem 7: 02/23/21 05:50 02/23/21 05:50 Labs: Abnormal Lab Results - Last 24 Hours (Table) 02/22/21 02/22/21 02/22/21 Range/Units 11:21 18:05 21:31 Hgb (13.0-17.5) gm/dL MCH (25.0-35.0) pg MCHC (31.0-37.0) g/dL RDW (11.5-15.5) % Lymphocytes # (1.0-4.8) k/uL Chloride (98-107) mmol/L BUN (9-20) mg/dL Creatinine (0.66-1.25) mg/dL Glucose (74-99) mg/dL POC Glucose (mg/dL) 328 H 276 H 293 H (75-99) mg/dL 02/23/21 02/23/21 02/23/21 Range/Units 05:44 05:50 05:50 Hgb 11.0 L (13.0-17.5) gm/dL MCH 21.0 L (25.0-35.0) pg MCHC 26.0 L (31.0-37.0) g/dL RDW 31.0 H (11.5-15.5) % Lymphocytes # 0.2 L (1.0-4.8) k/uL Chloride 109 H (98-107) mmol/L BUN 73 H (9-20) mg/dL Creatinine 1.46 H (0.66-1.25) mg/dL Glucose 297 H (74-99) mg/dL POC Glucose (mg/dL) 280 H (75-99) mg/dL Assessment and Plan Plan: Assessment: 1. Acute kidney injury secondary to ATN secondary to cardiac arrest. Renal function worse from diuresis. Creatinine 1.46 today. 2. Status post V. fib arrest maintained on amiodarone drip. 3. Acute systolic CHF with ejection fraction of 25-30%. 4. Colon mass status post colectomy. Currently on TPN and lipids. 5. Volume overload maintained on oral Lasix. 6. Anemia with iron deficiency. On IV iron. Plan: Maintain oral Lasix. Also received a dose of IV Lasix yesterday. Avoid nephrotoxins. Continue to monitor renal function and urine output.
[2021-02-23] MEDS: IPRATROPIUM-ALBUTEROL 3 ML NEB INHALATION SCH ×4 (08:49→20:10)
--- NOTE | 2021-02-23 09:38 | P.PN ---
Subjective Progress Note Date: 02/23/21 Principal diagnosis: V. tach cardiac arrest Hypoxic respiratory failure Cardiomyopathy with ejection fraction of 35% Bilateral atelectasis Bilateral pleural effusion Bowel obstruction and resection of mass CK D 02/23/2021, patient seen eval examined during the rounds labs reviewed medications reviewed care plan discussed, respiratory status remains stable patient on room air, no episode of V. tach noted overnight, hemodynamic status stable, patient actively undergoing physical therapy, wears are slowly coming down in mid 200 range, patient received IV Lasix yesterday, hemoglobin and hematocrit is 11/42, BUN/creatinine 73/1.46 02/22/2021, patient seen eval examined during the rounds labs reviewed medications reviewed care plan discussed with the staff at length, son and [id number] present at bedside as well, he is breathing comfortably more alert, undergoing active physical therapy able to sit on the side of the bed, R running on the high side, is being started on steroid protocol also being given Lantus at bedtime, wound in the left upper extremity slightly appears better 02/21/2021, patient seen eval examined the patient appears to have better now breathing more clearly, denies any chest pain, patient had a run of ventricular tachycardia was given IV amiodarone and fusion from no switched to oral, patient has a been eating by mouth no overt aspiration seen but usually have problems with swallowing, aspiration precautions are underway, wound in the left extremity remained stable, wound care nurse is following, 02/20/2021, patient seen and evaluated examined the rounds labs reviewed medications reviewed care plan discussed, hemodynamically patient remains stable last set of blood pressure is 100 763 saturation 99%, cultures so far all of them negative, total status however continued to improve, patient has been evaluated by oncology also their recommendation from critical care standpoint patient remains stable can be moved down to the stepdown unit 02/19/2021, patient seen and evaluated examined during the rounds patient remains off of ventilator on room air breathing comfortably, denies any chest pain remains on broad-spectrum antibiotics, and the left forearm wound blisters are present discussed with the staff will do silver dressing for now until wound care and infectious disease services are available in the meantime continue antibiotics increase shouldn't is hemodynamically stable remains on TPN speech and swallow evaluation pending 02/18/2021, patient remains off of ventilator on room air now awake but not participating in conversation, is present at bedside, care plan discussed at length patient to undergo physical therapy and rehab, the left arm infiltration in the wound no blisters are ruptured, would recommend wound consult in the meantime can do -dry dressing with silver gel or aqua gel, patient the also underwent swallow evaluation, his speech is going to repeat tomorrow, patient remains on IV metoprolol as well as IV amiodarone dose has been decreased, 02/17/2021, patient seen eval examined during the rounds patient has been on CPAP of 5 pressure support of 8 and 50% oxygen breathing comfortably yesterday CPAP trial couldn't be tolerated due to generalized weakness I have discussed with the patient's and staff at length given multiple comorbidities likely about the trial today and high risk of re-intubations requirement, we will extubate him today, his medications reviewed, labs are not done, chest x-ray prior consistent with fluid overload interstitial edema left arm wound overall is stable along with edema and swelling of the hand pulses are intact patient arm is placed on gravity drainage, blood culture no growth so far 02/16/2021, patient seen eval reexamined during the rounds labs reviewed medications reviewed critical care time spent 35 minutes with the patient, and family meeting is present at bedside, patient has been attempted CPAP and pressure support but tired out yesterday today however he isn't better strep symptoms weaning, currently on CPAP the tidal volume of 300 400 respiratory rate slightly high however patient appears slightly confused we'll keep the CPAP as tolerated put him back on assist control at nighttime, his labs from today revi ewed, afebrile, chest x-ray are not done today, blood cultures are meds reviewed remains on amiodarone and Zosyn with TPN 02/15/2021, critical care time 35 minutes patient remains sedated with propofol drip, remains on full ventilatory support assist control rate of 16 and breathing 16 tidal volume of 505 of PEEP and 100% oxygen, and discussed with RN to titrated oxygen down to 50-75% over 12 hours to 24 hours patient is not ready for weaning extubation, the left arm externalization appears to have happened causing his skin breakdown, will get a PICC line, arterial blood gas chest x-ray reviewed suspect venous sample, continue broad-spectrum antibiotics, white cell count is up to 19,000, BUN/creatinine is 143 and 1.94, echocardiogram reviewed LV mildly dilated with concentric LVH, ejection fraction is yesterday 5%, patient remains on amiodarone, Solu-Medrol and IV Zosyn, This is a 80-year-old male with the symptoms suggestive of bowel obstruction for which he was admitted into the hospital patient underwent exploratory laparotomy and the found to have a mass as well which was resected patient is end-to-end anastomosis, also had an adrenal gland mass which wasn't biopsied, around 8:15 PM patient because more short of breath feeling uneasy and lost his pulse. Breathing, he was noted to be in ventricular tachycardia require cardioversion times 08/02/2019 and 150 J after second return of spontaneous circulation was achieved, patient continued to have the episodes of V. tach, intubated by anesthesia transferred to the ICU, patient has been started on amiodarone, with that the V. tach appears to have controlled with 200 J into sinus rhythm, since a d-dimer was elevated patient underwent a computed tomography scan of the chest negative for PE however basal atelectasis and effusion was seen, patient currently on 0.17 mics of levo fed drip 25 mics of the propofol, cardiology on consult I have ordered an echocardiogram as well, reviewed computed tomography scan of the chest as well, patient remains on IV Zosyn noted white cell count is 30,000 likely contribution of the inflammatory change as well as is being stimulated due to steroids, however also noted lactic acid mildly elevated at 2.1, strokes are 5.03 BUN/creatinine is a 35/1.45 Objective - Vital Signs Vital signs: Vital Signs Temp 97.8 F 02/23/21 04:00 Pulse 80 02/23/21 09:05 Resp 56 H 02/23/21 06:00 BP 126/82 02/23/21 06:00 Pulse Ox 98 02/23/21 06:00 Intake & Output 02/22/21 02/23/21 02/23/21 18:59 06:59 18:59 Intake Total 2199.3333 1144.449 Output Total 850 1875 Balance 1349.3333 -730.551 Weight 85.7 kg Intake: IV 1160 900 Fat Emulsion 20% 500 ml 160 In Empty Bag 1 bag @ 21 mls/hr IV MoWeFr [facility] Rx#: [id number] Mvi, Adult No.4 with Vit 900 900 K 10 ml Trace (Conc-1Ml/ Dose) 1 ml Potassium Phosphate 10 mmol Potassium Acetate 30 meq Calcium Gluconate 1 gm In Amino Acid 5%-D15w 1,000 ml @ 75 mls/hr IV .BY DURATION [facility] Rx#: [id number] Sodium Ferric Gluconat- 100 Sucrose 125 mg In Sodium Chloride 0.9% 100 ml @ 100 mls/hr IVPB Q24H [facility] Rx#:[id number] Intake, IV Titration 1039.3333 244.449 Amount Amiodarone 450 mg In 244.449 Dextrose 5% in Water 250 ml @ 0.5 MG/MIN 16.667 mls/hr IV .Q15H [facility] Rx#: [id number] Mvi, Adult No.4 with Vit 1039.3333 K 10 ml Trace (Conc-1Ml/ Dose) 1 ml Potassium Phosphate 10 mmol Potassium Acetate 30 meq Calcium Gluconate 1 gm In Amino Acid 5%-D15w 1,000 ml @ 75 mls/hr IV .BY DURATION [facility] Rx#: [id number] Output: Urine 850 1875 Other: Voiding Method Indwelling Catheter Indwelling Catheter Indwelling Catheter - Exam Constitutional General appearance: average body habitus, cooperative, no acute distress - Neck Neck: normal ROM Carotids: bilateral: upstroke normal Thyroid: bilateral: normal size - Respiratory Respiratory: bilateral: diminished, rales - Cardiovascular Rhythm: regular Heart sounds: normal: S1, S2 - Gastrointestinal General gastrointestinal: soft - Integumentary Integumentary: normal turgor - Neurologic Neurologic: CNII-XII intact - Musculoskeletal Musculoskeletal: Left upper extremity his skin changes noted , blister ruptured vascular follow - Psychiatric Sedated on full ventilator support - Labs CBC & Chem 7: 02/23/21 05:50 02/23/21 05:50 Labs: Abnormal Lab Results - Last 24 Hours (Table) 02/22/21 02/22/21 02/22/21 Range/Units 11:21 18:05 21:31 Hgb (13.0-17.5) gm/dL MCH (25.0-35.0) pg MCHC (31.0-37.0) g/dL RDW (11.5-15.5) % Lymphocytes # (1.0-4.8) k/uL Chloride (98-107) mmol/L BUN (9-20) mg/dL Creatinine (0.66-1.25) mg/dL Glucose (74-99) mg/dL POC Glucose (mg/dL) 328 H 276 H 293 H (75-99) mg/dL 02/23/21 02/23/21 02/23/21 Range/Units 05:44 05:50 05:50 Hgb 11.0 L (13.0-17.5) gm/dL MCH 21.0 L (25.0-35.0) pg MCHC 26.0 L (31.0-37.0) g/dL RDW 31.0 H (11.5-15.5) % Lymphocytes # 0.2 L (1.0-4.8) k/uL Chloride 109 H (98-107) mmol/L BUN 73 H (9-20) mg/dL Creatinine 1.46 H (0.66-1.25) mg/dL Glucose 297 H (74-99) mg/dL POC Glucose (mg/dL) 280 H (75-99) mg/dL Assessment and Plan Assessment: Aspiration pneumonia Acute kidney injury due to ATN status post cardiac arrest slowly improving Uncontrolled diabetes and hyperglycemia Left upper extremity wound with blisters V. tach/V. fib cardiac arrest Fluid overload CHF Hypoxic respiratory failure Bilateral atelectasis Bilateral pleural effusion Bowel obstruction and resection of mass CKD Plan: Keep in stepdown unit Rehab evaluation Taper his steroids Continue sliding scale insulin steroid protocol, and Lantus at bedtime Wound care evaluation Observe off of vasopressors, Continue broad-spectrum antibiotics steroids and breathing treatment Ammann start tapering down the steroids Echocardiogram findings reviewed increase activity as tolerated Out of bed on chair Aggressive PTOT Speech evaluation Time with Patient: Greater than 30
[2021-02-23] MEDS: PANTOPRAZOLE 40 MG/10 ML VIAL IV SCH (10:17)
[2021-02-23] MEDS: METOPROLOL TARTRATE 25 MG TAB PO SCH ×2 (10:18→21:35)
[2021-02-23] MEDS: methylPREDNISolone SOD SUCCI 40 MG/ML 1 ML VIAL IV SCH ×2 (10:18→21:43)
[2021-02-23] MEDS: ATORVASTATIN 40 MG TAB PO SCH (10:18)
[2021-02-23] MEDS: FUROSEMIDE 40 MG TAB PO SCH ×2 (10:19→17:15)
[2021-02-23] MEDS: FAT EMULSION 20% 500 ML in EMPTY BAG 1 BAG IV SCH (12:10)
--- NOTE | 2021-02-23 12:11 | P.PN ---
Subjective This is a pleasant 80-year-old male past medical history significant for chronic persistent atrial fibrillation, coronary artery disease status post multivessel PCI in 2017, ischemic cardiomyopathy, hypertension, hyperlipidemia, mitral valve repair in 2002, history of inguinal and umbilical hernia repair. He used to follow in the office with Dr. Hammond, have ever has not followed up since 2019. He is not seeing a new communication center operator at this time. We have been asked to see in consultation for atrial fibrillation with rapid ventricular response. Patient is seen and examined at bedside, patient presents emergency department with complaints of abdominal pain and nausea and vomiting for 3 days. He ate some salmon from [employer] and thought he had food poisoning, however, his symptoms worsened. CT abdomen and pelvis revealed high-grade small bowel obstruction session with small bowel loops dilated to 4.8 cm. Mild dull ascites, cecum is also fluid filled measuring up to 6.7 cm we suggested transition point at the lower ascending colon. Benign 3.7 cm right adrenal adenoma and to continued shortness of abdominal aortic aneurysm in the mid and distal abdominal aorta measuring up to 0.3 cm cyst, generalized colonic diverticulosis. Surgery was consulted. NG tube was placed. Patient states he had 2 bowel movements today. On admission, patient did not receive his metoprolol succinate. Today, patient recieved metoprolol tartrate 50mg once, and his home dose of metoprolol succinate 25mg daily With improved rates currently in low 100s. In June 2016, patient had an abnormal lexiscan stress test. Patient underwent cardiac catheterization and PCI after in 2016. Patient states he has not follow up with cardiology since 2019, he has been following up regularly with his PCP. He states since 2019 he has not had any recent cardiac workup or cardiac catheterizations. In 2019, patient stopped taking his Eliquis because he was also taking Plavix and Aspirin at that time. He had EKG changes at that time, cardiac catheterization was recommended but patient did not proceed at that time. DIAGNOSTICS -Cardiac catheterization history includes: 07/2016 which revealed critical stenosis involving the proximal LAD, significant stenosis on the ramus intermedius in the proximal left circumflex, mild disease in RCA. Patient subs equently underwent stenting to the proximal circumflex, proximal LAD x2, and proximal ramus intermedius -Most recent echocardiogram 11/2018 revealed an EF of 32%, moderate concentric hypertrophy, akinesis of the anterior wall and anterior septum from the mid wall to the apex, akinesis of the septum from mid-wall to apex, akinesis of anterio and later ibarra. akinesis of inferior wall at the apex, severely dilated left atrium, mild aortic regurgitation, mild prosthetic valvular regurgitation, mode rate tricuspid regurgitation 02/08/21: Patient underwent right colectomy with Dr. Adamson. 02/10/21: Anticoagulation discussed with patient, he refused Eliquis at that time. Echocardiogram completed revealing ejection fraction 30-35%. Multiple LV wall motion abnormalities. Trace amount of aortic regurgitation. Mitral valve repair. Moderate to severe tricuspid regurgitation. Severe pulmonary hypertension. 02/13/21: Patient went into V fib arrest and intubated. Transferred to ICU 02/17/21: Patient extubated 02/21/2021: Overnight patient went into wide complex tachycardia. Received synchronized cardioversion at 100 J X 1 with return to normal sinus rhythm. Patient maintained on amiodarone 1 mg/min. Was transition to PO amiodarone and his amiodarone drip was stopped. 02/22/2021: Overnight around 2322, patient had sustained ventricular tachycardia. Started on amiodarone 150mg bolus and dip at 1mg/min. Now on 0.5mg/min. Patient converted to sinus rhythm. Patient seen and examined at bedside, no acute distress. Laboratory data review WBC 21.8, hemoglobin 0.4, platelets 264, sodium 140, potassium 4.8, BUN 73, serum creatinine 1.29, magnesium 2.0, albumin 2.4. Blood pressure 136/66, heart rate 70, afebrile, maintaining oxygen saturations on room air. Telemetry reviewed patient currently in sinus mechanism heart rate 70-90s. Patient currently maintained on amiodarone 0.5 mg/min, atorvastatin 40 mg daily, PO Lasix 20 mg twice a day, metoprolol titrate 25 mg twice a day. 02/23/21: Patient seen and examined at bedside. No acute events overnight. No further episodes of ventricular tachycardia. He is hemodynamically stable. He is on room air. Patient continues to be in sinus mechanism heart rates 80s-90s. Laboratory data review WBC 8.2, hemoglobin 11, platelets 303, sodium 142, potassium 4.1, BUN 43, serum creatinine 1.46, magnesium 1.8. He received a dose of IV Lasix 40 mg yesterday. He had 2.7 L urine output over the past 24 hours. Patient currently maintained on amiodarone 0.5 mg/hr, Lasix 20 mg twice a day, metoprolol titrate 25 mg twice a day, Xarelto 15 mg daily. PHYSICAL EXAMINATION CONSTITUTIONAL: No apparent distress. HEENT: Head is normocephalic. No JVD. CHEST EXAMINATION: Lungs are clear to auscultation. HEART EXAMINATION: Regular rate and rhythm. S1, S2 heard. Systolic murmur noted at the base ABDOMEN: Soft, nontender. Positive bowel sounds. EXTREMITIES: 2+ peripheral pulses, mild bilateral non pitting lower extremity edema and no calf tenderness. Swelling to bilateral arms. SKIN: Abdominal incision closed with rene NEUROLOGIC EXAMINATION: Patient is awake, alert and oriented x3. ASSESSMENT Right colon mass causing small bowel obstruction s/p right colectomy on 02/08/21 New diagnosis of carcinoma of ascending colon Paroxysmal atrial fibrillation with RVR- -[id number] score 5. Xarelto has been held due to anemia on 02/16, Restart Xarelto 02/22 V. fib arrest requiring defibrillation Acute hypoxic respiratory failure requiring mechanical ventilation Coronary artery disease status post multivessel PCI in 2016 Ischemic cardiomyopathy most recent EF 32% Hypertension Hyperlipidemia Mitral valve repair in 2002 Hypokalemia Acute Kidney Injury PLAN -Continue amiodarone 0.5mg/hr -Nephrology following, recommend PO Lasix 20mg BID -Continue statin and beta adithya -Continue patient's Xarelto -Continue to monitor renal function and electrolytes -Further recommendations based on clinical course Nurse Practitioner note has been reviewed, I agree with a documented findings and plan of care. Patient was seen and examined. Objective - Vital Signs Vital signs: Vital Signs Temp 98 F 02/23/21 08:00 Pulse 100 02/23/21 11:59 Resp 28 H 02/23/21 10:00 BP 90/57 02/23/21 10:00 Pulse Ox 100 02/23/21 10:00 Intake & Output 02/22/21 02/23/21 02/23/21 18:59 06:59 18:59 Intake Total 2199.3333 1144.449 Output Total 850 1875 Balance 1349.3333 -730.551 Weight 85.7 kg Intake: IV 1160 900 Fat Emulsion 20% 500 ml 160 In Empty Bag 1 bag @ 21 mls/hr IV MoWeFr [facility] Rx#: [id number] [facility]vi, Adult No.4 with Vit 900 900 K 10 ml Trace (Conc-1Ml/ Dose) 1 ml Potassium Phosphate 10 mmol Potassium Acetate 30 meq Calcium Gluconate 1 gm In Amino Acid 5%-D15w 1,000 ml @ 75 mls/hr IV .BY DURATION [facility] Rx#: [id number] Sodium Ferric Gluconat- 100 Sucrose 125 mg In Sodium Chloride 0.9% 100 ml @ 100 mls/hr IVPB Q24H [facility] Rx#:[id number] Intake, IV Titration 1039.3333 244.449 Amount Amiodarone 450 mg In 244.449 Dextrose 5% in Water 250 ml @ 0.5 MG/MIN 16.667 mls/hr IV .Q15H [facility] Rx#: [id number] Mvi, Adult No.4 with Vit 1039.3333 K 10 ml Trace (Conc-1Ml/ Dose) 1 ml Potassium Phosphate 10 mmol Potassium Acetate 30 meq Calcium Gluconate 1 gm In Amino Acid 5%-D15w 1,000 ml @ 75 mls/hr IV .BY DURATION [facility] Rx#: [id number] Output: Urine 850 1875 Other: Voiding Method Indwelling Catheter Indwelling Catheter Indwelling Catheter - Labs CBC & Chem 7: 02/23/21 05:50 02/23/21 05:50 Labs: Abnormal Lab Results - Last 24 Hours (Table) 02/22/21 02/22/21 02/23/21 Range/Units 18:05 21:31 05:44 Hgb (13.0-17.5) gm/dL MCH (25.0-35.0) pg MCHC (31.0-37.0) g/dL RDW (11.5-15.5) % Lymphocytes # (1.0-4.8) k/uL Chloride (98-107) mmol/L BUN (9-20) mg/dL Creatinine (0.66-1.25) mg/dL Glucose (74-99) mg/dL POC Glucose (mg/dL) 276 H 293 H 280 H (75-99) mg/dL 02/23/21 02/23/21 Range/Units 05:50 05:50 Hgb 11.0 L (13.0-17.5) gm/dL MCH 21.0 L (25.0-35.0) pg MCHC 26.0 L (31.0-37.0) g/dL RDW 31.0 H (11.5-15.5) % Lymphocytes # 0.2 L (1.0-4.8) k/uL Chloride 109 H (98-107) mmol/L BUN 73 H (9-20) mg/dL Creatinine 1.46 H (0.66-1.25) mg/dL Glucose 297 H (74-99) mg/dL POC Glucose (mg/dL) (75-99) mg/dL
--- NOTE | 2021-02-23 12:40 | P.PN ---
Subjective Progress Note Date: 02/23/21 CHIEF COMPLAINT: Small bowel obstruction HISTORY OF PRESENT ILLNESS: Patient is status post right colectomy for right colon mass on 02/08/21. He remains in the stepdown unit. Per nursing staff patient has been requiring the IV Dilaudid for pain. He did receive a dose of IV Lasix yesterday for fluid overload. Patient has had no further episodes of ventricle tachycardia. Patient denies any nausea or vomiting. Patient denies any abdominal pain at this time. Abdomen does appear more distended today. Last bowel movement was on 02/21. Afebrile. Patient is currently on room air. Earlier this morning his breathing had appeared labored but patient was satting at 98% on room air. WBC 8.2 hemoglobin 11 platelets 303 creatinine 1.46 patient is also on antibiotics for left arm necrosis PHYSICAL EXAM: VITAL SIGNS: Reviewed. GENERAL: Well-developed in no acute distress. HEENT: No sclera icterus. Extraocular movements grossly intact. Moist buccal mucosa. Head is atraumatic, normocephalic. ABDOMEN: Soft. Abdominal distention with ascites. Patient does have clearish, yellowish drainage from the lower part of his abdominal incision NEUROLOGIC: Patient is awake. Able to answer some questions but is confused. ASSESSMENT: 1. Right Colon mass causing small bowel obstruction status post right colectomy PLAN: -Continue supportive care -Continue low fiber diet -Continue TPN for now until appetite increases -Continue to increase activity -Continue to work with PT OT Physician Thaw Shed Heater Tender note has been reviewed by physician. Signing provider agrees with the documented findings, assessment, and plan of care. Objective - Vital Signs Vital signs: Vital Signs Temp 98 F 02/23/21 08:00 Pulse 100 02/23/21 11:59 Resp 28 H 02/23/21 10:00 BP 90/57 02/23/21 10:00 Pulse Ox 100 02/23/21 10:00 Intake & Output 02/22/21 02/23/21 02/23/21 18:59 06:59 18:59 Intake Total 2199.3333 1144.449 Output Total 850 1875 Balance 1349.3333 -730.551 Weight 85.7 kg Intake: IV 1160 900 Fat Emulsion 20% 500 ml 160 In Empty Bag 1 bag @ 21 mls/hr IV MoWeFr [facility] Rx#: [id number] Mvi, Adult No.4 with Vit 900 900 K 10 ml Trace (Conc-1Ml/ Dose) 1 ml Potassium Phosphate 10 mmol Potassium Acetate 30 meq Calcium Gluconate 1 gm In Amino Acid 5%-D15w 1,000 ml @ 75 mls/hr IV .BY DURATION [facility] Rx#: [id number] Sodium Ferric Gluconat- 100 Sucrose 125 mg In Sodium Chloride 0.9% 100 ml @ 100 mls/hr IVPB Q24H [facility] Rx#:[id number] Intake, IV Titration 1039.3333 244.449 Amount Amiodarone 450 mg In 244.449 Dextrose 5% in Water 250 ml @ 0.5 MG/MIN 16.667 mls/hr IV .Q15H [facility] Rx#: [id number] Mvi, Adult No.4 with Vit 1039.3333 K 10 ml Trace (Conc-1Ml/ Dose) 1 ml Potassium Phosphate 10 mmol Potassium Acetate 30 meq Calcium Gluconate 1 gm In Amino Acid 5%-D15w 1,000 ml @ 75 mls/hr IV .BY DURATION [facility] Rx#: [id number] Output: Urine 850 1875 Other: Voiding Method Indwelling Catheter Indwelling Catheter Indwelling Catheter - Labs CBC & Chem 7: 02/23/21 05:50 02/23/21 05:50 Labs: Abnormal Lab Results - Last 24 Hours (Table) 02/22/21 02/22/21 02/23/21 Range/Units 18:05 21:31 05:44 Hgb (13.0-17.5) gm/dL MCH (25.0-35.0) pg MCHC (31.0-37.0) g/dL RDW (11.5-15.5) % Lymphocytes # (1.0-4.8) k/uL Chloride (98-107) mmol/L BUN (9-20) mg/dL Creatinine (0.66-1.25) mg/dL Glucose (74-99) mg/dL POC Glucose (mg/dL) 276 H 293 H 280 H (75-99) mg/dL 02/23/21 02/23/21 Range/Units 05:50 05:50 Hgb 11.0 L (13.0-17.5) gm/dL MCH 21.0 L (25.0-35.0) pg MCHC 26.0 L (31.0-37.0) g/dL RDW 31.0 H (11.5-15.5) % Lymphocytes # 0.2 L (1.0-4.8) k/uL Chloride 109 H (98-107) mmol/L BUN 73 H (9-20) mg/dL Creatinine 1.46 H (0.66-1.25) mg/dL Glucose 297 H (74-99) mg/dL POC Glucose (mg/dL) (75-99) mg/dL
[2021-02-23 13:12] LABS: Glucose,Whole Blood 190 mg/dL (75-99)
[2021-02-23] MEDS: SODIUM FERRIC GLUCONAT-SUCROSE 125 MG in SODIUM CHLORIDE 0.9% 100 ML IVPB SCH (13:14)
[2021-02-23 15:20] VITALS: BMI 27.1
[2021-02-23] MEDS ORDERED: FUROSEMIDE 10 MG/ML 4 ML VIAL IV STA (15:34)
[2021-02-23] MEDS: DAPTOmycin 350 MG in SODIUM CHLORIDE 0.9% 50 ML IVPB SCH (15:45)
[2021-02-23 16:42] LABS: ABG Base Excess -9.8 mmol/L; ABG HCO3 15 mmol/L (21-25); ABG Oxygen Saturation 98.4 % (94-97); ABG PCO2 22 mmHg (35-45); ABG PH 7.42 (7.35-7.45); ABG PO2 110 mmHg (83-108); ABG TCO2 15 mmol/L (19-24); Allen Test Performed? Yes
[2021-02-23 16:54] LABS: Glucose,Whole Blood 159 mg/dL (75-99)
--- NOTE | 2021-02-23 16:59 | P.PN ---
Subjective Progress Note Date: 02/23/21 Principal diagnosis: New diagnosis of colon adenocarcinoma, status post resection In follow-up today patient Seems to be experiencing some mild distress, when I asked him if he was in pain though, he said no. Objective - Vital Signs Vital signs: Vital Signs Temp 98 F 02/23/21 08:00 Pulse 100 02/23/21 11:59 Resp 28 H 02/23/21 10:00 BP 90/57 02/23/21 10:00 Pulse Ox 100 02/23/21 10:00 Intake & Output 02/22/21 02/23/21 02/23/21 18:59 06:59 18:59 Intake Total 2199.3333 1144.449 610 Output Total 850 1875 100 Balance 1349.3333 -730.551 510 Weight 85.7 kg 85.7 kg Intake: IV 1160 900 610 .9 10 Fat Emulsion 20% 500 ml 160 In Empty Bag 1 bag @ 21 mls/hr IV MoWeFr [facility] Rx#: [id number] Mvi, Adult No.4 with Vit 900 900 600 K 10 ml Trace (Conc-1Ml/ Dose) 1 ml Potassium Phosphate 10 mmol Potassium Acetate 30 meq Calcium Gluconate 1 gm In Amino Acid 5%-D15w 1,000 ml @ 75 mls/hr IV .BY DURATION [facility] Rx#: [id number] Sodium Ferric Gluconat- 100 Sucrose 125 mg In Sodium Chloride 0.9% 100 ml @ 100 mls/hr IVPB Q24H [facility] Rx#:[id number] Intake, IV Titration 1039.3333 244.449 Amount Amiodarone 450 mg In 244.449 Dextrose 5% in Water 250 ml @ 0.5 MG/MIN 16.667 mls/hr IV .Q15H [facility] Rx#: [id number] Mvi, Adult No.4 with Vit 1039.3333 K 10 ml Trace (Conc-1Ml/ Dose) 1 ml Potassium Phosphate 10 mmol Potassium Acetate 30 meq Calcium Gluconate 1 gm In Amino Acid 5%-D15w 1,000 ml @ 75 mls/hr IV .BY DURATION [facility] Rx#: [id number] Output: Urine 850 1875 100 Other: Voiding Method Indwelling Catheter Indwelling Catheter Indwelling Catheter - Constitutional General appearance: Present: cooperative, mild distress, thin - EENT Eyes: Present: anicteric sclerae, EOMI ENT: Present: hearing grossly normal - Respiratory Respiratory: bilateral: rales (Scattered) - Cardiovascular Rhythm: regular Heart sounds: normal: S1, S2 - Integumentary Integumentary Comment(s): Left forearm wound, arm is swollen - Musculoskeletal Musculoskeletal: Present: generalized weakness - Labs CBC & Chem 7: 02/23/21 05:50 02/23/21 05:50 Labs: Abnormal Lab Results - Last 24 Hours (Table) 02/22/21 02/22/21 02/23/21 Range/Units 18:05 21:31 05:44 Hgb (13.0-17.5) gm/dL MCH (25.0-35.0) pg MCHC (31.0-37.0) g/dL RDW (11.5-15.5) % Lymphocytes # (1.0-4.8) k/uL ABG pCO2 (35-45) mmHg ABG pO2 (83-108) mmHg ABG HCO3 (21-25) mmol/L ABG Total CO2 (19-24) mmol/L ABG O2 Saturation (94-97) % Chloride (98-107) mmol/L BUN (9-20) mg/dL Creatinine (0.66-1.25) mg/dL Glucose (74-99) mg/dL POC Glucose (mg/dL) 276 H 293 H 280 H (75-99) mg/dL 02/23/21 02/23/21 02/23/21 Range/Units 05:50 05:50 13:11 Hgb 11.0 L (13.0-17.5) gm/dL MCH 21.0 L (25.0-35.0) pg MCHC 26.0 L (31.0-37.0) g/dL RDW 31.0 H (11.5-15.5) % Lymphocytes # 0.2 L (1.0-4.8) k/uL ABG pCO2 (35-45) mmHg ABG pO2 (83-108) mmHg ABG HCO3 (21-25) mmol/L ABG Total CO2 (19-24) mmol/L ABG O2 Saturation (94-97) % Chloride 109 H (98-107) mmol/L BUN 73 H (9-20) mg/dL Creatinine 1.46 H (0.66-1.25) mg/dL Glucose 297 H (74-99) mg/dL POC Glucose (mg/dL) 190 H (75-99) mg/dL 02/23/21 Range/Units 16:41 Hgb (13.0-17.5) gm/dL MCH (25.0-35.0) pg MCHC (31.0-37.0) g/dL RDW (11.5-15.5) % Lymphocytes # (1.0-4.8) k/uL ABG pCO2 22 L (35-45) mmHg ABG pO2 110 H (83-108) mmHg ABG HCO3 15 L (21-25) mmol/L ABG Total CO2 15 L (19-24) mmol/L ABG O2 Saturation 98.4 H (94-97) % Chloride (98-107) mmol/L BUN (9-20) mg/dL Creatinine (0.66-1.25) mg/dL Glucose (74-99) mg/dL POC Glucose (mg/dL) (75-99) mg/dL Assessment and Plan (1) Colon adenocarcinoma Narrative/Plan: PT3 N2b MX, grade 3 adenocarcinoma of colon. Plan is for follow-up with Medical Oncology after rehabilitation and healing from surgery-approximately 4-6 weeks. PET scan to complete staging is ordered outpatient, Appointment in discharge plan. Current Visit: Yes Status: Acute Priority: High Code(s): C18.9 - MALIGNANT NEOPLASM OF COLON, UNSPECIFIED SNOMED Code(s): 222980929 (2) Microcytic hypochromic anemia Narrative/Plan: Patient's iron studies show anemia with elevated ferritin. No transfusion needed at this time. Pt has been on iron supplementation since 02/11, discontinued today. Current Visit: Yes Status: Acute Priority: High Code(s): D50.9 - IRON DEFICIENCY ANEMIA, UNSPECIFIED SNOMED Code(s): 38053068
[2021-02-23] MEDS ORDERED: SODIUM CHLORIDE 0.9% 1,000 ML IV ONE (17:44)
[2021-02-23] MEDS ORDERED: NOREPINEPHRIN 4 MG-0.9% NS PMX 0 MG/0 ML ML IV ONE (17:51)
[2021-02-23] MEDS: NOREPINEPHRINE 8 MG in SODIUM CHLORIDE 0.9% 250 ML IV SCH (17:54)
[2021-02-23] MEDS: RIVAROXABAN 15 MG TAB PO SCH (17:55)
[2021-02-23 18:16] LABS: Glucose,Whole Blood 161 mg/dL (75-99)
[2021-02-23 21:37] LABS: Glucose,Whole Blood 146 mg/dL (75-99)
[2021-02-23] MEDS: INSULIN DETEMIR (LEVEMIR) 100 UNIT/ML SYR SQ SCH (21:43)
[2021-02-24] MEDS: NOREPINEPHRINE 8 MG in SODIUM CHLORIDE 0.9% 250 ML IV SCH (00:12)
[2021-02-24 02:38] VITALS: BP 90/40; PULSE 105; RESP 33; TEMP 101.2
[2021-02-24 02:47] LABS: Calcium 7.9 mg/dL (8.4-10.2); Magnesium 1.8 mg/dL (1.6-2.3); Phosphorus 4.5 mg/dL (2.5-4.5); Potassium 5.5 mmol/L (3.5-5.1)
[2021-02-24] MEDS ORDERED: propofoL 100 ML IV ONE (03:39)
[2021-02-24] MEDS ORDERED: SODIUM CHLORIDE 0.9% 150 ML with VASOPRESSIN 60 UNIT IV SCH ×2 (04:00)
[2021-02-24] MEDS ORDERED: LACTATED RINGERS 1,000 ML IV SCH ×2 (04:00)
[2021-02-24] MEDS ORDERED: SODIUM BICARB 8.4% 50 ML SYR (1 MEQ/ML) ONE ×2 (04:08→04:36)
[2021-02-24] MEDS ORDERED: EPINEPHrine 10 ML SYRINGE (0.1 MG/ML) ONE (04:08)
[2021-02-24 04:23] LABS: Glucose,Whole Blood 112 mg/dL (75-99)
[2021-02-24] MEDS ORDERED: DEXTROSE 5% IN WATER 1,000 ML with SODIUM BICARB (1 MEQ/ML) 150 ML IV SCH (04:30)
--- NOTE | 2021-02-24 04:31 | XR ---
EXAMINATION TYPE: XR chest 1V portable DATE OF EXAM: 02/24/2021 COMPARISON: 02/16/2021 HISTORY: Check tube placement TECHNIQUE: FINDINGS: Heart is enlarged. There is some blunting of the costophrenic angles. There is some airspac e infiltrate in both lower lobes. There is mild pulmonary congestion. There is right subclavian jarret ter with the tip in the superior vena cava. The endotracheal tube is 4.5 cm from the soledad. There ar e sternal wires. There are chest leads. IMPRESSION: Mild congestive heart failure that is slightly improved compared to old exam. Cardiomegal y unchanged.
[2021-02-24 05:16] LABS: ABG Base Excess 1.4 mmol/L; ABG HCO3 27 mmol/L (21-25); ABG Oxygen Saturation 92.8 % (94-97); ABG PCO2 47 mmHg (35-45); ABG PH 7.37 (7.35-7.45); ABG PO2 66 mmHg (83-108); ABG TCO2 28 mmol/L (19-24)
[2021-02-24 05:17] LABS: Allen Test Performed? no
--- NOTE | 2021-02-24 05:31 | P.EN ---
code blue note please refer to paper charting of exact events of Code blue, patient was intubated before cardiopulmonary arrest event CPR initiated following ACLS protocol , for asystole arrest. meds pushed epi, bicarb. no shockable rhythm identified. ROSC achieved , rhythm was showing complete heart block. patient went into another cardiopulmonary arrest, again asystole, more meds were given , and ROSC was achieved again we attempted pacing the patient however, he maia down quickly and we had to initiated another round of CPR patient remained in asystole not responding to rescusitation efforts. patient was pronounced. CPR effort suspended. of note, patient started bleeding into the ET tube during the last few rounds of CPR. and foul smelling fecal material was leaking from his abd surgical wound awaiting family to arrive RN to notify primary team and ICU attending
--- NOTE | 2021-02-24 07:04 | PN ---
PROGRESS NOTE DATE OF SERVICE: 02/23/2021 REASON FOR FOLLOWUP: 1. Possible aspiration pneumonia. 2. Left upper extremity skin necrosis and cellulitis. INTERVAL HISTORY: Patient is afebrile. The patient is hemodynamically stable. The patient remains to be pleasantly confused, unable to provide any history on room air. Denies any chest pain or cough. No abdominal pain or any worsening pain to the left arm. PHYSICAL EXAMINATION: Blood pressure 103/28 with a pulse of 103, temperature 98. He is 100% on 6 L nasal cannula. General description is an elderly male lying in bed in no distress. Respiratory system: Unlabored breathing, decreased breath sounds in the base, with some wheeze. Heart S1, S2. Regular rate and rhythm. Abdomen soft, no tenderness. The left arm area skin necrosis with no worsening, redness or drainage. LABS: Hemoglobin is 11.9, white count 8.2, BUN of 73, creatinine 1.46. DIAGNOSTIC IMPRESSION AND PLAN: 1. Patient with a component of aspiration pneumonia , The patient has been extubated. Covered with Zosyn. 2. Left upper extremity skin necrosis, concern for cellulitis covered with daptomycin. The patient's white count normalized. Continue with current antibiotics and monitor clinical course closely. MMODL / IJN: [id number] / MTDD
--- NOTE | 2021-02-24 07:13 | PN ---
PROGRESS NOTE 80-year-old white male, status post colectomy for adenocarcinoma of the colon, status post cardiac arrest. He is more confused today. He is not eating or drinking, not really talking. He is moaning due to some pain. We will possibly get consult with surgeon to put a Dobbhoff tube in for feeding as he is not having any oral intake at this point. He has not gotten out of bed, but has been up to the side of the bed. Shoe Polisher notes were reviewed. Vital signs reviewed. Lungs transmitted upper airway sounds. Cardiovascular S1, S2. GI soft. Extremities show large amounts of third-spacing edema in extremities. ASSESSMENT: 1. Congestive heart failure. 2. Chronic obstructive pulmonary disease. 3. Coronary artery disease. 4. Bowel obstruction. 5. Colectomy. 6. Adenocarcinoma of the colon. 7. Prognosis guarded. Get Dobbhoff feeding tube. Possibly give some Lasix for some third-spacing of fluids and treat for some heart failure. Prognosis extremely guarded in ICU. MMODL / IJN: [id number] /
[2021-02-24] MEDS ORDERED: CHLORHEXIDINE GLUCONATE 15 ML CUP MUCOUS MEM SCH (09:00)
--- NOTE | 2021-02-24 20:02 | PN ---
PROGRESS NOTE ADDENDUM: Cardiogenic shock. MMODL / IJN: [id number] /
--- NOTE | 2021-04-22 13:17 | DS ---
DISCHARGE SUMMARY The patient was admitted with hypoxemic respiratory failure bowel obstruction, resection of mass. After resection of mass he had hypoxia and respiratory failure and ventricular tachycardia cardiac arrest, cardiomyopathy, ejection fraction of 35%, atelectasis, pleural effusion, chronic kidney disease. He received Lasix for diuresis for congestive heart failure. Hospital extended time secondary to respiratory failure and weaning extubation for acute hypoxemic respiratory failure, status post surgery and the V tach. He had left upper extremity wounds with blisters, ventricular tachycardia, VFib, cardiac arrest, acute systolic CHF on chronic, hypoxemic respiratory failure. He was successfully weaned but became more obtunded despite steroids, antibiotics, weaning of vasopressor, sliding scale. He has third-spacing of fluids. On 02/24 patient had code blue, was intubated again, given bicarb. CPR was initiated. He went asystole and did not come back despite cardiac resuscitation in ICU. Prognosis was poor and patient did not make it. Please see further orders. MMODL / IJN: [id number] /
== END 2021-02-24 08:00 | disposition expired | DRG 329 ==
LOC: EC 20:41 → 5NMEDONC 22:18 → 2SICU 02-13 20:54
PROVIDERS: ADMIT Family Medicine; ATTEND Family Medicine
PROC: 0D9670Z Drainage of Stomach with Drainage Device, Via Natural or Artificial Opening (ICD-10-PCS; 2021-02-06)
PROC: 0DTF0ZZ Resection of Right Large Intestine, Open Approach (ICD-10-PCS; principal; 2021-02-08 11:45)
PROC: 0BH17EZ Insertion of Endotracheal Airway into Trachea, Via Natural or Artificial Opening (ICD-10-PCS; 2021-02-13)
PROC: 5A2204Z Restoration of Cardiac Rhythm, Single (ICD-10-PCS; 2021-02-13)
PROC: 5A1945Z Respiratory Ventilation, 24-96 Consecutive Hours (ICD-10-PCS; 2021-02-13)
PROC: 5A12012 Performance of Cardiac Output, Single, Manual (ICD-10-PCS; 2021-02-13)
PROC: 3E033XZ Introduction of Vasopressor into Peripheral Vein, Percutaneous Approach (ICD-10-PCS; 2021-02-14)
PROC: 02HV33Z Insertion of Infusion Device into Superior Vena Cava, Percutaneous Approach (ICD-10-PCS; 2021-02-15)
PROC: B34JZZZ Ultrasonography of Left Upper Extremity Arteries (ICD-10-PCS; 2021-02-15)
PROC: 3E0436Z Introduction of Nutritional Substance into Central Vein, Percutaneous Approach (ICD-10-PCS; 2021-02-16)
PROC: 5A2204Z Restoration of Cardiac Rhythm, Single (ICD-10-PCS; 2021-02-20)
PROC: 3E0G76Z Introduction of Nutritional Substance into Upper GI, Via Natural or Artificial Opening (ICD-10-PCS; 2021-02-23)
PROC: 0D9670Z Drainage of Stomach with Drainage Device, Via Natural or Artificial Opening (ICD-10-PCS; 2021-02-23)
PROC: 5A1935Z Respiratory Ventilation, Less than 24 Consecutive Hours (ICD-10-PCS; 2021-02-24)
PROC: 0BH17EZ Insertion of Endotracheal Airway into Trachea, Via Natural or Artificial Opening (ICD-10-PCS; 2021-02-24)
PROC: 5A12012 Performance of Cardiac Output, Single, Manual (ICD-10-PCS; 2021-02-24)
DX: C18.2 Malignant neoplasm of ascending colon (principal); I50.23 Acute on chronic systolic (congestive) heart failure; N17.0 Acute kidney failure with tubular necrosis; G93.41 Metabolic encephalopathy; J96.01 Acute respiratory failure with hypoxia; J69.0 Pneumonitis due to inhalation of food and vomit; A41.9 Sepsis, unspecified organism; I44.2 Atrioventricular block, complete; I47.2 Ventricular tachycardia; K56.699 Other intestinal obstruction unspecified as to partial versus complete obstruction; C77.2 Secondary and unspecified malignant neoplasm of intra-abdominal lymph nodes; E11.52 Type 2 diabetes mellitus with diabetic peripheral angiopathy with gangrene; E87.2 Acidosis; I96 Gangrene, not elsewhere classified; R18.8 Other ascites; I48.19 Other persistent atrial fibrillation; J98.11 Atelectasis; L03.114 Cellulitis of left upper limb; T82.898A Other specified complication of vascular prosthetic devices, implants and grafts, initial encounter; R57.0 Cardiogenic shock; L89.109 Pressure ulcer of unspecified part of back, unspecified stage; I27.20 Pulmonary hypertension, unspecified; I11.0 Hypertensive heart disease with heart failure; I46.2 Cardiac arrest due to underlying cardiac condition; I49.01 Ventricular fibrillation; E11.65 Type 2 diabetes mellitus with hyperglycemia; J44.9 Chronic obstructive pulmonary disease, unspecified; I71.4 Abdominal aortic aneurysm, without rupture; I70.0 Atherosclerosis of aorta; I07.1 Rheumatic tricuspid insufficiency; E86.0 Dehydration; D50.9 Iron deficiency anemia, unspecified; D35.01 Benign neoplasm of right adrenal gland; E78.5 Hyperlipidemia, unspecified; I25.10 Atherosclerotic heart disease of native coronary artery without angina pectoris; I25.5 Ischemic cardiomyopathy; N14.1 Nephropathy induced by other drugs, medicaments and biological substances; T50.8X5A Adverse effect of diagnostic agents, initial encounter; K57.30 Diverticulosis of large intestine without perforation or abscess without bleeding; I25.2 Old myocardial infarction; K21.9 Gastro-esophageal reflux disease without esophagitis; K59.00 Constipation, unspecified; M51.34 Other intervertebral disc degeneration, thoracic region; M50.90 Cervical disc disorder, unspecified, unspecified cervical region; M47.812 Spondylosis without myelopathy or radiculopathy, cervical region; N40.0 Benign prostatic hyperplasia without lower urinary tract symptoms; E87.6 Hypokalemia; M19.90 Unspecified osteoarthritis, unspecified site; S41.102A Unspecified open wound of left upper arm, initial encounter; T50.1X5A Adverse effect of loop [high-ceiling] diuretics, initial encounter; T38.0X5A Adverse effect of glucocorticoids and synthetic analogues, initial encounter; Z79.02 Long term (current) use of antithrombotics/antiplatelets; Z79.82 Long term (current) use of aspirin; Z79.01 Long term (current) use of anticoagulants; Z79.899 Other long term (current) drug therapy; Z86.73 Personal history of transient ischemic attack (TIA), and cerebral infarction without residual deficits; Z85.828 Personal history of other malignant neoplasm of skin; Z95.5 Presence of coronary angioplasty implant and graft; Z90.89 Acquired absence of other organs; Z95.2 Presence of prosthetic heart valve; Z87.891 Personal history of nicotine dependence; Z98.42 Cataract extraction status, left eye; Z98.41 Cataract extraction status, right eye; Z96.1 Presence of intraocular lens; Z98.890 Other specified postprocedural states; Y84.8 Other medical procedures as the cause of abnormal reaction of the patient, or of later complication, without mention of misadventure at the time of the procedure; Y92.230 Patient room in hospital as the place of occurrence of the external cause; Z82.49 Family history of ischemic heart disease and other diseases of the circulatory system
CPT/HCPCS: 36415; 36573; 36600; 70450; 71045; 71046; 71275; 74018; 74176; 80048; 80053; 81001; 81003; 82330; 82607; 82728; 82746; 82805; 83036; 83540; 83550; 83605; 83690; 83735; 84100; 84132; 84443; 84478; 84484; 85025; 85027; 85379; 85610; 85730; 86850; 86900; 86901; 87040; 87070; 87086; 87205; 88302; 88309; 88341; 88342; 92950; 93005; 93306; 93923; 94002; 94003; 94640; 94760; 96361; 96374; 99285